=== PATIENT | male | born 1975 | race Caucasian/White ===

== ENCOUNTER 2020-03-02 16:42 | Emergency (ER) | payer OTHER, SELFPAY ==
--- NOTE | 2020-03-02 16:48 | XRR_ITS ---
PROCEDURE INFORMATION: Exam: XR Chest, 1 View Exam date and time: 03/02/2020 5:36 PM Age: 44 years old Clinical indication: Right-sided chest pain; Patient HX: Right side chest pain x 3 months TECHNIQUE: Imaging protocol: XR of the chest Views: 1 view. COMPARISON: CT chest [facility] [id number] 12/07/2015 12:41 PM FINDINGS: Lungs: Hyperinflation and interstitial prominence. Pleural space: No pleural effusion. Heart/Mediastinum: Epicardial fat, without cardiomegaly. Bones/joints: Costochondral calcification. XR/XR chest 1V portable [id number] IMPRESSION: Hyperinflation and interstitial prominence.
[2020-03-02 17:14] VITALS: BP 133/95; PULSE 93; RESP 14; TEMP 37.4; O2SAT 96; BMI 25.8
--- NOTE | 2020-03-02 18:23 | CTR_ITS ---
PROCEDURE INFORMATION: Exam: CT Angiography Chest With Contrast Exam date and time: 03/02/2020 7:19 PM Age: 44 years old Clinical indication: Shortness of breath; Additional info: Pleuritic chest pain, SOB TECHNIQUE: Imaging protocol: Computed tomographic angiography of the chest with intravenous contrast. 3D rendering (Not supervised by radiologist): MIP and/or 3D reconstructed images were created by the technologist. Radiation optimization: All CT scans at this facility use at least one of these dose optimization techniques: automated exposure control; mA and/or kV adjustment per patient size (includes targeted exams where dose is matched to clinical indication); or iterative reconstruction. Contrast material: OMNI; Contrast volume: 83 ml; Contrast route: INTRAVENOUS (IV); COMPARISON: CT chest wo con [id number] 12/07/2015 12:41 PM RADIATION DOSE METRICS: Total DLP (mGy-cm): 628.54 FINDINGS: Pulmonary arteries: No visible pulmonary embolism/pulmonary arterial thrombus. Aorta: The thoracic aorta is nonaneurysmal. No visible intimal flap or dissection. Lungs: Mild peripheral acinar emphysema. No visible active interstitial or alveolar airspace disease. Pleural space: Unremarkable. No pneumothorax. No pleural effusion. Heart: Unremarkable. No cardiomegaly. No pericardial effusion. Lymph nodes: No active mediastinal or hilar lymphadenopathy. Evidence of antecedent granulomatous disease calcified hilar complexes. Bones/joints: No visible active or acute osseous abnormality. Hemivertebra/failure segmentation T1 and T2. Straightening of the normal thoracic kyphosis. Stable thoracic asymmetry. Soft tissues: Unremarkable. CT/CT angio chest PE protcl [id number] IMPRESSION: 1. No visible pulmonary embolism/pulmonary arterial thrombus. 2. Mild peripheral acinar emphysema. 3. Antecedent granulomatous disease. Radiation Dose CTDIVOL = (mGy): DLP = 628.54 (mGy-cm)
[2020-03-02 18:56] LABS: Basophils % 0.5 %; Eosinophils # 0.1 10^3/uL (0.0-0.8); Eosinophils % 1.4 %; Hematocrit 47.9 % (42.0-52.0); Hemoglobin 16.6 g/dL (11.7-16.6); Lymphocytes # 2.8 10^3/uL (0.8-4.8); Mean Corpuscular HGB Conc 34.7 g/dL (30.0-36.0); Mean Corpuscular Hemoglobin 34.1 pg (28.0-34.0); Mean Corpuscular Volume 98.4 fL (80-94); Monocytes # 0.7 10^3/uL (0.2-0.9); Monocytes % 8.3 %; Neutrophils # 4.61 10^3/uL (1.8-7.7); Neutrophils % 55.3 %; Nucleated Red Blood Cells % 0 %; Platelet Count 244 10^3/cmm (130-400); Red Blood Count 4.87 10^6/uL (4.1-5.3); Red Cell Distribution Width 12.3 % (12.1-15.1); White Blood Count 8.3 10^3/uL (4.0-10.0)
--- NOTE | 2020-03-02 19:13 | W.ED.SOB ---
HPI - SOB/Dyspnea General: Chief Complaint: Shortness of Breath/Dyspnea Stated Complaint: PNEUMONIA, GETTING WORSE Time Seen by Provider: 03/02/20 18:17 History of Present Illness: HPI Narrative: This patient is a 44-year-old male presenting today with shortness of breath, cough and right sided chest pain. He said the pain feels like pleurisy which she has had in the past. This episode of pain started in October of this year and has been ongoing. He has been to primary care and to the natural science manager several times for it. He has been treated with prednisone, amoxicillin, Zithromax with no improvement. He was seen by the natural science manager a few days ago and referred for pulmonary function testing and CT of his chest. He has not had a fever but he has had green sputum that he coughs up all day long. He said he is a smoker and normally coughs up some in the morning but not this much. His pain is definitely worse with breathing. Eating does not seem to change unless he eats too much and then feels full. That seems to aggravate the pain somewhat. He has not had any nausea or vomiting. No weight loss. No skin rash. 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 He does not have a family history of early onset emphysema. MD elicited complaint: shortness of breath, cough, pain with inspiration and chest pain Pertinent past history: COPD Onset (ago): month(s) (5) Timing: constant and progressively worsening Severity: severe Exacerbating factors: inspiration and deep breaths Relieving factors: nothing Known history of: COPD Associated symptoms: Reports chest pain; Deny abdominal pain, fever(s), nausea or vomiting Review of Systems General: Reports: 10 or more systems reviewed and unremarkable except in HPI and below Const: Denies: fever(s), chills, fatigue or malaise Eyes: Denies: change in vision ENMT: Denies: odynophagia Card: Reports: chest pain; Denies: swelling of feet/ankles Resp: Reports: dyspnea, productive cough and pain on inspiration; Denies: non-productive cough GI: Denies: abdominal pain, nausea or vomiting : Denies: flank pain Musc: Denies: neck pain or back pain Skin/Breast: Denies: rash Neuro: Denies: headache(s), numbness in extremities or weakness in extremities Dale/Lymph: Denies: easy bruising or easy bleeding [facility] ED PFSH: Medical History (Updated 03/02/20 @ 20:23 by Sue Bojorquez MD) COPD (chronic obstructive pulmonary disease) Social History Smoking and tobacco status: current every day smoker cigarettes Packs smoked per day: 0.5 Years cigarettes smoked: 30 Alcohol intake: current Alcohol intake frequency: 3 or more drinks per day Alcohol type: beer Lives independently: Yes Household members: spouse Marital status: service: No Current occupational status: unemployed History of recent travel: No Current gender identity: Male Physical Exam Const: COMMON NORMALS: no acute distress, patient oriented x3, no limitations and alert GENERAL APPEARANCE: cooperative HENMT: HEAD & SCALP: normal to inspection FACE & SINUS: normal facial exam Eye: GENERAL EYE: appearance normal, both eyes and all related structures Neck/C-Spine: COMMON NORMALS: supple, no meningeal signs and no JVD Chest: COMMONS NORMALS: normal inspection of the chest Resp: COMMON NORMALS: normal respiratory effort, No use of accessory muscles and clear to auscultation bilaterally AUSCULTATION: clear to auscultation bilaterally and diminished lung sounds (Slightly decreased in the right base anteriorly) Cardio: COMMON NORMALS: no JVD, regular rate, regular rhythm and No murmurs present (Cardio) RATE: regular rate RHYTHM: regular rhythm GI: COMMON NORMALS: Normal to inspection, nondistended, normoactive bowel sounds present, Soft to palpation and non-tender INSPECTION: Yes normal to inspection AUSCULTATION: Yes normoactive bowel sounds PALPATION: Yes Soft to palpation Back/Pelvis: COMMON NORMALS: thoracic and lumbar spine normal to inspection Extremity: COMMON NORMALS: normal to inspection Neuro: COMMON NORMALS: patient oriented x3, moves all extremities, no focal motor deficits and no sensory deficits noted SENSORIUM/ORIENTATION: Yes alert MENINGEAL SIGNS: Yes no meningeal signs Psych: COMMON NORMALS: mental status grossly normal, cooperative and normal affect Skin: COMMON NORMALS: no rashes or lesions noted and turgor normal GENERAL SKIN EXAM: no rashes or lesions noted and turgor normal Course ED course: Patient with ongoing pleuritic type pain for for 5 months[address] No clear cause. CT was negative for anything that would explain his symptoms. He is in the process of an outpatient work-up with his new natural science manager. We discussed other possible causes such as nerve, muscle, liver pathology. I gave him a prescription for pain medicine and muscle relaxer for home and he will continue his outpatient work-up. Vital Signs: Vital signs: Vital Signs Temperature 99.4 F 03/02/20 17:14 Pulse Rate 78 03/02/20 20:44 Respiratory Rate 17 03/02/20 20:44 Blood Pressure 133/68 03/02/20 20:44 Pulse Oximetry 98 03/02/20 20:44 MDM - SOB/Dyspnea Lab Data: Labs: Lab Results 03/02/20 03/02/20 Range/Units 18:35 18:35 WBC 8.3 (4.0-10.0) 10^3/ uL RBC 4.87 (4.1-5.3) 10^6/u L Hgb 16.6 (11.7-16.6) g/dL Hct 47.9 (42.0-52.0) % MCV 98.4 H (80-94) fL MCH 34.1 H (28.0-34.0) pg MCHC 34.7 (30.0-36.0) g/dL RDW 12.3 (12.1-15.1) % Plt Count 244 (130-400) 10^3/c mm MPV 10.0 (7.4-10.4) fL Neut % (Auto) 55.3 % Lymph % (Auto) 34.0 % [place] % (Auto) 8.3 % Eos % (Auto) 1.4 % Baso % (Auto) 0.5 % Neut # (Auto) 4.61 (1.8-7.7) 10^3/u L Lymph # (Auto) 2.8 (0.8-4.8) 10^3/u L [place] # (Auto) 0.7 (0.2-0.9) 10^3/u L Eos # (Auto) 0.1 (0.0-0.8) 10^3/u L Baso # (Auto) 0.0 (0.0-0.1) 10^3/u L Nucleated RBC % (a uto) 0 % Nucleated RBCs # 0.0 /100WBC Sodium 137 (136-145) mmol/L Potassium 3.7 (3.5-5.1) mmol/L Chloride 101 (98-107) mmol/L Carbon Dioxide 23 (22-29) mmol/L Anion Gap 16.7 (5-19) BUN 7 (6-20) mg/dL Creatinine 0.8 (0.7-1.2) mg/dL GFR Calculation 104.1 (90-130) mL/min Glucose 100 (65-115) mg/dL Calculated Osmolal ity 280 L (285-295) mOsm/k g Calcium 9.1 (8.5-10.5) mg/dL Total Bilirubin 0.7 (0.15-1.2) mg/dL AST 39 (0-40) U/L ALT 44 H (0-41) U/L Alkaline Phosphata se 59 (40-130) IU/L Total Protein 7.2 (6.6-8.7) g/dL Albumin 4.8 (3.5-5.2) g/dL Globulin 2.4 (1.3-4.6) g/dL Discharge Plan Discharge Patient Disposition: Home Clinical Impression: Pleurisy COPD (chronic obstructive pulmonary disease) Qualifiers: COPD type: unspecified COPD Qualified Code(s): J44.9 - Chronic obstructive pulmonary disease, unspecified Condition: Stable Prescriptions: New oxycodone-acetaminophen 10-325 mg tablet 1 tab PO Q6H PRN (Reason: pain) Qty: 30 RF: 0 cyclobenzaprine 10 mg tablet 10 mg PO TID PRN (Reason: muscle spasm) Qty: 30 RF: 0 No Action albuterol sulfate [Ventolin HFA] 90 mcg/actuation HFA aerosol inhaler 2 puff INHALATION Q6H PRN (Reason: Shortness Of Breath) RF: 0 metoprolol tartrate 25 mg tablet 12.5 mg PO BID RF: 0 amlodipine 10 mg tablet 10 mg PO DAILY RF: 0 fluticasone propion-salmeterol [Advair Diskus] 250-50 mcg/dose blister with device 1 inh INHALATION BID RF: 0 naproxen 500 mg tablet 500 mg PO BID RF: 0 Discharge Orders: Discharge Order (Routine); Ordered 03/02/20 Ordered By: Sue Bojorquez Referrals: Ed Schaeffer, [employer] MANAGER [Primary Care Provider] - Discharge Diet: Usual diet Discharge Activity: Resume usual activity Patient Instructions: Pleurisy (ED) Activity Restrictions/Additional Instructions: Return to the emergency department if worsening shortness of breath, pain, fever. Continue your usual medications. Use the pain medication and muscle relaxer as needed. You may also continue naproxen with these medicines. Continue follow-up with your natural science manager as planned. Discharge Date/Time: 03/02/20 20:46 Coding Level of Care Code ED Crew Dispatcher for Chg Fwd Exam Comprehensive
[2020-03-02 19:14] LABS: Alanine Aminotransferase 44 U/L (0-41); Albumin Level 4.8 g/dL (3.5-5.2); Alkaline Phosphatase 59 IU/L (40-130); Anion Gap 16.7 (5-19); Aspartate Amino Transferase 39 U/L (0-40); Blood Urea Nitrogen 7 mg/dL (6-20); Calcium 9.1 mg/dL (8.5-10.5); Carbon Dioxide 23 mmol/L (22-29); Chloride 101 mmol/L (98-107); Globulin 2.4 g/dL (1.3-4.6); Glomerular Filtration Rate 104.1 mL/min (90-130); Glucose 100 mg/dL (65-115); Osmolality Calculated 280 mOsm/kg (285-295); Potassium 3.7 mmol/L (3.5-5.1); Sodium 137 mmol/L (136-145); Total Bilirubin 0.7 mg/dL (0.15-1.2); Total Protein 7.2 g/dL (6.6-8.7)
[2020-03-02 19:17] VITALS: RESP 17; O2SAT 96
[2020-03-02] MEDS: oxyCODONE-APAP 5-325 mg Tablet 1 TAB PO (19:17)
[2020-03-02] MEDS: iohexol 350 mg/mL 100 mL Btl IV (19:41)
[2020-03-02 20:44] VITALS: BP 133/68; PULSE 78; RESP 17; O2SAT 98
== END 2020-03-02 20:46 | disposition home or self-care (01) ==
PROVIDERS: Physician Assistant; Emergency Provider Emergency Medicine; PCP Nurse Practitioner
DX: J44.9 Chronic obstructive pulmonary disease, unspecified (principal); R09.1 Pleurisy; F17.210 Nicotine dependence, cigarettes, uncomplicated
CPT/HCPCS: 12345; 36415; 71045; 71275; 80053; 85025; 99281; 99283; Q9967

== ENCOUNTER 2020-03-07 | Outpatient (CLI) | payer OTHER, SELFPAY ==
[2020-03-07 14:15] VITALS: O2SAT 98
== END 2020-03-07 23:00 | disposition home or self-care (01) ==
LOC: RT 03-29 12:27
PROVIDERS: PCP Nurse Practitioner; Visit Provider Internal Medicine Pulmonary Disease
DX: J44.9 Chronic obstructive pulmonary disease, unspecified (principal)
CPT/HCPCS: J7611

== ENCOUNTER 2020-03-07 13:33 | Outpatient (CLI) | payer OTHER, SELFPAY ==
--- NOTE | 2020-03-07 13:44 | CT_ITS ---
WS: [id number] CT CHEST TECHNIQUE: Noncontrast CT of the chest with coronal and sagittal reformatted images. CLINICAL INFORMATION: Lung nodule COMPARISON: CT chest March 02, 2020, November 29, 2015, July 28, 2015. DLP: 712.[address] scans at [facility] use at least one of these dose optimization techniques: automat ed exposure control; mA and/or kV adjustment per patient size (includes targeted exams where dose is matched to clinical indication); or iterative reconstruction. FINDINGS: Both lungs are well aerated. No acute pulmonary infiltrates. Mild chronic emphysematous changes with bulla formation in the upper lobes. 3.3 pulmonary nodule in the right middle lobe measures slightly m ore prominent today. Recommend 12 month follow-up. Otherwise no new pulmonary nodules. No acute pulmo nary infiltrates. No consolidation or pleural fluid. No mediastinal or hilar lymphadenopathy. No axillary lymphadenopathy. Adrenal glands are normal. Norm al GE junction. Mild thoracic curve. CT/CT chest wo con [id number] IMPRESSION: 1. Mild chronic emphysematous changes with a few bullae in the upper lobes. 2. 3.3 mm pulmonary nodule right middle lobe measures slightly more prominent today. Recommend additional 12 month follow-up. 3. No new pulmonary nodules. 4. No acute pulmonary infiltrates. No consolidation or pleural fluid.
--- NOTE | 2020-03-07 14:24 | PFTS_ITS ---
Date of Study:03/07/20 Date of Dictation: MECHANICS: Forced vital capacity (FVC) is reduced. Forced expiratory volume in one second (FEV1) is reduced. FEV1/FVC is normal. FLOW VOLUME LOOP: Mild scooping. LUNG VOLUMES: Total lung capacity (TLC) is reduced. Residual volume (RV) is reduced. DIFFUSING CAPACITY FOR CARBON MONOXIDE: Moderate reduced. INTERPRETATION: The postbronchodilator spirometry is consistent with mild restriction. There is significant postbronchodilator response.. Lung volumes are consistent with restriction. Gas exchange (DLCO) is moderately reduced. MTDD
== END 2020-03-07 13:34 | disposition home or self-care (01) ==
LOC: RAD 13:35
PROVIDERS: PCP Nurse Practitioner; Visit Provider Internal Medicine Pulmonary Disease
DX: R91.1 Solitary pulmonary nodule (principal); J43.9 Emphysema, unspecified
CPT/HCPCS: 71250; 94060; 94726; 94729; J7611

== ENCOUNTER 2020-04-03 06:48 | Outpatient (CLI) | payer OTHER, SELFPAY ==
--- NOTE | 2020-04-03 | US_ITS ---
WS: [id number] ULTRASOUND ABDOMEN CLINICAL INFORMATION: ABDOMINAL DISTENSION IN ALCOHOLIC COMPARISON: None. FINDINGS: Liver Size: Mild hepatomegaly Craniocaudal length: 16.1 cm. Echogenicity: Normal. Surface nodularity: None. Mass (size and location): None. Bile ducts Intrahepatic ducts: Normal. Common bile duct diameter: 0.3 cm. Gallbladder Removed Pancreas Normal as visualized. Spleen Splenomegaly: None. Craniocaudal length: 10.7 cm. Right kidney: Normal. Hydronephrosis: None. Size: 11.6 cm x 5.2 cm x 4.8 cm Left kidney: Normal. Hydronephrosis: None. Size: 10.7 cm x 5.3 cm x 5.8 cm. Abdominal aorta and IVC Visualized portions are normal. Ascites: None. US/US abdomen complete* [id number] IMPRESSION: 1. Mild hepatomegaly. 2. Prior cholecystectomy. 3. No hydronephrosis in either kidney. 4. Normal spleen.
--- NOTE | 2020-04-03 08:00 | USCV_ITS ---
NOTE: Report was unsigned for reason: Order was edited. Original Signature date and time was: 04/03/20 @2020 August Schneider Age: 44 Gender: M : 1975 Exam Date: 04/03/2020 07:41 Ordering Phys: Percy Asher MD Technologist: Jennifer Anderson Exam Location: [facility] [place] Indication: SOB WITH LEG SWELLING BP: 130 / 80 HR: 74 Rhythm: Sinus Technical Quality: Adequate MEASUREMENTS (Male / Female) Normal Values 2D ECHO LV Diastolic Diameter PLAX 4.7 cm 4.2 - 5.9 / 3.9 - 5.3 cm LV Systolic Diameter PLAX 2.2 cm LV Chamber Size 3.7 cm IVS Diastolic Thickness 0.9 cm 0.6 - 1.0 / 0.6 - 0.9 cm IVS Systolic Thickness 1.4 cm LVPW Diastolic Thickness 1.2 cm 0.6 - 1.0 / 0.6 - 0.9 cm LVPW Systolic Thickness 1.8 cm RV Chamber Size 3.1 cm LVOT Diameter 2.0 cm LV Ejection Fraction 2D Teich 84.6 % LV Ejection Fraction MOD 2C 68.1 % LV Ejection Fraction 2C AL 70.6 % LA Diameter 3.1 cm LA Width 2.7 cm LA Height 3.8 cm RA Width 3.8 cm RA Height 5.0 cm Aorta at Sinotubular Diameter 3.3 cm M-MODE LV Diastolic Diameter MM 4.7 cm 4.2 - 5.9 / 3.9 - 5.3 cm LV Systolic Diameter MM 2.3 cm LV Ejection Fraction MM Teich 82.7 % IVS Diastolic Thickness MM 0.7 cm 0.6 - 1.0 / 0.6 - 0.9 cm IVS Systolic Thickness MM 1.6 cm LVPW Diastolic Thickness MM 0.7 cm 0.6 - 1.0 / 0.6 - 0.9 cm LVPW Systolic Thickness MM 1.6 cm RV Diastolic Diameter MM 1.6 cm Aortic Annulus Diameter 3.8 cm LA Ao Ratio MM 0.8 MV E Point Septal Separation 0.3 cm DOPPLER AV Peak Velocity 126.0 cm/s LVOT Peak Velocity 85.0 cm/s AV Area Cont Eq vti 2.5 cm squared AV Area Cont Eq pk 2.2 cm squared MV Area PHT 4.8 cm squared Mitral E to A Ratio 1.2 MV E' Velocity 8.0 cm/s Mitral E to MV E' Ratio 7.7 Mitral E to LV E' Lateral Ratio 8.8 Mitral E to LV E' Septal Ratio 7.0 TR Peak Velocity 187.6 cm/s TR Peak Gradient 14.1 mmHg TR Mean Velocity 145.6 cm/s TR Mean Gradient 9.1 mmHg TR Velocity Time Integral 47.3 cm TV Peak E Velocity 55.0 cm/s Right Atrial Pressure 3.0 mmHg Pulmonary Artery Systolic Pressu 17.1 mmHg PV Peak Velocity 53.0 cm/s RV Acceleration Time 0.1 s RV Ejection Time 0.3 s RV AcT/ET 0.4 FINDINGS Left Ventricle Normal left ventricular cavity size. Normal left ventricular systolic function. No regional wall motion abnormalities. Left ventricular ejection fraction is estimated at 60 %. Grade II/IV diastolic dysfunction, moderately elevated filling pressures. Right Ventricle The right ventricle is normal in size and function. Right Atrium The right atrium is normal in size. Left Atrium The left atrium is normal in size. Mitral Valve Structurally normal mitral valve without significant stenosis or prolapse. There is no mitral regurgitation. Aortic Valve Moderate aortic valve calcification. No aortic valve stenosis. No aortic valve regurgitation. Tricuspid Valve Structurally normal tricuspid valve without significant stenosis or regurgitation. Pulmonary artery systolic pressure is normal. Pulmonic Valve Structurally normal pulmonic valve without significant stenosis. There is no pulmonic regurgitation. Pericardium Normal pericardium without effusion. Aorta Normal ascending aorta dimension. CONCLUSIONS 1-Normal left ventricular cavity size. Normal left ventricular systolic function. No regional wall motion abnormalities. Left ventricular ejection fraction is estimated at 60 %. Grade II/IV diastolic dysfunction, moderately elevated filling pressures. 2-There is no pericardial effusion. 3-No significant valve abnormalities. 4-Pulmonary artery systolic pressure is within normal limits. 5-Right atrial pressure is around 5 mm of mercury. 6-There are no prior echocardiogram studies to compare. Hollis Obando MD Edited by: CV Sheet Rock Hanger (Electronically Signed) Final Date: 03 April 2020 20:21 Amended: 04 April 2020 07:47 C GERALDD
[2020-04-03 08:06] LABS: C Reactive Protein 1.8 mg/L (0.0-4.9)
[2020-04-03 08:24] LABS: Erythrocyte Sedimentation Rate 6 mm/hr (0-10)
[2020-04-04 13:52] LABS: Anti-Nuclear Antibody Screen NEGATIVE (NEGATIVE)
[2020-04-04 14:22] LABS: Cyclic Citrullinated Peptide <16 UNITS
[2020-04-04 15:17] LABS: SCL 70 <1.0 NEG AI (<1.0 NEG); SS A Ro Sjogrens Antibody <1.0 NEG AI (<1.0 NEG); SS-B/LA IGG <1.0 NEG AI (<1.0 NEG)
== END 2020-04-03 06:49 | disposition home or self-care (01) ==
PROVIDERS: PCP Nurse Practitioner; Visit Provider Internal Medicine Pulmonary Disease
DX: M79.89 Other specified soft tissue disorders (principal); R06.02 Shortness of breath; F17.200 Nicotine dependence, unspecified, uncomplicated; J44.9 Chronic obstructive pulmonary disease, unspecified; R91.1 Solitary pulmonary nodule; J98.4 Other disorders of lung; G70.9 Myoneural disorder, unspecified; R14.0 Abdominal distension (gaseous); R16.0 Hepatomegaly, not elsewhere classified
CPT/HCPCS: 36415; 76700; 85651; 86038; 86140; 86235; 86431; 93306

== ENCOUNTER 2020-09-09 13:49 | Emergency (ER) | payer OTHER, SELFPAY ==
[2020-09-09 14:08] VITALS: BP 137/59; PULSE 94; RESP 14; TEMP 36.8; O2SAT 97; BMI 25.8
--- NOTE | 2020-09-09 14:10 | ED_ITS ---
HPI - Back Pain/Injury General: Chief Complaint: Back Pain/Injury Stated Complaint: lower back pain Time Seen by Provider: 09/09/20 14:09 Source: patient Mode of arrival: ambulatory Limitations: no limitations History of Present Illness: HPI Narrative: Patient is a nice 44-year-old gentleman who presents to ED today for evaluation of lower back pain. Patient tells me 1 week ago he was getting up from his recliner when he immediately felt severe lower back pain. He states over the course of the week the pain has progressively worsened. He states pain seems to radiate down the posterior aspect of his left leg. He tells me he has had intermittent lower back pains previously but nothing compared to this. Patient is not having any complaints of pelvic paresthesias, urinary retention, or bowel incontinence. Patient is ambulatory without assistance. MD elicited complaint: back pain Onset (ago): day(s) Timing: constant Severity: severe Location: lumbar spine Radiation: left leg below the knee Exacerbating factors: movement, walking and lifting Relieving factors: none Associated symptoms: Deny abdominal pain, chills, dysuria, fever(s), hematuria, nausea or vomiting Work related injury: No Review of Systems Const: Denies: fever(s) or chills Card: Denies: chest pain Resp: Denies: dyspnea GI: Denies: abdominal pain, nausea or vomiting : Denies: dysuria or hematuria Musc: Reports: back pain; Denies: neck pain or extremity pain Neuro: Denies: numbness in extremities, weakness in extremities or sensory changes [facility] ED PFSH: Medical History (Updated 09/09/20 @ 15:06 by SCOTT Giraldo) COPD (chronic obstructive pulmonary disease) HTN (hypertension) Mitral valve prolapse Surgical History (Updated 06/17/20 @ 22:19 by Anca Elaine MD) H/O hernia repair H/O shoulder surgery H/O vasectomy History of cholecystectomy History of surgery on upper extremity History of testicular surgery Family History Other CAD (coronary artery disease) Diabetes Hyperlipidemia Hypertension Denies family history of Stroke Social History Smoking and tobacco status: current every day smoker cigarettes Packs smoked per day: 0.5 Years cigarettes smoked: 30 Second hand smoke exposure: No Alcohol intake: current Alcohol intake frequency: 3 or more drinks per day Alcohol type: beer Lives independently: Yes Household members: spouse Marital status: service: No Current occupational status: unemployed History of recent travel: No Current gender identity: Male Physical Exam Const: COMMON NORMALS: average body habitus, patient oriented x3, no limitations, healthy appearing, alert and well nourished GENERAL APPEARANCE: cooperative and in distress (appears uncomfortable) ORIENTATION/CONSCIOUSNESS: Yes awake, Yes oriented to person, Yes oriented to place and Yes oriented to time Back/Pelvis: THORACIC SPINE/UPPER BACK: Yes normal to inspection and Yes thoracic ROM normal LUMBAR SPINE/LOWER BACK: Yes lumbar spinal tenderness Lumbar spinal tenderness location: L4 and L5 and No paraspinal muscle tenderness SACROILIAC JOINTS: Yes SI joint(s) abnormal SI joint details: tender to palpation (L) Extremity: COMMON NORMALS: normal to inspection GENERAL: Yes normal exam except as noted Neuro: COMMON NORMALS: patient oriented x3, moves all extremities, no focal motor deficits and no sensory deficits noted SENSORIUM/ORIENTATION: Yes alert, Yes oriented to person, Yes oriented to place and Yes oriented to time SENSORY EXAM: Yes extremities (normal sensory to bilateral LEs) MOTOR EXAM: 5/5 motor strength present throughout Course Vital Signs: Vital signs: Vital Signs Temperature 98.2 F 09/09/20 14:08 Pulse Rate 89 09/09/20 15:19 Respiratory Rate 18 09/09/20 15:19 Blood Pressure 136/89 09/09/20 15:19 Pulse Oximetry 96 09/09/20 15:19 MDM - Back Pain/Injury MDM Narrative: Medical decision making narrative: Patient does not want LSO brace today. States he has a velcro back brace at home he will use if needed. Patient states he doesn't want to follow up with his PCP in [place] stating they never do anything there . I will place info with for patient to see Dr. Qureshi for further evaluation and management of his L5 compression fx. Return to ED precautions given. Imaging Data^: XR lumbar: My impression: L5 compression fx Discharge Plan Discharge Patient Disposition: Home Clinical Impression: Closed compression fracture of L5 vertebra Qualifiers: Encounter type: initial encounter Qualified Code(s): S32.050A - Wedge compression fracture of fifth lumbar vertebra, initial encounter for closed fracture Condition: Stable Prescriptions: New cyclobenzaprine 10 mg tablet 10 mg PO TID Qty: 14 RF: 0 prednisone 10 mg tablet 60 mg PO DAILY 5 Days Qty: 30 RF: 0 ibuprofen 800 mg tablet 800 mg PO Q8H PRN (Reason: pain) Qty: 20 RF: 0 hydrocodone-acetaminophen 5-325 mg tablet 1 tab PO Q4H PRN (Reason: pain) Qty: 20 RF: 0 Discontinued naproxen 500 mg tablet 500 mg PO BID RF: 0 No Action albuterol sulfate [Ventolin HFA] 90 mcg/actuation HFA aerosol inhaler 2 puff INHALATION Q6H PRN (Reason: Shortness Of Breath) RF: 0 amlodipine 10 mg tablet 10 mg PO DAILY RF: 0 nicotine 21 mg/24 hr patch 24 hour 1 patch TRANSDERMA Q24H Qty: 14 RF: 5 budesonide-formoterol [Symbicort] 160-4.5 mcg/actuation HFA aerosol inhaler 2 puff INHALATION BID Qty: 10.2 RF: 3 Spiriva with HandiHaler 18 mcg capsule, w/inhalation device 1 cap INHALATION DAILY Qty: 1 RF: 3 metoprolol tartrate 25 mg tablet 25 mg PO BID RF: 0 oxycodone-acetaminophen 10-325 mg tablet 1 tab PO Q6H PRN (Reason: pain) Qty: 30 RF: 0 cyclobenzaprine 10 mg tablet 10 mg PO TID PRN (Reason: muscle spasm) Qty: 30 RF: 0 Discharge Orders: Discharge ED (Routine); Ordered 09/09/20 Ordered By: Daisy Farrar Referrals: Thomas Qureshi DO [Physician] - Ed Schaeffer FNP [Primary Care Provider] - Patient Instructions: Vertebral Compression Fracture (ED) Coding Level of Care Code ED Fish Skinning Machine Feeder for Chg Fwd Exam Expanded Problem Focused
--- NOTE | 2020-09-09 14:20 | XRR_ITS ---
PROCEDURE INFORMATION: Exam: XR Lumbosacral Spine, 2 or 3 Views Exam date and time: 09/09/2020 2:21 PM Age: 44 years old Clinical indication: Low back pain TECHNIQUE: Imaging protocol: XR of the lumbosacral spine, 2 or 3 views. COMPARISON: No relevant prior studies available. FINDINGS: Bones/joints: Normal. No acute fracture. Normal alignment. Bone spurs are present in the L5 vertebral body. Soft tissues: Unremarkable. XR/XR lumbar spine 2-3V* [id number] IMPRESSION: No acute findings.
[2020-09-09] MEDS: orphenadrine 30 mg/mL Inj 2 mL 60 MG IM (14:31)
[2020-09-09] MEDS: ketorolac 60 mg/2 mL INJ IM (14:31)
[2020-09-09 15:19] VITALS: BP 136/89; PULSE 89; RESP 18; O2SAT 96
--- NOTE | 2020-09-11 10:22 | DCPLANNER ---
inside sales manager had message to schedule a follow up appointment for patient with ortho. inside sales manager called the ortho clinic, spoke with Allyn, gave clinic patients information. inside sales manager was told that patients information would be printed and reviewed. Clinic will call patient with appointment information.
--- NOTE | 2020-09-12 12:12 | DCPLANNER ---
Patient has a follow up appointment scheduled for , September 14, 2020 at 3:[address] Qureshi. Clinic will call patient with appointment information.
--- NOTE | 2020-11-01 12:43 | DCPLANNER ---
Patient had a follow up appointment scheduled for 09.14.[address] Qureshi at [facility] - patient did attend appointment.
== END 2020-09-09 15:15 | disposition home or self-care (01) ==
PROVIDERS: Emergency Provider Physician Assistant; PCP Nurse Practitioner
DX: S32.050A Wedge compression fracture of fifth lumbar vertebra, initial encounter for closed fracture (principal); J44.9 Chronic obstructive pulmonary disease, unspecified; I10 Essential (primary) hypertension; F17.210 Nicotine dependence, cigarettes, uncomplicated; X58.XXXA Exposure to other specified factors, initial encounter
CPT/HCPCS: 12345; 72100; 96372; 99281; 99283; J1885; J2360

== ENCOUNTER 2020-10-04 12:15 | Outpatient (CLI) | payer OTHER, SELFPAY ==
--- NOTE | 2020-10-04 | USCV_ITS ---
August Schneider Age: 45 Gender: M : 1975 Exam Date: 10/04/2020 12:55 Ordering Phys: Anca Elaine MD Technologist: Wesley Martinez Exam Location: [facility] [place] Indication: sob Rhythm: Sinus Patient History: Cardiac Medications: Medications in past 24 hours: Contrast: Stress Results Protocol: Ben Total dose(mL): Exercise Duration (min:sec): 10:35 METS: Resting HR: 96 Resting BP: 140 / 90 Peak HR: 154 Peak BP: 153 / 93 Max Predicted HR: 173 89 % Max Predicted HR Target HR: 147 Double Product: [id number] Stress Summary: The hemodynamic response to stress was normal. The patient's target heart rate was achieved. BP Response: Normal Reason for Termination: The patients target heart rate was achieved Cardiac Symptoms: ECG Analysis Resting ECG: Stress ECG: Arrhythmia: MEASUREMENTS (Male/Female) Normal Values FINDINGS 1. At the baseline, the patient's blood pressure was 140/90 mmHg with a heart rate of 102 beats per minute. The electrocardiogram showed normal sinus rhythm, right axis deviation. Possible left atrial enlargement. Nonspecific ST depression. The chest examination revealed normal breath sounds with no rales or rhonchi. The CVS examination revealed normal heart sounds with no S3 or S4. 2. The Dobutamine was infused over 10 minutes 35 seconds. The maximum heart rate obtained was 154 per minute. The patient attained 89% of the maximum predicted heart rate. The blood pressure at the end of the infusion was 152/68 mmHg. Patient did not have any chest pain or any significant arrhythmias with the Dobutamine infusion. At peak infusion EKG revealed sinus tachycardia with 1 to 1-1/[address] depression in inferolateral leads. The physical examination remained unchanged. No arrhythmias were seen on the monitor. 3. At the baseline, the patient's echocardiogram revealed normal cardiac chamber sizes with normal LV ejection fraction of 55%. Segmental wall motion analysis revealed mild hypokinesis of basal to mid inferoseptal and basal to mid inferior pepe. There were no intracardiac masses. No significant pericardial effusion. 4. With the low Dobutamine infusion, there was augmentation in basal to mid inferoseptal and basal to mid inferior pepe with some worsening of motion and inferoseptal pepe at peak infusion. 5. During the recovery phase, the patient did not have any symptoms or any EKG changes. The blood pressure at the end of the recovery phase was 129/93 mmHg with a heart rate of 98 beats per minute. 6. The echocardiogram during the recovery phase also did not reveal any new changes. CONCLUSIONS 1. Ischemic EKG changes noted with dobutamine infusion with horizontal to downsloping ST depression in inferolateral leads. 2. With the low Dobutamine infusion, there was augmentation in basal to mid inferoseptal pepe with some worsening of motion at peak infusion. This may represent old myocardial infarction in right coronary artery territory with some viability. 3. No Dobutamine-induced chest pain or cardiac arrhythmia. 4. Clinical correlation is recommended. Anca Elaine MD (Electronically Signed) Final Date: 09 October 2020 13:31 TUSHAR
[2020-10-04 12:23] VITALS: BMI 25.1
--- NOTE | 2020-10-04 12:23 | ECG_ITS ---
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 Interpretive Statements NAME OF STUDY: DOBUTAMINE STRESS ECHOCARDIOGRAM INDICATION: Shortness of breath PROCEDURE: At the baseline, the blood pressure was 140/90 mmHg, oxygen saturation 97% with a heart rate of 102 bpm. The electrocardiogram showed normal sinus rhythm, right axis deviation. Possible left atrial enlargement. Nonspecific ST depression. The dobutamine was infused over a period of 10 minutes 35 seconds. The maximum heart rate obtained was 154 beats per minute (89% of the maximum predicted heart rate). The blood pressure at that time was 152/68 mmHg oxygen saturation 96%. The patient did not have any chest pain or any significant arrhythmia with the dobutamine infusion. EKG at peak infusion revealed sinus tachycardia with 1 to 1 and 1/[address] depression in inferolateral leads. The physical examination remained unchanged. No arrhythmias were seen on the monitor. During the recovery phase, the patient did not have any specific symptoms. The blood pressure at the end of the recovery phase was 129/93 mmHg, oxygen saturation 95% with a heart rate of 98 beats per minute. Downsloping ST depression and T wave inversion noted in inferolateral leads in recovery. CONCLUSION: 1. Ischemic EKG changes with dobutamine infusion. 2. Baseline hypertension with normal blood pressure response to dobutamine infusion. 3. Functional capacity could not be assessed given pharmacological protocol. 4. Echocardiographic portion of the study pending; see separate report. Electronically Signed On 10-09-2020 13:17:46 DEVELOPER ARCHITECT by Anca Elaine M.D. [id number]
[2020-10-04] MEDS: sodium chloride 0.9% 250 ML 75 ML IV (12:58)
[2020-10-04] MEDS: DOBUTtamine 200 MG in sodium chloride 0.9% 34 ML 12 MG IV (13:12)
[2020-10-04 13:25] VITALS: BP 129/93; PULSE 96
== END 2020-10-04 12:16 | disposition home or self-care (01) ==
LOC: CDL 12:16
PROVIDERS: PCP Nurse Practitioner; Visit Provider Internal Medicine Cardiovascular Disease
DX: R06.02 Shortness of breath (principal)
CPT/HCPCS: 93017; 93350; J1250; J7050

== ENCOUNTER 2020-10-12 06:00 | Outpatient (RCR) | payer OTHER, SELFPAY | END 2020-11-08 23:59 | disposition home or self-care (01) | LOC: GPT 06:00 | PROVIDERS: PCP Nurse Practitioner; Referring Provider Orthopaedic Surgery; Visit Provider Orthopaedic Surgery | DX: M48.062 Spinal stenosis, lumbar region with neurogenic claudication (principal) | CPT/HCPCS: 97032; 97110; 97162; 97530 ==

== ENCOUNTER 2020-11-07 08:48 | Day surgery (SDC) | payer OTHER, SELFPAY ==
[2020-11-07] VITALS (13 sets, daily range): BP systolic 106–141; BP diastolic 82–98; PULSE 71–83; RESP 15–22; TEMP 36.3; O2SAT 94–96; BMI 26.5
[2020-11-07] MEDS: diphenhydrAMINE 50 mg Capsule PO (09:24)
[2020-11-07 09:31] LABS: Basophils % 0.6 %; Eosinophils # 0.1 10^3/uL (0.0-0.8); Eosinophils % 0.9 %; Hematocrit 51.6 % (42.0-52.0); Hemoglobin 17.2 g/dL (11.7-16.6); Lymphocytes # 2.2 10^3/uL (0.8-4.8); Lymphocytes % 32.8 %; Mean Corpuscular HGB Conc 33.3 g/dL (30.0-36.0); Mean Platelet Volume 9.8 fL (7.4-10.4); Monocytes # 0.6 10^3/uL (0.2-0.9); Neutrophils % 56.3 %; Nucleated Red Blood Cells % 0 %; Platelet Count 241 10^3/cmm (130-400); Red Blood Count 5.06 10^6/uL (4.1-5.3); Red Cell Distribution Width 14.1 % (12.1-15.1); White Blood Count 6.8 10^3/uL (4.0-10.0)
[2020-11-07 09:43] LABS: Anion Gap 13.9 (5-19); Blood Urea Nitrogen 9 mg/dL (6-20); Calcium 8.8 mg/dL (8.5-10.5); Carbon Dioxide 27 mmol/L (22-29); Chloride 105 mmol/L (98-107); Glomerular Filtration Rate 90.4 mL/min (90-130); Glucose 89 mg/dL (65-115); Osmolality Calculated 292 mOsm/kg (285-295); Potassium 3.9 mmol/L (3.5-5.1); Sodium 142 mmol/L (136-145)
[2020-11-07 09:58] LABS: SARS Covid-2 Antigen Negative (Negative)
--- NOTE | 2020-11-07 10:00 | XACV_ITS ---
Ht: 178 cm Wt: 84 kg BSA: 2.05 m2 Gender: Male : 1975 Any Known Allergies: No known allergies Exam Priority: Routine Procedure(s): Procedure Description: Diagnostic procedure Procedure Description: Left Heart Catheterization Procedure Description: Left ventriculography Procedure Description: Coronary Angiography Diagnostic Cath Status: Elective Diagnostic Findings * No significant disease noted in the Left Main, LAD, Circumflex, or RCA coronary arteries. * Coronary angiography shows right dominance. Conclusions 1. No significant disease noted in the Left Main, LAD, Circumflex, or RCA coronary arteries. 2. Normal left ventricular systolic function. Ejection fraction of 55%. Recommendations * Aggressive risk factor modification. * Smoking cessation advised. * Follow-up with cardiology office. Diagnostic RX Recommendation: medical therapy and/or counseling Ventriculography Ejection Fraction: 55.0 % Pressures Phase:Rest AO : 123 / 86 ( 101 ) @ 5:15:00 AM 119 / 82 ( 99 ) @ 5:22:00 AM 119 / 81 ( 99 ) @ 5:23:00 AM LV : 145 / -5 / @ 5:22:00 AM 132 / 4 / @ 5:22:00 AM 133 / 4 / @ 5:22:00 AM Valves Phase:DefaultPhase AV : 15.0 @ 10:31:05 AM AV Mean Gradient: 15.0 @ 10:31:05 AM Clinical Evaluation EBL: 5mL-10mL Procedural Details Procedure Consent Obtained. Pre-Procedure Time Out. Identified patient by full name and date of as verbalized by the patient/guarantor. Does the consent match the physician's order: Yes. Accurate & Complete Informed Consent: Yes. Inpatient/Outpatient History & Physical on Chart: Yes. If H&P is completed, is and addenduem needed: No; If yes, is the addendum complete: N/A. Visualize and Verify Site with Patient/Guarantor: N/A. Relevant Radiology Images available: N/A. Pre-op teaching completed and patient verbalized understanding. The risks, benefits, and alternatives of sedation and/or procedure were discussed by physician. The patient agrees to continue. Procedure started. [facility] Clinical Fraility Score: 2: Well. Electrical Timing Device Calibrator Indications: Other--abnormal stress test. Chest Pain Symptom Assessment: Typical Angina Symptoms. Cardiovascular Instability: No. Correct patient, site and procedure confirmed by cath team. PERRLA. Strong, equal hand stage technician bilaterally. Lungs clear x 5 lobes. IV Site on Arrival: 20 gauge in the left anticubital. IV Fluids: 0.9% NaCl at KVO. 0 mL infused prior to blender laborer. Pre Procedural Pulses: bilateral dorsalis pedis was 3+. Pre Procedural Pulses: bilateral posterior tibial was 3+. Pre Procedural Pulses: bilateral radial was 3+. Oxygen started at 2liters/min via nasal canula. right radial was prepped with chloroprep then draped in the usual sterile fashion. bilateral groins was prepped with chloroprep then draped in the usual sterile fashion. Physician notified. Baseline sample Acquired. HR: 69 BPM. Equipment: 6F - Radial. Cardiac Cath Pack. ACIST Manifold Kit Model BT 2000. Heparinized Saline (2 units/mL), 1000 mL bag. Physician arrived. Physician scrubbed in. Immediate Pre-Procedure Time Out. Correct Patient: Yes; Correct Procedure: Yes; Correct Site: Yes; Correct Patient Position: Yes; Correct Supplies: Yes; Dried Flammable Prep: Yes; Blood Products Available: N/A;. Lidocaine 1% infiltrated to the right radial. Arterial access obtained. A 5 irish TIG catheter in over wire. Multiple views taken of left coronary artery. Catheter redirected to the RCA. Catheter removed over the exchange wire. A 5 irish Angled Pig catheter in over wire. EDP Sample taken: LV 145/-6,16; HR: 79 BPM; SpO2: 92%. LV gram performed in MAO @ 10 mL/second for a total of 30 mL. EDP Sample taken: LV 132/4,20; HR: 80 BPM; SpO2: 95%. Pullback taken: LV 133/4,19; AO 119/82(99); Mean: 15mmHg, Peak to Peak: 15mmHg, SEP: 7sec/min; HR: 80 BPM; SpO2: 95%. Catheter removed over the exchange wire. Physician scrubbed out. A TR Band was successful obtaining hemostatsis at the Right Radial artery insertion site. TR band placed. Hemostasis obtained. Post Procedure: Pulses reassessed and unchanged. PERRLA. Strong, equal hand stage technician bilaterally. No VTE prophylaxis required. Medication's Wasted: Lidocaine 1% = 18 mL. Medication's Wasted: Nitro = 49.8 mg. Medication's Wasted: Heparin = 1000 units. Total IV fluids: 50 mL. Contrast type used: Visipaque 320 mgI/mL, 500 mL bottle. Complications: none. Estimated blood loss: 5mL-10mL. Post-op diagnosis: non obstructive CAD. Procedure completed. Patient transferred by wheelchair to CPRU. Vital chart was stopped. Access Site Site: Right Radial artery Sheath Size: 6 Fr Hemostasis Method: TR Band Hemostasis Success: Successful Procedure Medications Start: 10:05 AM Stop: 10:05 AM Medication: Fentanyl Amount: 50 mcg Route: I.V. Start: 10:05 AM Stop: 10:05 AM Medication: Versed Amount: 1 mg Route: I.V. Start: 10:08 AM Stop: 10:08 AM Medication: Versed Amount: 1 mg Route: I.V. Start: 10:12 AM Stop: 10:12 AM Medication: Versed Amount: 1 mg Route: I.V. Start: 10:12 AM Stop: 10:12 AM Medication: Fentanyl Amount: 50 mcg Route: I.V. Start: 10:14 AM Stop: 10:14 AM Medication: Nitrogylcerin Amount: 200 mcg Route: I.A. Start: 10:17 AM Stop: 10:17 AM Medication: Heparin Amount: 5000 units Route: I.V. Start: 10:19 AM Stop: 10:19 AM Medication: Versed Amount: 1 mg Route: I.V. I, the attending physician, have reviewed and verified all procedure medications. Yes, all medications given per verbal order History/Risk Factors Hypertension: Yes Dyslipidemia: No Peripheral Arterial Disease (PAD): No Myocardial Infarction (IA): No Obesity: No Renal Disease: No Prior Interventions PCI: No CABG: No Valve Surgery: No Report Signatures Finalized by Dudley Verdugo MD on 11/07/2020 01:39 PM
--- NOTE | 2020-11-07 10:06 | P.HP_ITS ---
Providers/Chief Complaint Admitting Physician: Dudley Verdugo MD Primary Care Provider: KUNAL Anderson Chief Complaint: [facility] History of Present Illness 45 yo man with PMHx of HTN, COPD, lung nodule and smoking. He is accompanied by Janki his . Patient was having SOB with exertion with palpitations. He occasionally gets chest tightness with exertion. He also complains of PAYAM and uses CPAP for last few years. Patient underwent stress echocardiogram that was abnormal and showed regional wall motion abnormalities in the inferolateral wall. EKG also was abnormal. Plan for left heart cath with possible percutaneous coronary intervention today Review of Systems Const: Denies: fever(s), chills or body aches Eyes: Denies: change in vision or blurry vision ENMT: Denies: throat pain, hoarseness or mouth pain Card: Reports: swelling of feet/ankles (occasional), lightheadedness and dyspnea on exertion; Denies: chest pain, palpitations, syncope or pre-syncope Resp: Denies: dyspnea, productive cough, non-productive cough or wheezing GI: Denies: abdominal pain, nausea, vomiting, hematemesis, coffee ground emesis or dysphagia : Denies: flank pain, urinary urgency or urinary hesitancy Musc: Reports: back pain and extremity pain; Denies: muscle cramps Skin/Breast: Denies: rash, pruritus, erythema, photosensitivity or skin pain Neuro: Denies: headache(s) or dizziness Psych: Denies: anxiety, depression, mood swings, suicidal ideation or homicidal ideation Endo: Denies: polyuria, polydipsia or excessive sweating Dale/Lymph: Denies: easy bruising or easy bleeding All/Imm: Denies: urticaria, throat swelling, tongue swelling, facial swelling, acute wheezing, itchy eyes, seasonal rhinorrhea or food intolerance Medications/Allergies Home Medications Medication Instructions Recorded Confirmed Last Taken Type albuterol sulfate 90 mcg/actuation 2 puff INHALATION Q6H PRN 02/24/20 11/06/20 03/02/20 History aerosol inhaler amlodipine 10 mg tablet 10 mg PO DAILY 02/24/20 11/07/20 11/06/20 08:00 History cyclobenzaprine 10 mg PO TID PRN #30 tab 03/02/20 11/06/20 Unknown Rx budesonide-formoterol HFA 160 2 puff INHALATION BID #10.2 gm 04/28/20 11/07/20 Unknown Rx mcg-4.5 mcg/actuation aerosol inhaler tiotropium bromide 18 mcg capsule 1 cap INHALATION DAILY #1 inh 04/28/20 11/06/20 Unknown Rx with inhalation device ibuprofen 800 mg PO Q8H PRN #20 tab 09/09/20 11/07/20 11/06/20 08:00 Rx aspirin 325 mg tablet 325 mg PO DAILY #30 tab 10/06/20 11/07/20 11/06/20 08:00 Rx atorvastatin 20 mg tablet 20 mg PO DAILY #30 tab 10/06/20 11/07/20 11/06/20 08:00 Rx metoprolol tartrate 50 mg tablet 50 mg PO BID #60 tab 10/06/20 11/07/20 11/06/20 21:30 Rx nitroglycerin 0.4 mg sublingual 0.4 mg SUBLINGUAL Q5M PRN #25 tab 10/06/20 11/06/20 Unknown Rx tablet clopidogrel 75 mg tablet 75 mg PO DAILY #5 tab 10/13/20 11/07/20 11/07/20 06:00 Rx nicotine (polacrilex) 2 mg buccal 2 mg BUCCAL Q8H PRN #81 ea 10/20/20 11/06/20 Unknown Rx mini lozenge Allergies Allergy/AdvReac Type Severity Reaction Status Date / Time No Known Allergies Allergy Verified 10/20/20 08:36 PFSH Acute PFSH: Medical History COPD (chronic obstructive pulmonary disease) HTN (hypertension) Mitral valve prolapse Surgical History H/O hernia repair H/O shoulder surgery H/O vasectomy History of cholecystectomy History of surgery on upper extremity History of testicular surgery Family History Other CAD (coronary artery disease) Diabetes Hyperlipidemia Hypertension Denies family history of Stroke Social History Smoking and tobacco status: current every day smoker cigarettes Packs smoked per day: 0.5 Years cigarettes smoked: 30 Second hand smoke exposure: No Alcohol intake: current Alcohol intake frequency: 3 or more drinks per day Alcohol type: beer Lives independently: Yes Household members: spouse Marital status: service: No Current occupational status: unemployed History of recent travel: No Current gender identity: Male Vitals/I&O/Wt Last Vital Signs Temp 97.3 F L 11/07/20 09:17 Pulse 75 11/07/20 09:17 Resp 16 11/07/20 09:17 BP 141/98 11/07/20 09:17 Pulse Ox 96 11/07/20 09:17 Weight last 48 hrs Weight 185 lb Physical Exam Narrative: EXAM NARRATIVE: GENERAL: Patient is alert, awake and oriented x3. [] NECK: No jugular vein distension. [] HEENT: No cyanosis. No icterus. No pallor. [] HEART: Regular S1 and S2. No murmur, rub or gallop. [] LUNGS: Clear to auscultate bilaterally. [] ABDOMEN: Soft, nontender and nondistended. Positive bowel sounds. No guarding, rebound or tenderness. [] CENTRAL NERVOUS SYSTEM: Grossly nonfocal. [] EXTREMITIES: Lower extremities with 1+ edema bilaterally. Pulses palpable in the lower extremities, both dorsalis pedis and posterior tibial. [] Data : 11/07/20 09:14 11/07/20 09:14 A&P Assessment and plan (1) HTN (hypertension): Status: Acute Qualifiers: Hypertension type: essential hypertension Qualified Code(s): I10 - Essential (primary) hypertension (2) Chest pain: Status: Acute Patient has shortness of breath and chest pain. Echo stress test was abnormal. Plan for left heart cath with possible percutaneous coronary intervention. Risks and benefits of the procedure have been described. Risks including bleeding, infection, abnormal heart rhythm, heart attack, stroke, and abnormal kidney function have been described to the patient. Patient understands the risks and benefits and wants to proceed with the procedure. Attestations Medical Necessity Statement*: Care not expected to cross 2 midnights. Patient is here for outpatient coronary angiogram with possible percutaneous coronary intervention. 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
--- NOTE | 2020-11-07 10:35 | PC.NURSE ---
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 pt alert and oriented x3. pt does not complain of pain. requests to sit in wheelchair verus the bed. tr band in place on right wrist. radial pulse palpable below tr band. no hematoma or bleeding noted. pt educated on restrictions of right wrist. he stated he understood. pt placed on telemetry and vital to be taken per protocol.
--- NOTE | 2020-11-07 12:30 | PC.NURSE ---
tr band tr band now off and site now wrapped loosely with coban. banaid near skin and pt educated again of restrictions of right wrist. pt stated he understood
== END 2020-11-07 13:22 | disposition home or self-care (01) ==
PROVIDERS: PCP Nurse Practitioner; Visit Provider Internal Medicine
DX: R07.9 Chest pain, unspecified (principal); I10 Essential (primary) hypertension; J44.9 Chronic obstructive pulmonary disease, unspecified; G47.33 Obstructive sleep apnea (adult) (pediatric); Z79.82 Long term (current) use of aspirin; F17.210 Nicotine dependence, cigarettes, uncomplicated
CPT/HCPCS: 36415; 80048; 85025; 85610; 87426; 93452; C1769; C1887; C1894; J1644; J2250; J3010; J3490; J7030; Q0163; Q9967

== ENCOUNTER 2020-11-15 15:32 | Outpatient (CLI) | payer OTHER, SELFPAY ==
--- NOTE | 2020-11-15 16:00 | MR_ITS ---
WS: [id number] MRI LUMBAR SPINE NONCONTRAST TECHNIQUE: Sagittal T1, T2 and STIR imaging. Axial T1 and T2 imaging. CLINICAL INFORMATION: M48.062 - Spinal stenosis, lumbar region with neurogenic claudication COMPARISON: None. FINDINGS: Mild lumbar curve. No acute compression. Disc bulging worse L4-L5 and L5-S1. No high-grade central ca nal stenosis. L1-L2: Normal. L2-L3: No significant disc bulging. Moderate facet arthropathy. Spinal canal and foramen are patent. L3-L4: No significant disc bulging. Moderate facet arthropathy. Spinal canal and foramen are patent. L4-L5: Mild annular bulging with slight impingement traversing left L5 nerve root and subarticular re cess. Moderate facet arthropathy. Encroachment on the far exiting left L4 nerve root with mild to mod erate left foraminal narrowing.Correlation for left L4 nerve root symptoms. L5-S1: Left eccentric disc osteophytic ridging with slight encroachment on the far exiting left L5 ne rve root. Mild facet arthropathy. Spinal canal and foramen are patent. Cervical and thoracic canal are patent on spanish translator imaging. 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 MR/MR lumbar spine wo con* [id number] IMPRESSION: 1. Mild lumbar curve. No acute compression. No high-grade central canal stenos is. 2. Left eccentric disc osteophyte ridging L4-5 with contact of the far exiting left L4 nerve root. Recommend correlation left L4 nerve root symptoms. Slight impingement on the left subarticular recess and traversing L5 nerve root at thi s level. 3. Left eccentric disc osteophytic ridging L5-S1 contacts the far exiting left L5 nerve root. 4. Mild to moderate facet arthropathy L3-L4 and L4-L5.
== END 2020-11-15 15:33 | disposition home or self-care (01) ==
LOC: RADSHAW 15:34
PROVIDERS: PCP Nurse Practitioner; Visit Provider Orthopaedic Surgery
DX: M48.062 Spinal stenosis, lumbar region with neurogenic claudication (principal); R32 Unspecified urinary incontinence; M47.816 Spondylosis without myelopathy or radiculopathy, lumbar region; M25.78 Osteophyte, vertebrae
CPT/HCPCS: 72148; 80048

== ENCOUNTER → 2020-11-17 08:27 | Outpatient (BNVA) | payer OTHER, SELFPAY | PROVIDERS: PCP Nurse Practitioner; Visit Provider Orthopaedic Surgery | DX: M54.5 Low back pain (principal); Z20.822 Contact with and (suspected) exposure to COVID-19 | CPT/HCPCS: 72120; 87635 ==

== ENCOUNTER → 2020-11-20 10:10 | Day surgery (SDC) | payer OTHER, SELFPAY ==
[2020-11-17 13:48] VITALS: BMI 25.8
== END ==
PROVIDERS: PCP Nurse Practitioner; Visit Provider Orthopaedic Surgery
DX: M48.062 Spinal stenosis, lumbar region with neurogenic claudication (principal)
CPT/HCPCS: J1100; J2370; J2405; J2704; J3010; J3490

== ENCOUNTER → 2020-11-30 09:18 | Outpatient (BNVA) | payer OTHER, SELFPAY | PROVIDERS: PCP Nurse Practitioner; Visit Provider Orthopaedic Surgery | DX: Z01.818 Encounter for other preprocedural examination (principal); Z20.822 Contact with and (suspected) exposure to COVID-19 | CPT/HCPCS: 87635 ==

== ENCOUNTER 2020-12-04 09:45 | Day surgery (SDC) | payer OTHER, SELFPAY ==
[2020-12-01 14:33] VITALS: BMI 25.1
[2020-12-04] VITALS (7 sets, daily range): BP systolic 111–123; BP diastolic 83–91; PULSE 65–96; RESP 16–24; TEMP 36.2–36.8; O2SAT 94–98
--- NOTE | 2020-12-04 | XR_ITS ---
WS: [id number] Exam: XR lumbar spine 2-3V* [id number] Date/Time of Exam: 12/04/2020 12:00 AM Reason For Exam: Lumbar spine decompression Intraoperative AP Limited C-arm images of the lower lumbar spine are submitted for evaluation. A surgical port has been positioned at the level of the L4-5 and L5-S1 disc spaces. No other signific ant finding on this limited series of images.
--- NOTE | 2020-12-04 | SCC_ITS ---
Procedure Done: Left L4/5 laminectomy with partial facetectomies Left L5/S1 laminectomy with partial facetectomies 19.3 seconds of fluoroscopic guidance, for a cumulative dose of 6.05 mGy, was provided to Dr. Qureshi by the radiology department. C-arm images of the lumbar spine were saved for the patient's permanent record. [facility]
[2020-12-04] MEDS: sodium chloride 0.9% 1,000 ML 30 ML IV (10:22)
--- NOTE | 2020-12-04 10:28 | ANES.PREANE2 ---
Pre-Anesthetic Assessment Pre-Anesthetic Assessment: Height/Weight: Height 1.78 m Weight 79.379 kg Temp Pulse Resp BP Pulse Ox 98.2 F 96 18 111/83 96 12/04/20 10:02 12/04/20 10:02 12/04/20 10:02 12/04/20 10:02 12/04/20 10:02 Preop Diagnosis: lumbar stenosis Proposed Procedure: Operation Date: 12/04/20 11:30 Proposed Procedures p Lumbar Spine Decompression [id number] M48.062(Not Applicable) - Thomas Qureshi DO Last intake: Intake Last Liquid Date 12/03/20 Last Liquid Time 23:00 Last Solid Date 12/03/20 Last Solid Time 20:00 Airway: Submandibular: WNL Cervical ROM: WNL Dentition: False Pulmonary: Pulmonary: COPD Comments: CV/HEM: CV/HEM: CAD and HTN Comments: Mitral prolapse Anesthetic Plan: ASA status: 3 Anesthesia: Anesthesia Evaluation and General Meds/Allergies Current Medications: Current Medications Generic Name Dose Route Start Last Admin Trade Name Freq PRN Reason Stop Dose Admin Sodium Chloride 1,000 mls @ 30 ml s/hr 12/04/20 10:00 12/04/20 10:22 Sodium Chloride 0.9% IV 12/05/20 09:59 30 mls/hr .Q24H MARIANNE Administration PFSH Anesthesia PFSH: Medical History (Updated 11/18/20 @ 13:21 by KUNAL Handley) COPD (chronic obstructive pulmonary disease) Coronary artery disease HTN (hypertension) Mitral valve prolapse Surgical History H/O hernia repair H/O shoulder surgery H/O vasectomy History of cholecystectomy History of surgery on upper extremity History of testicular surgery Family History Other CAD (coronary artery disease) Diabetes Hyperlipidemia Hypertension Denies family history of Stroke Social History Smoking and tobacco status: current every day smoker cigarettes Packs smoked per day: 0.5 Years cigarettes smoked: 30 Second hand smoke exposure: No Alcohol intake: current Alcohol intake frequency: 3 or more drinks per day Alcohol type: beer Lives independently: Yes Household members: spouse Marital status: service: No Current occupational status: unemployed History of recent travel: No Current gender identity: Male Data Anesthesia Cardiac Studies: No Data to Display
--- NOTE | 2020-12-04 11:51 | W.PM.OPSUD ---
Surgery/Procedure H&P Update DATE OF PROCEDURE: December 04, 2020 DATE H&P PERFORMED: 11/17/20 H&P UPDATE INFORMATION: I have reviewed H&P completed within last 30 days, I have examined patient prior to procedure and No changes to prior documentation PREOP DIAGNOSIS: lumbar stenosis PLANNED PROCEDURE: Operation Date: 12/04/20 11:30 Proposed Procedures p Lumbar Spine Decompression [id number] M48.062(Not Applicable) - Thomas Qureshi DO
--- NOTE | 2020-12-04 14:35 | PM.OP ---
Operative Report Date of procedure: December 04, 2020 Pre-op Diagnosis: lumbar stenosis Post-op diagnosis: same Procedure Done: Left L4/5 laminectomy with partial facetectomies Left L5/S1 laminectomy with partial facetectomies Surgeon: Thomas Qureshi Anesthesia: General Estimated blood loss (mL): 5 Condition: stable Disposition: PACU Procedure: 1. Left L4/5 laminectomy with partial facetectomies 2. Left L5/S1 laminectomy with partial facetectomies Patient is brought to the operative suite. After undergoing anesthesia they are placed in the supine position. All areas of impingement are well padded. Patient is then prepped and draped in the normal sterile fashion. A skin incision is made over the L4/5 level. This is confirmed under c-arm guidance. A series of dilators are passed and the tubular retractor is docked on the L4 lamina. A bovie is used to clear the soft tissue off the lamina and the L L4/5 facet joint. A high speed dereje is then used to perform the laminectomy and take down the medial aspect of the L 4/5 facet joint. A kerrison rongeure was then used to take down the remaining lamina and smooth the edge of the laminectomy up to the point where the ligamentum flavum attaches. Attention was then brought to the medial aspect of the facet joint. The remaining medial aspect of the superior and inferior aspect of the facet joint were taken down with the kerrison from the pedicle of L4 to L 5. The facet joint had significant hypertrophy. Attention was then brought to the Ligamentum Flavum. The ligament was taken down from the lamina of L4 to L5 and out medially to the remaining facet joint. The ligament was thickened. The dura was then exposed. The dura was in good repair. The L4 nerve was then traced with a curette out the L4/5 foramen and found to be adequately decompressed. The L5 nerve was traced with a curette around the L5 pedicle. The lateral recess was opened with a kerrison helping to further decompress the L5 nerve. Next attention was brought to the L5/K7xxefi. A series of dilators are passed and the tubular retractor is docked on the L4 lamina. A bovie is used to clear the soft tissue off the lamina and the L5/S1 facet joint. A high speed dereje is then used to perform the laminectomy and take down the medial aspect of the L 5/S1 facet joint. A kerrison rongeure was then used to take down the remaining lamina and smooth the edge of the laminectomy up to the point where the ligamentum flavum attaches. Attention was then brought to the medial aspect of the facet joint. The remaining medial aspect of the superior and inferior aspect of the facet joint were taken down with the kerrison from the pedicle of L5 to S1. The facet joint had significant hypertrophy. Attention was then brought to the Ligamentum Flavum. The ligament was taken down from the lamina of L4 to L5 and out medially to the remaining facet joint. The ligament was thickened. The dura was then exposed. The dura was in good repair. The L5 nerve was then traced with a curette out the L5/S1 foramen and found to be adequately decompressed. The S1 nerve was traced with a curette around the S1 pedicle. The lateral recess was opened with a kerrison helping to further decompress the S1 nerve. Wound is then irrigated copiously with saline and surgiflo is used to stop any bleeding. The tubular retractor is removed and the wound is closed with vicryl and monocryl suture. Glue is then used to protect the wound. A sterile dressing is then placed. Patient was then placed in the supine position and transferred to the PACU in stable condition.
[2020-12-04] MEDS: HYDROcodone-acetaminophen 5-325 mg Tablet 1 TAB PO (14:55)
== END 2020-12-04 15:37 | disposition home or self-care (01) ==
PROVIDERS: PCP Nurse Practitioner; Visit Provider Orthopaedic Surgery
PROC: (CPT 63005; principal; 2020-12-04 11:10)
DX: M48.061 Spinal stenosis, lumbar region without neurogenic claudication (principal); J44.9 Chronic obstructive pulmonary disease, unspecified; I25.10 Atherosclerotic heart disease of native coronary artery without angina pectoris; I10 Essential (primary) hypertension; Z82.49 Family history of ischemic heart disease and other diseases of the circulatory system
CPT/HCPCS: 63047; 63048; 72100; 76000; J0690; J7030

== ENCOUNTER 2021-01-17 13:06 | Outpatient (CLI) | payer OTHER, SELFPAY ==
--- NOTE | 2021-01-17 13:14 | MR_ITS ---
WS: [id number] MRI LUMBAR SPINE NONCONTRAST HISTORY: M48.061 - Spinal stenosis, lumbar region without neurogenic claudication COMPARISON: 11/15/2020 TECHNIQUE: Sagittal and axial multisequence imaging is submitted. Straightening of the normal cervical lordosis and thoracic kyphosis. Disc bulging with no severe cent ral or foraminal stenosis. Straightening of the normal lumbar lordosis with mild RIGHT curvature. Mild disc desiccation at L4-5 with mild desiccation and narrowing at L5-S1. Conus terminates normally at L1. Postsurgical edema in the interspinous soft tissues at L4-5 and L5-S1. No discrete fluid collection. L1-L2: Normal. L2-L3: Normal. L3-L4: Mild annular disc bulging. No stenosis. L4-L5: Mild annular disc bulge. LEFT hemilaminectomy defect has been performed since the prior study. Small amount of fluid in the facet joints. Increased soft tissue in the LEFT L4-5 foramen and subart icular recess effacement of fat and mild inflammatory changes. Very similar to the prior examination. There may be disc protrusion or osteophyte present. Moderate LEFT foraminal stenosis with impingemen t upon the L4 and L5 nerve roots most likely. L5-S1: Mild annular disc bulging. No significant stenosis. LEFT L5 laminectomy now present. Osteophyt ic ridging with mild encroachment upon the LEFT L5 nerve root similar to the prior study. MR/MR lumbar spine wo con* [id number] IMPRESSION: 1. Interval LEFT hemilaminectomy defects at L4 and L5 since 11/15/2020. 2. Postoperative edema and soft tissue changes at L4-5 and L5-S1 since the nimisha or study. No large fluid collections. No contrast was given for this examinatio n therefore cannot exclude abscess or discitis. 3. Continued moderate LEFT foraminal stenosis at L4-5 with encroachment upon t he L4 and L5 nerve roots. Probably combination of disc and osteophyte disease. 4. Mild encroachment upon the LEFT L5 nerve root by osteophytic ridging at the L5-S1 level.
== END 2021-01-17 13:07 | disposition home or self-care (01) ==
PROVIDERS: PCP Nurse Practitioner; Visit Provider Orthopaedic Surgery
DX: M48.061 Spinal stenosis, lumbar region without neurogenic claudication (principal); M96.1 Postlaminectomy syndrome, not elsewhere classified; R60.0 Localized edema
CPT/HCPCS: 72148

== ENCOUNTER → 2021-01-23 08:43 | Outpatient (BNVA) | payer OTHER, SELFPAY | PROVIDERS: PCP Nurse Practitioner; Visit Provider Orthopaedic Surgery | DX: Z01.818 Encounter for other preprocedural examination (principal); Z20.822 Contact with and (suspected) exposure to COVID-19 | CPT/HCPCS: 87635 ==

== ENCOUNTER 2021-01-25 20:55 | Observation (INO) | payer OTHER, SELFPAY ==
[2021-01-25 21:17] VITALS: BP 126/89; PULSE 94; RESP 16; TEMP 36.8; O2SAT 93; BMI 26.5
[2021-01-25 22:23] VITALS: BP 116/85; PULSE 83; RESP 22; O2SAT 94
[2021-01-25 23:13] LABS: Basophils # 0.1 10^3/uL (0.0-0.1); Basophils % 0.7 %; Eosinophils # 0.1 10^3/uL (0.0-0.8); Eosinophils % 1.3 %; Hematocrit 46.7 % (42.0-52.0); Hemoglobin 16.4 g/dL (11.7-16.6); Lymphocytes % 42.9 %; Mean Corpuscular HGB Conc 35.1 g/dL (30.0-36.0); Mean Corpuscular Hemoglobin 34.3 pg (28.0-34.0); Mean Corpuscular Volume 97.7 fL (80-94); Mean Platelet Volume 9.9 fL (7.4-10.4); Monocytes # 0.6 10^3/uL (0.2-0.9); Neutrophils # 3.17 10^3/uL (1.8-7.7); Neutrophils % 45.5 %; Nucleated Red Blood Cells % 0 %; Platelet Count 249 10^3/cmm (130-400); Red Blood Count 4.78 10^6/uL (4.1-5.3); Red Cell Distribution Width 13.1 % (12.1-15.1)
[2021-01-25 23:31] VITALS: RESP 18; O2SAT 92
[2021-01-25] MEDS: ondansetron 2 mg/ML SDV 2 mL 4 MG IVP (23:31)
[2021-01-25] MEDS: morphine 4 mg/mL SDV 1 mL IVP (23:31)
[2021-01-25 23:38] LABS: Alanine Aminotransferase 38 U/L (0-41); Albumin Level 4.2 g/dL (3.5-5.2); Alkaline Phosphatase 66 IU/L (40-130); Anion Gap 16.8 (5-19); Aspartate Amino Transferase 33 U/L (0-40); Blood Urea Nitrogen 5 mg/dL (6-20); Calcium 8.5 mg/dL (8.5-10.5); Carbon Dioxide 24 mmol/L (22-29); Chloride 102 mmol/L (98-107); Globulin 2.2 g/dL (1.3-4.6); Glomerular Filtration Rate 103.6 mL/min (90-130); Glucose 97 mg/dL (65-115); Osmolality Calculated 285 mOsm/kg (285-295); Potassium 3.8 mmol/L (3.5-5.1); Sodium 139 mmol/L (136-145); Total Bilirubin 0.4 mg/dL (0.15-1.2); Total Protein 6.4 g/dL (6.6-8.7)
[2021-01-26] VITALS (27 sets, daily range): BP systolic 95–145; BP diastolic 7–105; PULSE 70–115; RESP 16–20; TEMP 36.3–37.2; O2SAT 90–100
--- NOTE | 2021-01-26 | XR_ITS ---
WS: [id number] Exam: XR lumbar spine 2-3V* [id number] Date/Time of Exam: 01/26/2021 12:00 AM Reason For Exam: Lumbar fusion Intraoperative AP and lateral C-arm images of the lower lumbar spine are submitted for evaluation. Bilateral pedicle screws are positioned in the L4, L5 and S1. There are disc spacers in place at L4-5 and L5-S1. Associated decompression laminectomy at these levels. Surgical retractors are noted. XR/XR lumbar spine 2-3V* [id number] IMPRESSION: 1. Operative changes with associated hardware as detailed above. No other signi ficant finding on this limited study.
--- NOTE | 2021-01-26 | SCC_ITS ---
Procedure Done: 1. L4/5 Interbody fusion with posterolateral fusion 2. L5/S1 Interbody fusion with posterolateral fusion 3. Instrumentation L4-S1 4. Cage at L4/5 5. Cage at L5/S1 6. revison Laminectomy L4 for decompression of nerve 7. revison laminectomy L5 for decompression of nerve 8. use of autograft from same incision 9. allograft 10. Bone marrow aspirate from right iliac crest 11. use of computer navigation/sterotactic 14 seconds of fluoroscopic guidance, for a cumulative dose of 27.9 mGy, was provided to Dr. Qureshi by the radiology department. C-arm images of the lumbar spine were saved for the patient's permanent record. GERALDD
--- NOTE | 2021-01-26 00:48 | W.ED.BACK ---
HPI - Back Pain/Injury General: Chief Complaint: Back Pain/Injury Stated Complaint: Dr Samir Daniels\Back Time Seen by Provider: 01/25/21 22:00 Source: patient, family, old records reviewed and other (Discussed the patient with Dr. Qureshi prior to the patient's arrival) Mode of arrival: ambulatory Limitations: no limitations History of Present Illness: HPI Narrative: The patient is a 45-year-old male with a history of chronic back pain who had back surgery about 6 weeks ago. He has subsequently developed fecal and urinary incontinence that he states is still present. He says he may turn in the wrong direction and have fecal and urinary incontinence. He does have some pain in his left lower extremity and some weakness. This has been going on for at least 2 weeks. He has been working with the spine surgeon Dr. Qureshi. The spine surgeon him sent him to the emergency department for admission and I spoke to the surgeon. The surgeon wanted us to admit him as soon as he arrived into the ED. He just wants basic labs and the patient can be admitted to his service. He plans to take the patient to the OR tomorrow for surgery. MD elicited complaint: back pain Pertinent past history: prior back pain, back surgery and neurological deficit Onset (ago): week(s) Severity: moderate Similar Symptoms Previously: Yes Location: lumbar spine Exacerbating factors: movement Associated symptoms: Reports fecal incontinence; Deny abdominal pain, arthralgias, chills, change in bowel habits, difficulty walking, dysuria, fatigue, fever(s), hematuria, myalgias, nausea, numbness, syncope, tingling/numbness/burning, urinary frequency, urinary urgency, vomiting or weakness Review of Systems General: Reports: 10 or more systems reviewed and unremarkable except in HPI and below Const: Denies: fever(s), chills or fatigue Card: Denies: syncope GI: Reports: fecal incontinence; Denies: abdominal pain, nausea, vomiting or change in bowel habits : Denies: dysuria, urinary urgency or hematuria Neuro: Denies: difficulty walking PFSH ED PFSH: Medical History (Reviewed 01/26/21 @ 00:57 by Cierra Diop MD, [facility] [place]) COPD (chronic obstructive pulmonary disease) Coronary artery disease HTN (hypertension) Mitral valve prolapse Surgical History (Reviewed 01/26/21 @ 00:57 by Cierra Diop MD, [facility] [place]) H/O hernia repair H/O shoulder surgery H/O vasectomy History of cholecystectomy History of surgery on upper extremity History of testicular surgery Family History (Reviewed 01/26/21 @ 00:57 by Cierra Diop MD, [facility] [place]) Other CAD (coronary artery disease) Diabetes Hyperlipidemia Hypertension Denies family history of Stroke Social History (Reviewed 01/26/21 @ 00:57 by Cierra Diop MD, [facility] [place]) Smoking and tobacco status: current every day smoker cigarettes Packs smoked per day: 0.5 Years cigarettes smoked: 30 Second hand smoke exposure: No Alcohol intake: current Alcohol intake frequency: 3 or more drinks per day Alcohol type: beer Lives independently: Yes Household members: spouse Marital status: service: No Current occupational status: unemployed History of recent travel: No Current gender identity: Male Physical Exam Const: COMMON NORMALS: no acute distress, average body habitus, patient oriented x3, no limitations, healthy appearing, alert and well nourished HENMT: COMMON NORMALS: normocephalic, atraumatic and moist oral mucous membranes HEAD & SCALP: normocephalic and atraumatic Neck/C-Spine: COMMON NORMALS: no meningeal signs and no JVD Resp: COMMON NORMALS: normal respiratory effort, No retractions, No use of accessory muscles, clear to auscultation bilaterally and percussion normal AUSCULTATION: clear to auscultation bilaterally PERCUSSION: percussion normal Cardio: COMMON NORMALS: no JVD, regular rate, regular rhythm, S1 normal heart sound present, S2 normal heart sound present, No gallops present (Cardio), No clicks present (Cardio), No murmurs present (Cardio), No rub (Cardio) and Peripheral pulses 2+ throughout RATE: regular rate RHYTHM: regular rhythm HEART SOUNDS: S1 normal heart sound present and S2 normal heart sound present PERIPHERAL PULSES: Peripheral pulses 2+ throughout GI: COMMON NORMALS: Normal to inspection, nondistended, normoactive bowel sounds present, Soft to palpation, non-tender, No hepatosplenomegaly present, no masses and no bruits PALPATION: Yes Soft to palpation and Yes No hepatosplenomegaly present Extremity: COMMON NORMALS: normal to inspection, full ROM, capillary refill normal, no calf tenderness and no pedal edema Neuro: COMMON NORMALS: patient oriented x3 SENSORIUM/ORIENTATION: Yes alert MENINGEAL SIGNS: Yes no meningeal signs Skin: COMMON NORMALS: no rashes or lesions noted, no wounds, turgor normal, no jaundice, no petechiae and no mottling GENERAL SKIN EXAM: no rashes or lesions noted and turgor normal Course ED course: Patient is a 45-year-old male who was asked to come into the emergency department by his spine surgeon for admission as he plans to take him to the OR tomorrow morning. His surgeon had called and spoke to me prior to the patient arriving. He wanted the patient admitted to his service when he arrives. He does not require any work-up. 2229: Placed a call to Dr. Qureshi, spine surgeon however he did not answer the call and a voice message was left. 2300: Patient under call to Dr. Qureshi and another voice message was left. Since I had discussed the patient with the surgeon prior to arrival and he wanted the patient admitted to his service on arrival I will admit the patient to his service. Patient will be n.p.o. from midnight. ranch hand supervisor was also informed that the patient is scheduled for surgery in the morning. Vital Signs: Vital signs: Vital Signs Temperature 98.3 F 01/25/21 21:17 Pulse Rate 80 01/26/21 00:38 Respiratory Rate 18 01/26/21 00:38 Blood Pressure 113/73 01/26/21 00:38 Pulse Oximetry 90 01/26/21 00:38 MDM - Back Pain/Injury MDM Narrative: Medical decision making narrative: 45-year-old male who was sent to the emergency department by his spine surgeon for admission as he plans to take him to the OR in the morning. The patient had spine surgery about 6 weeks ago and subsequently developed fecal or urinary incontinence. The patient stated that prior to surgery he had occasional urinary incontinence only but after the surgery he has had both urinary and fecal incontinence. He is therefore going to be taken to the OR in the morning by the spine surgeon. Medical Records: Attestation: I reviewed the patient's medical records. Lab Data: Attestation: I reviewed the patient's lab results. Labs: Lab Results 01/25/21 01/25/21 Range/Units 23:00 23:00 WBC 7.0 (4.0-10.0) 10^3/ uL RBC 4.78 (4.1-5.3) 10^6/u L Hgb 16.4 (11.7-16.6) g/dL Hct 46.7 (42.0-52.0) % MCV 97.7 H (80-94) fL MCH 34.3 H (28.0-34.0) pg MCHC 35.1 (30.0-36.0) g/dL RDW 13.1 (12.1-15.1) % Plt Count 249 (130-400) 10^3/c mm MPV 9.9 (7.4-10.4) fL Neut % (Auto) 45.5 % Lymph % (Auto) 42.9 % Orange % (Auto) 9.0 % Eos % (Auto) 1.3 % Baso % (Auto) 0.7 % Neut # (Auto) 3.17 (1.8-7.7) 10^3/u L Lymph # (Auto) 3.0 (0.8-4.8) 10^3/u L Orange # (Auto) 0.6 (0.2-0.9) 10^3/u L Eos # (Auto) 0.1 (0.0-0.8) 10^3/u L Baso # (Auto) 0.1 (0.0-0.1) 10^3/u L Nucleated RBC % (a uto) 0 % Nucleated RBCs # 0.0 /100WBC Sodium 139 (136-145) mmol/L Potassium 3.8 (3.5-5.1) mmol/L Chloride 102 (98-107) mmol/L Carbon Dioxide 24 (22-29) mmol/L Anion Gap 16.8 (5-19) BUN 5 L (6-20) mg/dL Creatinine 0.8 (0.7-1.2) mg/dL GFR Calculation 103.6 (90-130) mL/min Glucose 97 (65-115) mg/dL Calculated Osmolal ity 285 (285-295) mOsm/k g Calcium 8.5 (8.5-10.5) mg/dL Total Bilirubin 0.4 (0.15-1.2) mg/dL AST 33 (0-40) U/L ALT 38 (0-41) U/L Alkaline Phosphata se 66 (40-130) IU/L Total Protein 6.4 L (6.6-8.7) g/dL Albumin 4.2 (3.5-5.2) g/dL Globulin 2.2 (1.3-4.6) g/dL Discharge Plan Discharge Patient Disposition: Admitted As Inpatient Admit Provider: Thomas Qureshi Clinical Impression: Lumbar stenosis with neurogenic claudication Incontinence of feces Qualifiers: Fecal incontinence type: unspecified Qualified Code(s): R15.9 - Full incontinence of feces Incontinence of urine Qualifiers: Urinary Incontinence type: unspecified incontinence Qualified Code(s): R32 - Unspecified urinary incontinence Condition: Stable Coding Level of Care Code ED Lusterer for Rosa Solares
[2021-01-26] MEDS: sodium chloride 0.9% 1,000 ML 100 ML IV (01:00)
[2021-01-26] MEDS: morphine 4 mg/mL SDV 1 mL IVP (06:20)
--- NOTE | 2021-01-26 07:09 | P.HP_ITS ---
Providers/Chief Complaint Admitting Physician: Thomas Qureshi DO Chief Complaint: Dr Samir Daniels\Back History of Present Illness August Schneider is a 45 year old male had previous decompression. Patient had several episodes of incontinence this week. Told patient go to the ER because of the incontinence and concern for cauda equina syndrome. Patient will be taken to the operating room this morning emergently. Review of Systems Narrative: General ROS: negative for weight changes, fever ENT ROS: negative for nasal congestion, drainage or bleeding, sore throat, dysphagia or ear pain Eyes: PERRL Hematological and Lymphatic ROS: negative for swollen glands or abnormal bleeding Endocrine ROS: negative for polyuria/polydpsia or new changes in weight Respiratory ROS: negative for cough, shortness of breath, or wheezing Cardiovascular ROS: negative for chest pain or dyspnea on exertion Gastrointestinal ROS: negative for reflux, abdominal pain, increase episodes of incontinnce, or black or bloody stools Musculoskeletal ROS: positive for back pain, neck pain, or joint pain or swelling except for current problem Neurological ROS: negative for TIA or stoke symptoms Skin: no rashes Medications/Allergies Home Medications Medication Instructions Recorded Confirmed Last Taken Type albuterol sulfate 90 mcg/actuation 2 puff INHALATION Q6H PRN 02/24/20 01/25/21 01/25/21 History aerosol inhaler amlodipine 10 mg tablet 10 mg PO DAILY 02/24/20 01/25/21 01/25/21 History cyclobenzaprine 10 mg PO TID PRN #30 tab 03/02/20 01/25/21 01/18/21 Rx ibuprofen 800 mg PO Q8H PRN #20 tab 09/09/20 01/25/21 01/24/21 Rx aspirin 325 mg tablet 325 mg PO DAILY #30 tab 10/06/20 01/25/21 01/25/21 Rx atorvastatin 20 mg tablet 20 mg PO DAILY #30 tab 10/06/20 01/25/21 01/24/21 Rx metoprolol tartrate 50 mg tablet 50 mg PO BID #60 tab 10/06/20 01/25/21 01/25/21 Rx nitroglycerin 0.4 mg sublingual 0.4 mg SUBLINGUAL Q5M PRN #25 tab 10/06/20 01/25/21 01/17/21 Rx tablet nicotine (polacrilex) 2 mg buccal 2 mg BUCCAL Q8H PRN #81 ea 10/20/20 01/25/21 01/22/21 Rx mini lozenge isosorbide mononitrate 30 mg 15 mg PO BID #90 tab 11/15/20 01/25/21 01/25/21 Rx tablet,extended release 24 hr hydrocodone 5 mg-acetaminophen 325 1 tab PO Q6H PRN 30 Days #60 tab 11/17/20 01/25/21 01/25/21 Rx mg tablet hydrocodone 5 mg-acetaminophen 325 1 - 2 tab PO .Q4-6H PRN 7 Days #40 01/16/21 01/18/21 Unknown Rx mg tablet tab Allergies Allergy/AdvReac Type Severity Reaction Status Date / Time No Known Allergies Allergy Verified 01/18/21 15:47 PFSH Acute PFSH: Medical History COPD (chronic obstructive pulmonary disease) Coronary artery disease HTN (hypertension) Mitral valve prolapse Surgical History H/O hernia repair H/O shoulder surgery H/O vasectomy History of cholecystectomy History of surgery on upper extremity History of testicular surgery Family History Other CAD (coronary artery disease) Diabetes Hyperlipidemia Hypertension Denies family history of Stroke Social History Smoking and tobacco status: current every day smoker cigarettes Packs smoked per day: 0.5 Years cigarettes smoked: 30 Second hand smoke exposure: No Alcohol intake: current Alcohol intake frequency: 3 or more drinks per day Alcohol type: beer Lives independently: Yes Household members: spouse Marital status: service: No Current occupational status: unemployed History of recent travel: No Current gender identity: Male Vitals/I&O/Wt Last Vital Signs Temp 97.6 F 01/26/21 04:10 Pulse 76 01/26/21 04:10 Resp 18 01/26/21 06:20 BP 114/72 01/26/21 04:10 Pulse Ox 94 01/26/21 04:10 Weight last 48 hrs Weight 185 lb Physical Exam Narrative: EXAM NARRATIVE: CONSTITUTIONAL: The patient is a normal appearing [] in no apparent distress. GENERAL: Patient in no acute distress. CARDIAC: Regular rate and rhythm. CHEST: Normal inspiratory effort, normal respiratory rate. ABDOMEN: Soft and nontender. SKIN: Clear, warm and intact. NEURO?PSYCH: The patient is alert and oriented to person, place and time. Sensorv /SILT Motor StrengthShoulder abduction C5 5/5Wrist extension C6 5/5Elbow extension C7 5/5Hand Sticker Hand C8 5/5Finger abduction T15/5 Radial/ Ulnar/ Median n intact LowerSensory (SdLT)Motor StrengthHin flexion L2/3Ant/inner thigh 5/5Hip adduct ion L2/3 5/5Knee extension L4 Lat thigh, 5/5Toe dorsiflexion L5 5/5Ankle dorsiflexion L5/ [id number] flexion S1 5/5 DTRBleeps 2+Triceps 2+Brachioradialis 2+Patellar 2+Achilles 2+ MUSCULOSKELETAL: [] UPPEREXTREMITIES: The patient had full active ROM in fingers, wrist, elbow, and shoulder. The patient demonstrated ability to fully flex/extend/abduct/adduct fingers, make ok sign, cross 2nd/3rd digits, extend 1st digit fully.. Radial pulse 2+, CR<2 seconds. LOWER EXTREMITIES: Pt has full, active ROM of toes, ankle, knee, and hip. Dorsalis pedis/posterior tibialis pulses 2+, CR<2 seconds. SPINE: Skin warm, dry, intact. Data : 01/25/21 23:00 01/25/21 23:00 A&P Assessment and plan (1) Incontinence of feces: Status: Acute Qualifiers: Fecal incontinence type: unspecified Qualified Code(s): R15.9 - Full incontinence of feces (2) Incontinence of urine: Patient is describing incontinence of urine and feces. At this point plan on taking the patient to the operating room emergently to do a full decompression of the L4-5 and L5-S1 levels. Status: Acute Qualifiers: Urinary Incontinence type: unspecified incontinence Qualified Code(s): R32 - Unspecified urinary incontinence Attestations Medical Necessity Statement*: cauda equina syndrome Coding Level of Care Code Acute Manager Contract for [facility] Diagnoses Incontinence of feces R15.9 Fecal incontinence type: unspecified Incontinence of urine R32 Urinary Incontinence type: unspecified incontinence
--- NOTE | 2021-01-26 07:14 | W.PM.OPSUD ---
Surgery/Procedure H&P Update DATE OF PROCEDURE: January 26, 2021 DATE H&P PERFORMED: 01/26/21 PREOP DIAGNOSIS: lumbar stenosis
[2021-01-26] MEDS: sodium chloride 0.9% 1,000 ML 30 ML IV (09:30)
--- NOTE | 2021-01-26 09:30 | P.ANESASSM_ITS ---
Pre-Anesthetic Assessment Pre-Anesthetic Assessment: Height/Weight: Height 1.78 m Weight 83.915 kg Temp Pulse Resp BP Pulse Ox 98.2 F 70 18 124/72 93 01/26/21 09:02 01/26/21 09:02 01/26/21 09:02 01/26/21 09:02 01/26/21 09:02 Preop Diagnosis: lumbar stenosis, bowel incontinence Proposed Procedure: Operation Date: 01/26/21 09:50 Proposed Procedures p PLIF L4/5 L5/S1 36146, 79525, 65923, 68235, 91492, 31862(Not Applicable) - Thomas Qureshi, DO Was Beta Sravanthi taken within 24 hours: N/A Was Clonidine taken within 24 hours: N/A Last intake: Intake Last Liquid Date 01/25/21 Last Liquid Time 23:55 Last Solid Date 01/25/21 Last Solid Time 23:30 Social: Social History: Tobacco and No alcohol Exam: Pre-Anes Outpt Exam: alert, oriented x 3 and regular rate & rhythm Airway: Submandibular: WNL Cervical ROM: WNL MP: 2 Additional comm ents: Poor dentition Pulmonary: Pulmonary: COPD CV/HEM: CV/HEM: CAD and HTN Comments: Normal EF Musc/skel: Musc/skel: Lower Back Pain Anesthetic Plan: ASA status: 3 Anesthesia: General Risk of > 500 ml blood loss (7ml/kg in children): No Meds/Allergies Current Medications: Current Medications Generic Name Dose Route Start Last Admin Trade Name Freq PRN Reason Stop Dose Admin Sodium Chloride 1,000 mls @ 100 m ls/hr 01/26/21 00:15 01/26/21 01:00 Sodium Chloride 0.9% IV 100 mls/hr .Q10H MARIANNE Administration Morphine Sulfate 4 mg 01/26/21 00:03 01/26/21 06:20 Morphine 4 Mg/Ml Sdv 1 Ml IVP 4 mg Q4H PRN Administration SEVERE PAIN PFSH Anesthesia PFSH: Medical History COPD (chronic obstructive pulmonary disease) Coronary artery disease HTN (hypertension) Mitral valve prolapse Surgical History H/O hernia repair H/O shoulder surgery H/O vasectomy History of cholecystectomy History of surgery on upper extremity History of testicular surgery Family History Other CAD (coronary artery disease) Diabetes Hyperlipidemia Hypertension Denies family history of Stroke Social History Smoking and tobacco status: current every day smoker cigarettes Packs smoked per day: 0.5 Years cigarettes smoked: 30 Second hand smoke exposure: No Alcohol intake: current Alcohol intake frequency: 3 or more drinks per day Alcohol type: beer Lives independently: Yes Household members: spouse Marital status: service: No Current occupational status: unemployed History of recent travel: No Current gender identity: Male Data Anesthesia CBC & Chem 7: 01/25/21 23:00 01/25/21 23:00 Other Labs: Laboratory Results - last 48 hr 01/25/21 01/25/21 23:00 23:00 WBC 7.0 RBC 4.78 Hgb 16.4 Hct 46.7 MCV 97.7 H MCH 34.3 H MCHC 35.1 RDW 13.1 Plt Count 249 MPV 9.9 Neut % (Auto) 45.5 Lymph % (Auto) 42.9 Trinity % (Auto) 9.0 Eos % (Auto) 1.3 Baso % (Auto) 0.7 Neut # (Auto) 3.17 Lymph # (Auto) 3.0 Trinity # (Auto) 0.6 Eos # (Auto) 0.1 Baso # (Auto) 0.1 Nucleated RBC % (auto) 0 Nucleated RBCs # 0.0 Sodium 139 Potassium 3.8 Chloride 102 Carbon Dioxide 24 Anion Gap 16.8 BUN 5 L Creatinine 0.8 GFR Calculation 103.6 Glucose 97 Calculated Osmolality 285 Calcium 8.5 Total Bilirubin 0.4 AST 33 ALT 38 Alkaline Phosphatase 66 Total Protein 6.4 L Albumin 4.2 Globulin 2.2 Cardiac Studies: No Data to Display
[2021-01-26] MEDS: vancomycin 1,000 MG SDV 1000 MG (10:35)
[2021-01-26] MEDS: heparin, porcine 1,000 unit/mL INJ 10 mL 10000 UNIT (10:35)
--- NOTE | 2021-01-26 12:55 | PM.OP ---
Operative Report Date of procedure: January 26, 2021 Pre-op Diagnosis: lumbar stenosis, bowel incontinence, cauda equina Post-op diagnosis: same Procedure Done: 1. L4/5 Interbody fusion with posterolateral fusion 2. L5/S1 Interbody fusion with posterolateral fusion 3. Instrumentation L4-S1 4. Cage at L4/5 5. Cage at L5/S1 6. revison Laminectomy L4 for decompression of nerve 7. revison laminectomy L5 for decompression of nerve 8. use of autograft from same incision 9. allograft 10. Bone marrow aspirate from right iliac crest 11. use of computer navigation/sterotactic Surgeon: Thomas Qureshi Anesthesia: General Estimated blood loss (mL): 100 Condition: stable Disposition: PACU Procedure: 1. L4/5 Interbody fusion with posterolateral fusion 2. L5/S1 Interbody fusion with posterolateral fusion 3. Instrumentation L4-S1 4. Cage at L4/5 5. Cage at L5/S1 6. revison Laminectomy L4 for decompression of nerve 7. revison laminectomy L5 for decompression of nerve 8. use of autograft from same incision 9. allograft 10. Bone marrow aspirate from right iliac crest 11. use of computer navigation/sterotactic Patient is brought to the operative suite. After undergoing anesthesia, the patient had neuro monitoring attached. Patient was then placed in the prone position on the Jim table. All areas of impingement were well-padded. Patient was then prepped and draped in the normal sterile fashion. Skin incision was then made over the L4 to S1 level. Subperiosteal dissection was made out to the transverse processes of L4 and L5 and S1. Once the exposure was complete attention was then brought to the [employer] bone marrow aspirate kit was used to aspirate bone marrow aspirate. This was done by using the sharp probe to open up the bone through a separate incision in the fascia into the right iliac crest. Aspiration was performed and then the blunt probe was then used to dissect down to through the bone tunnel. An aspirating well drawn back a millimeter approximately 20 cc of bone marrow aspirate was used. Admixed with the allograft and autograft bone that will be used. Next attention was brought to placing the fiducial for the computer navigation into the right iliac crest. 2 pins were placed iliac crest the fiducial was then attached and the length with the computer navigation computer. The C arm was then brought in and did this pin in order to send the information into the computer navigation computer. The technique for placing the pedicle screws was to use a drill followed by the gearshift probe that is linked to computer navigation. Followed by the ball probe to feel the superior inferior medial lateral pepe of the pedicles. Then placement of the screws were done using the computer navigation. Was done at each pedicle. Screws were placed at L4 bilaterally and L5 bilaterally and S1 bilaterally. Next attention was brought to performing the laminectomy ofL4. Had prior laminectomy at this level. Patient has significant scar tissue was taken down off of the dura. This was done using the high-speed bur Kerrisons and curettes. Once the lamina was removed and then attention was brought to performing a partial facetectomy on the contralateral side. This was done again using the high-speed bur curettes and Kerrisons. The ligamentum flavum was taken down bilaterally from L4 to L5. Attention was then brought to the facet on the ipsilateral side. The facet was taken down. The L5 nerve was decompressed as it passed around the L5 pedicle. The laminectomy was done for purposes of decompressing the nerve as well as placement of the cage. The L4 nerve was identified as it traversed through the L4/5 foramen. The thecal sac was identified and retracted. The L4/5 disc base was identified. Using a knife the disc base was opened. And then sequential joana were placed. The first shaver was a 6 and the last shaver was a 13. Using a pituitary and down going curette the endplates were scraped and disc material was removed from the space. Once adequate decompression of the disc base was felt to be had. Osteoamp sponge was packed into the anterior aspect of the disc base. Then a size 13 cage from [employer] was placed after packing osteoamp into the cage. While placing the cage the thecal sac and L5 nerve was protected. C arm was used to ensure that the cages placed in the appropriate position. Next attention was brought to performing the laminectomy ofL5. Previous laminectomy was done at this level there is the amount of scar tissue done at this level as well that was peeled off of the dura. This was done using the high-speed bur Kerrisons and curettes. Once the lamina was removed and then attention was brought to performing a partial facetectomy on the contralateral side. This was done again using the high-speed bur curettes and Kerrisons. The ligamentum flavum was taken down bilaterally from L5 to S1. Attention was then brought to the facet on the ipsilateral side. The facet was taken down. The S1 nerve was decompressed as it passed around the S1 pedicle. The laminectomy was done for purposes of decompressing the nerve as well as placement of the cage. The L5 nerve was identified as it traversed through the L5/S1 foramen. The thecal sac was identified and retracted. The L5/S1 disc base was identified. Using a knife the disc base was opened. And then sequential joana were placed. The first shaver was a 6 and the last shaver was a 10. Using a pituitary and down going curette the endplates were scraped and disc material was removed from the space. Once adequate decompression of the disc base was felt to be had. Osteoamp sponge was packed into the anterior aspect of the disc base. Then a size 10 cage from [employer] was placed after packing osteoamp into the cage. While placing the cage the thecal sac and S1 nerve was protected. C arm was used to ensure that the cages placed in the appropriate position. The fiducial pins were then removed. Attention was then brought to attaching the rods to the screws placed in the L4-S1 bilaterally. Caps were torqued into position. Locking the construct in place. Wound was copiously irrigated and then attention was brought to decorticating the facets and transverse processes laterally. Bone that was taken down from the lamina was used along with osteoamp fibers and sponges were packed into the lateral gutters along the facet joints. This was done bilaterally. Wound was then closed in a layered fashion starting with the thoracolumbar fascia. 0-stratafix was used the sub cutaneous tissue was closed with 2-0 stratafix and skin with 3-0 nylon. a steril dressing was applied. Patient was then placed in the supine position. The endotracheal tube was removed and patient was transferred to the PACU in stable condition.
[2021-01-26] MEDS: HYDROmorphone 1 mg/mL INJ 1 mL 0.5 MG IVP (13:05)
--- NOTE | 2021-01-26 13:31 | PC.CHAP ---
Pastoral Care Encounter/Spiritual Assessment Type of Contact [] Declined senior biostatistician/group leader visit [] Patient/Family/Request visit [] Outpatient visit [] Follow-up visit [] Physician referral [] Code/Alert [xx] Routine visit [] Staff referral [] Actively dying [] Patient sleeping [] Family support [] [] Out of room [] Palliative care [] [] Receiving care in room [] Pre-surgical visit [] Trauma [] Long length of stay [] ICU visit [] Other: Relational/Emotional Strength [xx] Patient feels connected with others/family/visitors/staff [] Distress [] Loneliness/isolation [] Abandonment Spirituality of Patient [] Person of Latha [] Attends Islam of their Latha [xx] Believes in Prayer [] Reads Bible or Gnosticism materials [] There are Spiritual issues to be addressed Zipper Trimmer Interventions [xx] Prayer [xx] Active listening [xx] Non-anxious presence [xx] Spiritual/emotional support [] Crisis/trauma care [] Spiritual counseling [] Bereavement support [] Provided bereavement packet [] Provided Bible/devotional materials [] Provided toy/stuffed animal, coloring book to patient or family member [] Provided Communion [] Anointing/[place] [] Salvation [xx] Completed spiritual assessment [] Other: Impact on Illness or Injury [] Angry [] Fearful [] Anxious [] Often cries [] Exhaustion [] Unable to work [] Unable to attend muslim [] Unable to walk/stand [] Unable to read [] Unable to drive [] Unable to eat/drink [] Unable to sleep [] Unable to be with family [] Patient intubated [] Other: Summary Patient stated he needed to go to restroom so senior biostatistician/group leader prayed quickly and left. Time spent with patient 3 minutes
--- NOTE | 2021-01-26 14:25 | ANE.PACU2 ---
Inpatient post-anesthesia follow up: Airway intact: Yes Vital signs: Temperature 99 F Pulse Rate [Monito r] 94 Pulse Rate 94 Respiratory Rate 18 Blood Pressure [Le ft Arm] 126/89 Blood Pressure 116/86 Pulse Oximetry 95 Oxygen Delivery Me thod Nasal Cannula Oxygen Flow Rate 3 Fraction of Inspir ed Oxygen Hydration adequate: Yes Nausea and vomiting: No Pain level: 3 Mental status: Baseline
[2021-01-26] MEDS: lactated ringers 1,000 ML 90 ML IV (14:26)
[2021-01-26] MEDS: HYDROcodone-acetaminophen 5-325 mg Tablet PO ×2 (14:39→20:57)
--- NOTE | 2021-01-26 14:58 | SUR.PHASEI ---
1341 PT AWAKE ALERT TALKATIVE , C/O OF URGENCY, PT WITH URINAL IN PLACE PT BACK DRESSING AND ABD BINDER IN PLACE, PT LOG ROLLED EARLIER WITH PILLOW TO BACK AND UNDER KNEE FOR COMFORT, VSS PT REPORT CALLED TO FLOOR PT TO FLOOR PER BED PT AWAKE ALERT COOPERATIVE, PT SLID TO BED WITH SLIDE BOARD AND 4 NURSES, DRAIN INTACT AND COMPRESSED WITH RED DRAINAGE NOTED , 100ML EMPTIED EARLIER AND DR WARD AT BEDSIDE AND AWARE.
[2021-01-26] MEDS: docusate sodium 100 mg Capsule PO (17:08)
[2021-01-26] MEDS: ketorolac 30 mg/mL INJ IVP (17:08)
--- NOTE | 2021-01-26 20:12 | PC.RESP ---
Smoking Cessation information sent to patient.
[2021-01-26] MEDS: cyclobenzaprine 10 mg Tablet PO (20:58)
[2021-01-27] VITALS (7 sets, daily range): BP systolic 97–125; BP diastolic 58–96; PULSE 73–88; RESP 16–18; TEMP 36.3–37.3; O2SAT 90–96; BMI 26.5
[2021-01-27] MEDS: HYDROcodone-acetaminophen 5-325 mg Tablet PO ×4 (01:50→22:04)
[2021-01-27] MEDS: lactated ringers 1,000 ML 90 ML IV ×2 (01:50→15:17)
[2021-01-27] MEDS: ketorolac 30 mg/mL INJ IVP ×2 (01:50→10:07)
[2021-01-27] MEDS: enoxaparin 40 mg/0.4 mL Syringe SUBCUT (06:21)
[2021-01-27] MEDS: isosorbide mononitrate ER 30 mg Tablet 15 MG PO ×2 (08:55→17:07)
[2021-01-27] MEDS: atorvastatin 40 mg Tablet 20 MG PO (08:56)
[2021-01-27] MEDS: amlodipine 10 mg Tablet PO (08:56)
[2021-01-27] MEDS: aspirin 325 mg Tablet PO (08:56)
[2021-01-27] MEDS: docusate sodium 100 mg Capsule PO ×2 (08:56→17:07)
[2021-01-27] MEDS: metoprolol tartrate 50 mg Tablet PO ×2 (08:56→17:07)
--- NOTE | 2021-01-27 09:16 | P.PN_ITS ---
Subjective Subjective: Interval history: Patient doing better. Patient is having back pain. He was able to pee last night. He was able to ambulate. This point patient is having some back pain but somewhat controlled. Vitals/I&O/Wt Last Vital Signs Temp 97.4 F L 01/27/21 07:45 Pulse 88 01/27/21 08:22 Resp 16 01/27/21 08:22 BP 125/82 01/27/21 07:45 Pulse Ox 96 01/27/21 08:22 01/26/21 01/27/21 01/27/21 22:59 06:59 14:59 Intake Total 2410 / 3000 1530 / 4530 Output Total 315 / 705 500 / 1205 125 / 125 Balance 2095 / 2295 1030 / 3325 -125 / -125 Weight last 48 hrs Weight 185 lb Physical Exam Narrative: EXAM NARRATIVE: Wound is clean dry and intact. Urinary Catheter Management^: Ugarte: Cath Placed During This Visit: yes, but has since been removed by the nurse Reason for Continuing Indwelling Catheter: Decision to DC Catheter Urinary Catheter Date of Insertion: 01/26/21 Urinary Catheter Time of Insertion: 09:37 Date Urinary Catheter Removed: 01/26/21 Time Urinary Catheter Discontinued: 12:55 Data : 01/25/21 23:00 01/25/21 23:00 A&P Assessment and plan (1) Lumbar stenosis with neurogenic claudication: Patient has a two-level PLIF he is postop day #1. At this point patient is little bit concerned about going home. Will disconnect his IV and get him go to the bathroom and see how is doing this afternoon if he feels up to being discharged this afternoon I will have everything written. If he is not able to go to the bathroom or is having pain issues we will keep him over 1 more night and discharge him home tomorrow. Status: Acute Attestations Medical Necessity Statement*: Pain control Coding Level of Care Code Acute Associate Professor Of Education for Rosa Solares Diagnoses Lumbar stenosis with neurogenic claudication M48.062
[2021-01-28] VITALS: BP 109/74; PULSE 77; RESP 16; TEMP 36.8; O2SAT 90
[2021-01-28] MEDS: lactated ringers 1,000 ML 90 ML IV (02:34)
[2021-01-28] MEDS: HYDROcodone-acetaminophen 5-325 mg Tablet PO ×3 (02:35→12:29)
[2021-01-28 04:00] VITALS: BP 114/74; PULSE 78; RESP 16; TEMP 36.8; O2SAT 90
[2021-01-28] MEDS: enoxaparin 40 mg/0.4 mL Syringe SUBCUT (06:39)
[2021-01-28 07:38] VITALS: PULSE 72; RESP 18; O2SAT 93
[2021-01-28 08:00] VITALS: BP 153/94; PULSE 80; RESP 17; TEMP 36.6; O2SAT 96
[2021-01-28] MEDS: aspirin 325 mg Tablet PO (08:06)
[2021-01-28] MEDS: metoprolol tartrate 50 mg Tablet PO (08:06)
[2021-01-28] MEDS: amlodipine 10 mg Tablet PO (08:06)
[2021-01-28] MEDS: isosorbide mononitrate ER 30 mg Tablet 15 MG PO (08:07)
[2021-01-28] MEDS: atorvastatin 40 mg Tablet 20 MG PO (08:07)
[2021-01-28] MEDS: docusate sodium 100 mg Capsule PO (08:07)
--- NOTE | 2021-01-28 10:01 | P.DS_ITS ---
Discharge Providers Date of Admission: 01/26/21 00:03 Date of Discharge: January 28, 2021 Attending Provider at Admission: Thomas Qureshi DO Attending Provider at Discharge: Thomas Qureshi DO Diagnoses at Discharge Discharge Diagnosis (1) Lumbar stenosis with neurogenic claudication: Status: Acute Reason for Visit Reason for Visit: Dr Samir Daniels\Back Hospital Course Hospital Course Patient is admitted on 01/26/2021 had a revision L4-5 L5-S1 PLIF. He is Today for pain control be discharged today on 01/28/2021 Physical Exam Urinary Catheter Management^: Ugarte: Cath Placed During This Visit: yes, but has since been removed by the nurse Reason for Continuing Indwelling Catheter: Decision to DC Catheter Urinary Catheter Date of Insertion: 01/26/21 Urinary Catheter Time of Insertion: 09:37 Date Urinary Catheter Removed: 01/26/21 Time Urinary Catheter Discontinued: 12:55 Discharge Data Data Completed and Pending: Completed Studies During Hospitalization Category Date Time Status XR lumbar spine 2 -3V* 85634 Routine Exams 01/26/21 Completed Pending at discharge Category Date Time Status C-arm Fluoroscopy 73706 Routine Exams 01/26/21 09:07 Taken Vitals: Last Vital Signs Temp 97.8 F 01/28/21 08:00 Pulse 80 01/28/21 08:00 Resp 17 01/28/21 08:00 BP 153/94 01/28/21 08:00 Pulse Ox 96 01/28/21 08:00 Discharge Plan Discharge Patient Disposition: Home Condition: Stable Prescriptions: New hydrocodone-acetaminophen 5-325 mg tablet 1 - 2 tab PO .Q4-6H Qty: 40 RF: 0 Continued albuterol sulfate [Ventolin HFA] 90 mcg/actuation HFA aerosol inhaler 2 puff INHALATION Q6H PRN (Reason: Shortness Of Breath) RF: 0 amlodipine 10 mg tablet 10 mg PO DAILY RF: 0 atorvastatin 20 mg tablet 20 mg PO DAILY Qty: 30 RF: 2 aspirin 325 mg tablet 325 mg PO DAILY Qty: 30 RF: 0 nitroglycerin 0.4 mg tablet, sublingual 0.4 mg sublingual Q5M PRN (Reason: chest pain) Qty: 25 RF: 3 metoprolol tartrate 50 mg tablet 50 mg PO BID Qty: 60 RF: 3 nicotine (polacrilex) 2 mg mini lozenge 2 mg buccal Q8H PRN (Reason: nicotine cravings) Qty: 81 RF: 2 isosorbide mononitrate 30 mg tablet extended release 24 hr 15 mg PO BID Qty: 90 RF: 2 hydrocodone-acetaminophen 5-325 mg tablet 1 tab PO Q6H PRN (Reason: pain) 30 Days Qty: 60 RF: 0 hydrocodone-acetaminophen 5-325 mg tablet 1 - 2 tab PO .Q4-6H PRN (Reason: pain) 7 Days Qty: 40 RF: 0 cyclobenzaprine 10 mg tablet 10 mg PO TID PRN (Reason: muscle spasm) Qty: 30 RF: 0 ibuprofen 800 mg tablet 800 mg PO Q8H PRN (Reason: pain) Qty: 20 RF: 0 Discharge Orders: Discharge Order (Routine); Ordered 01/27/21 Ordered By: Thomas Qureshi Discharge Diet: Advance as tolerated Discharge Activity: Limit activity as instructed Patient Instructions: Opioid Safety Activity Restrictions/Additional Instructions: Thank you for [facility] for your care! The following is a list of instructions, from your provider, to follow upon your discharge to ensure you have the optimal recovery from your recent injury orsurgery. Follow-up care is a schmid part of your treatment and safety. Be sure to make and go to all appointments, and call your doctor if you are having problems. If you do not already have a follow-up appointment made, call Dr. Pandey office in the next 1-3 days to make follow up appointment for 1 weeks at [phone]. It is also a good idea to know your test results and keep a list of the medicines you take. Medications will be prescribed for you at your provider's discretion. These medications are to be used as instructed; if they are taken more often that prescribed they will not be refilled early and in most cases will not be refilled at all. > When a refill is needed,you should contact prasanna valenzuela 2-3 business days before your prescription runs out. Medications will NOT be refilled by electronics installer providers after hours! > Many pain medications contain Tylenol (Acetaminophen). Do not consume more than 4,000 mg of Tylenol per day in total with any combination ofmedications. > Pain medications can cause constipation. Please use an over the counter stool softener as directed, while taking pain medications. Consulty our local pharmacist with questions or recommendations on stool softeners. If constipation persists, contact our office or your primary care provider. > While under our care,you are not to receive pain medications or other controlled substances from any other provider unless our office is notified and approves. Any attempts to do so will result in refusal to prescribe any further pain medications and possible dismissal from our practice. ? keep dressing on until seen in clinic . we will change dressing and you will have a new one on for 1 more week ? Showering is permitted, however we ask that you do not take a bath, sit in a whirlpool / Jacuzzi, or go swimming for 1 month. For only the first 2 days after surgery, lt wilt be necessary for you to cover your wound/dressing with plastic and tape to keep it dry. ? Walking is essential for the healing process after surgery. We would like you to slowly advance your walking. This should be done on relatively flat clear ground (inside or out) or can be done on a treadmill. Remember this goal does not have to happen all at once, slowly increase your distance and duration. This can be broken into more more than one walk per day as tolerated. Patients who walk as directed after surgery rarely require Physical Therapy. In the unlikely event this issue arises your provider will direct hospital staff to make the appropriate arrangements. ? No lifting over 5 pounds {a gallon of milk) or bending/twisting until further notice. Each of these activities places an unnecessary amount of stress onto the body and can impede the delicate healing process. > Instead of bending at the waist, keep your back straight and bend at the knees. > Instead of twisting your torso, keep your back straight and turn your entire body with your feet. ? You may sleep in any position which makes you comfortable. Many patients find comfort sleeping in a reclining chair. It is not abnormal to have difficulty sleeping for the first several weeks following your surgery. We recommend trying Benadry! or Tylenol PM as directed to help with your sleeping difficulties. Both medications are over the counter and available withoutprescription. ? NO SMOKING!!! Smoking dramatically increases the probability of developing postoperative wound infections. ? Common complaints after lumbar and/or thoracic spine surgery include, but are not limited to: numbness and/or tingling in the legs, pain around the incision and surrounding tissues, muscle spasms, or stiffness of the middle to low back. Contact our office if these symptoms persist or if an acute change o ccurs. ? No driving for the first 3-5days, and not while taking narcotics [] until seen at your follow-up appointment and cleared. There are no restrictions for riding on short trips, however if you take a longer trip, arrangements should be made to make regular stops to get out of the vehicle and stretch . ? Swelling is an unfortunate event that will take place with any surgery and is the primary source of your postoperative discomfort. While walking and regular approved activities helps control inflammation, there are additional steps you can take to minimizeswelling. > Place ice over the surgical site and surrounding tissue for twenty minutes, followed by applying a low/medium heat (heating pad) for an additional twenty minutes every 1-2 hours as needed for painrelief. > You may use of over the counter anti-inflammatory medications (Ibuprofen, Motrin, Aleve, Advil, etc) as directed on the package label. These types of medicines wm significantly reduce the amount of discomfort you experience after surgery from swelling. It should be noted that if you have and allergy to any of these medications, or a history of ulcers or kidney disease you should consult you primary care provider prior to starting these medications. Discharge Attestations Time Spent in Discharge Care*: less than 30 min Quality Metrics Clinical Quality Measures During this hospital stay, did patient experience: None Coding Level of Care Code Acute [facility] NAM note Diagnoses Lumbar stenosis with neurogenic claudication M48.062
[2021-01-28 11:46] VITALS: BP 127/82; PULSE 72; RESP 18; TEMP 36.8; O2SAT 96
[2021-01-28 12:59] VITALS: BP 127/82; PULSE 72; RESP 18; TEMP 36.8; O2SAT 96
--- NOTE | 2021-01-28 13:01 | PC.NURSE ---
PT HAS DONE WELL FOR ME TODAY. PT HAS BEEN UP AMBULATING IN THE HALLWAY AND IS DOING WELL WITH THAT. PT IS HAVING ADEQUATE OUTPUT. DR WARD ROUNDED WITH PT EARLY THIS MORNING. ORDERS WERE GIVEN TO PULL DRAIN AND DISCHARGE PT. DRAIN WAS EMPTIED WITH A TOTAL OF 60 ML OUTPUT. PT TOLERATED THIS WELL. SUTURE WAS REMOVED AND DRAIN PULLED AFTER THIS. PT TOLERATED THIS WELL. PRESSURE DRESSING WAS APPLIED AT DRAINAGE SITE. HYDROCODONE WAS GIVEN TO PT JUST PRIOR TO DISCHARGE TO AID IN RIDE HOME. IV WAS REMOVED. PT TOLERATED WELL. CATHETER TIP INTACT. DISCHARGE PAPERWORK GONE OVER WITH PT. ALL QUESTIONS ANSWERED. MEDICATIONS SENT TO PHARMACY OF PTS CHOICE AND READY FOR SHRINK PIT OPERATOR. THIS PT WAS SAFELY WHEELED OUT AND DISCHARGED BY THIS NURSE.
== END 2021-01-28 13:13 | disposition home or self-care (01) ==
LOC: ER 22:37 → MEDSURG 01-26 01:06
PROVIDERS: Admitting Provider Orthopaedic Surgery; Emergency Provider Family Medicine; Visit Provider Orthopaedic Surgery
PROC: (CPT 22612; principal; 2021-01-26 09:50)
DX: M48.062 Spinal stenosis, lumbar region with neurogenic claudication (principal); R15.9 Full incontinence of feces; R32 Unspecified urinary incontinence; J44.9 Chronic obstructive pulmonary disease, unspecified; I25.10 Atherosclerotic heart disease of native coronary artery without angina pectoris; I10 Essential (primary) hypertension; F17.210 Nicotine dependence, cigarettes, uncomplicated; Z79.82 Long term (current) use of aspirin
CPT/HCPCS: 20930; 20939; 22633; 22634 ×2; 22840; 22853 ×2; 61783; 63042; 63044; 72100; 76000; 80053; 85025; 96374; 96375; 96376; 97116; 97161; 99285; C1713; C9359; G0378; J0690; J1170; J1644; J1650; J1885; J2270; J2405; J3370; J7030

== ENCOUNTER → 2021-01-26 | Day surgery (SDC) | payer OTHER, SELFPAY ==
[2021-01-25 15:40] VITALS: BMI 26.5
== END ==
PROVIDERS: Visit Provider Orthopaedic Surgery
DX: Z01.818 Encounter for other preprocedural examination (principal)
CPT/HCPCS: J1100; J1170; J1885; J2405; J3010; J3490

== ENCOUNTER → 2021-03-08 15:49 | Outpatient (BNVA) | payer OTHER, SELFPAY | PROVIDERS: Visit Provider Orthopaedic Surgery | DX: M54.9 Dorsalgia, unspecified (principal); Z48.89 Encounter for other specified surgical aftercare | CPT/HCPCS: 72100 ==

== ENCOUNTER → 2021-04-05 15:50 | Outpatient (BNVA) | payer OTHER, SELFPAY | PROVIDERS: Visit Provider Orthopaedic Surgery | DX: Z48.89 Encounter for other specified surgical aftercare (principal); M54.5 Low back pain | CPT/HCPCS: 72100 ==

== ENCOUNTER → 2021-05-03 08:22 | Outpatient (BNVA) | payer OTHER, SELFPAY | PROVIDERS: Visit Provider Orthopaedic Surgery | DX: Z48.89 Encounter for other specified surgical aftercare (principal); Z98.1 Arthrodesis status | CPT/HCPCS: 72100 ==

== ENCOUNTER 2021-05-30 06:00 | Outpatient (RCR) | payer OTHER, SELFPAY | END 2021-06-10 23:59 | disposition home or self-care (01) | LOC: GPT 06:00 | PROVIDERS: Referring Provider Orthopaedic Surgery; Visit Provider Orthopaedic Surgery | DX: Z47.89 Encounter for other orthopedic aftercare (principal); Z98.1 Arthrodesis status | CPT/HCPCS: 97110; 97162; 97530 ==

== ENCOUNTER 2021-06-11 06:00 | Outpatient (RCR) | payer OTHER, SELFPAY | END 2021-07-10 23:59 | disposition home or self-care (01) | LOC: GPT 06:00 | PROVIDERS: Visit Provider Orthopaedic Surgery | DX: Z98.890 Other specified postprocedural states (principal) | CPT/HCPCS: 97110; 97116; 97140; 97164; 97530 ==

== ENCOUNTER → 2021-06-21 13:14 | Outpatient (BNVA) | payer OTHER, SELFPAY | PROVIDERS: Visit Provider Orthopaedic Surgery | DX: Z47.89 Encounter for other orthopedic aftercare (principal); M48.062 Spinal stenosis, lumbar region with neurogenic claudication; M54.2 Cervicalgia; M54.50 Low back pain, unspecified | CPT/HCPCS: 72050; 72100 ==

== ENCOUNTER 2021-07-11 06:00 | Outpatient (RCR) | payer OTHER, SELFPAY | END 2021-08-10 23:59 | disposition home or self-care (01) | LOC: GPT 06:00 | PROVIDERS: Visit Provider Orthopaedic Surgery | DX: M43.27 Fusion of spine, lumbosacral region (principal) | CPT/HCPCS: 97110; G0283 ==

== ENCOUNTER → 2022-02-21 08:17 | Outpatient (BNVA) | payer OTHER, SELFPAY | PROVIDERS: Visit Provider Orthopaedic Surgery | DX: M54.50 Low back pain, unspecified (principal); Z98.1 Arthrodesis status | CPT/HCPCS: 72100 ==

== ENCOUNTER 2022-04-23 08:28 | Outpatient (CLI) | payer OTHER, SELFPAY ==
--- NOTE | 2022-04-23 08:45 | MR_ITS ---
WS: [id number] MRI CERVICAL SPINE NONCONTRAST TECHNIQUE: Sagittal T1, T2 and STIR imaging. Axial T2, gradient, and fiesta imaging. CLINICAL INFORMATION: neck pain COMPARISON: None. FINDINGS: Straightening of the normal cervical lordosis with slight reversal. C2-C3: Moderate LEFT facet arthropathy. Moderate LEFT and no significant RIGHT foraminal narrowing. S dasia canal is patent. C3-C4: Mild disc osteophytic ridging. Moderate RIGHT and no significant LEFT foraminal narrowing. Mil d facet arthropathy. Spinal canal is patent. C4-C5: Mild disc osteophyte complex with endplate ridging. Slight effacement of ventral thecal sac. M ild LEFT and no significant RIGHT foraminal narrowing. Mild facet arthropathy. C5-C6: Disc osteophyte complex eccentric to the LEFT with slight effacement of ventral thecal sac. Mi ld to moderate RIGHT bony foraminal narrowing. LEFT foramen is patent. C6-C7: Disc osteophyte complex with endplate ridging. Mild LEFT greater than RIGHT bony foraminal bryon rowing. Mild central canal stenosis. Mild facet arthropathy. C7-T1: Mild annular bulging. Spinal canal and foramen are patent. Mild facet arthropathy. Tiny annula r fissure. Visualized brain stem structures: Normal. Prevertebral soft tissues: Normal. MR/MR cervical spin wo con* [id number] IMPRESSION: 1. Straightening of the normal cervical lordosis. Cord signal is normal. 2. Mild central canal stenosis C6-C7 with slight effacement of ventral thecal sac. 3. Moderate LEFT C2-C3 with bony foraminal narrowing with moderate LEFT facet arthropathy. 4. Moderate RIGHT C3-C4 bony foraminal narrowing. 5. Mild LEFT C4-C5 and RIGHT C5-C6 bony foraminal narrowing.
--- NOTE | 2022-04-23 09:30 | MR_ITS ---
WS: [id number] MRI LUMBAR SPINE NONCONTRAST TECHNIQUE: Sagittal T1, T2 and STIR imaging. Axial T1 and T2 imaging. CLINICAL INFORMATION: lumbar pain COMPARISON: MRI January 17, 2021 FINDINGS: Postoperative changes laminectomy defects L4-L5 and L5-S1. Pedicle screw fixation and interbody fusio n grafts L4-S1. Spinal canal has been decompressed in the lower lumbar spine. No drainable fluid dada ections or abscess. Pedicle screws at L4-S1 with interbody fusion grafts are new compared to January 17, 2021. L1-L2: Mild facet arthropathy. Spinal canal and foramen are patent. L2-L3: No significant disc bulging. Mild facet arthropathy. Spinal canal and foramen are patent. L3-L4: Mild annular bulging. Moderate facet arthropathy. Mild narrowing of the thecal sac due to face t arthropathy and prominent epidural fat. Mild bilateral foraminal narrowing. L4-L5: Postoperative changes. Spinal canal has been decompressed. Foramen are patent. L5-S1: Postoperative changes. Spinal canal has been decompressed. Foramen are patent. Visualized pelvic bony structures: Normal. Paravertebral soft tissues: Normal. MR/MR lumbar spine wo con* [id number] IMPRESSION: 1. Postoperative changes pedicle screw fixation L4-S1 with interbody fusion gr afts and wide decompressive laminectomies from previous. 2. Spinal canal and foramen are patent at L4-L5 and L5-S1. 3. Mild narrowing of the thecal sac L3-L4 due to mild annular bulging in [facility] with facet arthropathy and ligamentum flavum hypertrophy. Prominent dors al epidural fat. This appears progressed compared to previous. 4. Mild bilateral L3-L4 bony foraminal narrowing appears progressed LEFT great er than RIGHT. 5. No other remarkable changes compared to previous.
== END 2022-04-23 08:29 | disposition home or self-care (01) ==
PROVIDERS: Visit Provider Orthopaedic Surgery
DX: M47.22 Other spondylosis with radiculopathy, cervical region (principal); M48.02 Spinal stenosis, cervical region; M54.50 Low back pain, unspecified; M54.2 Cervicalgia
CPT/HCPCS: 72141; 72148

== ENCOUNTER 2022-11-20 06:13 | Outpatient (CLI) | payer OTHER, SELFPAY ==
--- NOTE | 2022-11-20 | US_ITS ---
WS: [id number] ULTRASOUND ABDOMEN CLINICAL INFORMATION: ABD DISTENSION COMPARISON: 2020 FINDINGS: Technically difficult study due to bowel gas. Liver Size: Enlarged Craniocaudal length: 17.1 cm. Echogenicity: Coarse and heterogeneous Surface nodularity: None. Mass (size and location): None. Bile ducts Intrahepatic ducts: Normal. Common bile duct diameter: 0.3 cm. Gallbladder Cholecystectomy. Pancreas Not well seen. Spleen Splenomegaly: None. Craniocaudal length: 11.1 cm. Right kidney: Normal. Hydronephrosis: None. Size: 12.0 cm x 6.9 cm x 5.8 cm Left kidney: Normal. Hydronephrosis: None. Size: 10.8 cm x 4.9 cm x 4.9 cm. Abdominal aorta and IVC Visualized portions are normal. Ascites: None. US/US abdomen complete* [id number] IMPRESSION: Technically difficult study due to bowel gas. 1. Mild hepatomegaly with diffuse fatty infiltration. 2. Prior cholecystectomy. 3. Normal common bile duct. 4. No hydronephrosis in either kidney. 5. Normal spleen.
== END 2022-11-20 06:14 | disposition home or self-care (01) ==
LOC: RAD 06:15
PROVIDERS: PCP Nurse Practitioner; Visit Provider Nurse Practitioner
DX: R14.0 Abdominal distension (gaseous) (principal); R16.0 Hepatomegaly, not elsewhere classified
CPT/HCPCS: 76700

== ENCOUNTER → 2022-12-27 08:52 | Outpatient (BNVA) | payer OTHER, SELFPAY | PROVIDERS: PCP Nurse Practitioner; Visit Provider Internal Medicine Pulmonary Disease | DX: J30.2 Other seasonal allergic rhinitis (principal); R06.02 Shortness of breath | CPT/HCPCS: 36415; 82785; 85025; 86003 ==

== ENCOUNTER → 2022-12-27 10:30 | Outpatient (BNVA) | payer OTHER, SELFPAY | PROVIDERS: PCP Nurse Practitioner; Visit Provider Internal Medicine Cardiovascular Disease | DX: R07.9 Chest pain, unspecified (principal); R00.2 Palpitations | CPT/HCPCS: 93005 ==

== ENCOUNTER 2022-12-30 00:39 | Observation (INO) | payer OTHER, SELFPAY ==
[2022-12-30] VITALS (68 sets, daily range): BP systolic 93–121; BP diastolic 64–89; PULSE 75–94; RESP 12–28; TEMP 36.6–36.8; O2SAT 88–98; BMI 29.7
--- NOTE | 2022-12-30 01:08 | CTR_ITS ---
PROCEDURE INFORMATION: Exam: CT Head Without Contrast Exam date and time: 12/30/2022 1:41 AM Age: 47 years old Clinical indication: Syncope and collapse; Additional info: Syncope, hypotension TECHNIQUE: Imaging protocol: Computed tomography of the head without contrast. Radiation optimization: All CT scans at this facility use at least one of these dose optimization techniques: automated exposure control; mA and/or kV adjustment per patient size (includes targeted exams where dose is matched to clinical indication); or iterative reconstruction. REPORTING DATA: Count of CT and Cardiac NM exams in prior 12 months: This patient has received 0 known CTs and 0 known cardiac nuclear medicine studies in the 12 months prior to the current study. COMPARISON: MR cervical spin wo con* [id number] 04/23/2022 9:34 AM RADIATION DOSE METRICS: Total DLP (mGy-cm): 1093.08 FINDINGS: Brain: No focal hemorrhage or midline shift is identified. Cerebral ventricles: No ventriculomegaly or evidence of acute hydrocephalus. Paranasal sinuses: The partially assessed sinuses are grossly clear. Mastoid air cells: Visualized mastoid air cells are well aerated. Bones/joints: No displaced skull fracture is noted. Soft tissues: Unremarkable. CT/CT head wo con* [id number] IMPRESSION: No acute intracranial abnormality.
--- NOTE | 2022-12-30 01:08 | XRR_ITS ---
PROCEDURE INFORMATION: Exam: XR Chest Exam date and time: 12/30/2022 1:20 AM Age: 47 years old Clinical indication: Other: Syncope TECHNIQUE: Imaging protocol: Radiologic exam of the chest. Views: 1 view. COMPARISON: CT chest [facility] [id number] 03/07/2020 2:26 PM FINDINGS: Lungs: Unremarkable. No consolidation. Pleural spaces: Unremarkable. No pleural effusion. No pneumothorax. Heart/Mediastinum: Unremarkable. No cardiomegaly. Left-side pacing electrode. Bones/joints: Unremarkable. XR/XR chest 1V portable [id number] IMPRESSION: No acute findings.
--- NOTE | 2022-12-30 01:10 | ECG_ITS ---
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 Measurements Intervals [place] Rate: 90 P: 59 GA: 153 QRS: 99 QRSD: 100 T: 69 QT: 392 QTc: 480 Interpretive Statements SINUS RHYTHM BORDERLINE RIGHT AXIS DEVIATION [QRS AXIS > 90] MODERATE T-WAVE ABNORMALITY, CONSIDER ANTERIOR ISCHEMIA [-0.1+ mV T-WAVE IN V3/V4] Compared to ECG 12/27/2022 09:09:44 Possible ischemia now present T-wave abnormality still present Electronically Signed On 12-30-2022 16:32:17 CDT by Dudley Verdugo M.D. [id number] f
[2022-12-30 01:16] LABS: Basophils # 0.1 10^3/uL (0.0-0.1); Basophils % 0.5 %; Eosinophils # 0.1 10^3/uL (0.0-0.8); Eosinophils % 0.5 %; Hematocrit 42.9 % (42.0-52.0); Hemoglobin 15.1 g/dL (11.7-16.6); Lymphocytes # 2.3 10^3/uL (0.8-4.8); Lymphocytes % 20.8 %; Mean Corpuscular HGB Conc 35.2 g/dL (30.0-36.0); Mean Corpuscular Volume 102.4 fl (80-94); Mean Platelet Volume 9.7 fL (7.4-10.4); Monocytes % 8.7 %; Neutrophils # 7.57 10^3/uL (1.8-7.7); Neutrophils % 68.7 %; Nucleated Red Blood Cells % 0 %; Platelet Count 227 10^3/cmm (130-400); Red Blood Count 4.19 10^6/uL (4.1-5.3); Red Cell Distribution Width 12.9 % (12.1-15.1)
[2022-12-30] MEDS: sodium chloride 0.9% 1,000 ML 999 ML IV (01:17)
[2022-12-30 01:44] LABS: Lactic Sepsis W/Reflex 1.6 mmol/L (0.5-2.2)
[2022-12-30 01:46] LABS: Add Urine Microscopic? NO; Charge for UA Resulting for Rev
[2022-12-30 01:54] LABS: Alanine Aminotransferase 40 U/L (0-41); Albumin Level 3.6 g/dL (3.5-5.2); Alcohol Level 72 mg/dL (0-10); Alkaline Phosphatase 57 U/L (40-130); Anion Gap 15.1 (5-19); Aspartate Amino Transferase 49 U/L (0-40); Blood Urea Nitrogen 31 mg/dL (6-20); C Reactive Protein 9.1 mg/L (0.0-4.9); Calcium 7.6 mg/dL (8.5-10.5); Carbon Dioxide 26 mmol/L (22-29); Chloride 90 mmol/L (98-107); Globulin 2.4 g/dL (1.3-4.6); Glomerular Filtration Rate 23.2 mL/min (90-130); Glucose 85 mg/dL (65-115); Magnesium 1.9 mg/dL (1.7-2.3); NT Pro B Type Natriuretic Pept 50 pg/mL (0-125); Osmolality Calculated 272 mOsm/kg (285-295); Potassium 3.1 mmol/L (3.5-5.1); Sodium 128 mmol/L (136-145); Total Bilirubin 1.1 mg/dL (0.15-1.2)
[2022-12-30 01:54] LABS: Bilirubin Urine Neg (Negative); Blood Urine Neg (Negative); Glucose Urine UA Norm (Normal); Ketones Urine Negative (Negative); Leukocyte Esterase Urine Negative (Negative); Nitrate Urine Negative (Negative); Protein Urine Neg (Negative); Urine Appearance Clear (CLEAR); Urine Color Yellow (Yellow); Urobilinogen Urine Norm (Negative); pH Urine 5 (5-7)
[2022-12-30 01:57] LABS: Amphetamines Screen Urine Negative (Negative); Barbiturates Screen Urine Negative (Negative); Benzodiazepines Screen Urine Negative (Negative); Cocaine Screen Urine Negative (Negative); Opiate Screen Urine Negative (Negative); PCP Screen Urine Negative (Negative); THC Screen Urine Negative (Negative)
[2022-12-30 02:02] LABS: INR 0.97 (0.8-1.2)
[2022-12-30 02:07] LABS: Troponin(5th) Baseline 21 ng/L (0-15)
--- NOTE | 2022-12-30 02:28 | ED_ITS ---
HPI - Weakness General: Chief complaint: Weakness Stated complaint: hypotensive Time Seen by Provider: 12/30/22 00:40 Source: patient History of Present Illness: 47-year-old male with a short syncopal episode at home. He had not felt well most of the day. He had gone to bed, and got up from bed. At this point, he believes he briefly lost consciousness and fell backwards. His states that he was not responsive for a few seconds, but then awakened. He remembers her standing over him. Initial blood pressures were quite low, 50s and 60s systolic . EMS was called. They gave a bolus of nearly a liter, with improvement in blood pressure and mentation. He presents with a blood pressure of 102/74. He has mild chest discomfort, he states that his neck and back hurt from the fall. He does not have a significant headache. He denies fever. He denies significant shortness of breath. He admits to a couple of drinks a day. Complaint: generalized weakness Onset (ago): minute(s) Duration: constant Location: generalized and other (Syncope or presyncope) Severity: moderate Quality: other Relieving factors: none Exacerbating factors: none Associated symptoms: Reports chest pain, nausea and syncope; Denies chills, confusion, fever(s), headache(s), short of breath or vomiting Review of Systems Const: Denies: fever(s) or chills Card: Reports: chest pain and syncope; Denies: palpitations Resp: Denies: dyspnea, productive cough or non-productive cough GI: Reports: abdominal pain (Chronic episodic) and nausea; Denies: vomiting Neuro: Denies: headache(s) or confusion PFS ED PFSH: Medical History COPD (chronic obstructive pulmonary disease) Coronary artery disease HTN (hypertension) Mitral valve prolapse Surgical History H/O hernia repair H/O shoulder surgery H/O vasectomy History of cholecystectomy History of surgery on upper extremity History of testicular surgery Family History Other CAD (coronary artery disease) Diabetes Hyperlipidemia Hypertension Denies family history of Stroke Social History Smoking and tobacco status: current every day smoker cigarettes Packs smoked per day: 0.5 Years cigarettes smoked: 30 [ Other cigarette details: Started at age 17] Alcohol intake: current Alcohol intake frequency: 3 or more drinks per day Alcohol type: beer Substance/Drug Use: never Lives independently: Yes Household members: spouse Marital status: service: No Current occupational status: unemployed Do you think of yourself as: Straight/Heterosexual Current gender identity: Male Physical Exam Const: GENERAL APPEARANCE: cooperative and ill appearing (mildly); not frail appearing HENMT: COMMON NORMALS: normocephalic, atraumatic and Normal external nose p resent HEAD & SCALP: normocephalic and atraumatic FACE & SINUS: normal facial exam and face symmetric NOSE: Normal external nose present Eye: COMMON NORMALS: Equal, round and reactive pupils present and EOMs intact bilaterally PUPIL: Yes Equal, round and reactive pupils present Neck/C-Spine: GENERAL: Yes trachea midline Chest: CHEST: Yes Symmetrical chest wall rise Resp: COMMON NORMALS: normal respiratory effort, No retractions, No use of accessory muscles and clear to auscultation bilaterally AUSCULTATION: clear to auscultation bilaterally Cardio: COMMON NORMALS: regular rate and regular rhythm RATE: regular rate RHYTHM: regular rhythm GI: COMMON NORMALS: Normal to inspection, nondistended, normoactive bowel sounds present Extremity: COMMON NORMALS: no pedal edema Neuro: MITCH COMA SCALE: document GCS findings Mitch coma scale eye opening: Spontaneous [place] coma scale verbal response: Orientated Mitch coma scale motor response: Obey commands Mitch coma scale total score: 15 SENSORY EXAM: Yes extremities (intact) Psych: COMMON NORMALS: speech normal SPEECH: Yes normal speech Skin: COMMON NORMALS: no rashes or lesions noted GENERAL SKIN EXAM: no rashes or lesions noted Course Vital Signs: Vital signs: Vital Signs Temperature 98.3 F 12/30/22 00:45 Pulse Rate 87 12/30/22 05:17 Respiratory Rate 16 12/30/22 05:17 Blood Pressure 97/67 12/30/22 05:17 Pulse Oximetry 88 L 12/30/22 05:17 Oxygen Delivery Me thod Room Air 12/30/22 03:15 MDM - Weakness Medical Decision Making Patient with syncopal episode at home and hypotension. Blood pressure now 106/68 after nearly 2.5 L of fluid. Saturations 92% on room air. Heart rate is 85. CBC is not remarkable. BMP shows a potassium of 3.1, and elevated creatinine of 2.9 with no prior history of renal disease urinalysis and urine drug screen are not remarkable. Ethyl alcohol level is 72. Baseline troponin is 21. We will await a second troponin. Second troponin did not elevate. Patient is still mildly hypotensive. Will admit for acute kidney injury, hypokalemia, and syncope. Lab Data 12/30/22 00:45 12/30/22 00:45 Radiology Impressions Chest X-Ray 12/30/22 01:08 IMPRESSION: No acute findings. Head CT 12/30/22 01:08 IMPRESSION: No acute intracranial abnormality. Laboratory Results WBC 11.0 10^3/uL (4.0-10.0) H 12/30/22 00:45 RBC 4.19 10^6/uL (4.1-5.3) 12/30/22 00:45 Hgb 15.1 g/dL (11.7-16.6) 12/30/22 00:45 Hct 42.9 % (42.0-52.0) 12/30/22 00:45 MCV 102.4 fl (80-94) H 12/30/22 00:45 MCH 36.0 pg (28.0-34.0) H 12/30/22 00:45 MCHC 35.2 g/dL (30.0-36.0) 12/30/22 00:45 RDW 12.9 % (12.1-15.1) 12/30/22 00:45 Plt Count 227 10^3/cmm (130-400) 12/30/22 00:45 MPV 9.7 fL (7.4-10.4) 12/30/22 00:45 Neut % (Auto) 68.7 % 12/30/22 00:45 Lymph % (Auto) 20.8 % 12/30/22 00:45 [place] % (Auto) 8.7 % 12/30/22 00:45 Eos % (Auto) 0.5 % 12/30/22 00:45 Baso % (Auto) 0.5 % 12/30/22 00:45 Neut # (Auto) 7.57 10^3/uL (1.8-7.7) 12/30/22 00:45 Lymph # (Auto) 2.3 10^3/uL (0.8-4.8) 12/30/22 00:45 [place] # (Auto) 1.0 10^3/uL (0.2-0.9) H 12/30/22 00:45 Eos # (Auto) 0.1 10^3/uL (0.0-0.8) 12/30/22 00:45 Baso # (Auto) 0.1 10^3/uL (0.0-0.1) 12/30/22 00:45 Nucleated RBC % (auto) 0 % 12/30/22 00:45 Nucleated RBCs # 0.0 /100WBC 12/30/22 00:45 PT 13.20 SECONDS (12.1-14.9) 12/30/22 00:45 INR 0.97 (0.8-1.2) 12/30/22 00:45 Sodium 128 mmol/L (136-145) L 12/30/22 00:45 Potassium 3.1 mmol/L (3.5-5.1) L 12/30/22 00:45 Chloride 90 mmol/L (98-107) L 12/30/22 00:45 Carbon Dioxide 26 mmol/L (22-29) 12/30/22 00:45 Anion Gap 15.1 (5-19) 12/30/22 00:45 BUN 31 mg/dL (6-20) H 12/30/22 00:45 Creatinine 2.9 mg/dL (0.7-1.2) H 12/30/22 00:45 GFR Calculation 23.2 mL/min (90-130) L 12/30/22 00:45 Glucose 85 mg/dL (65-115) 12/30/22 00:45 Calculated Osmolality 272 mOsm/kg (285-295) L 12/30/22 00:45 Lactic Acid 1.6 mmol/L (0.5-2.2) 12/30/22 00:45 Calcium 7.6 mg/dL (8.5-10.5) L 12/30/22 00:45 Magnesium 1.9 mg/dL (1.7-2.3) 12/30/22 00:45 Total Bilirubin 1.1 mg/dL (0.15-1.2) 12/30/22 00:45 AST 49 U/L (0-40) H 12/30/22 00:45 ALT 40 U/L (0-41) 12/30/22 00:45 Alkaline Phosphatase 57 U/L (40-130) 12/30/22 00:45 Troponin T Baseline 21 ng/L (0-15) H 12/30/22 00:45 Troponin T 120 Minute 17.51 ng/L (0-15) H 12/30/22 03:19 Delta Troponin T -3.49 ABS# (0-10) L 12/30/22 03:19 C-Reactive Protein 9.1 mg/L (0.0-4.9) H 12/30/22 00:45 NT-Pro-B Natriuret Pep 50 pg/mL (0-125) 12/30/22 00:45 Total Protein 6.0 g/dL (6.6-8.7) L 12/30/22 00:45 Albumin 3.6 g/dL (3.5-5.2) 12/30/22 00:45 Globulin 2.4 g/dL (1.3-4.6) 12/30/22 00:45 Urine Color Yellow (Yellow) 12/30/22 01:40 Urine Appearance Clear (CLEAR) 12/30/22 01:40 Urine pH 5 (5-7) 12/30/22 01:40 Ur Specific Faith 1.010 (1.005-1.030) 12/30/22 01:40 Urine Protein Neg (Negative) 12/30/22 01:40 Urine Glucose (UA) Norm (Normal) 12/30/22 01:40 Urine Ketones Negative (Negative) 12/30/22 01:40 Urine Blood Neg (Negative) 12/30/22 01:40 Urine Nitrate Negative (Negative) 12/30/22 01:40 Urine Bilirubin Neg (Negative) 12/30/22 01:40 Urine Urobilinogen Norm mg/dL (Negative) 12/30/22 01:40 Ur Leukocyte Esterase Negative (Negative) 12/30/22 01:40 Urine Opiates Screen Negative ng/mL (Negative) 12/30/22 01:40 Ur Barbiturates Screen Negative ng/mL (Negative) 12/30/22 01:40 Ur Phencyclidine Scrn Negative ng/mL (Negative) 12/30/22 01:40 Ur Amphetamines Screen Negative ng/mL (Negative) 12/30/22 01:40 U Benzodiazepines Scrn Negative ng/mL (Negative) 12/30/22 01:40 Urine Cocaine Screen Negative ng/mL (Negative) 12/30/22 01:40 U Marijuana (THC) Screen Negative ng/mL (Negative) 12/30/22 01:40 Ethyl Alcohol 72 mg/dL (0-10) H 12/30/22 00:45 Discharge Plan Discharge Patient Disposition: Admitted As Inpatient Clinical Impression: Acute hypotension, Acute kidney injury, Acute hypokalemia, Syncope Condition: Fair Prescriptions: No Action nitroglycerin 0.4 mg tablet, sublingual 0.4 mg sublingual Q5M PRN (Reason: chest pain) Qty: 25 3RF Rx Instructions: do not exceed 3 doses per episode lidocaine (PF) 10 mg/mL (1 %) solution 1 ml intra-articular ONCE Qty: 1 0RF bupivacaine (PF) 0.25 % (2.5 mg/mL) solution 2 ml Infiltration ONCE Qty: 1 0RF tizanidine 4 mg tablet 4 mg PO BID PRN (Reason: muscle spasticity) Qty: 60 0RF Rx Instructions: not to be taken with flexeril. dexamethasone sodium phosphate 4 mg/mL solution 8 mg Infiltration ONCE Qty: 2 0RF gabapentin 600 mg tablet 600 mg PO TID lisinopril-hydrochlorothiazide 20-12.5 mg tablet 1 tab PO DAILY omeprazole 40 mg capsule,delayed release(DR/EC) 40 mg PO DAILY fluticasone propion-salmeterol [Advair HFA] 230-21 mcg/actuation HFA aerosol inhaler 2 puff inhalation BID Qty: 12 6RF albuterol sulfate [Ventolin HFA] 90 mcg/actuation HFA aerosol inhaler 2 puff INHALATION Q6H PRN (Reason: Shortness Of Breath) Qty: 8.5 6RF ibuprofen 800 mg tablet 800 mg PO Q8H PRN (Reason: pain) Qty: 20 0RF Referrals: Brenda Sharma FNP [Primary Care Provider] - Coding Level of Care Code ED Color Control Supervisor for Chg Beck
--- NOTE | 2022-12-30 03:10 | ECG_ITS ---
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 Measurements Intervals [place] Rate: 90 P: 59 RI: 153 QRS: 99 QRSD: 100 T: 69 QT: 392 QTc: 480 Interpretive Statements SINUS RHYTHM BORDERLINE RIGHT AXIS DEVIATION [QRS AXIS > 90] MODERATE T-WAVE ABNORMALITY, CONSIDER ANTERIOR ISCHEMIA [-0.1+ mV T-WAVE IN V3/V4] Compared to ECG 12/27/2022 09:09:44 Possible ischemia now present T-wave abnormality still present Electronically Signed On 12-30-2022 16:39:08 CDT by Dudley Verdugo M.D. [id number] f
[2022-12-30] MEDS: potassium chloride ER 20 mEq Tablet 40 MEQ PO (03:12)
[2022-12-30 03:45] LABS: Troponin 5 2HR 17.51 ng/L (0-15)
[2022-12-30 03:47] LABS: Troponin 5 2HR Delta -3.49 ABS# (0-10)
--- NOTE | 2022-12-30 05:30 | CT_ITS ---
WS: [id number] CT ABDOMEN AND PELVIS NONCONTRAST HISTORY: urinary obstruction TECHNIQUE: Imaging performed through the abdomen and pelvis. Coronal and sagittal reformats are submi tted. All CT scans at [facility] use at least one of these dose optimization techniques: auto mated exposure control; mA and/or kV adjustment per patient size (includes targeted exams where dose is matched to clinical indication); or iterative reconstruction. DLP: 895.95 mGy.cm COMPARISON: None available. Lower thorax: Dependent changes at the lung bases. Very mild groundglass attenuation at the RIGHT eleuterio g base. Normal size heart. Small hiatal hernia. Liver: Normal size liver. No mass or bile duct dilatation. Gallbladder: Prior cholecystectomy. No bile duct dilatation. Pancreas: Normal size and attenuation. Normal pancreatic duct. No pancreatitis or mass. Spleen: Normal. Adrenal glands: Normal. No mass. Right kidney: Normal size kidney with no mass or hydronephrosis. Left kidney: Normal size kidney with no mass or hydronephrosis. Aorta: Mild atherosclerosis abdominal aorta with no aneurysm. No free fluid, intraperitoneal air or significant lymphadenopathy. GI tract: Normal noncontrast imaging of the stomach, small bowel and colon. No obstruction or wall th ickening. Abdominal wall: Negative. No hernia. Pelvis: Moderately distended urinary bladder. No wall thickening. No free fluid or adenopathy. Osseous structures: Posterior lumbar fusion L4-S1. Interbody spacers at L4-5 and L5-S1. CT/CT kidney stone [id number] IMPRESSION: 1. No renal or ureteral obstruction or calcifications. 2. Normal appendix. 3. No ascites or adenopathy. 4. Prior cholecystectomy. 5. Moderately distended urinary bladder. 6. Mild hazy attenuation at the lung bases. Atelectasis versus a mild RIGHT lo wer lobe pneumonitis.
--- NOTE | 2022-12-30 05:32 | W.ED.WEAKNES ---
HPI - Weakness General: Chief complaint: Weakness Stated complaint: hypotensive Time Seen by Provider: 12/30/22 00:40 Source: patient History of Present Illness: 47-year-old male here after syncopal episode. He had gotten up from bed, and collapsed beside the bed. states that he was out for several seconds before coming to. He was mildly confused. No convulsions were noted. He did not hit his head. 911 was called. Initially blood pressure was quite low in the 60s systolic range. MD Complaint: generalized weakness Location: generalized and other (Syncope or presyncope) Severity: moderate Quality: other Relieving factors: none Exacerbating factors: none PFSH ED PFSH: Medical History COPD (chronic obstructive pulmonary disease) Coronary artery disease HTN (hypertension) Mitral valve prolapse Surgical History H/O hernia repair H/O shoulder surgery H/O vasectomy History of cholecystectomy History of surgery on upper extremity History of testicular surgery Family History Other CAD (coronary artery disease) Diabetes Hyperlipidemia Hypertension Denies family history of Stroke Social History Smoking and tobacco status: current every day smoker cigarettes Packs smoked per day: 0.5 Years cigarettes smoked: 30 [ Other cigarette details: Started at age 17] Alcohol intake: current Alcohol intake frequency: 3 or more drinks per day Alcohol type: beer Substance/Drug Use: never Lives independently: Yes Household members: spouse Marital status: service: No Current occupational status: unemployed Do you think of yourself as: Straight/Heterosexual Current gender identity: Male Course Vital Signs: Vital signs: Vital Signs Temperature 98.3 F 12/30/22 00:45 Pulse Rate 87 12/30/22 05:17 Respiratory Rate 16 12/30/22 05:17 Blood Pressure 97/67 12/30/22 05:17 Pulse Oximetry 88 L 12/30/22 05:17 Oxygen Delivery Me thod Room Air 12/30/22 03:15 MDM - Weakness Lab Data 12/30/22 00:45 12/30/22 00:45 Radiology Impressions Chest X-Ray 12/30/22 01:08 IMPRESSION: No acute findings. Head CT 12/30/22 01:08 IMPRESSION: No acute intracranial abnormality. Laboratory Results WBC 11.0 10^3/uL (4.0-10.0) H 12/30/22 00:45 RBC 4.19 10^6/uL (4.1-5.3) 12/30/22 00:45 Hgb 15.1 g/dL (11.7-16.6) 12/30/22 00:45 Hct 42.9 % (42.0-52.0) 12/30/22 00:45 MCV 102.4 fl (80-94) H 12/30/22 00:45 MCH 36.0 pg (28.0-34.0) H 12/30/22 00:45 MCHC 35.2 g/dL (30.0-36.0) 12/30/22 00:45 RDW 12.9 % (12.1-15.1) 12/30/22 00:45 Plt Count 227 10^3/cmm (130-400) 12/30/22 00:45 MPV 9.7 fL (7.4-10.4) 12/30/22 00:45 Neut % (Auto) 68.7 % 12/30/22 00:45 Lymph % (Auto) 20.8 % 12/30/22 00:45 [place] % (Auto) 8.7 % 12/30/22 00:45 Eos % (Auto) 0.5 % 12/30/22 00:45 Baso % (Auto) 0.5 % 12/30/22 00:45 Neut # (Auto) 7.57 10^3/uL (1.8-7.7) 12/30/22 00:45 Lymph # (Auto) 2.3 10^3/uL (0.8-4.8) 12/30/22 00:45 [place] # (Auto) 1.0 10^3/uL (0.2-0.9) H 12/30/22 00:45 Eos # (Auto) 0.1 10^3/uL (0.0-0.8) 12/30/22 00:45 Baso # (Auto) 0.1 10^3/uL (0.0-0.1) 12/30/22 00:45 Nucleated RBC % (auto) 0 % 12/30/22 00:45 Nucleated RBCs # 0.0 /100WBC 12/30/22 00:45 PT 13.20 SECONDS (12.1-14.9) 12/30/22 00:45 INR 0.97 (0.8-1.2) 12/30/22 00:45 Sodium 128 mmol/L (136-145) L 12/30/22 00:45 Potassium 3.1 mmol/L (3.5-5.1) L 12/30/22 00:45 Chloride 90 mmol/L (98-107) L 12/30/22 00:45 Carbon Dioxide 26 mmol/L (22-29) 12/30/22 00:45 Anion Gap 15.1 (5-19) 12/30/22 00:45 BUN 31 mg/dL (6-20) H 12/30/22 00:45 Creatinine 2.9 mg/dL (0.7-1.2) H 12/30/22 00:45 GFR Calculation 23.2 mL/min (90-130) L 12/30/22 00:45 Glucose 85 mg/dL (65-115) 12/30/22 00:45 Calculated Osmolality 272 mOsm/kg (285-295) L 12/30/22 00:45 Lactic Acid 1.6 mmol/L (0.5-2.2) 12/30/22 00:45 Calcium 7.6 mg/dL (8.5-10.5) L 12/30/22 00:45 Magnesium 1.9 mg/dL (1.7-2.3) 12/30/22 00:45 Total Bilirubin 1.1 mg/dL (0.15-1.2) 12/30/22 00:45 AST 49 U/L (0-40) H 12/30/22 00:45 ALT 40 U/L (0-41) 12/30/22 00:45 Alkaline Phosphatase 57 U/L (40-130) 12/30/22 00:45 Troponin T Baseline 21 ng/L (0-15) H 12/30/22 00:45 Troponin T 120 Minute 17.51 ng/L (0-15) H 12/30/22 03:19 Delta Troponin T -3.49 ABS# (0-10) L 12/30/22 03:19 C-Reactive Protein 9.1 mg/L (0.0-4.9) H 12/30/22 00:45 NT-Pro-B Natriuret Pep 50 pg/mL (0-125) 12/30/22 00:45 Total Protein 6.0 g/dL (6.6-8.7) L 12/30/22 00:45 Albumin 3.6 g/dL (3.5-5.2) 12/30/22 00:45 Globulin 2.4 g/dL (1.3-4.6) 12/30/22 00:45 Urine Color Yellow (Yellow) 12/30/22 01:40 Urine Appearance Clear (CLEAR) 12/30/22 01:40 Urine pH 5 (5-7) 12/30/22 01:40 Ur Specific [place] 1.010 (1.005-1.030) 12/30/22 01:40 Urine Protein Neg (Negative) 12/30/22 01:40 Urine Glucose (UA) Norm (Normal) 12/30/22 01:40 Urine Ketones Negative (Negative) 12/30/22 01:40 Urine Blood Neg (Negative) 12/30/22 01:40 Urine Nitrate Negative (Negative) 12/30/22 01:40 Urine Bilirubin Neg (Negative) 12/30/22 01:40 Urine Urobilinogen Norm mg/dL (Negative) 12/30/22 01:40 Ur Leukocyte Esterase Negative (Negative) 12/30/22 01:40 Urine Opiates Screen Negative ng/mL (Negative) 12/30/22 01:40 Ur Barbiturates Screen Negative ng/mL (Negative) 12/30/22 01:40 Ur Phencyclidine Scrn Negative ng/mL (Negative) 12/30/22 01:40 Ur Amphetamines Screen Negative ng/mL (Negative) 12/30/22 01:40 U Benzodiazepines Scrn Negative ng/mL (Negative) 12/30/22 01:40 Urine Cocaine Screen Negative ng/mL (Negative) 12/30/22 01:40 U Marijuana (THC) Screen Negative ng/mL (Negative) 12/30/22 01:40 Ethyl Alcohol 72 mg/dL (0-10) H 12/30/22 00:45 Discharge Plan Discharge Patient Disposition: Admitted As Inpatient Clinical Impression: Acute hypotension, Acute kidney injury, Acute hypokalemia, Syncope Condition: Fair Coding Level of Care Code ED 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
--- NOTE | 2022-12-30 07:10 | ECG_ITS ---
[facility] Test Date: 2022-12-30 Pat Name: August Schneider Department: Room: Gender: Male Mail Teller: : 1975 Requested By: Leon Noriega Order Number: [id number] Renu MD: Dudley Verdugo M.D. Measurements Intervals [place] Rate: 83 P: 13 NH: 120 QRS: 100 QRSD: 110 T: 66 QT: 395 QTc: 465 Interpretive Statements SINUS RHYTHM BORDERLINE RIGHT AXIS DEVIATION [QRS AXIS > 90] Compared to ECG 12/27/2022 09:09:44 T-wave abnormality no longer present Electronically Signed On 12-30-2022 16:37:03 CDT by Dudley Verdugo M.D. [id number]
[2022-12-30] MEDS: heparin 5,000 unit/mL INJ 1 mL 5000 UNIT SUBCUT ×2 (07:56→20:10)
[2022-12-30] MEDS: sodium chloride 0.9% 1,000 ML 75 ML IV ×2 (07:57→20:09)
[2022-12-30 08:20] LABS: Troponin 5 6HR 16.74 ng/L (0-15)
[2022-12-30 08:22] LABS: Troponin 5 6HR Delta -4.26 ng/L (0-12)
[2022-12-30 09:04] LABS: D Dimer 0.35 ug/mIFEU (0-0.59)
[2022-12-30] MEDS: folic acid 1 mg Tablet PO (09:12)
[2022-12-30] MEDS: multivitamin therapeutic Tablet 1 TAB PO (09:12)
[2022-12-30] MEDS: thiamine 100 mg Tablet PO (09:12)
--- NOTE | 2022-12-30 13:24 | PM.HP ---
Providers/Chief Complaint Admitting Physician: Roseline García MD Primary Care Provider: KUNAL Graves Chief Complaint: hypotensive History of Present Illness August Schneider is a 47 year old male who presented to the hospital after 1 small syncopal episode. Patient woke up around 11 PM, wanted to go to the bathroom, however because of dizziness fell on his couch, tried to help him out, he was confused for a brief amount of time, no chest pain shortness of breath nausea vomiting or diarrhea. Patient had more than 4 drinks of alcohol before he went to bed. No recent fever, tachycardia, chest pain. No previous history of syncope. Orthostatics negative in the ER, work-up has been unremarkable other than alcohol level around 70, he has been diagnosed with EUNICE, clinically looks dry, CT abdomen pelvis unremarkable Review of Systems Const: Denies: fever(s) Eyes: Denies: change in vision ENMT: Denies: throat pain Card: Denies: chest pain Resp: Denies: dyspnea GI: Reports: abdominal pain : Denies: flank pain Musc: Denies: neck pain Skin/Breast: Denies: rash Neuro: Denies: headache(s) Psych: Denies: anxiety Endo: Denies: polyuria [place]/Lymph: Denies: easy bruising All/Imm: Denies: urticaria Medications/Allergies Home Medications Medication Instructions Recorded Confirmed Last Taken Type ibuprofen 800 mg tablet 800 mg PO Q8H PRN pain #20 tabs 09/09/20 12/30/22 01/24/21 Rx nitroglycerin 0.4 mg sublingual 0.4 mg sublingual Q5M PRN chest 10/06/20 12/30/22 01/17/21 Rx tablet pain #25 tabs albuterol sulfate 90 mcg/actuation 2 puff inhalation Q6H PRN 12/27/22 12/30/22 Unknown Rx aerosol inhaler (Ventolin HFA) Shortness Of Breath #8.5 grams fluticasone propionate 230 2 puff inhalation BID #12 grams 12/27/22 12/30/22 Unknown Rx mcg-salmeterol 21 mcg/actuation HFA inhaler (Advair HFA) gabapentin 600 mg tablet 600 mg PO TID 12/27/22 12/30/22 Unknown History lisinopril 20 1 tab PO DAILY@12 12/27/22 12/30/22 Unknown History mg-hydrochlorothiazide 12.5 mg tablet omeprazole 40 mg capsule,delayed 40 mg PO QAM 12/27/22 12/30/22 Unknown History release tizanidine 4 mg tablet 4 mg PO BID 12/30/22 12/30/22 Unknown History Allergies Allergy/AdvReac Type Severity Reaction Status Date / Time No Known Allergies Allergy Verified 12/30/22 08:57 PFSH Acute PFSH: Medical History COPD (chronic obstructive pulmonary disease) Coronary artery disease HTN (hypertension) Mitral valve prolapse Surgical History H/O hernia repair H/O shoulder surgery H/O vasectomy History of cholecystectomy History of surgery on upper extremity History of testicular surgery Family History Other CAD (coronary artery disease) Diabetes Hyperlipidemia Hypertension Denies family history of Stroke Social History Smoking and tobacco status: current every day smoker cigarettes Packs smoked per day: 0.5 Years cigarettes smoked: 30 [ Other cigarette details: Started at age 17] Alcohol intake: current Alcohol intake frequency: 3 or more drinks per day Alcohol type: beer Substance/Drug Use: never Lives independently: Yes Household members: spouse Marital status: service: No Current occupational status: unemployed Do you think of yourself as: Straight/Heterosexual Current gender identity: Male Vitals/I&O/Wt Last Vital Signs Temp 98.3 F 12/30/22 06:09 Pulse 91 12/30/22 09:37 Resp 18 12/30/22 09:37 BP 100/66 12/30/22 06:09 Pulse Ox 92 12/30/22 09:37 O2 Del Method Room Air 12/30/22 09:37 12/29/22 12/30/22 12/30/22 22:59 06:59 14:59 Intake Total 1000 / 1000 120 / 120 Balance 1000 / 1000 120 / 120 Weight last 48 hrs Weight 93.894 kg Physical Exam Narrative: Flush skin S1, S2 Nonfocal neuro exam Awake and alert GCS 15 Abdomen soft Doing well on room air Appears stated age No acute distress S1, S2 Data 12/30/22 00:45 12/30/22 00:45 A&P Assessment and plan (1) Acute hypotension: (2) Acute kidney injury: (3) PAYAM (obstructive sleep apnea): (4) Syncope: (5) Acute hypokalemia: (6) Mitral valve prolapse: (7) Lung disease, restrictive: (8) Smoker: (9) Lumbar stenosis with neurogenic claudication: (10) Lumbar disc disease with radiculopathy: Plan Syncope Requested echo Likely related to alcohol abuse and sleep apnea EUNICE due to dehydration Continue IV fluids No signs of obstruction CT abdomen pelvis unremarkable Hypokalemia: Repleted Hypovolemic hyponatremia continue IV fluids Alcohol level 72, patient is stating that he was not intoxicated. He is also endorsing that Likely discharge tomorrow Attestations Medical Necessity Statement*: Discharge tomorrow if creatinine improves Diagnoses Acute hypotension I95.9 Acute kidney injury N17.9 PAYAM (obstructive sleep apnea) G47.33 Syncope R55 Acute hypokalemia E87.6 Mitral valve prolapse I34.1 Lung disease, restrictive J98.4 Smoker F17.200 Lumbar stenosis with neurogenic claudication M48.062 Lumbar disc disease with radiculopathy M51.16
--- NOTE | 2022-12-30 13:26 | USCV_ITS ---
August Schneider Age: 47 Gender: M : 1975 Exam Date: 12/30/2022 15:12 Ordering Phys: Hollis Jimenez MD Technologist: CT Exam Location: [facility] [place] Indication: syncope BP: 126 / 85 HR: 75 Rhythm: Sinus Technical Quality: Adequate MEASUREMENTS (Male / Female) Normal Values 2D ECHO LV Diastolic Diameter PLAX 3.7 cm 4.2 - 5.9 / 3.9 - 5.3 cm LV Systolic Diameter PLAX 2.1 cm IVS Diastolic Thickness 1.0 cm 0.6 - 1.0 / 0.6 - 0.9 cm IVS Systolic Thickness 1.3 cm LVPW Diastolic Thickness 1.2 cm 0.6 - 1.0 / 0.6 - 0.9 cm LVPW Systolic Thickness 1.8 cm LVOT Diameter 2.9 cm LV Ejection Fraction 2D Teich 70.3 % LV Ejection Fraction MOD 2C 50.7 % LV Ejection Fraction 2C AL 50.7 % LA Diameter 3.3 cm Aorta at Sinotubular Diameter 2.9 cm IVC Diameter 1.7 cm M-MODE Aortic Annulus Diameter 3.5 cm LA Ao Ratio MM 1.0 MV E Point Septal Separation 0.2 cm DOPPLER AV Peak Velocity 134.0 cm/s LVOT Peak Velocity 84.0 cm/s AV Area Cont Eq vti 4.8 cm squared AV Area Cont Eq pk 4.0 cm squared MV Area PHT 4.0 cm squared Mitral E to A Ratio 1.2 MV E' Velocity 84.0 cm/s Right Atrial Pressure 3.0 mmHg PV Peak Velocity 89.0 cm/s FINDINGS Left Ventricle Normal left ventricular size and systolic function, EF 55 %. No regional wall motion abnormalities. Right Ventricle The right ventricle is normal in size and function. Right Atrium The right atrium is normal in size. Left Atrium The left atrium is normal in size. Mitral Valve No gross abnormalities noted Aortic Valve No gross abnormalities noted Tricuspid Valve Trace tricuspid valve regurgitation. Pulmonic Valve No gross abnormalities noted Pericardium Normal pericardium without effusion. Aorta Normal ascending aorta dimension. IVC Inferior vena cava not visualized. CONCLUSIONS Normal left ventricular size and systolic function, EF 55 %. No regional wall motion abnormalities. Normal cardiac chamber sizes. No significant valvular abnormalities. There is no pericardial effusion. There are no intracardiac masses. Technically difficult study because of the poor ultrasonic window. Compared to the study from 04/03/2020, there may not be a significant change Dr Leandro Lee MD [facility] (Electronically Signed) Final Date: 30 Dec 2022 17:07 S
[2022-12-30] MEDS: tizanidine 4 mg Tablet PO (20:09)
[2022-12-31 03:47] VITALS: PULSE 75
[2022-12-31 04:00] VITALS: BP 113/68; PULSE 72; RESP 14; TEMP 36.4; O2SAT 94
[2022-12-31 05:02] LABS: Basophils % 0.6 %; Eosinophils # 0.1 10^3/uL (0.0-0.8); Eosinophils % 1.3 %; Hematocrit 45.6 % (42.0-52.0); Hemoglobin 15.3 g/dL (11.7-16.6); Lymphocytes # 2.2 10^3/uL (0.8-4.8); Lymphocytes % 31.7 %; Mean Corpuscular HGB Conc 33.6 g/dL (30.0-36.0); Mean Corpuscular Hemoglobin 35.8 pg (28.0-34.0); Mean Corpuscular Volume 106.8 fl (80-94); Mean Platelet Volume 9.7 fL (7.4-10.4); Monocytes # 0.6 10^3/uL (0.2-0.9); Neutrophils # 3.92 10^3/uL (1.8-7.7); Nucleated Red Blood Cells % 0 %; Platelet Count 209 10^3/cmm (130-400); Red Blood Count 4.27 10^6/uL (4.1-5.3); Red Cell Distribution Width 13.2 % (12.1-15.1); White Blood Count 6.9 10^3/uL (4.0-10.0)
[2022-12-31 05:24] LABS: Anion Gap 13.8 (5-19); Blood Urea Nitrogen 21 mg/dL (6-20); Calcium 8.2 mg/dL (8.5-10.5); Carbon Dioxide 21 mmol/L (22-29); Chloride 103 mmol/L (98-107); Glomerular Filtration Rate 71.1 mL/min (90-130); Glucose 92 mg/dL (65-115); Magnesium 2.1 mg/dL (1.7-2.3); Osmolality Calculated 281 mOsm/kg (285-295); Potassium 3.8 mmol/L (3.5-5.1); Sodium 134 mmol/L (136-145)
--- NOTE | 2022-12-31 07:12 | PM.DCS ---
Discharge Providers Date of Admission: 12/30/22 06:38 Date of Discharge: December 31, 2022 Attending Provider at Admission: Roseline García MD Attending Provider at Discharge: Hollis Jimenez MD Primary Care Provider: KUNAL Graves Diagnoses at Discharge Discharge Diagnosis (1) Acute hypotension: Status: Acute (2) Acute kidney injury: Status: Acute (3) PAYAM (obstructive sleep apnea): Status: Acute (4) Syncope: Status: Acute (5) Acute hypokalemia: Status: Acute (6) Mitral valve prolapse: Status: Acute (7) Lung disease, restrictive: Status: Acute (8) Smoker: Status: Acute (9) Lumbar stenosis with neurogenic claudication: Status: Acute (10) Lumbar disc disease with radiculopathy: Status: Acute Reason for Visit Reason for Visit: hypotensive Hospital Course Hospital Course 47-year male who was admitted to the hospital for management syncope, hypotension &EUNICE, CT abdomen pelvis did not show any signs of obstructive uropathy, patient drinks more than 4 drinks of alcohol daily basis, he had 1 syncopal event at home, at that time when his took his blood pressure on the digital monitor it was reading as 50s over 40s that prompted her to call the EMS, patient was also describing fatigue lethargy and dizziness without any chest pain, shortness of breath, nausea or vomiting. Patient has been taking metoprolol and amlodipine in the past which was changed and he was put on lisinopril hydrochlorothiazide combination in beginning of this month. It was very unusual for him to have a low blood pressure mostly he would run around 140-160smmhg. patient was not orthostatic, alcohol level was elevated, he did not show any signs of withdrawal. Echo showed preserved ejection fraction without wall motion abnormality. Creatinine improved after initiation of IV fluids. Although orthostatics were negative patient's blood pressure and creatinine improved with IV fluid hydration for 24 hours. D-dimer unremarkable. At the time of discharge I have counseled patient not to take the combination of hydrochlorothiazide and lisinopril instead take lisinopril 20 mg daily and increase it up to 40 mg if his pressure remains above 150 mmHg, I will also give him second option of amlodipine, would avoid hydrochlorothiazide for now Also would avoid advise him against ibuprofen Physical Exam Narrative: Awake and alert Hemodynamically stable GCS 15 Pleasant cooperative Euvolemic Discharge Data Studies Completed and Pending Completed Studies During Hospitalization Category Date Time Status CT head wo con* [id number] Stat Cat Scan 12/30/22 01:[address] kidney stone [id number] Stat Cat Scan 12/30/22 05:30 Completed XR chest 1V portable [id number] Stat Exams 12/30/22 01:08 Completed CV. echo complete* [id number] Routine Ultrasound 12/30/22 13:26 Completed Radiology Impressions Chest X-Ray 12/30/22 01:08 IMPRESSION: No acute findings. Head CT 12/30/22 01:08 IMPRESSION: No acute intracranial abnormality. Abdomen/Pelvis CT 12/30/22 05:30 IMPRESSION: 1. No renal or ureteral obstruction or calcifications. 2. Normal appendix. 3. No ascites or adenopathy. 4. Prior cholecystectomy. 5. Moderately distended urinary bladder. 6. Mild hazy attenuation at the lung bases. Atelectasis versus a mild RIGHT lower lobe pneumonitis. Laboratory Results WBC 6.9 10^3/uL (4.0-10.0) 12/31/22 04:41 RBC 4.27 10^6/uL (4.1-5.3) 12/31/22 04:41 Hgb 15.3 g/dL (11.7-16.6) 12/31/22 04:41 Hct 45.6 % (42.0-52.0) 12/31/22 04:41 MCV 106.8 fl (80-94) H 12/31/22 04:41 MCH 35.8 pg (28.0-34.0) H 12/31/22 04:41 MCHC 33.6 g/dL (30.0-36.0) 12/31/22 04:41 RDW 13.2 % (12.1-15.1) 12/31/22 04:41 Plt Count 209 10^3/cmm (130-400) 12/31/22 04:41 MPV 9.7 fL (7.4-10.4) 12/31/22 04:41 Neut % (Auto) 57.0 % 12/31/22 04:41 Lymph % (Auto) 31.7 % 12/31/22 04:41 [place] % (Auto) 9.0 % 12/31/22 04:41 Eos % (Auto) 1.3 % 12/31/22 04:41 Baso % (Auto) 0.6 % 12/31/22 04:41 Neut # (Auto) 3.92 10^3/uL (1.8-7.7) 12/31/22 04:41 Lymph # (Auto) 2.2 10^3/uL (0.8-4.8) 12/31/22 04:41 [place] # (Auto) 0.6 10^3/uL (0.2-0.9) 12/31/22 04:41 Eos # (Auto) 0.1 10^3/uL (0.0-0.8) 12/31/22 04:41 Baso # (Auto) 0.0 10^3/uL (0.0-0.1) 12/31/22 04:41 Nucleated RBC % (auto) 0 % 12/31/22 04:41 Nucleated RBCs # 0.0 /100WBC 12/31/22 04:41 PT 13.20 SECONDS (12.1-14.9) 12/30/22 00:45 INR 0.97 (0.8-1.2) 12/30/22 00:45 D-Dimer 0.35 ug/mIFEU (0-0.59) 12/30/22 00:45 Sodium 134 mmol/L (136-145) L 12/31/22 04:41 Potassium 3.8 mmol/L (3.5-5.1) 12/31/22 04:41 Chloride 103 mmol/L (98-107) 12/31/22 04:41 Carbon Dioxide 21 mmol/L (22-29) L 12/31/22 04:41 Anion Gap 13.8 (5-19) 12/31/22 04:41 BUN 21 mg/dL (6-20) H 12/31/22 04:41 Creatinine 1.1 mg/dL (0.7-1.2) 12/31/22 04:41 GFR Calculation 71.1 mL/min (90-130) L 12/31/22 04:41 Glucose 92 mg/dL (65-115) 12/31/22 04:41 Calculated Osmolality 281 mOsm/kg (285-295) L 12/31/22 04:41 Lactic Acid 1.6 mmol/L (0.5-2.2) 12/30/22 00:45 Calcium 8.2 mg/dL (8.5-10.5) L 12/31/22 04:41 Magnesium 2.1 mg/dL (1.7-2.3) 12/31/22 04:41 Total Bilirubin 1.1 mg/dL (0.15-1.2) 12/30/22 00:45 AST 49 U/L (0-40) H 12/30/22 00:45 ALT 40 U/L (0-41) 12/30/22 00:45 Alkaline Phosphatase 57 U/L (40-130) 12/30/22 00:45 Troponin T Baseline 21 ng/L (0-15) H 12/30/22 00:45 Troponin T 120 Minute 17.51 ng/L (0-15) H 12/30/22 03:19 Delta Troponin T -3.49 ABS# (0-10) L 12/30/22 03:19 Troponin T Hi Sens 6Hr 16.74 ng/L (0-15) H 12/30/22 07:16 Troponin T Hi Sens 6Hr Delta -4.26 ng/L (0-12) L 12/30/22 07:16 C-Reactive Protein 9.1 mg/L (0.0-4.9) H 12/30/22 00:45 NT-Pro-B Natriuret Pep 50 pg/mL (0-125) 12/30/22 00:45 Total Protein 6.0 g/dL (6.6-8.7) L 12/30/22 00:45 Albumin 3.6 g/dL (3.5-5.2) 12/30/22 00:45 Globulin 2.4 g/dL (1.3-4.6) 12/30/22 00:45 Urine Color Yellow (Yellow) 12/30/22 01:40 Urine Appearance Clear (CLEAR) 12/30/22 01:40 Urine pH 5 (5-7) 12/30/22 01:40 Ur Specific [place] 1.010 (1.005-1.030) 12/30/22 01:40 Urine Protein Neg (Negative) 12/30/22 01:40 Urine Glucose (UA) Norm (Normal) 12/30/22 01:40 Urine Ketones Negative (Negative) 12/30/22 01:40 Urine Blood Neg (Negative) 12/30/22 01:40 Urine Nitrate Negative (Negative) 12/30/22 01:40 Urine Bilirubin Neg (Negative) 12/30/22 01:40 Urine Urobilinogen Norm mg/dL (Negative) 12/30/22 01:40 Ur Leukocyte Esterase Negative (Negative) 12/30/22 01:40 Urine Opiates Screen Negative ng/mL (Negative) 12/30/22 01:40 Ur Barbiturates Screen Negative ng/mL (Negative) 12/30/22 01:40 Ur Phencyclidine Scrn Negative ng/mL (Negative) 12/30/22 01:40 Ur Amphetamines Screen Negative ng/mL (Negative) 12/30/22 01:40 U Benzodiazepines Scrn Negative ng/mL (Negative) 12/30/22 01:40 Urine Cocaine Screen Negative ng/mL (Negative) 12/30/22 01:40 U Marijuana (THC) Screen Negative ng/mL (Negative) 12/30/22 01:40 Ethyl Alcohol 72 mg/dL (0-10) H 12/30/22 00:45 Vitals Last Vital Signs Temp 97.5 F L 12/31/22 04:00 Pulse 72 12/31/22 04:00 Resp 14 12/31/22 04:00 BP 113/68 12/31/22 04:00 Pulse Ox 94 12/31/22 04:00 O2 Del Method Room Air 12/31/22 04:00 Discharge Plan Discharge Patient Disposition: Home Condition: Stable Prescriptions: New lisinopril 20 mg tablet 20 mg PO DAILY Qty: 30 4RF amlodipine 10 mg tablet 10 mg PO DAILY Qty: 30 4RF Continued nitroglycerin 0.4 mg tablet, sublingual 0.4 mg sublingual Q5M PRN (Reason: chest pain) Qty: 25 3RF Rx Instructions: do not exceed 3 doses per episode gabapentin 600 mg tablet 600 mg PO TID omeprazole 40 mg capsule,delayed release(DR/EC) 40 mg PO QAM fluticasone propion-salmeterol [Advair HFA] 230-21 mcg/actuation HFA aerosol inhaler 2 puff inhalation BID Qty: 12 6RF albuterol sulfate [Ventolin HFA] 90 mcg/actuation HFA aerosol inhaler 2 puff INHALATION Q6H PRN (Reason: Shortness Of Breath) Qty: 8.5 6RF tizanidine 4 mg tablet 4 mg PO BID Rx Instructions: not to be taken with flexeril. Discontinued lisinopril-hydrochlorothiazide 20-12.5 mg tablet 1 tab PO DAILY@12 ibuprofen 800 mg tablet 800 mg PO Q8H PRN (Reason: pain) Qty: 20 0RF Discharge Orders: Discharge Order (Routine); Ordered 12/31/22 Ordered By: Hollis Jimenez Referrals: Brenda Sharma FNP [Primary Care Provider] - 01/15/23 9:00 am (Please follow-up with Brenda Sharma on Friday, January 15 at 9:00A.M. If you have any questions or need to reschedule. Please call ) Discharge Diet: Cardiac Discharge Activity: Increase activity as tolerated Patient Instructions: Opioid Safety Discharge Attestations Time Spent in Discharge Care*: greater than 30 min Quality Metrics Clinical Quality Measures [ No reported AMI, CVA or VTE this stay] Coding Level of Care Code Acute Code for Chg Fwd Diagnoses Acute hypotension I95.9 Acute kidney injury N17.9 PAYAM (obstructive sleep apnea) G47.33 Syncope R55 Acute hypokalemia E87.6 Mitral valve prolapse I34.1 Lung disease, restrictive J98.4 Smoker F17.200 Lumbar stenosis with neurogenic claudication M48.062 Lumbar disc disease with radiculopathy M51.16
[2022-12-31 07:28] VITALS: BP 132/81; PULSE 76; RESP 15; TEMP 36.8; O2SAT 94
[2022-12-31] MEDS: multivitamin therapeutic Tablet 1 TAB PO (08:24)
[2022-12-31] MEDS: tizanidine 4 mg Tablet PO (08:24)
[2022-12-31] MEDS: folic acid 1 mg Tablet PO (08:24)
[2022-12-31] MEDS: thiamine 100 mg Tablet PO (08:24)
[2022-12-31 08:55] VITALS: PULSE 76; RESP 15; O2SAT 97
--- NOTE | 2022-12-31 09:51 | PC.CHAP ---
Pastoral Care Encounter/Spiritual Assessment Type of Contact [] Declined maxillofacial prosthetics dentist visit [] Patient/Family/Request visit [] Outpatient visit [] Follow-up visit [] Physician referral [] Code/Alert [x] Routine visit [] Staff referral [] Actively dying [] Patient sleeping [] Family support [] [] Out of room [] Palliative care [] [] Receiving care in room [] Pre-surgical visit [] Trauma [] Long length of stay [] ICU visit [] Other: Relational/Emotional Strength [x] Patient feels connected with others/family/visitors/staff [] Distress [] Loneliness/isolation [] Abandonment Spirituality of Patient [x] Person of Latha [] Attends Zoroastrianism of their Latha [x] Believes in Prayer [] Reads Bible or Scientology materials [] There are Spiritual issues to be addressed Enrollment Clerk Interventions [x] Prayer [] Active listening [] Non-anxious presence [x] Spiritual/emotional support [] Crisis/trauma care [] Spiritual counseling [] Bereavement support [] Provided bereavement packet [] Provided Bible/devotional materials [] Provided toy/stuffed animal, coloring book to patient or family member [] Provided Communion [] Anointing/[place] [] Salvation x] Completed spiritual assessment [] Other: Impact on Illness or Injury [] Angry [] Fearful [] Anxious [] Often cries [] Exhaustion [] Unable to work [] Unable to attend samaritan [] Unable to walk/stand [] Unable to read [] Unable to drive [] Unable to eat/drink [] Unable to sleep [] Unable to be with family [] Patient intubated [] Other: Summary Time spent with patient 5 min
--- NOTE | 2022-12-31 10:44 | PC.NURSE ---
Patients IV removed at 10:35, tolerated well. Patient and given verbal and written information on discharge instructions, new medications and fall precautions, patient verbalized understanding. Patient taken out via wheelchair, left facility with at 10:45.
== END 2022-12-31 10:45 | disposition home or self-care (01) ==
LOC: ER 05:27 → CSU 07:25
PROVIDERS: Admitting Provider Student in an Organized Health Care Education/Training Program; Emergency Provider Emergency Medicine; PCP Nurse Practitioner; Visit Provider Internal Medicine
DX: N17.9 Acute kidney failure, unspecified (principal); R55 Syncope and collapse; I95.9 Hypotension, unspecified; G47.33 Obstructive sleep apnea (adult) (pediatric); E87.6 Hypokalemia; I34.1 Nonrheumatic mitral (valve) prolapse; J44.9 Chronic obstructive pulmonary disease, unspecified; I25.10 Atherosclerotic heart disease of native coronary artery without angina pectoris; F17.210 Nicotine dependence, cigarettes, uncomplicated; E86.0 Dehydration; E87.1 Hypo-osmolality and hyponatremia; F10.90 Alcohol use, unspecified, uncomplicated; Y90.3 Blood alcohol level of 60-79 mg/100 ml; I10 Essential (primary) hypertension
CPT/HCPCS: 36415; 70450; 71045; 74176; 80048; 80053; 80306; 80307; 81003; 83605; 83735; 83880; 84484; 85025; 85378; 85610; 86140; 93005; 93306; 96360; 96361; 96372; 99285; G0378; J1644; J3411; J7030

== ENCOUNTER 2023-01-14 10:55 | Outpatient (CLI) | payer OTHER, SELFPAY ==
--- NOTE | 2023-01-14 11:00 | CTR_ITS ---
PROCEDURE INFORMATION: Exam: CT Chest Without Contrast; Diagnostic Exam date and time: 01/14/2023 11:11 AM Age: 47 years old Clinical indication: Abnormal findings; Abnormal radiologic exam of lung or chest; Additional info: Follow up on rul nodule.No history of trauma or recent surgery is provided. TECHNIQUE: Imaging protocol: Diagnostic computed tomography of the chest without contrast. 253image(s) are provided. Radiation optimization: All CT scans at this facility use at least one of these dose optimization techniques: automated exposure control; mA and/or kV adjustment per patient size (includes targeted exams where dose is matched to clinical indication); or iterative reconstruction. Other technique: Axial images are available with sagittal and coronal reconstruction views. Automated dose exposure control is utilized. The DLP is 344.30. REPORTING DATA: Count of CT and Cardiac NM exams in prior 12 months: This patient has received 2 known CTs and 0 known cardiac nuclear medicine studies in the 12 months prior to the current study. COMPARISON: 1. CT chest wo con [id number] 03/07/2020 2:26 PM 2. CR (CHEST, ) 12/30/2022 1:[address] chest of 12/07/2015. RADIATION DOSE METRICS: Total DLP (mGy-cm): 344.3 FINDINGS: Trachea: The central airways are patent. Lungs: There are some apical blebs present right more so than left similar overall. There is a 3 mm ground-glass nodular focus present central right middle lobe series 5, image 34 similar overall. There is also some minimal bandlike scarring about the right minor fissure series 5, image 28 similar. There is some bronchovascular thickening or granulomatous type appearance similar left upper lobe series 5, image 17 centrally. There is some granulomatous calcific appearance similar at the left perihilar space. No lobar consolidation is appreciated. Pleural spaces: No interval pneumothorax or pleural effusion is appreciated. Heart: There is trace pericardial and recess fluid likely physiologic similar. No significant pericardial fluid collection is appreciated. Coronary arteries: No significant coronary arterial calcifications are currently appreciated. Lymph nodes: There are subcentimeter predominant mediastinal and hilar lymph nodes overall present. There are some granulomatous michelle calcifications similar on the left. Vasculature: No interval thoracic aortic aneurysmal dilatation is appreciated. Stomach and bowel: There is a small sliding-type hiatal hernia demonstrated with slight gastroesophageal fold thickening. Intraperitoneal space: There is a similar interval appearance of the included intraperitoneal space, upper abdominal structures. Bones/joints: Osseous alignment is maintained.No interval displaced fracture or dislocation is appreciated. There is some vertebral and posterior element fusion type appearance possibly developmental of the upper thoracic spine level similar overall. Soft tissues: No radiopaque foreign body or subcutaneous emphysema is appreciated. Other findings: No significant interval changes are appreciated. There is some motion artifact present. CT/CT chest wo con [id number] IMPRESSION: There is a stable CT chest appearance overall as compared to the previous studies including 2016 with some subcentimeter areas of nodularity and fissure thickening as well as chronic granulomatous related changes on the left. No interval parenchymal mass or abnormal mediastinal or hilar lymph node enlargement is appreciated. Stable pulmonary nodule(s) for which no further follow-up is recommended unless as clinically warranted. (Reference: Milady) References: Milady Macias, et al. Guidelines for Management of Incidental Pulmonary Nodules Detected on CT Images: From the Fleischner Society 2017. Radiology. 2017;284(1):228-243.
[2023-01-14 14:07] VITALS: PULSE 97; RESP 18; O2SAT 96
[2023-01-14] MEDS: albuterol 2.5 mg/3 mL Neb INHALATION (14:07)
[2023-01-14 14:12] VITALS: PULSE 97
== END 2023-01-14 10:56 | disposition home or self-care (01) ==
PROVIDERS: PCP Nurse Practitioner; Visit Provider Internal Medicine Pulmonary Disease
DX: R91.1 Solitary pulmonary nodule (principal); R06.02 Shortness of breath; F17.210 Nicotine dependence, cigarettes, uncomplicated; R94.2 Abnormal results of pulmonary function studies
CPT/HCPCS: 36415; 71250; 82785; 85025; 86003; 94060; 94618; 94726; 94729; J7613

== ENCOUNTER → 2023-03-25 10:28 | Outpatient (BNVA) | payer OTHER, SELFPAY | PROVIDERS: PCP Nurse Practitioner; Visit Provider Orthopaedic Surgery | DX: M47.22 Other spondylosis with radiculopathy, cervical region (principal); Z98.1 Arthrodesis status | CPT/HCPCS: 72050; 72110 ==

== ENCOUNTER 2023-03-31 06:15 | Outpatient (CLI) | payer OTHER, SELFPAY ==
[2023-03-31 06:43] LABS: Add Urine Microscopic? NO; Charge for UA Resulting for Rev
[2023-03-31 06:48] LABS: Basophils % 0.6 %; Eosinophils # 0.1 10^3/uL (0.0-0.8); Eosinophils % 1.3 %; Hematocrit 52.7 % (42.0-52.0); Hemoglobin 18.5 g/dL (11.7-16.6); Lymphocytes % 28.7 %; Mean Corpuscular HGB Conc 35.1 g/dL (30.0-36.0); Mean Corpuscular Hemoglobin 37.8 pg (28.0-34.0); Mean Corpuscular Volume 107.8 fl (80-94); Mean Platelet Volume 9.5 fL (7.4-10.4); Monocytes # 0.6 10^3/uL (0.2-0.9); Monocytes % 8.7 %; Neutrophils # 4.31 10^3/uL (1.8-7.7); Neutrophils % 60.4 %; Nucleated Red Blood Cells % 0 %; Platelet Count 225 10^3/cmm (130-400); Red Blood Count 4.89 10^6/uL (4.1-5.3); Red Cell Distribution Width 13.6 % (12.1-15.1); White Blood Count 7.1 10^3/uL (4.0-10.0)
[2023-03-31 06:51] LABS: Urine Color Yellow (Yellow)
[2023-03-31 06:52] LABS: Bilirubin Urine Neg (Negative); Blood Urine Neg (Negative); Glucose Urine UA Norm (Normal); Ketones Urine Negative (Negative); Leukocyte Esterase Urine Negative (Negative); Nitrate Urine Negative (Negative); Protein Urine Neg (Negative); Specific Gravity, Urine 1.015 (1.005-1.030); Urine Appearance Clear (CLEAR); Urobilinogen Urine 1 mg/dL (Negative); pH Urine 6 (5-7)
[2023-03-31 07:10] LABS: Alanine Aminotransferase 30 U/L (0-41); Albumin Level 4.1 g/dL (3.5-5.2); Alkaline Phosphatase 64 U/L (40-130); Blood Urea Nitrogen 8 mg/dL (6-20); Calcium 8.9 mg/dL (8.5-10.5); Carbon Dioxide 30 mmol/L (22-29); Chloride 101 mmol/L (98-107); Globulin 2.6 g/dL (1.3-4.6); Glomerular Filtration Rate 102.7 mL/min (90-130); Glucose 90 mg/dL (65-115); Osmolality Calculated 286 mOsm/kg (285-295); Sodium 139 mmol/L (136-145); Total Bilirubin 1.4 mg/dL (0.15-1.2); Total Protein 6.7 g/dL (6.6-8.7)
[2023-03-31 07:14] LABS: Anion Gap 12.1 (5-19); Aspartate Amino Transferase 22 U/L (0-40); Potassium 4.1 mmol/L (3.5-5.1)
== END 2023-03-31 06:16 | disposition home or self-care (01) ==
LOC: LAB 06:17
PROVIDERS: PCP Nurse Practitioner; Visit Provider Orthopaedic Surgery
DX: M47.22 Other spondylosis with radiculopathy, cervical region (principal); Z79.899 Other long term (current) drug therapy
CPT/HCPCS: 36415; 80053; 81003; 85025

== ENCOUNTER 2023-04-23 10:24 | Inpatient (IN) | payer OTHER, SELFPAY ==
[2023-04-22 11:16] VITALS: BMI 27.2
[2023-04-23] VITALS (24 sets, daily range): BP systolic 89–142; BP diastolic 60–98; PULSE 67–83; RESP 16–18; TEMP 36.1–36.7; O2SAT 90–98
--- NOTE | 2023-04-23 | XR_ITS ---
WS: [id number] C-ARM RADIOGRAPHS CERVICAL SPINE; 4 IMAGES HISTORY: IVAN HAWKINS COMPARISON: None available. Intraoperative imaging during cervical fusion. Anterior cervical fusion extends at multiple contiguou s levels throughout the cervical spine. Fusion extends from C3 6 through C7 with interbody spacers. IMPRESSION: Intraoperative imaging during anterior cervical fusion.
[2023-04-23] MEDS: sodium chloride 0.9% 1,000 ML 30 ML IV (06:32)
[2023-04-23] MEDS: methadone 10 mg Tablet PO (06:33)
--- NOTE | 2023-04-23 06:34 | W.PM.OPSUD ---
Surgery/Procedure H&P Update DATE OF PROCEDURE: April 23, 2023 DATE H&P PERFORMED: 03/25/23 H&P UPDATE INFORMATION: I have reviewed H&P completed within last 30 days, I have examined patient prior to procedure and No changes to prior documentation PREOP DIAGNOSIS: DDD cervical Spine, Cervical Radiculopathy PLANNED PROCEDURE: Operation Date: 04/23/23 07:00 Proposed Procedures p Anterior Cervical Discectomy & Fusion C3-4 C4-5 C5-6 and C6-7(Not Applicable) - Thomas Qureshi DO
[2023-04-23] MEDS: ceFAZolin 2,000 MG in sodium chloride 0.9% (plus) 50 ML 100 MG IV ×3 (07:09→22:51)
[2023-04-23] MEDS: lidocaine-epi 2% 20 mL INJ INJECTION (07:38)
--- NOTE | 2023-04-23 09:42 | ANES.PREANE2 ---
Pre-Anesthetic Assessment Height/Weight: Height 1.78 m Weight 86.183 kg Temp Pulse Resp BP Pulse Ox O2 Del Method 97.1 F L 82 17 142/98 98 Room Air 04/23/23 06:05 04/23/23 06:05 04/23/23 06:05 04/23/23 06:05 04/23/23 06:05 04/23/23 06:06 Preop Diagnosis: DDD cervical Spine, Cervical Radiculopathy Operation Date: 04/23/23 07:00 Proposed Procedures p Anterior Cervical Discectomy & Fusion C3-4 C4-5 C5-6 and C6-7(Not Applicable) - Thomas Qureshi, DO Familial anesthetic complications: none Was Beta Sravanthi taken within 24 hours: Yes Was Clonidine taken within 24 hours: N/A Last intake: Intake Last Liquid Date 04/22/23 Last Liquid Time 20:30 Last Solid Date 04/22/23 Last Solid Time 20:30 Social Tobacco and No alcohol Exam alert, oriented x 3, clear to auscultation bilaterally and regular rate & rhythm Airway Submandibular: within normal limits Cervical ROM: within normal limits Mallampati: Class II Dentition: chipped Pulmonary Chronic Obstructive Pulmonary Disease CV/HEM Coronary Artery Disease and Murmur GI Gastroesophageal Reflux Disease Musc/skel Lower Back Pain and Osteoarthritis/DJD Anesthetic Plan ASA status: 3 Anesthesia: General Medications/Allergies Home Medications Medication Instructions Recorded Confirmed Last Taken Type nitroglycerin 0.4 mg sublingual 0.4 mg sublingual Q5M PRN chest 10/06/20 04/22/23 01/17/21 Rx tablet pain #25 tabs albuterol sulfate 90 mcg/actuation 2 puff inhalation Q6H PRN 12/27/22 04/22/23 Unknown Rx aerosol inhaler (Ventolin HFA) Shortness Of Breath #8.5 grams omeprazole 40 mg capsule,delayed 40 mg PO QAM 12/27/22 04/22/23 04/18/23 History release amlodipine 10 mg tablet 10 mg PO DAILY #30 tabs 12/31/22 04/23/23 04/23/23 05:00 Rx lisinopril 20 mg tablet 20 mg PO DAILY #30 tabs 12/31/22 04/22/23 04/22/23 Rx budesonide-formoterol HFA 160 2 puff inhalation BID #10.2 grams 01/21/23 04/22/23 Unknown Rx mcg-4.5 mcg/actuation aerosol inhaler (Symbicort) metoprolol tartrate 25 mg tablet 12.5 mg PO BID #90 tabs 01/31/23 04/23/23 04/23/23 05:00 Rx Cervical Collar #1 ea 03/25/23 04/03/23 Unknown Rx duloxetine 30 mg capsule,delayed 30 mg PO DAILY #30 caps 03/25/23 04/22/23 04/18/23 Rx release (Cymbalta) gabapentin 600 mg tablet 600 mg PO TID #90 tabs 03/26/23 04/23/23 04/23/23 05:00 Rx tizanidine 4 mg tablet 4 mg PO BID #60 tabs 03/26/23 04/22/23 04/21/23 Rx [id number] Bone Growth Stimulator #1 ea 04/04/23 Unknown Rx Allergies Allergy/AdvReac Type Severity Reaction Status Date / Time No Known Allergies Allergy Verified 04/23/23 06:06 Current Medications Generic Name Dose Route Start Last Admin Trade Name Freq PRN Reason Stop Dose Admin Sodium Chloride 1,000 mls @ 30 mls/hr 04/23/23 06:00 04/23/23 06:32 Sodium Chloride 0.9% IV 04/24/23 05:59 30 mls/hr .Q24H MARIANNE Administration PFSH Anesthesia Medical History (Updated 04/03/23 @ 10:20 by Mian Bundy NP) Acute hypokalemia Acute hypotension Acute kidney injury COPD (chronic obstructive pulmonary disease) Coronary artery disease HTN (hypertension) Lumbar disc disease with radiculopathy Lumbar stenosis with neurogenic claudication Lung disease, restrictive Mitral valve prolapse PAYAM (obstructive sleep apnea) Smoker Syncope Surgical History H/O hernia repair H/O shoulder surgery H/O vasectomy History of cholecystectomy History of surgery on upper extremity History of testicular surgery Family History Other CAD (coronary artery disease) Diabetes Hyperlipidemia Hypertension Denies family history of Stroke Social History Smoking and tobacco status: current every day smoker cigarettes Packs smoked per day: 0.5 Years cigarettes smoked: 30 [ Other cigarette details: Started at age 17] Alcohol intake: current Alcohol intake frequency: 3 or more drinks per day Alcohol type: beer Substance/Drug Use: never Lives independently: Yes Household members: spouse Marital status: service: No Current occupational status: unemployed Do you think of yourself as: Straight/Heterosexual Current gender identity: Male Data Anesthesia Cardiac Studies: Echocardiogram 12/30/22 Echocardiogram Ultrasound 04/03/20 Stress Echocardiogram 10/04/20
--- NOTE | 2023-04-23 10:06 | P.OP_ITS ---
Operative Report Date of procedure: April 23, 2023 Post-op diagnosis: Cervical spondylosis with radiculopathy Procedure done: 1. Anterior diskectomy C3/4 2. Anterior diskectomy C4/5 3. Anterior diskectomy C5/6 4. Anterior discectomy C6/7 5. Insertion of cage C3/4 6. Insertion of cage C4/5 7. Insertion of cage C5/6 8. Insertion of Cage C6/7 9. Instrumentation with anterior plate from C3-C7 10. Use of allograft Surgeon: Thomas Qureshi DO Estimated blood loss (mL): 25 Procedure: 1. Anterior diskectomy C3/4 2. Anterior diskectomy C4/5 3. Anterior diskectomy C5/6 4. Anterior discectomy C6/7 5. Insertion of cage C3/4 6. Insertion of cage C4/5 7. Insertion of cage C5/6 8. Insertion of Cage C6/7 9. Instrumentation with anterior plate from C3-C7 10. Use of allograft The patient was taken to the operating room, where he underwent general endotracheal anesthesia without complications. He was then positioned supine on the operating table, and all areas of impingement were well padded. The arms were carefully padded and tucked at his sides. A roll was placed between the shoulder blades.. An x-ray was done to determine the appropriate level for the skin incision. The entire neck was then sterilely prepped and draped in the usual fashion. Neuromonitoring was attached prior to prepping. A transverse skin incision was made and carried down to the platysma muscle. This was then split in line with its fibers. Blunt dissection was carried down medial to the carotid sheath and lateral to the trachea and esophagus until the anterior cervical spine was visualized. A needle was placed into a disc and an x-ray was done to determine its location. The longus colli muscles were then el evated bilaterally with the electrocautery unit. Self-retaining retractors were placed deep to the longus colli muscle. Attention was brought to the C3/4 level that was confirmed on x-ray. A caspar pin was placed into the C3 vertebrae and the C4 vertebrae. The disk space was then distracted. The microscope was then brought in. A radical anterior discectomies were performed at C3/4. This included complete removal of the anterior annulus, nucleus, and posterior annulus. The posterior longitudinal ligament was removed as were the posterior osteophytes. Foraminotomies were then accomplished bilaterally. This was done using a high speed dereje, kerrison rongeurs and curretes Once all of this was accomplished, the curved currette was used to check for any residual compression. The central canal was wide open as were the foramen. A high-speed bur was used to remove the cartilaginous endplates above and below the interspace. Bleeding cancellous bone was exposed. The disc space were measured and appropriate size cage were placed sterilely onto the field. Allograft graft was packed into the cages. The cage was then placed and there was good juxtaposition against the bleeding decorticated surfaces and good distraction of each interspace. Attention was brought to the next interspace. The [place] pins were removed. Bone wax was used to prevent any bleeding from occurring at the pin sites. Attention was brought to the C4/5 level that was confirmed on x-ray. A caspar pin was placed into the C4 vertebrae and the C5 vertebrae. The disk space was then distracted. The microscope was then brought in. A radical anterior discectomies were performed at C4/5. This included complete removal of the anterior annulus, nucleus, and posterior annulus. The posterior longitudinal ligament was removed as were the posterior osteophytes. Foraminotomies were then accomplished bilaterally. This was done using a high speed dereje, kerrison rongeurs and curretes Once all of this was accomplished, the curved currette was used to check for any residual compression. The central canal was wide open as were the foramen. A high-speed bur was used to remove the cartilaginous endplates above and below the interspace. Bleeding cancellous bone was exposed. The disc space were measured and appropriate size cage were placed sterilely onto the field. Allograft graft was packed into the cages. The cage was then placed and there was good juxtaposition against the bleeding decorticated surfaces and good distraction of each interspace. Attention was brought to the next interspace. The [place] pins were removed. Bone wax was used to prevent any bleeding from occurring at the pin sites. Attention was brought to the C5/6 level that was confirmed on x-ray. A caspar pin was placed into the C5 vertebrae and the C6 vertebrae. The disk space was then distracted. The microscope was then brought in. A radical anterior discectomies were performed at C5/6. This included complete removal of the anter ior annulus, nucleus, and posterior annulus. The posterior longitudinal ligament was removed as were the posterior osteophytes. Foraminotomies were then accomplished bilaterally. This was done using a high speed dereje, kerrison rongeurs and curretes Once all of this was accomplished, the curved currette was used to check for any residual compression. The central canal was wide open as were the foramen. A high-speed bur was used to remove the cartilaginous endplates above and below the interspace. Bleeding cancellous bone was exposed. The disc space were measured and appropriate size cage were placed sterilely onto the field. Allograft graft was packed into the cages. The cage was then placed and there was good juxtaposition against the bleeding decorticated surfaces and good distraction of each interspace. Attention was brought to the next interspace. The [place] pins were removed. Bone wax was used to prevent any bleeding from occurring at the pin sites. Attention was brought to the C6/7 level that was confirmed on x-ray. A caspar pin was placed into the C6 vertebrae and the C7 vertebrae. The disk space was then distracted. The microscope was then brought in. A radical anterior discectomies were performed at C6/7. This included complete removal of the anterior annulus, nucleus, and posterior annulus. The posterior longitudinal ligament was removed as were the posterior osteophytes. Foraminotomies were then accomplished bilaterally. This was done using a high speed dereje, kerrison rongeurs and curretes Once all of this was accomplished, the curved currette was used to check for any residual compression. The central canal was wide open as were the foramen. A high-speed bur was used to remove the cartilaginous endplates above and below the interspace. Bleeding cancellous bone was exposed. The disc space were measured and appropriate size cage were placed sterilely onto the field. Allograft graft was packed into the cages. The cage was then placed and there was good juxtaposition against the bleeding decorticated surfaces and good distraction of each interspace. Attention was brought to the next interspace. The [place] pins were removed. Bone wax was used to prevent any bleeding from occurring at the pin sites. The appropriate size anterior cervical locking plate was chosen and bent into gentle lordosis. Two screws were then placed into each of the vertebral bodies at C3, C4, C5, C6 and C7. There was excellent purchase. A final x-ray was done confirming good position of the hardware and Cages. The locking screws were then applied, also with excellent purchase. Following a final copious irrigation, there was good hemostasis and no dural leaks. The carotid pulse was strong. The wounds were then closed in layers using 2-0 Vicryl suture for the platysma muscle, 2-0 Vicryl suture for the subcutaneous tissue, and 4-0 monocryl suture in a subcuticular skin closure. Glue was placed followed by application of a sterile dressing. The drain was hooked to bulb suction. A soft collar was applied. The patient was then carefully returned to the supine position on his hospital bed where he was reversed and extubated and taken to the recovery room having tolerated the procedure well.
--- OUTSIDE RECORDS SUMMARY | 2023-04-23 10:36 | XMS_ITS | Patient Health Record ---
Author Name Unknown Organization [facility] Address [address] [place] [address] Care Team Providers Care Commodity Specialist Name Role Phone Sumeet Quigley Primary Care Provider ALLERGIES No Known Allergies RESULTS Component Value Reference Range Notes Colonoscopy, Average Risk Sc reening-[id number] Reviewed date:04/03/2023 02:48:12 PM Interpretation: Performing Lab: Notes/Report: EGD, Upper GI Diagnostic-[id number] Reviewed date:04/03/2023 02:48:01 PM Interpretation: Performing Lab: Notes/Report: REASON FOR REFERRAL Reason consult for assit in mgt of liver dz if indicated Diagnosis 1 Early satiety (R68.8 1) Diagnosis 2 ETOH abuse (F10.10) Diagnosis 3 Hepatomegaly, not el sewhere classified (R16.0) Diagnosis 4 Fatty liver (K76.0) Referring Provider First Name Brenda Referring Provider Last Name Referring Provider Speciality Nurse Prac titioner Referred Organization [facility] Referred Provider Sumeet Quigley Referred Address [address] [place] [id number], Referred Provider Specialty Internal Med icine General Notes Esperanza Mobley 11/2022 10:04:41 AM >no answer, no voicemail set up Referral Priority Routine MEDICATIONS Medication SIG (Take, Route, Frequency, Duration) Notes Start Date End Date Status Advair Diskus 500-50 MCG/ACT 1 puff Inhalation Twice a day Active Gabapentin 300 MG 1 capsule Orally thr ee times a day Active traMADol HCl 50 MG 1 tablet as needed O rally Once a day Active Lisinopril 20 MG 1 tablet Orally Once a day Active Ibuprofen 800 MG 1 tablet with food o r milk as needed Orally every 8 hrs Active SOCIAL HISTORY Tobacco Use: Social History Observation Description Date Details (start date - stop date) Current Smoker NA - NA Sex Assigned At : Social History Observation Description Sex Assigned At Unknown Tobacco Use/Smoking Question Answer Notes Are you a current smoker How often do you smoke cigarettes? every day How many cigarettes a day do you smoke? 06-30 Alcohol Screen (Audit-C) Question Answer Notes Did you have a drink contain ing alcohol in the past year? Yes How often did you have a dri nk containing alcohol in the past year? 4 or more times a week (4 points) How many drinks did you have on a typical day when you were drinking in the past year? 3 or 4 drinks (1 point) Points 5 Interpretation Positive PROBLEMS Problem Type ICD Code Onset Dates Problem Status W/U Status Risk SNOMED Code Notes Problem Hepatomegaly, not elsewhere classified (R16.0) Active confirmed 10917011 Problem Early satiety (R68.81) Active confirmed 273358739 Problem Screen for colon cancer (Z12.11) Active confirmed 047605680 Problem Diastasis recti (M62.08) Active confirmed 59858412 Problem ETOH abuse (F10.10) Active confirmed 19827273 Problem Fatty liver (K76.0) Active confirmed 901852761 VITAL SIGNS Heart Rate 97 /min 12/19/2022 neck and back Temperature 97.9 degrees Fahrenheit 12/19/2022 neck and back Height-cm 175.26 cm 12/19/2022 neck and back Oximetry 96 % 12/19/2022 neck and back Blood pressure diastolic 78 mm Hg 12/19/2022 nec k and back Weight-kg 88.18 kg 12/19/2022 neck and back Height 69 in 12/19/2022 neck and back Blood pressure systolic 116 mm Hg 12/19/2022 neck and back Weight 194.4 lbs 12/19/2022 neck and back BMI 28.7 kg/m2 12/19/2022 neck and back Encounters Encounter Location Date Provider Diagnosis [facility] [address] [place] [id number] 12/19/2022 Sumeet Quigley Early satiety R68.81 ; Screen for colon cancer Z12.11 and Diastasis recti M62.08 ASSESSMENTS Encounter Date Diagnosis Assessment Notes Treatment Notes Treatment Clinical Notes 12/19/2022 Early satiety (ICD-10 - R68.81) --x- to be completed at [facility] ---to be completed at [facility] ---to be completed at [facility] ---to be completed at [facility] 12/19/2022 Screen for colon cancer (ICD-10 - Z12.11) --x- to be completed at [facility] ---to be completed at [facility] ---to be completed at [facility] ---to be completed at [facility] 12/19/2022 Diastasis recti (ICD-10 - M62.08) PLAN OF TREATMENT No Information Insurance Providers Payer Name Payer Address Payer Phone Subscriber Number Group Number Insured Name Patient Relationship to Insured Coverage Start Date Coverage End Date [employer] [facility] [address] [place] [phone] [id number] NICOLAS PERKINS Self - patient is the insured MEDICAL (GENERAL) HISTORY Medical History History ICD Code gerd depresion anxiety hypertesion ETOH abuse fatty liver mitral valve polapse Surgical History Surgery Date(Month/Year) aortic valve replaceMENT BACK SURGERY TAVR
[2023-04-23] MEDS: HYDROmorphone 1 mg/mL INJ 1 mL 0.5 MG IVP (10:42)
[2023-04-23] MEDS: HYDROcodone-acetaminophen 10-325 mg Tablet PO ×2 (12:35→18:46)
[2023-04-23] MEDS: albuterol 2.5 mg/3 mL Neb INHALATION ×2 (12:45→15:43)
[2023-04-23] MEDS: gabapentin 300 mg Capsule 600 MG PO ×2 (13:54→20:26)
--- NOTE | 2023-04-23 13:55 | ANE.PACU2 ---
Inpatient post-anesthesia follow up: Airway intact: Yes Vital signs: Temperature 97.7 F Pulse Rate 79 Respiratory Rate 16 Blood Pressure 104/73 Pulse Oximetry 93 Oxygen Delivery Me thod Room Air Oxygen Flow Rate 6 Fraction of Inspir ed Oxygen Hydration adequate: Yes Nausea and vomiting: No Pain level: 3 Mental status: Baseline
[2023-04-23] MEDS: ketorolac 30 mg/mL INJ IVP ×2 (14:33→21:07)
[2023-04-23] MEDS: lactated ringers 1,000 ML 90 ML IV (17:34)
[2023-04-23] MEDS: metoprolol tartrate 25 mg Tablet 12.5 MG PO (17:34)
[2023-04-23] MEDS: docusate sodium 100 mg Capsule PO (17:34)
[2023-04-23] MEDS: tizanidine 4 mg Tablet PO (17:34)
[2023-04-23] MEDS: morphine 4 mg/mL SDV 1 mL 2 MG IVP (17:52)
[2023-04-24] MEDS: HYDROcodone-acetaminophen 10-325 mg Tablet PO (01:48)
[2023-04-24 03:53] VITALS: BP 126/86; PULSE 67; RESP 16; TEMP 36.7; O2SAT 92
[2023-04-24] MEDS: lactated ringers 1,000 ML 90 ML IV (03:58)
[2023-04-24] MEDS: ceFAZolin 2,000 MG in sodium chloride 0.9% (plus) 50 ML 100 MG IV (06:15)
[2023-04-24] MEDS: pantoprazole DR 40 mg Tablet PO (06:15)
[2023-04-24 06:26] VITALS: RESP 16
[2023-04-24] MEDS: morphine 4 mg/mL SDV 1 mL 2 MG IVP (06:26)
--- NOTE | 2023-04-24 07:40 | PM.PN ---
Subjective Subjective: POD 1 Patient sitting up at the bedside having a donut. Reports mild neck pain arms improving. Denies voice changes, shortness of breath, headaches. Vitals/I&O/Wt Last Vital Signs Temp 98.0 F 04/24/23 03:53 Pulse 67 04/24/23 03:53 Resp 16 04/24/23 06:26 BP 126/86 04/24/23 03:53 Pulse Ox 92 04/24/23 03:53 O2 Del Method Room Air 04/24/23 03:53 O2 Flow Rate 6 04/23/23 20:00 04/23/23 04/24/23 04/24/23 22:59 06:59 14:59 Intake Total 820 / 1081.5 2036 / 3117.5 Balance 820 / 931.5 2036 / 2967.5 Weight last 48 hrs Weight 190 lb Physical Exam Narrative: Patient is alert and oriented x3 with a good general appearance normal mood and affect. Mildly tender with palpation about the incisional site. Incision appears to be clean and dry without signs of erythema or drainage. No signs of infection. Good motor strength throughout both upper extremities. Appears to fire in all motor groups with 5/5 strength. Hands are warm good cap refill in all digits. Normal sensation to light touch in all dermatomal areas. Urinary Catheter Management: Ugarte: Cath Placed During This Visit: yes, but has since been removed by the nurse Reason for Continuing Indwelling Catheter: Decision to DC Catheter Urinary Catheter Date of Insertion: 04/23/23 Urinary Catheter Time of Insertion: 07:10 Date Urinary Catheter Removed: 04/23/23 Time Urinary Catheter Discontinued: 18:01 A&P Assessment and plan (1) Tobacco dependence: Discussed smoking and tobacco cessation. Continue Williams J collar. We will discontinue Hemovac drain which can be DC'd prior to discharge this morning. Encourage no bending lifting or twisting activities no overhead lifting. Encouraged incentive spirometry at home. We will see him back in the office in 1 week's time. (2) Status post cervical spinal fusion: Attestations Medical Necessity Statement*: Discharge home this morning after discontinuing Hemovac drain Coding Level of Care Code Acute Code for Chg Fwd Diagnoses Tobacco dependence F17.200 Status post cervical spinal fusion Z98.1
[2023-04-24 07:45] VITALS: PULSE 81; RESP 18; O2SAT 95
[2023-04-24 08:00] VITALS: BP 141/90; PULSE 79; RESP 16; TEMP 36.4; O2SAT 94
[2023-04-24] MEDS: metoprolol tartrate 25 mg Tablet 12.5 MG PO (08:36)
[2023-04-24] MEDS: gabapentin 300 mg Capsule 600 MG PO (08:36)
[2023-04-24] MEDS: amlodipine 10 mg Tablet PO (08:36)
[2023-04-24] MEDS: lisinopril 20 mg Tablet PO (08:37)
[2023-04-24] MEDS: docusate sodium 100 mg Capsule PO (08:37)
--- NOTE | 2023-04-24 09:52 | PC.CHAP ---
Pastoral Care Encounter/Spiritual Assessment Type of Contact [] Declined travel agent visit [] Patient/Family/Request visit [] Outpatient visit [] Follow-up visit [] Physician referral [] Code/Alert [x] Routine visit [] Staff referral [] Actively dying [] Patient sleeping [] Family support [] [] Out of room [] Palliative care [] [x] Receiving care in room [] Pre-surgical visit [] Trauma [] Long length of stay [] ICU visit [] Other: Relational/Emotional Strength [x] Patient feels connected with others/family/visitors/staff [] Distress [] Loneliness/isolation [] Abandonment Spirituality of Patient [x] Person of Latha [] Attends Quaker of their Latha [x] Believes in Prayer [] Reads Bible or Druze materials [] There are Spiritual issues to be addressed Jewel Hole Gauger Interventions [x] Prayer [x] Active listening [x] Non-anxious presence [x] Spiritual/emotional support [] Crisis/trauma care [x] Spiritual counseling [] Bereavement support [] Provided bereavement packet [] Provided Bible/devotional materials [] Provided toy/stuffed animal, coloring book to patient or family member [] Provided Communion [] Anointing/Cameron [] Salvation [x] Completed spiritual assessment [] Other: Impact on Illness or Injury [] Angry [] Fearful [] Anxious [] Often cries [] Exhaustion [] Unable to work [] Unable to attend pentecostalism [] Unable to walk/stand [] Unable to read [] Unable to drive [] Unable to eat/drink [] Unable to sleep [] Unable to be with family [] Patient intubated [] Other: Summary Fushsion on back has rehab at home has a good attitude +1 family well be going home Time spent with patient 10 mins
--- NOTE | 2023-04-25 12:55 | P.DS_ITS ---
Discharge Providers Date of Admission: 04/23/23 10:24 Date of Discharge: April 24, 2023 Attending Provider at Admission: Thomas Qureshi DO Attending Provider at Discharge: Thomas Qureshi DO Primary Care Provider: KUNAL Graves Diagnoses at Discharge Discharge Diagnosis (1) Tobacco dependence: Status: Acute (2) Status post cervical spinal fusion: Status: Acute Reason for Visit Reason for Visit: M47.22 Physical Exam Urinary Catheter Management: Ugarte: Cath Placed During This Visit: yes, but has since been removed by the nurse Reason for Continuing Indwelling Catheter: Decision to DC Catheter Urinary Catheter Date of Insertion: 04/23/23 Urinary Catheter Time of Insertion: 07:10 Date Urinary Catheter Removed: 04/23/23 Time Urinary Catheter Discontinued: 18:01 Discharge Data Studies Completed and Pending Completed Studies During Hospitalization Category Date Time Status XR cervical spine 1V [id number] Routine Exams 04/23/23 Completed Vitals Last Vital Signs Temp 97.5 F L 04/24/23 08:00 Pulse 79 04/24/23 08:00 Resp 16 04/24/23 08:00 BP 141/90 04/24/23 08:00 Pulse Ox 94 04/24/23 08:00 O2 Del Method Room Air 04/24/23 07:45 O2 Flow Rate 6 04/23/23 20:00 Discharge Plan Discharge Patient Disposition: Home Condition: Stable Prescriptions: New hydrocodone-acetaminophen 10-325 mg Tablet 1 tab PO Q4H PRN (Reason: Moderate To Severe Pain) Qty: 30 0RF Continued nitroglycerin 0.4 mg tablet, sublingual 0.4 mg sublingual Q5M PRN (Reason: chest pain) Qty: 25 3RF Rx Instructions: do not exceed 3 doses per episode (DME) Cervical Collar See Rx Instructions .Route .MEDSUPPLY Qty: 1 0RF Rx Instructions: As directed duloxetine [Cymbalta] 30 mg capsule,delayed release(DR/EC) 30 mg PO DAILY Qty: 30 0RF metoprolol tartrate 25 mg tablet 12.5 mg PO BID Qty: 90 1RF gabapentin 600 mg tablet 600 mg PO TID Qty: 90 0RF tizanidine 4 mg tablet 4 mg PO BID Qty: 60 0RF Rx Instructions: not to be taken with flexeril. (DME) E0748 Bone Growth Stimulator See Rx Instructions .Route .MEDSUPPLY Qty: 1 0RF Rx Instructions: As directed lisinopril 20 mg tablet 20 mg PO DAILY Qty: 30 4RF amlodipine 10 mg tablet 10 mg PO DAILY Qty: 30 4RF pantoprazole 40 mg tablet,delayed release (DR/EC) 4 mg PO DAILY Discharge Orders: Discharge Order (Routine); Ordered 04/24/23 Ordered By: Donte Flood Referrals: Thomas Qureshi DO [Physician] - 05/06/23 1:45 pm () Brenda Sharma FNP [Primary Care Provider] - 05/01/23 1:00 pm Discharge Diet: Advance as tolerated Discharge Activity: Limit activity as instructed Patient Instructions: Hydrocodone/Acetaminophen (By mouth), Anterior Cervical Discectomy (GEN), Opioid Safety Activity Restrictions/Additional Instructions: Thank you for choosing [facility] for your care! The following is a list of instructions, from your provider, to follow upon your discharge to ensure you have the optimal recovery from your recent injury or surgery. Anterior Cervical Discectomy and Fusion: What to Expect at Home Your Recovery Follow-up care is a schmid part of your treatment and safety. Be sure to make and go to all appointments, and call your doctor if you are having problems. If you do not already have a follow-up appointment made, call office in the next 1-3 days to make follow up appointment for 1-2 weeks at [phone]. It is also a good idea to know your test results and keep a list of the medicines you take. You can expect your neck to feel stiff or sore after surgery. This should improve in the weeks after surgery. But it may take 4 to 6 months for you to get better completely. You may have trouble sitting or standing in one position for very long and may need pain medicine in the weeks after your surgery. It may take 4 to 6 weeks to get back to your usual activities, but it may depend on what kind of surgery you had. Your throat will feel sore and it may be difficult to swallow for the first 3 days after your surgery. As long as you can get liquids down without difficulty, this should slowly improve, otherwise call our office or seek medical attention if it becomes increasingly difficult to get anything down including liquids. Avoid hot liquids for first 3-5 days. Soothing foods/liquids such as jello, pudding, and luke warm soups are recommended until swallowing improves. Staying elevated will also help, it's advised you keep propped up at while sleeping to help reduce the swelling. You may use an ice pack directly on your incision or around it on the front of your neck, using a cloth to protect your skin; and a heating pad to the back of your neck as needed. Do not use over the counter anti-inflammatory medications (Ibuprofen, Motrin, Aleve, Advil, etc) Taking these meds after having a fusion can delay fusion rates, we recommend you avoid them for the first 3 months after your surgery[address] Dr. Qureshi may advise you to work with a physical therapist to strengthen the muscles around your neck and back - this will be discussed at your follow - up appointments. The pain or numbness you were having in your arms before surgery should get better or go away completely. This care sheet gives you a general idea about how long it will take for you to recover. But each person recovers at a different pace. Follow the steps below to get better as quickly as possible. How can you care for yourself at home? Activity ? Rest when you feel tired. Getting enough sleep will help you recover. ? Try to walk each day. Start by walking a little more than you did the day before. Bit by bit, increase the amount you walk. Walking boosts blood flow and helps prevent pneumonia and constipation. Walking may also decrease your muscle soreness after surgery. ? No lifting anything that is more that 5 pounds. This may include heavy grocery bags and milk containers, a heavy briefcase or backpack, cat litter or dog food bags, a child, or a vacuum commercial or institutional cleaner. ? Avoid strenuous activities, such as bicycle riding, jogging, weightlifting, or aerobic exercise, until your doctor says it is okay. ? Do not drive until your follow-up visit after your surgery, or until your doctor says it isokay. ? Avoid taking long car trips for 2 to 4 weeks after surgery. Your neck may become tired and painful from sitting too long in one position. ? You will probably need to take 4 to 6 weeks off from work. It depends on the type of work you do and how you feel. ? You may have sex as soon as you feel able, but avoid positions that put stress on your neck or cause pain. Diet ? You can eat your normal diet. If your stomach is upset, try bland, low-fat foods like plain rice, broiled chicken, toast, and yogurt ? Drink plenty of fluids. If you have kidney, heart, or liver disease and have to limit fluids, talk with your doctor before you increase the amount of fluids you drink. ? You may notice that your bowel movements are not regular right after your surgery. This is common. Try to avoid constipation and straining with bowel movements. You may want to take a fiber supplement every day. If you have not had a bowel movement after a couple of days, ask your doctor about taking a mild laxative. Medicines ? Take pain medicines exactly as directed. 1. If Dr. Qureshi gave you a prescription medicine for pain, take lt as prescribed. 2. Do not take two or more pain medicines at the same time unless the doctor told you to. Many pain medicines have acetaminophen, which is Tylenol. Too much acetaminophen {Tylenol) can be harmful. 3. If you think your pain pill is making you sick to your stomach: 4. Take your pills after meals (unless your doctor has told you not to). 5. Ask your Dr. for a different pain pill. Incisioncare ? Remove your dressing 48 hours after your surgery. Ok to shower and get the incision wet. Do not overtly wash your incision. When done, pad dry, leave open to air thereafter. Avoid creams and ointments directly on your incision. ? Your sutures in the incision will dissolve and fall out on their own. ? Keep the area clean and dry. You may cover it with a gauze bandage if it weeps or rubs against clothing; if you choose to do this, change the dressing everyday. Other instructions ? Use a heating pad, hot water bottle, or gentle massage on your back to reduce stiffness. Avoid putting heat on your incision When should you call for help? ? Call 911 anytime you think you may need emergency care. For example, call if: ? You pass out (lose consciousness). ? You have sudden chest pain and shortness of breath, or you cough upblood. ? You cannot swallow. ? You have severe pain in your neck or back. ? Call your Dr. or seek immediate medical care if: ? You have pain that does not get better after you take pain pills. ? You have loose stitches, or your incision comes open. ? You have blood or fluid draining from the incision. ? You have signs of infection, such as: 1. Increased pain, swelling, warmth, or redness. 2. Red streaks leading from the site. 3. Pus draining from the site. 4. Swollen lymph nodes in your neck or armpits. 5. A fever. ? You have severe pain in your arms. ? You have new or increased weakness or numbness in your arms. ? Watch closely for any changes in your health, and be sure to contact your doctor if: ? You do not have a bowel movement after taking a laxative. Discharge Attestations Time Spent in Discharge Care*: less than 30 min Quality Metrics Clinical Quality Measures [ No reported AMI, CVA or VTE this stay] Coding Level of Care Code Acute Code for Chg Fwd Diagnoses Tobacco dependence F17.200 Status post cervical spinal fusion Z98.1
== END 2023-04-24 10:15 | disposition home or self-care (01) | DRG 473 ==
LOC: MEDSURG 10:34
PROVIDERS: Admitting Provider Orthopaedic Surgery; PCP Nurse Practitioner; Visit Provider Orthopaedic Surgery
PROC: 0RB30ZZ Excision of Cervical Vertebral Disc, Open Approach (ICD-10-PCS; CPT 22551; principal; 2023-04-23 07:00)
DX: M47.22 Other spondylosis with radiculopathy, cervical region (principal); J44.9 Chronic obstructive pulmonary disease, unspecified; I25.10 Atherosclerotic heart disease of native coronary artery without angina pectoris; I10 Essential (primary) hypertension; I34.1 Nonrheumatic mitral (valve) prolapse; G47.33 Obstructive sleep apnea (adult) (pediatric); F17.210 Nicotine dependence, cigarettes, uncomplicated; K21.9 Gastro-esophageal reflux disease without esophagitis
CPT/HCPCS: 51702; 72020; 76000; 94640; 97110; 97161; C1713; C1763; C9359; J0131; J0330; J0690; J1100; J1170; J1885; J2250; J2270; J2371; J2405; J2704; J3010; J3490; J7030; J7120; J7613; L0172

== ENCOUNTER → 2023-05-28 09:21 | Outpatient (BNVA) | payer OTHER, SELFPAY | PROVIDERS: PCP Nurse Practitioner; Visit Provider Physician Assistant | DX: Z98.1 Arthrodesis status (principal) | CPT/HCPCS: 72040 ==

== ENCOUNTER → 2023-06-24 13:20 | Outpatient (BNVA) | payer OTHER, SELFPAY | PROVIDERS: PCP Nurse Practitioner; Visit Provider Orthopaedic Surgery | DX: Z98.1 Arthrodesis status (principal); Z47.89 Encounter for other orthopedic aftercare | CPT/HCPCS: 72040 ==

== ENCOUNTER → 2023-07-31 15:55 | Outpatient (BNVA) | payer OTHER, SELFPAY | PROVIDERS: PCP Nurse Practitioner; Visit Provider Orthopaedic Surgery | DX: Z98.1 Arthrodesis status (principal); Z47.89 Encounter for other orthopedic aftercare | CPT/HCPCS: 72040 ==

== ENCOUNTER → 2023-09-11 14:24 | Outpatient (BNVA) | payer OTHER, SELFPAY | PROVIDERS: PCP Nurse Practitioner; Visit Provider Orthopaedic Surgery | DX: Z98.1 Arthrodesis status (principal); Z47.89 Encounter for other orthopedic aftercare; T84.216A Breakdown (mechanical) of internal fixation device of vertebrae, initial encounter; Y79.2 Prosthetic and other implants, materials and accessory orthopedic devices associated with adverse incidents; M79.602 Pain in left arm; R20.2 Paresthesia of skin | CPT/HCPCS: 72040 ==

== ENCOUNTER 2023-10-02 09:24 | Outpatient (CLI) | payer OTHER, SELFPAY ==
--- NOTE | 2023-10-02 09:30 | CT_ITS ---
WS: [id number] CT LUMBAR SPINE TECHNIQUE: Noncontrast CT of the lumbar spine with coronal and sagittal reformatted images. CLINICAL INFORMATION: back pain COMPARISON: MRI 04/23/2022 DLP: 803.[address] scans at [facility] use at least one of these dose optimization techniques: automated e xposure control; mA and/or kV adjustment per patient size (includes targeted exams where dose is matc hed to clinical indication); or iterative reconstruction. FINDINGS: Mild lumbar curve. Pedicle screw fixation L4-S1 with interbody fusion grafts. Pedicle screws appear i ntact. Interconnecting rods appear intact. L1-L2: Normal. L2-L3: Mild facet arthropathy. Spinal canal and foramen are patent. L3-L4: Mild annular bulging. Moderate facet arthropathy. Mild central canal stenosis. Prominent epidu ral fat. Mild bilateral foraminal narrowing. L4-L5: Postoperative changes pedicle screw fixation. Spinal canal and foramen are patent. Laminectomy defects. L5-S1: Postoperative changes laminectomy defects. Spinal canal and foramen are patent. Adrenal glands are normal. Visualized pelvic bony structures: Normal. Paravertebral soft tissues: Normal. IMPRESSION: 1. Mild lumbar curve. 2. Pedicle screw fixation L4-S1 with interbody fusion grafts. Hardware appears in good position. 3. Evidence of bony bridging beyond the confines of the grafts. 4. Laminectomy defects L4-L5 and L5-S1 with spinal canal decompression. 5. Mild central canal stenosis L3-4 due to disc bulging with facet arthropathy and prominent epidura l fat appears stable compared to the prior MRI. Mild bilateral foraminal narrowing.
== END 2023-10-02 09:25 | disposition home or self-care (01) ==
LOC: RAD 09:24
PROVIDERS: PCP Nurse Practitioner; Visit Provider Orthopaedic Surgery
DX: M48.061 Spinal stenosis, lumbar region without neurogenic claudication; M51.26 Other intervertebral disc displacement, lumbar region; M46.96 Unspecified inflammatory spondylopathy, lumbar region
CPT/HCPCS: 72131

== ENCOUNTER → 2023-12-18 15:49 | Outpatient (BNVA) | payer OTHER, SELFPAY | PROVIDERS: PCP Nurse Practitioner; Visit Provider Orthopaedic Surgery | DX: Z98.1 Arthrodesis status (principal); M54.9 Dorsalgia, unspecified | CPT/HCPCS: 72040; 72100 ==

== ENCOUNTER 2024-01-01 07:59 | Outpatient (CLI) | payer OTHER, SELFPAY ==
--- NOTE | 2024-01-01 08:00 | MR_ITS ---
WS: [id number] MRI CERVICAL SPINE NONCONTRAST TECHNIQUE: Sagittal T1, T2 and STIR imaging. Axial T2, gradient, and fiesta imaging. CLINICAL INFORMATION: neck pain COMPARISON: MRI FINDINGS: Straightening of the normal cervical doses. Prior postoperative changes ACDF C3-C7 with interbody fus ion grafts. Cord signal is normal. No high-grade central canal stenosis. Postoperative changes are ne w since 2021 C2-C3: Moderate LEFT facet arthropathy. Moderate LEFT bony foraminal narrowing. C3-C4: ACDF. Moderate RIGHT greater than LEFT bony foraminal narrowing. Mild facet arthropathy. C4-C5: ACDF. Mild facet arthropathy. Spinal canal and foramen are patent. C5-C6: ACDF. Mild facet arthropathy. Spinal canal and foramen are patent. C6-C7: ACDF. Mild LEFT and no significant RIGHT foraminal narrowing. Spinal canal is patent. C7-T1: Mild disc bulging with endplate ridging. Mild bilateral foraminal narrowing. Spinal canal is p atent. Mild facet arthropathy. Congenital segmentation anomalies T1-T2. Slight anterolisthesis of T2 on T3. Visualized brain stem structures: Normal. Prevertebral soft tissues: Normal. MR/MR cervical spin wo con* [id number] IMPRESSION: 1. Straightening of the normal cervical lordosis. Interval postoperative blank es ACDF C3-C7. 2. Cord signal is normal. No significant central canal stenosis. 3. Moderate bony foraminal narrowing worse at LEFT C2-3 and bilateral C3-4 4. Mild LEFT C6-7 and LEFT C7-T1 foraminal narrowing. 5. Congenital segmentation anomalies T1-T2. Slight anterolisthesis of T2 on T3 .
--- NOTE | 2024-01-01 08:45 | MR_ITS ---
WS: [id number] MRI LUMBAR SPINE NONCONTRAST TECHNIQUE: Sagittal T1, T2 and STIR imaging. Axial T1 and T2 imaging. CLINICAL INFORMATION: back pain COMPARISON: MRI 2021 FINDINGS: Mild lumbar curve. No acute compression. Prior postoperative changes laminectomy defects L4-5 and L5- S1 with spinal canal decompression. L1-L2: Mild facet arthropathy. Spinal canal and foramen are patent. L2-L3: No significant disc bulging. Mild facet arthropathy. Spinal canal and foramen are patent. L3-L4: Mild annular bulging. Mild central canal stenosis. Moderate facet arthropathy. Small bilateral foraminal protrusions with mild bilateral foraminal narrowing. This appears similar to previous. L4-L5: Prior postoperative changes pedicle screw fixation with interbody fusion and laminectomy defec ts. Spinal canal and foramen are patent. L5-S1: Prior postoperative changes. Spinal canal and foramen are patent. Visualized pelvic bony structures: Normal. Paravertebral soft tissues: Normal. MR/MR lumbar spine wo con* [id number] IMPRESSION: 1. Overall no significant changes since 2021. 2. Prior pedicle screw fixation L4-L5 and L5-S1 with interbody fusion grafts a nd laminectomy defects. Spinal canal and foramen are patent at the fusion level s 3. Mild disc bulging L3-4 with mild central canal stenosis and narrowing of th e subarticular recess bilaterally. This appears stable compared to previous. 4. Mild bilateral L3-4 foraminal narrowing appears stable.
== END 2024-01-01 08:00 | disposition home or self-care (01) ==
LOC: RAD 07:59
PROVIDERS: PCP Nurse Practitioner; Visit Provider Orthopaedic Surgery
DX: Z98.1 Arthrodesis status (principal); M51.36 Other intervertebral disc degeneration, lumbar region; M48.061 Spinal stenosis, lumbar region without neurogenic claudication; M99.63 Osseous and subluxation stenosis of intervertebral foramina of lumbar region
CPT/HCPCS: 72141; 72148

== ENCOUNTER → 2024-04-27 15:47 | Outpatient (BNVA) | payer OTHER, SELFPAY | PROVIDERS: PCP Nurse Practitioner; Visit Provider Orthopaedic Surgery | DX: Z98.1 Arthrodesis status (principal); M54.2 Cervicalgia; M54.9 Dorsalgia, unspecified; G89.29 Other chronic pain; M47.816 Spondylosis without myelopathy or radiculopathy, lumbar region | CPT/HCPCS: 72040 ==

== ENCOUNTER → 2024-06-01 16:36 | Outpatient (BNVA) | payer OTHER, SELFPAY | PROVIDERS: PCP Nurse Practitioner; Visit Provider Orthopaedic Surgery | DX: M54.9 Dorsalgia, unspecified (principal) | CPT/HCPCS: 36415; 80053; 81001; 85025 ==

== ENCOUNTER 2024-07-12 13:25 | Inpatient (IN) | payer OTHER, SELFPAY ==
--- OUTSIDE RECORDS SUMMARY | 2024-07-07 15:40 | XMS_ITS ---
Author Name Unknown Organization 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 Name Role Phone Brenda Sharma Unavailable [phone] REASON FOR VISIT refills MEDICATIONS Medication SIG (Take, Route, Frequency, Duration) Notes Start Date End Date Status Lisinopril 20 mg TAKE ONE TABLET BY M OUTH ONCE DAILY for 90 days Active amLODIPine Besylate 10 mg TAKE ONE TABLE T BY MOUTH ONCE DAILY FOR 90 DAYS for 90 days Active SOCIAL HISTORY Sex Assigned At : Social History Observation Description Sex Assigned At Male Encounters Encounter Location Date Provider Diagnosis [facility] [employer] [facility] [address] [phone] [facility]/17/[facility]24 Brenda Sharma PLAN OF TREATMENT Medication Medication Name Sig Start Date Stop Date Notes Lisinopril 20 mg TAKE ONE TABLET BY M OUTH ONCE DAILY for 90 days amLODIPine Besylate 10 mg TAKE ONE TABLE T BY MOUTH ONCE DAILY FOR 90 DAYS for 90 days Next Appt Details Provider Name:Brenda Sharma , 10/19/2024 09:00:00 AM, [address] [place] [address], [phone], Provider Name:Brenda Sharma , 10/26/2024 09:00:00 AM, [address] [place] [address], [phone], Progress Notes * August SCHNEIDER GDOB: [birth year] (48 yo M)Acc No.[id number]:05/17/2024 Patient:??August SCHNEIDER :1975?Age:48 Y?Sex:Wanda pradhan Address:[address] [place] [phone] * Refills?? Refill amLODIPine Besylate Tablet, 10 mg, 90 Tablet, TAKE ONE TABLET BY MOUTH ONCE DAILY FOR 90 DAYS, 90 days, Refills=1 Refill Lisinopril Tablet, 20 mg, 90 Tablet, TAKE ONE TABLET BY MOUTH ONCE DAILY, 90 days, Refills=1 * true * Date:??
--- OUTSIDE RECORDS SUMMARY | 2024-07-07 15:40 | XMS_ITS ---
Author Name Unknown Organization [facility] Address [address] [place] [phone] Care Team Providers Care Informatics Spec Name Role Phone Brenda Sharma Unavailable [phone] ALLERGIES No Known Allergies REASON FOR VISIT CPAP (called for readings from [facility] [place]) MEDICATIONS Medication SIG (Take, Route, Frequency, Duration) Notes Start Date End Date Status Albuterol Sulfate HFA 10/17/2022 Active Nitroglycerin 10/17/2022 Activ e Perforomist 20 MCG/2ML 2 mL Inhalation Twice a day for 30 days 05/09/2023 Not-Taking tiZANidine HCl 4 MG 1 capsule as needed Orally Two times a day dr frederick corley tx 01/15/2023 Active Gabapentin 600 MG 1 capsule Orally three times daily dose increased by pain mgt ?500mg 10/17/2022 Active Protonix 40 MG 1 tablet Orally Once a day 03/05/2023 Active Cyclobenzaprine HCl 10/17/2022 Active Atorvastatin Calcium 20 MG 1 tablet Orally Once a day 10/17/2022 Active Pantoprazole Sodium 40 MG TAKE ONE TABLET BY MOUTH ONCE DAILY Oral for 30 Days Active HYDROcodone-Acetaminop hen 10-325 MG 1 tablet as needed Orally every 4 hrs Active Advair Diskus 500-50 MCG/ACT 1 puff Inhalation Twice a day 10/17/2022 Active Isosorbide Mononitrate ER 30 MG 1 tablet in the morning Orally Once a day 10/17/2022 Active Aspirin 325 MG 1 tablet Orally Once a day for 30 day(s) 10/17/2022 Active Budesonide 0.5 MG/2ML 1 mL Inhalation Twice a day for 30 days 05/09/2023 Not-Taking amLODIPine Besylate 10 mg TAKE ONE TABLET BY MOUTH ONCE DAILY FOR 90 DAYS for 90 Active Celecoxib 400 MG TAKE ONE CAPSULE BY MOUTH ONCE DAILY Oral for 30 Days Active Lisinopril 20 mg TAKE ONE TABLET BY MOUTH ONCE DAILY for 90 Active SOCIAL HISTORY Sex Assigned At : Social History Observation Description Sex Assigned At Male PROBLEMS Problem Type ICD Code Onset Dates Problem Status W/U Status Risk SNOMED Code Notes Problem PAYAM on CPAP (G47.33) Active confirmed 28698735 Problem Chronic constipation (K59.09) Active confirmed 805123281 VITAL SIGNS Temperature 98 degrees Fahrenheit 02/10/2024 Blood pressure systolic 150 mm Hg 02/10/20 24 Blood pressure diastolic 98 mm Hg 024 Heart Rate 78 /min 02/10/2024 Height 70 in 02/10/2024 Weight 185 lbs 02/10/2024 BMI 26.54 kg/m2 02/10/2024 Oximetry 97 % 02/10/2024 Height-cm 177.8 cm 02/10/2024 Weight-kg 83.91 kg 02/10/2024 Encounters Encounter Location Date Provider Diagnosis [facility] [address] [place] [address] 02/10/2024 Brenda Sharma Chronic obstructive pulmonary disease, unspecified COPD type J44.9 ; PAYAM on CPAP G47.33 ; Smoker F17.200 and Chronic constipation K59.09 ASSESSMENTS Encounter Date Diagnosis Assessment Notes Treatment Notes Treatment Clinical Notes Section Notes 02/10/2024 Chronic obstructive pulmonary disease, unspecified COPD type (ICD-10 - J44.9) 02/10/2024 PAYAM on CPAP (ICD-10 - G47.33) 02/10/2024 Smoker (ICD-10 - F17.200) 02/10/2024 Chronic constipation (ICD-10 - K59.09) Constipation: Care Instructions material was printed PLAN OF TREATMENT Treatment Notes Assessment Notes Chronic constipation Constipation: Care Instructions material was printed Next Appt Details Follow Up: october 2024 with abelardo boone, Reason: Provider Name:Brenda Sharma , 10/19/2024 09:00:00 AM, [address], [place], [address], Provider Name:Brenda Sharma , 10/26/2024 09:00:00 AM, [address], [facility], [place], [address], Progress Notes * August SCHNEIDER GDOB: [birth year] (48 yo M)Acc No.[id number]:02/10/2024 Patient:??August SCHNEIDER Provider:??Brenda Sharma :1975?Age:48 Y?Sex:Ma le Date:02/10/2024 Address:[address] [place], [place] [id number] Subjective: * Chief Complaints: * ?CPAP (called for mely esquivel from [facility] [place]) * HPI: ?Obstructive sleep apnea:? REVIEW OF CPAP COMPLIANCE REPORT FROM [facility]. COMPLIANCE IS AT 100% ?--- ?started hydrocodone for neck pain from dr castle...getting some relief ...but has constipation. ?48 year old male presents with c/o Patient presents for follow-up of obstructive sleep apnea??which was diagnosed years ago when patient presented with daytime fatigue when patient presented with disrupted sleep which has been going on for years for which the patient had a home sleep study .?The patient's last follow-up??was months ago with patient's primary care physician .?The patient complains of daytime drowsiness??which began years ago extreme daytime fatigue decreased energy / fatigue frequent unintentional naps relieved by compliance with CPAP use .?Investigational studies have included??a nocturnal polysomnography (sleep study) with apnea-hypopnea index of >30 (severe) .?CPAP barriers use includes??none .?? * ROS:?General / Constitutional:?Patient denies??fever.?Respiratory:?Patient denies??difficulty breathing.??Patient complains of??chronic cough.?Gastrointestinal:?Patient complains of??constipation.?Musculoskeletal:?Patient complains of??back pain, LBP., radiates to hips.?Podiatric:?Comments??less irirtability.?Neurologic:?Patient denies??weakness, tingling / numbness.? * Medical History:?? * Medications:??TakingProtonix 40 MG Tablet Delayed Release 1 tablet Orally Once a day tiZANidine HCl 4 MG Capsule 1 capsule as needed Orally Two times a day , Notes to Pharmacist: dr mack pain txGabapentin 600 MG Tablet 1 capsule Orally three times daily , Notes to Pharmacist: dose increased by pain mgt ?500mgNitroglycerin Albuterol Sulfate HFA Celecoxib 400 MG Capsule TAKE ONE CAPSULE BY MOUTH ONCE DAILY Oral amLODIPine Besylate 10 mg Tablet TAKE ONE TABLET BY MOUTH ONCE DAILY FOR 90 DAYS Lisinopril 20 mg Tablet TAKE ONE TABLET BY MOUTH ONCE DAILY HYDROcodone- Acetaminophen 10-325 MG Tablet 1 tablet as needed Orally every 4 hrs Advair Diskus 500-50 MCG/ACT Aerosol Powder Breath Activated 1 puff Inhalation Twice a day Aspirin 325 MG Tablet 1 tablet Orally Once a day Isosorbide Mononitrate ER 30 MG Tablet Extended Release 24 Hour 1 tablet in the morning Orally Once a day Atorvastatin Calcium 20 MG Tablet 1 tablet Orally Once a day Cyclobenzaprine HCl Pantoprazole Sodium 40 MG Tablet Delayed Release TAKE ONE TABLET BY MOUTH ONCE DAILY Oral Taking Protonix 40 MG Tablet Delayed Release 1 tablet Orally Once a day Taking tiZANidine HCl 4 MG Capsule 1 capsule as needed Orally Two times a day , Notes to Pharmacist: dr mack pain txTaking Gabapentin 600 MG Tablet 1 capsule Orally three times daily , Notes to Pharmacist: dose increased by pain mgt ?500mgTaking Nitroglycerin Taking Albuterol Sulfate HFA Taking Celecoxib 400 MG Capsule TAKE ONE CAPSULE BY MOUTH ONCE DAILY Oral Taking amLODIPine Besylate 10 mg Tablet TAKE ONE TABLET BY MOUTH ONCE DAILY FOR 90 DAYS Taking Lisinopril 20 mg Tablet TAKE ONE TABLET BY MOUTH ONCE DAILY Taking HYDROcodone-Acetaminophen 10-325 MG Tablet 1 tablet as needed Orally every 4 hrs Taking Advair Diskus 500-50 MCG/ACT Aerosol Powder Breath Activated 1 puff Inhalation Twice a day Taking Aspirin 325 MG Tablet 1 tablet Orally Once a day Taking Isosorbide Mononitrate ER 30 MG Tablet Extended Release 24 Hour 1 tablet in the morning Orally Once a day Taking Atorvastatin Calcium 20 MG Tablet 1 tablet Orally Once a day Taking Cyclobenzaprine HCl Taking Pantoprazole Sodium 40 MG Tablet Delayed Release TAKE ONE TABLET BY MOUTH ONCE DAILY Oral Not-TakingPerforomist 20 MCG/2ML Nebulization Solution 2 mL Inhalation Twice a day Budesonide 0.5 MG/2ML Suspension 1 mL Inhalation Twice a day Not-Taking Perforomist 20 MCG/2ML Nebulization Solution 2 mL Inhalation Twice a day Not-Taking Budesonide 0.5 MG/2ML Suspension 1 mL Inhalation Twice a day DiscontinuedOmeprazole 40 MG Capsule Delayed Release 1 capsule 30 minutes before morning meal Orally Once a day Metoprolol Tartrate 50 MG Tablet 1 tablet with food Orally Twice a day Medication List reviewed and reconciled with the patientDiscontinued Omeprazole 40 MG Capsule Delayed Release 1 capsule 30 minutes before morning meal Orally Once a day Discontinued Metoprolol Tartrate 50 MG Tablet 1 tablet with food Orally Twice a day Medication List reviewed and reconciled with the patient * Allergies:??N.K.D.A.no[Aller gies Verified] Objective: * Vitals:??BP:150/98mm Hg, HR: 78/min, Temp:98F, Oxygen sat %:97%, Wt:185lbs, Wt- k.91 kg, Ht: 70 in, Ht-cm: 177.8 cm, BMI:26.54Index, Pain scale:71-10, Body Surface Area: 2.03. * Examination: ?General Examination: ?General appearance:??alert, pleasant, cooperative?in no acute distress.? ?appears older than stated age.?Head:??normocephalic, atraumatic .?Eyes:??normal .?Oral cavity:??edentulous .?Neck / thyroid:??trachea midline .?Lymph nodes:??no cervical lymphadenopathy .?Heart:??regular rate and rhythm without murmurs, gallops, clicks or rubs.?Lungs:??with scattered wheezes throughout ?decreased LS.?Abdomen:??protuberant abd,? but soft..?Peripheral pulses:??2+ radial .?Neurologic:??alert and oriented.?Psych:??cognitive function intact cooperative with exam.? Assessment: * Assessment: 1.??PAYAM on CPAP - G47.33 (Pr imary)??2.??Chronic obstructive pulmonary disease, unspecified COPD type - J44.9??3.??Smoker - F17.200??4.??Chronic constipation - K59.09?? Plan: * Treatment: * Procedure Codes:?? * Follow Up:??october 2024 with labs * Billing Information: * Visit Code:?? 50163 Office Visit, Est Pt., Level 4. * Procedure Codes:?? * Sign off status: Completed true * Provider:?Blane Sharma Date:?? 4 History and Physical Notes * HPI (History of Present Illness) Category Sub-Category Detail Notes Category Not es Obstructive sleep apnea Patient presents for follow-up of obstructive sleep apnea which was diagnosed years ago when patient presented with daytime fatigue when patient presented with disrupted sleep which has been going on for years for which the patient had a home sleep study The patient's last follow-up was months ago with patient's primary care physician The patient complains of daytime drowsin ess which began years ago extreme daytime fatigue decreased energy / fatigue frequent unintentional naps relieved by compliance with CPAP use Investigational studies have included a nocturnal polysomnography (sleep study) with apnea-hypopnea index of >30 (severe) CPAP barriers use includes none Examination Category Sub-Category Detail Notes Category Not es General Examination General appearance: alert, p leasant, cooperative in no acute distress. appears older than stated age Head: normocephalic, atrau matic Eyes: normal Neck / thyroid: trachea midline Heart: regular rate and rhy thm without murmurs, gallops, clicks or rubs Lungs: with scattered wheez es throughout decreased LS Abdomen: protuberant abd, but soft. Neurologic: alert and oriented Peripheral pulses: 2+ radial Lymph nodes: no cervical lymphade nopathy Psych: cognitive function i ntact cooperative with exam Oral cavity: edentulous
--- OUTSIDE RECORDS SUMMARY | 2024-07-07 15:40 | XMS_ITS ---
Author Name Unknown Organization [facility] Address [address] [place] [phone] Care Team Providers Care Incinerator Operator Name Role Phone Brenda Sharma Unavailable [phone] REASON FOR VISIT 6 month f/u SOCIAL HISTORY Sex Assigned At : Social History Observation Description Sex Assigned At Male Encounters Encounter Location Date Provider Diagnosis [address] [address] 04/20/2024 Brenda Sharma PLAN OF TREATMENT Next Appt Details Provider Name:Brenda Sharma , 10/19/2024 09:00:00 AM, [address] [place] [address], [phone], Provider Name:Brenda Sharma , 10/26/2024 09:00:00 AM, [address] [place] [address], [phone], Progress Notes * August SCHNEIDER GDOB: [birth year] (48 yo M)Acc No.[id number]:04/20/2024 Patient:??August SCHNEIDER Provider:??Brenda Sharma :1975?Age:48 Y?Sex:Ma le Date:04/20/2024 Address:[address] [place], [place] [id number] Subjective: * Chief Complaints: * ?1. 6 month f/u. * Medical History:?? Objective: Assessment: Plan: * Treatment: * Billing Information: * Visit Code:?? * Procedure Codes:?? * [facility] [employer] SALESPERSON Sign off status: Pending * Provider:?Blane Sharma Date:?? 4
--- OUTSIDE RECORDS SUMMARY | 2024-07-07 15:41 | XMS_ITS | Patient Health Record ---
Author Name Unknown Organization [facility] [employer] Address [address] [place] [id number] Care Team Providers Care Manager Retirement Name Role Phone Brenda Sharma Unavailable [phone] ALLERGIES No Known Allergies RESULTS Component Value Reference Range Notes LIPID PANEL, STANDARD (0680) Reviewed date:10/11/2023 06:14:44 AM Interpretation: Performing Lab:[facility], [facility]-[id number] [facility], [id number] Johnie Sanchez MD Notes/Report: 0 0 0 0 0 0 CHOLESTEROL, TOTAL 143 <200 mg/dL HDL CHOLESTEROL 47 > OR = 40 mg/dL TRIGLYCERIDES 95 <150 mg/dL LDL-CHOLESTEROL 78 Reference range: <100 Desirable range <100 mg/dL for primary prevention; <70 mg/dL for patients with CHD or diabetic patients with > or = 2 CHD risk factors. LDL-C is now calculated using the Ed-Garcia calculation, which is a validated novel method providing better accuracy than the Friedewald equation in the estimation of LDL-C. Ed VAZQUEZ et al. JACOBO. 2013;310(19): 8763-7176 (http://education.DonorSearch.NextMedium/faq/NOV095) CHOL/HDLC RATIO 3.0 <5.0 (calc) NON HDL CHOLESTEROL 96 <130 mg/dL (calc) For patients with diabetes plus 1 major ASCVD risk factor, treating to a non-HDL-C goal of <100 mg/dL (LDL-C of <70 mg/dL) is considered a therapeutic option. COMPREHENSIVE METABOLIC DIMITRI Cody (63962) Reviewed date:10/11/2023 06:14:44 AM Interpretation: Performing Lab:[facility] [employer] [facility]-[id number] Isak Zarate, [id number] Johnie Sanchez MD Notes/Report: 0 0 0 0 0 0 GLUCOSE 91 65-99 mg/dL Fasting reference interval UREA NITROGEN (BUN) 8 7-25 mg/dL CREATININE 0.96 0.70-1.30 mg/dL EGFR 96 > OR = 60 mL/min/1.73m2 BUN/CREATININE RATIO SEE NOTE: 6-22 (calc) Not Reported: BUN and Creatinine are within reference range. SODIUM 142 135-146 mmol/L POTASSIUM 4.2 3.5-5.3 mmol/L CHLORIDE 101 98-110 mmol/L CARBON DIOXIDE 29 20-32 mmol/L CALCIUM 9.2 8.6-10.3 mg/dL PROTEIN, TOTAL 6.7 6.1-8.1 g/dL ALBUMIN 4.3 3.6-5.1 g/dL GLOBULIN 2.4 1.9-3.7 g/dL (calc) ALBUMIN/GLOBULIN RATIO 1.8 1.0-2.5 (calc) BILIRUBIN, TOTAL 1.1 0.2-1.2 mg/dL ALKALINE PHOSPHATASE 75 35-144 U/L AST 30 10-35 U/L ALT 36 9-46 U/L CBC (INCLUDES DIFF/PLT) (639 9) Reviewed date:10/11/2023 06:14:45 AM Interpretation: Performing Lab:[facility] Mariaa-[id number] Isak Zarate, [id number] Johnie Sanchez MD Notes/Report: 0 0 0 0 0 0 WHITE BLOOD CELL COUNT 8.1 3.8-10.8 Thousand/ uL RED BLOOD CELL COUNT 4.96 4.20-5.80 Million/uL HEMOGLOBIN 18.7 13.2-17.1 g/dL HEMATOCRIT 52.2 38.5-50.0 % MCV 105.2 80.0-100.0 fL MCH 37.7 27.0-33.0 pg MCHC 35.8 32.0-36.0 g/dL RDW 13.1 11.0-15.0 % PLATELET COUNT 289 140-400 Thousand/uL MPV 10.1 7.5-12.5 fL ABSOLUTE NEUTROPHILS 4690 4199-1240 cells/uL ABSOLUTE LYMPHOCYTES 2624 850-3900 cells/uL ABSOLUTE MONOCYTES 616 200-950 cells/uL ABSOLUTE EOSINOPHILS 122 15-500 cells/uL ABSOLUTE BASOPHILS 49 0-200 cells/uL NEUTROPHILS 57.9 LYMPHOCYTES 32.4 MONOCYTES 7.6 EOSINOPHILS 1.5 BASOPHILS 0.6 HEMOGLOBIN A1c (496) Reviewed date:10/11/2023 06:14:45 AM Interpretation: Performing Lab:[facility]urjitSdoevi33921 Jose Rafael WhitmoreXktaakIF[address] Johnie Sanchez MD Notes/Report: 0 0 0 0 0 0 HEMOGLOBIN A1c 5.4 <5.7 % of total Hgb For the purpose of screening for the presence of diabetes: <5.7% Consistent with the absence of diabetes 5.7-6.4% Consistent with increased risk for diabetes (prediabetes) > or =6.5% Consistent with diabetes This assay result is consistent with a decreased risk of diabetes. Currently, no consensus exists regarding use of hemoglobin A1c for diagnosis of diabetes in children. According to [place] Diabetes Association (ADA) guidelines, hemoglobin A1c <7.0% represents optimal control in non- diabetic patients. Different metrics may apply to specific patient populations. Standards of Medical Care in Diabetes(ADA). This test was performed on the [employer] c8000 platform. Please be advised that [facility] will move hemoglobin A1c testing to the [employer] platform soon. In general, direct comparison of the results from different platforms is not recommended. PSA, TOTAL (5363) Reviewed date:10/11/2023 06:14:45 AM Interpretation: Performing Lab:[facility]urjitJubzkn45269 Isak Zarate [id number] Johnie Sanchez MD Notes/Report: 0 0 0 0 0 0 PSA, TOTAL 1.85 < OR = 4.00 ng/mL The total PSA value from this assay system is standardized against the WHO standard. The test result will be approximately 20% lower when compared to the equimolar-standardized total PSA (Marilynn Hank). Comparison of serial PSA results should be interpreted with this fact in mind. This test was performed using the Siemens chemiluminescent method. Values obtained from different assay methods cannot be used interchangeably. PSA levels, regardless of value, should not be interpreted as absolute evidence of the presence or absence of disease. TSH W/REFLEX TO FT4 (73225) Reviewed date:10/11/2023 06:14:45 AM Interpretation: Performing Lab:[place], [facility]-[id number] Isak Zarate, [id number] Johnie Sanchez MD Notes/Report: 0 0 0 0 0 0 TSH W/REFLEX TO FT4 1.46 0.40-4.50 mIU/L REASON FOR REFERRAL Reason consult please Diagnosis 1 Chronic obstructive pulmonary disease, unspecified COPD type (J44.9) Referral Organization [facility] [facility] Referring Provider First Name Brenda Referring Provider Last Name [place] Referring Provider [facility] Referred Provider Pulmonology Clinic, [facility] Referred Provider Specialty Pulmonology General Notes Brenda Sharma 11/10 09:59:46 AM >please send notes from pulmonology if available, Penny Perez 12/09/2023 10:21:36 AM >Report attached. Referral faxed.Chris Wendy 12/23/2023 04:13:08 PM >TC from pt asking about referral. He hasn't heard from [facility]. I offered to give him the number to call to schedule and pt stated he would wait a couple more days and if he doesn't hear from them will call our clinic back.Chris Wendy 12/25/2023 08:45:17 AM >TC to Rom[facility] at [facility]. She could not locate the referral. Confirmed we have the correct fax number. Re-faxed.Chris Wendy 12/30/2023 03:02:12 PM >TC to [facility]. Left message to return my call.Chris Wendy 12/31/2023 10:23:42 AM >TC from Carolyn contreras/ [facility]. They down to one donation worker now, Dr. Russell. Confirmed receipt of referral. They are scheduling out after 08-11-24. They will call pt to schedule.Chris Wendy 12/31/2023 10:30:10 AM >TC to pt; _update on referral given. Pt calling his insurance child care teacher to discuss further. Pt states Kieran and his insurance requires the CPAP to be read by a donation worker to continue w/ RX for the device. Pt will notify our clinic if anything further is needed., Penny Perez 01/15/2024 11:40:02 AM >Attempt TC to pt. No voice mailbox set up. Unable to leave a message., Penny Perez 01/15/2024 11:45:01 AM >TC from pt. He has not talked to the insurance child care teacher. Pt will call back once he does., Penny Perez 02/17/2024 01:37:55 PM >Have not heard from pt. Closing referral. Referral Priority Routine MEDICATIONS Medication SIG (Take, Route, Frequency, Duration) Notes Start Date End Date Status Albuterol Sulfate HFA 10/17/2022 Active Nitroglycerin 10/17/2022 Activ e Budesonide 0.5 MG/2ML 1 mL Inhalation Twice a day for 30 days 05/09/2023 Not-Taking Perforomist 20 MCG/2ML 2 mL Inhalation Twice a day for 30 days 05/09/2023 Not-Taking Celecoxib 400 MG TAKE ONE CAPSULE BY MOUTH ONCE DAILY Oral for 30 Days Active HYDROcodone-Acetaminop hen 10-325 MG 1 tablet as needed Orally every 4 hrs Active Gabapentin 600 MG 1 capsule Orally three times daily dose increased by pain mgt ?500mg 10/17/2022 Active Lisinopril 20 mg TAKE ONE TABLET BY MOUTH ONCE DAILY for 90 days Active amLODIPine Besylate 10 mg TAKE ONE TABLET BY MOUTH ONCE DAILY FOR 90 DAYS for 90 days Active tiZANidine HCl 4 MG 1 capsule as needed Orally Two times a day dr frederick quarles 01/15/2023 Active Protonix 40 MG 1 tablet Orally Once a day 03/05/2023 Active Advair Diskus 500-50 MCG/ACT 1 puff Inhalation Twice a day 10/17/2022 Active Isosorbide Mononitrate ER 30 MG 1 tablet in the morning Orally Once a day 10/17/2022 Active Aspirin 325 MG 1 tablet Orally Once a day for 30 day(s) 10/17/2022 Active Cyclobenzaprine HCl 10/17/2022 Active Atorvastatin Calcium 20 MG 1 tablet Orally Once a day 10/17/2022 Active Pantoprazole Sodium 40 MG TAKE ONE TABLET BY MOUTH ONCE DAILY Oral for 30 Days Active SOCIAL HISTORY Tobacco Use: Social History Observation Description Date Details (start date - stop date) Current Smoker 08/11/1993 - NA Sex Assigned At : Social History Observation Description Sex Assigned At Male Household Question Answer Notes Marital status: Number of adults in household: 2 Number of children in household: 0 [employer]: [employer] Tobacco Use/Smoking Question Answer Notes Tobacco use: current smoker When did you start smoking? 08/11/1993 How often do you smoke cigarettes? every day How many cigarettes a day do you smoke? 6-10 How soon after you wake up d o you smoke your first cigarette? 31-60 minutes Are you interested in quitting? Thinking about q uitting Additional Findings: Tobacco User Modera te cigarette smoker (10-19 cigs/day) Alcohol Screen (Audit-C) Question Answer Notes Did [...] year? 3 or 4 drinks (1 point) How often did you have 6 or more drinks on one occasion in the past year? Monthly (2 points) Points 7 Interpretation Positive PROBLEMS Problem Type ICD Code Onset Dates Problem Status W/U Status Risk SNOMED Code Notes Problem Other chronic pain (G89.29) Active confirmed 41019453 Problem Primary hypertension (I10) Active confirmed 95388932 Problem Gastroesophageal reflux disease, unspecified whether esophagitis present (K21.9) Active confirmed 181566353 Problem Depression with anxiety (F41.8) Active confirmed 653356958 Problem Fatty liver (K76.0) Active confirmed 19 4348238 Problem Chronic obstructive pulmonary disease, unspecified COPD type (J44.9) Active confirmed 19356706 Problem Chronic constipation (K59.09) Active confirmed 473280946 Problem Smoker (F17.200) Active confirmed 22093 002 Problem Coronary artery disease involving [place] heart, unspecified vessel or lesion type, unspecified whether angina present (I25.10) Active confirmed 75948858 Problem ETOH abuse (F10.10) Active confirmed 15 837302 Problem Hepatomegaly (R16.0) Active confirmed Hepatomegaly (09012122) Problem PAYAM on CPAP (G47.33) Active confirmed 24153632 VITAL SIGNS Heart Rate 78 /min 02/10/2024 Temperature 98 degrees Fahrenheit 02/10/2024 Height-cm 177.8 cm 02/10/2024 Oximetry 97 % 02/10/2024 Blood pressure diastolic 98 mm Hg 02/10/2024 Weight-kg 83.91 kg 02/10/2024 Height 70 in 02/10/2024 Blood pressure systolic 150 mm Hg 02/10/2024 Weight 185 lbs 02/10/2024 BMI 26.54 kg/m2 02/10/2024 Encounters Encounter Location Date Provider Diagnosis [address] [address] 04/20/2024 Brenda Sharam [address] [address] 10/09/2023 Brenda Sharma Primary hypertension I10 ; Elevated glucose R73.09 and Screening for prostate cancer Z12.[address] [address] 10/17/2023 Brenda Sharma Primary hypertension I10 ; Chronic obstructive pulmonary disease, unspecified COPD type J44.9 ; History of fusion of cervical spine Z98.1 ; ETOH abuse F10.10 ; Mild depression F32.A ; Elevated glucose R73.09 ; Screening for prostate cancer Z12.5 and Lumbar disc disease with radiculopathy M51.[address] [address] 02/10/2024 Brenda Sharma Chronic obstructive pulmonary disease, unspecified COPD type J44.9 ; PAYAM on CPAP G47.33 ; Smoker F17.200 and Chronic constipation K59.[address] [address] 11/24/2023 Brenda Sharma Chronic obstructive pulmonary disease, unspecified COPD type J44.9 and Smoker F17.[address] [address] 05/17/2024 Brenda Sharma ASSESSMENTS Encounter Date Diagnosis Assessment Notes Treatment Notes Treatment Clinical Notes Section Notes 10/09/2023 Primary hypertension (ICD-10 - I10) labs drawn by Rodrick Radford LPN 10/17/2023 Primary hypertension (ICD-10 - I10) cont meds 11/24/2023 Chronic obstructive pulmonary disease, unspecified COPD type (ICD-10 - J44.9) 11/24/2023 Smoker (ICD-10 - F17.200) 02/10/2024 Chronic obstructive pulmonary disease, unspecified COPD type (ICD-10 - J44.9) 02/10/2024 PAYAM on CPAP (ICD-10 - G47.33) 02/10/2024 Smoker (ICD-10 - F17.200) 10/17/2023 Chronic obstructive pulmonary disease, unspecified COPD type (ICD-10 - J44.9) cont inhaled meds. keep f/u pulmonology 10/09/2023 Elevated glucose (ICD-10 - R73.09) 10/09/2023 Screening for prostate cancer (ICD-10 - Z12.5) 10/17/2023 History of fusion of cervical spine (ICD-10 - Z98.1) keep f/u pain tx 02/10/2024 Chronic constipation (ICD-10 - K59.09) Constipation: Care Instructions material was printed 10/17/2023 ETOH abuse (ICD-10 - F10.10) 10/17/2023 Mild depression (ICD-10 - F32.A) defers rx at this time. he will consider 10/17/2023 Elevated glucose (ICD-10 - R73.09) 10/17/2023 Screening for prostate cancer (ICD-10 - Z12.5) 10/17/2023 Lumbar disc disease with radiculopathy (ICD-10 - M51.16) keep f/u with pain tx PLAN OF TREATMENT Future Test Test Name Order Date URINALYSIS, COMPLETE (5653) 10/17/2023 LIPID PANEL, STANDARD (7600) 10/16/2024 COMPREHENSIVE METABOLIC PANEL (10259) CBC (INCLUDES DIFF/PLT) (6399) HEMOGLOBIN A1c (496) 10/16/2024 PSA, TOTAL (5363) 10/16/2024 TSH W/REFLEX TO FT4 (60151) 10/16/2024 Next Appt Details Provider Name:Brenda Sharma , 10/19/2024 09:00:00 AM, [address] , [address], [address], Provider Name:Brenda Sharma , 10/26/2024 09:00:00 AM, [address] , [facility], [place], [address], Insurance Providers Payer Name Payer Address Payer Phone Subscriber Number Group Number Insured Name Patient Relationship to Insured Coverage Start Date Coverage End Date [facility] [address] [address] [place] [phone] [id number] Lottie Schneider Spouse - patient is the spouse of the insured MEDICAL (GENERAL) HISTORY Medical History History ICD Code high blood pressure emphysema COPD alcohol abuse Fatty Liver Disease Hepatomegaly degenerative disc disease cervical spondylosis coronary artery disease chronic neck & back pain facet arthritis, degenerative, lumbar sp ine lumbar disc disease with radiculopathy 2 021 cervical spondylosis with radiculopathy coronary artery disease lung nodule restrictive lung disease mitral valve prolapse smoker Surgical History Surgery Date(Month/Year) decompression lumbar 11/2020 2 discs & plates w/ screws in back 01/28 21 angiogram. no stents 10/2020
[2024-07-12] VITALS (25 sets, daily range): BP systolic 100–152; BP diastolic 61–104; PULSE 78–99; RESP 14–22; TEMP 36.3–38.2; O2SAT 91–98; BMI 27.2
--- OUTSIDE RECORDS SUMMARY | 2024-07-12 08:01 | XMS_ITS | Patient Health Record ---
Author Name Unknown Organization [facility] [email or web address] Address [address] [place] [address] Care Team Providers Care Selenium Plant Operator Name Role Phone Brenda Sharma Unavailable [phone] ALLERGIES No Known Allergies RESULTS Component Value Reference Range Notes LIPID PANEL, STANDARD (3710) Reviewed date:10/11/2023 06:14:44 AM Interpretation: Performing Lab:[facility], [facility]-[id number] Is[facility], [id number] Johnie Sanchez MD Notes/Report: 0 0 0 [...] LDL-C. Ed VAZQUEZ et al. JACOBO. 2013;310(19): 2641-3448 (http://education.Waddle.Dojo/faq/UQL464) CHOL/HDLC RATIO 3.0 <5.0 (calc) NON HDL CHOLESTEROL 96 <130 mg/dL (calc) For patients with diabetes plus 1 major ASCVD risk factor, treating to a non-HDL-C goal of <100 mg/dL (LDL-C of <70 mg/dL) is considered a therapeutic option. COMPREHENSIVE METABOLIC DIMITRI Cody (88043) Reviewed date:10/11/2023 06:14:44 AM Interpretation: Performing Lab:[facility]-[id number] Isak Zarate, [id number] Johnie Sanchez MD Notes/Report: 0 0 0 [...] Reviewed date:10/11/2023 06:14:45 AM Interpretation: Performing Lab:[facility]-[id number] Isak Zarate, [id number] Johnie Sanchez MD Notes/Report: 0 0 0 0 0 0 WHITE BLOOD CELL COUNT 8.1 3.8-10.8 Thousand/ uL RED BLOOD CELL COUNT 4.96 4.20-5.80 Million/uL HEMOGLOBIN 18.7 13.2-17.1 g/dL HEMATOCRIT 52.2 38.5-50.0 % MCV 105.2 80.0-100.0 fL MCH 37.7 27.0-33.0 pg MCHC 35.8 32.0-36.0 g/dL RDW 13.1 11.0-15.0 % PLATELET COUNT 289 140-400 Thousand/uL MPV 10.1 7.5-12.5 fL ABSOLUTE NEUTROPHILS 4690 2993-4368 cells/uL ABSOLUTE LYMPHOCYTES 2624 850-3900 cells/uL ABSOLUTE MONOCYTES 616 200-950 cells/uL ABSOLUTE EOSINOPHILS 122 15-500 cells/uL ABSOLUTE BASOPHILS 49 0-200 cells/uL NEUTROPHILS 57.9 LYMPHOCYTES 32.4 MONOCYTES 7.6 EOSINOPHILS 1.5 BASOPHILS 0.6 HEMOGLOBIN A1c (496) Reviewed date:10/11/2023 06:14:45 AM Interpretation: Performing Lab:[facility] Dig[facility]yeGurjitVpghzg75886 Jose Rafael WhitmoreSsvxqpVI[address] Johnie Sanchez MD Notes/Report: 0 0 0 [...] diagnosis of diabetes in children. According to [place] Diabetes Association (ADA) guidelines, hemoglobin A1c <7.0% represents optimal control in non- diabetic patients. Different metrics may apply to specific patient populations. Standards of Medical Care in Diabetes(ADA). This test was performed on the Springbot c8000 platform. Please be advised that [facility] will move hemoglobin A1c testing to the Baldemar platform soon. In general, direct comparison of the results from different platforms is not recommended. PSA, TOTAL (5363) Reviewed date:10/11/2023 06:14:45 AM Interpretation: Performing Lab:[facility] DigifeyeGurjitHbpdvl84408 Isak Zarate [id number] Johnie Sanchez MD Notes/Report: 0 0 0 [...] absence of disease. TSH W/REFLEX TO FT4 (30733) Reviewed date:10/11/2023 06:14:45 AM Interpretation: Performing Lab:[facility], [facility]-Igoffz58919 Isak Zarate, [id number] Johnie Sanchez MD Notes/Report: 0 0 0 0 0 0 TSH W/REFLEX TO FT4 1.46 0.40-4.50 mIU/L REASON FOR REFERRAL Reason consult please Diagnosis 1 Chronic obstructive pulmonary disease, unspecified COPD type (J44.9) Referral Organization [facility] Referring Provider First Name Brenda Referring Provider Last Name Quebradillas Referring Provider [facility] Referred Provider Pulmonology Clinic, [facility] Referred Provider Specialty Pulmonology General Notes Brenda Sharma 11/10 09:59:46 AM >please send notes from pulmonology if available, Penny Perez 12/09/2023 10:21:36 AM >Report attached. Referral faxed.Chris Wendy 12/23/2023 04:13:08 PM >TC from pt asking about referral. He hasn't heard from [facility]. I offered to give him the number to call to schedule and pt stated he would wait a couple more days and if he doesn't hear from them will call our clinic back.Chris Wendy 12/25/2023 08:45:17 AM >TC to Romana at [facility]. She could not locate the referral. Confirmed we have the correct fax number. Re-faxed.Chris Wendy 12/30/2023 03:02:12 PM >TC to [facility]. Left message to return my call.Chris Wendy 12/31/2023 10:23:42 AM >TC from Carolyn contreras/ [facility]. They down to one fountain clerk now, Dr. Russell. Confirmed receipt of referral. They are scheduling out after 08-11-24. They will call pt to schedule.Chris Wendy 12/31/2023 10:30:10 AM >TC to pt; _update on referral given. Pt calling his insurance career placement services counselor to discuss further. Pt states Kieran and his insurance requires the CPAP to be read by a fountain clerk to continue w/ RX for the device. Pt will notify our clinic if anything further is needed., Penny Perez 01/15/2024 11:40:02 AM >Attempt TC to pt. No voice mailbox set up. Unable to leave a message., Penny Perez 01/15/2024 11:45:01 AM >TC from pt. He has not talked to the insurance career placement services counselor. Pt will call back once he does., [...] 2 Number of children in household: 0 Jainism: Gnosticism Tobacco Use/Smoking Question Answer Notes Tobacco use: [...] Problem Other chronic pain (G89.29) Active confirmed 67401881 Problem Primary hypertension (I10) Active confirmed 80714471 Problem Gastroesophageal reflux disease, unspecified whether esophagitis present (K21.9) Active confirmed 522222666 Problem Depression with anxiety (F41.8) Active confirmed 387401312 Problem Fatty liver (K76.0) Active confirmed 19 1714596 Problem Chronic obstructive pulmonary disease, unspecified COPD type (J44.9) Active confirmed 12886073 Problem Chronic constipation (K59.09) Active confirmed 309923819 Problem Smoker (F17.200) Active confirmed 86558 002 Problem Coronary artery disease involving modoc heart, unspecified vessel or lesion type, unspecified whether angina present (I25.10) Active confirmed 11659130 Problem ETOH abuse (F10.10) Active confirmed 15 655720 Problem Hepatomegaly (R16.0) Active confirmed Hepatomegaly (43047640) Problem PAYAM on CPAP (G47.33) Active confirmed 62683469 VITAL SIGNS Heart Rate 78 /min 02/10/2024 Temperature 98 degrees Fahrenheit 02/10/2024 Height-cm 177.8 cm 02/10/2024 Oximetry 97 % 02/10/2024 Blood pressure diastolic 98 mm Hg 02/10/2024 Weight-kg 83.91 kg 02/10/2024 Height 70 in 02/10/2024 Blood pressure systolic 150 mm Hg 02/10/2024 Weight 185 lbs 02/10/2024 BMI 26.54 kg/m2 02/10/2024 Encounters Encounter Location Date Provider Diagnosis [address] [address] 04/20/2024 Brenda Quebradillas [address] [address] 10/09/2023 Brendazamzam Sharma Primary hypertension I10 ; Elevated glucose R73.09 and Screening for prostate cancer Z12.[address] [address] 10/17/2023 Brendazamzam Sharma Primary hypertension I10 ; Chronic obstructive pulmonary disease, unspecified COPD type J44.9 ; History of fusion of cervical spine Z98.1 ; ETOH abuse F10.10 ; Mild depression F32.A ; Elevated glucose R73.09 ; Screening for prostate cancer Z12.5 and Lumbar disc disease with radiculopathy M51.[address] [address] 02/10/2024 Brenda Sharma Chronic obstructive pulmonary disease, unspecified COPD type J44.9 ; PAYAM on CPAP G47.33 ; Smoker F17.200 and Chronic constipation K59.[address] [address] 11/24/2023 Brenda Sharma Chronic obstructive pulmonary disease, unspecified COPD type J44.9 and Smoker F17.[address] [address] 05/17/2024 Brenda ASSESSMENTS Encounter Date Diagnosis Assessment Notes Treatment Notes Treatment Clinical Notes Section Notes 02/10/2024 Chronic obstructive pulmonary disease, unspecified COPD type (ICD-10 - J44.9) 02/10/2024 PAYAM on CPAP (ICD-10 - G47.33) 11/24/2023 Chronic obstructive pulmonary disease, unspecified COPD type (ICD-10 - J44.9) 11/24/2023 Smoker (ICD-10 - F17.200) 10/17/2023 Primary hypertension (ICD-10 - I10) cont meds 10/09/2023 Primary hypertension (ICD-10 - I10) labs drawn by Rodrick Radford LPN 10/09/2023 Elevated glucose (ICD-10 - R73.09) 02/10/2024 Smoker (ICD-10 - F17.200) 10/17/2023 Chronic obstructive pulmonary disease, unspecified COPD type (ICD-10 - J44.9) cont inhaled meds. keep f/u pulmonology 02/10/2024 Chronic constipation (ICD-10 - K59.09) Constipation: Care Instructions material was printed 10/17/2023 History of fusion of cervical spine (ICD-10 - Z98.1) keep f/u pain tx 10/09/2023 Screening for prostate cancer (ICD-10 - Z12.5) 10/17/2023 ETOH abuse (ICD-10 - F10.10) 10/17/2023 Mild depression (ICD-10 - F32.A) defers rx at this time. he will consider 10/17/2023 Elevated glucose (ICD-10 - R73.09) 10/17/2023 Screening for prostate cancer (ICD-10 - Z12.5) 10/17/2023 Lumbar disc disease with radiculopathy (ICD-10 - M51.16) keep f/u with pain tx PLAN OF TREATMENT Future Test Test Name Order Date URINALYSIS, COMPLETE (1713) 10/17/2023 LIPID PANEL, STANDARD (9600) 10/16/2024 COMPREHENSIVE METABOLIC PANEL (53863) CBC (INCLUDES DIFF/PLT) (6399) HEMOGLOBIN A1c (496) 10/16/2024 PSA, TOTAL (5363) 10/16/2024 TSH W/REFLEX TO FT4 (83109) 10/16/2024 Next Appt Details Provider Name:Brenda Sharma , 10/19/2024 09:00:00 AM, [address] , [address], [address], Provider Name:Brenda Sharma , 10/26/2024 09:00:00 AM, [address] , [facility], [place], [address], Insurance Providers Payer Name Payer Address Payer Phone Subscriber Number Group Number Insured Name Patient Relationship to Insured Coverage Start Date Coverage End Date [facility] [address] [address] [place] [address] [id number] Lottie Schneider Spouse - patient is the [...]
--- OUTSIDE RECORDS SUMMARY | 2024-07-12 08:01 | XMS_ITS ---
Author Name Unknown Organization [facility] Address [address] [place] [address] Care Team Providers Care Accounting Administrator Name Role Phone Brenda Sharma Unavailable [phone] REASON FOR VISIT refills MEDICATIONS Medication SIG [...] Male Encounters Encounter Location Date Provider Diagnosis [facility] [address] [address] 05/17/2024 Brenda Sharma PLAN OF TREATMENT Medication Medication Name Sig Start Date Stop Date Notes Lisinopril 20 mg TAKE ONE TABLET BY M OUTH ONCE DAILY for 90 days amLODIPine Besylate 10 mg TAKE ONE TABLE T BY MOUTH ONCE DAILY FOR 90 DAYS for 90 days Next Appt Details Provider Name:Brenda Sharma , 10/19/2024 09:00:00 AM, [address] [place] [address], [phone], Provider Name:Brenda Sharma , 10/26/2024 09:00:00 AM, [address] [place] [address], [phone], Progress Notes * August SCHNEIDER GDOB: [birth year] (48 yo M)Acc No.[id number]:05/17/2024 Patient:??August SCHNEIDER :1975?Age:48 Y?Sex:Wanda pradhan Address:[address] [place] [phone] * Refills?? Refill amLODIPine Besylate Tablet, 10 mg, 90 Tablet, TAKE ONE TABLET BY MOUTH ONCE DAILY FOR 90 DAYS, 90 days, Refills=1 Refill Lisinopril Tablet, 20 mg, 90 Tablet, TAKE ONE TABLET BY MOUTH ONCE DAILY, 90 days, Refills=1 * true * Date:??
--- OUTSIDE RECORDS SUMMARY | 2024-07-12 08:01 | XMS_ITS ---
Author Name Unknown Organization [facility] Address [address] [place] [address] Care Team Providers Care Barker Operator Name Role Phone Brenda Sharma Unavailable [phone] REASON FOR VISIT 6 month f/u SOCIAL HISTORY Sex Assigned At : Social History Observation Description Sex Assigned At Male Encounters Encounter Location Date Provider Diagnosis [address] [address] 04/20/2024 Brenda Sharma PLAN OF TREATMENT Next Appt Details Provider Name:Brenda Sharma , 10/19/2024 09:00:00 AM, [address] [place] [address], [phone], Provider Name:Brenda Sharma , 10/26/2024 09:00:00 AM, [address] [place] [address], [phone], Progress Notes * August SCHNEIDER GDOB: [birth year] (48 yo M)Acc No.[id number]:04/20/2024 Patient:??August SCHNEIDER Provider:??Brenda Sharma :1975?Age:48 Y?Sex:Ma le Date:04/20/2024 Address:[address] [place], [place] [phone] Subjective: * Chief Complaints: * ?1. 6 month f/u. * Medical History:?? Objective: Assessment: Plan: * Treatment: * Billing Information: * Visit Code:?? * Procedure Codes:?? * OR BUSINESS CONSULTANT Sign off status: Pending * Provider:?Blane Sharma Date:?? 4
--- OUTSIDE RECORDS SUMMARY | 2024-07-12 08:01 | XMS_ITS ---
Author Name Unknown Organization [facility] Address [address] [place] [phone] Care Team Providers Care Glove Cleaner Name Role Phone Brenda Sharma Unavailable [phone] ALLERGIES No Known Allergies REASON FOR VISIT CPAP (called for readings from [facility]) MEDICATIONS Medication SIG (Take, Route, Frequency, Duration) [...] Problem PAYAM on CPAP (G47.33) Active confirmed 72090897 Problem Chronic constipation (K59.09) Active confirmed 465927746 VITAL SIGNS Temperature 98 degrees Fahrenheit 02/10/2024 Blood pressure systolic 150 mm Hg 02/10/20 24 Blood pressure diastolic 98 mm Hg 024 Heart Rate 78 /min 02/10/2024 Height 70 in 02/10/2024 Weight 185 lbs 02/10/2024 BMI 26.54 kg/m2 02/10/2024 Oximetry 97 % 02/10/2024 Height-cm 177.8 cm 02/10/2024 Weight-kg 83.91 kg 02/10/2024 Encounters Encounter Location Date Provider Diagnosis [facility] [address] [place] [address] 02/10/2024 Brenda Sharma Chronic obstructive pulmonary disease, [...] 09:00:00 AM, [address], [place], [address], Provider Name:Brenda Sharma , 10/26/2024 09:00:00 AM, [address], [facility], [place], [address], Progress Notes * August SCHNEIDER GDOB: [birth year] (48 yo M)Acc No.[id number]:02/10/2024 Patient:??August SCHNEIDER Provider:??Brenda Sharma :1975?Age:48 Y?Sex:Ma le Date:02/10/2024 Address:[address] [place], [place] [phone] Subjective: * Chief Complaints: * ?CPAP (called for mely esquivel from [facility]) * HPI: ?Obstructive sleep apnea:? REVIEW OF CPAP COMPLIANCE REPORT FROM [facility]. COMPLIANCE IS AT 100% ?--- ?started hydrocodone [...] labs * Billing Information: * Visit Code:?? 85126 Office Visit, Est Pt., Level 4. * [...]
[2024-07-12] MEDS: sodium chloride 0.9% 1,000 ML 30 ML IV (08:42)
--- NOTE | 2024-07-12 10:18 | W.PM.OPSFHP ---
Same Day Surgery H&P Indication for Procedure/HPI DATE OF PROCEDURE: July 12, 2024 CHIEF COMPLAINT/INDICATIONFOR SURGICAL PROCEDURE: Low back pain PREOP DIAGNOSIS: Proximal junctional kyphosis; SI joint pain and arthritis PLANNED PROCEDURE: Operation Date: 07/12/24 11:05 Proposed Procedures p Spinal Fusion PSF(Not Applicable) - Thomas Qureshi DO s Lumbopelvic Fixation(Not Applicable) - Thomas Qureshi DO s Sacroiliac Joint Fusion SI Joint Fusion(Bilateral) - Thomas Qureshi DO Medications/Allergies* Home Medications Medication Instructions Recorded Confirmed Type docusate sodium 250 mg capsule 250 mg PO DAILY 06/11/24 07/12/24 History gabapentin 600 mg tablet 600 mg PO BID 07/12/24 07/12/24 History Allergies/Adverse Reactions Allergy/AdvReac Type Severity Reaction Status Date / Time No Known Allergies Allergy Verified 07/12/24 08:25 Current Medications: Generic Name Dose Route Start Last Admin Trade Name Freq PRN Reason Stop Dose Admin Sodium Chloride 1,000 mls @ 30 mls/hr 07/12/24 08:30 07/12/24 08:42 Sodium Chloride 0.9% IV 07/13/24 08:29 30 mls/hr .Q24H MARIANNE Administration Pertinent History/Comorbid Conditions* Medical History (Updated 06/12/24 @ 00:02 by ZITA Drew) Syncope Acute hypokalemia Acute kidney injury Acute hypotension PAYAM (obstructive sleep apnea) Lumbar stenosis with neurogenic claudication Lumbar disc disease with radiculopathy Coronary artery disease HTN (hypertension) Mitral valve prolapse Lung disease, restrictive Smoker COPD (chronic obstructive pulmonary disease) Surgical History (Updated 06/12/24 @ 00:02 by ZITA Drew) H/O hernia repair H/O shoulder surgery History of surgery on upper extremity History of cholecystectomy H/O vasectomy History of testicular surgery Family History (Updated 06/13/20 @ 09:49 by Marycruz Salgado RN) Diabetes CAD (coronary artery disease) Hyperlipidemia Hypertension Denies family history of Stroke Social History Smoking and tobacco/nicotine status: current every day tobacco/nicotine user cigarettes Packs smoked per day: 0.5 Years cigarettes smoked: 30 [ Other cigarette details: Started at age 17] Alcohol intake: current Alcohol intake frequency: 3 or more drinks per day Alcohol type: beer Substance/Drug Use: never Lives independently: Yes Household members: spouse Marital status: service: No Current occupational status: unemployed Do you think of yourself as: Straight/Heterosexual Current gender identity: Male Pertinent Exam Findings alert, oriented x 3 and procedure specific exam findings Recommendations Surgery/Procedure today Coding Level of Care Code Acute Code for Chg Beck
--- NOTE | 2024-07-12 10:42 | P.ANESASSM_ITS ---
Pre-Anesthetic Assessment Height/Weight: Height 5 ft 10 in Weight 190 lb Temp Pulse Resp BP Pulse Ox O2 Del Method 97.4 F L 84 16 147/98 94 Room Air 07/12/24 08:27 07/12/24 08:27 07/12/24 08:27 07/12/24 08:27 07/12/24 08:27 07/12/24 08:27 Preop Diagnosis: Proximal junctional kyphosis; SI joint pain and arthritis Operation Date: 07/12/24 11:05 Proposed Procedures p Spinal Fusion PSF(Not Applicable) - Thomas Qureshi DO s Lumbopelvic Fixation(Not Applicable) - Thomas Qureshi DO s Sacroiliac Joint Fusion SI Joint Fusion(Bilateral) - Thomas Qureshi DO Was Beta Sravanthi taken within 24 hours: N/A Was Clonidine taken within 24 hours: N/A Last intake: Intake Last Liquid Date 07/11/24 Last Liquid Time 20:30 Last Solid Date 07/11/24 Last Solid Time 20:30 Social Tobacco and No alcohol Exam alert, oriented x 3, clear to auscultation bilaterally and regular rate & rhythm Airway Submandibular: within normal limits Cervical ROM: Other (Limited neck extension) Mallampati: Class III Dentition: other (Very poor dentition, denies any loose teeth) Anesthetic Plan ASA status: 3 Anesthesia: General Other: No prior issues with anesthesia NPO since yesterday History of hypertension on amlodipine and lisinopril Current smoker, COPD on inhalers PAYAM, no treatment Patient takes chronic hydrocodone 10?3 25 every 4/6 hours Labs reviewed 06/01/2024 acceptable for procedure Type and screen performed Echo 12/31 showing EF 55% with no wall motion abnormalities Patient has limited mobility secondary to pain Plan for GETA with arterial line Medications/Allergies Home Medications Medication Instructions Recorded Confirmed Last Taken Type nitroglycerin 0.4 mg sublingual 0.4 mg sublingual Q5M PRN chest 10/06/2007/1201/17/21 Rx tablet pain #25 tabs amlodipine 10 mg tablet 10 mg PO DAILY #30 tabs 12/31/22 07/12/24 07/11/24 Rx lisinopril 20 mg tablet 20 mg PO DAILY #30 tabs 12/31/22 07/12/24 07/11/24 Rx Cervical Collar #1 ea 03/25/23 06/01/24 Unknown Rx E0748 Bone Growth Stimulator #1 ea 04/04/23 06/01/24 Unknown Rx docusate sodium 250 mg capsule 250 mg PO DAILY 06/11/24 07/12/24 07/11/24 His tory hydrocodone 10 mg-acetaminophen 1 tab PO Q6H PRN pain 30 days #120 06/17/24 07/12/24 07/11/24 Rx 325 mg tablet tabs tizanidine 4 mg tablet 4 mg PO BID #60 tabs 06/17/24 07/12/24 07/11/24 Rx gabapentin 600 mg tablet 600 mg PO BID 07/12/24 07/12/24 07/11/24 History Allergies Allergy/AdvReac Type Severity Reaction Status Date / Time No Known Allergies Allergy Verified 07/12/24 08:25 Current Medications Generic Name Dose Route Start Last Admin Trade Name Freq PRN Reason Stop Dose Admin Sodium Chloride 1,000 mls @ 30 mls/hr 07/12/24 08:30 07/12/24 08:42 Sodium Chloride 0.9% IV 07/13/24 08:29 30 mls/hr .Q24H MARIANNE Administration PFSH Anesthesia Medical History Syncope Acute hypokalemia Acute kidney injury Acute hypotension PAYAM (obstructive sleep apnea) Lumbar stenosis with neurogenic claudication Lumbar disc disease with radiculopathy Coronary artery disease HTN (hypertension) Mitral valve prolapse Lung disease, restrictive Smoker COPD (chronic obstructive pulmonary disease) Surgical History H/O hernia repair H/O shoulder surgery History of surgery on upper extremity History of cholecystectomy H/O vasectomy History of testicular surgery Family History Other CAD (coronary artery disease) Diabetes Hyperlipidemia Hypertension Denies family history of Stroke Social History Smoking and tobacco/nicotine status: current every day tobacco/nicotine user cigarettes Packs smoked per day: 0.5 Years cigarettes smoked: 30 [ Other cigaret te details: Started at age 17] Alcohol intake: current Alcohol intake frequency: 3 or more drinks per day Alcohol type: beer Substance/Drug Use: never Lives independently: Yes Household members: spouse Marital status: service: No Current occupational status: unemployed Do you think of yourself as: Straight/Heterosexual Current gender identity: Male Data [facility] Blood Bank 07/12/24 08:40 Blood Type O Positive Rho(D) Type Rh positive Antibody Screen Negative Cardiac Studies: Echocardiogram 12/30/22 Echocardiogram Ultrasound 04/03/20 Stress Echocardiogram 10/04/20
[2024-07-12] MEDS: ceFAZolin 2,000 mg SDV 2000 MG IVP ×2 (10:54→21:17)
[2024-07-12] MEDS: lidocaine-epi 1% 20 mL INJ INJECTION (11:37)
[2024-07-12] MEDS: heparin, porcine 1,000 unit/mL INJ 10 mL 10000 UNIT IRRIGATION (11:38)
[2024-07-12] MEDS: VANCOMYCIN ADD-Vantage 1,000 MG VIAL 1000 MG INTRA-ARTI (11:38)
--- NOTE | 2024-07-12 13:48 | P.OP_ITS ---
Operative Report Date of procedure: July 12, 2024 Pre-op diagnosis: Proximal junctional kyphosis Nonunion lumbar spine Post-op diagnosis: same Procedure done: 1. L3 to pelvis fusion 2. L3-S1 posterior spine instrumentation 3. Lumbopelvic instrumentation 4. Open SI joint fusion on the right 5. Open SI joint fusion on the left 6. Use of computer navigation stereotactic for spine 7. Bone marrow aspirate from right iliac crest 8. Use of allograft 9. Removal of deep hardware from spine 10. Revision spine surgery Patient brought to the operative suite after undergoing anesthesia was placed in the prone position. All areas impingement well-padded. Patient is prepped and draped in normal sterile fashion. Skin incisions made using the previous skin incision extending slightly above and below. The thoracolumbar fascia was split and subperiosteal dissection was made out to the transverse process of L3. The screws were identified at L4-S1 bilaterally. Transverse processes of the L4 and 5 were identified and dissected out as well. Sacrum and SI joints were dissected out as well. The screw caps and rods were then removed. Next attension was was brought to the bone marrow aspirate. This was done by using the [employer]etAnywhere bone marrow aspiration kit. The iliac crest was identified and through a separate incision through the fascia and the bone marrow aspiration kit was inserted into the right iliac crest. Bone marrow aspirate was taken 20 cc. This was mixed with the allograft. Next attention was brought to placing the fiducial for the C-arm. This is going to be used for the computer navigation. 2 pins were placed into the right iliac crest which were later moved to the end of the case. The fiducial was attached. C-arm was brought in and then spun around the patient. The information from serum was then later used after is loaded the computer for the placement of pedicle screws. Next attention was brought to placing the pedicle screws. This was done at L3 bilaterally. The computer navigated awl was inserted into the pedicle. Followed by the pedicle feeler. Then 2 50 mm screws were placed into the L3 pedicles using the computer navigation. Next attention was placing the iliac screws. This was done using the computer navigated awl. This is placed through the ala across the SI joint into the iliac crest. Then followed by the pedicle feeler. Followed by computer navigated tap. 80 mm 9 5 pedicle screws were then placed into the iliac crest. This was done bilaterally. Next attention was brought to the open SI joint fusions. This was done by using the computer navigated awl crossing the SI joint. Through direct visualization as well. The pedicle feeler was used to make sure was crossed no breaches. The canal was then filled with bone graft. And then a computer navigated SI joint fusion screws placed across the SI joint. This process was done on both the right and the left side. Wounds were then irrigated. The zaria was then attached from L3 into the tulips of L4, L5, S1 and into the iliac screw completing the lumbopelvic fixation. The screw caps were then torqued into position. This was done bilaterally. Next attention was brought to decorticating the transverse processes of L3 bilaterally L4 bilaterally L5 bilaterally and Next attention was brought to decorticating the transverse processes of L3 bilaterally, L4 bilaterally, L5 bilaterally the sacral ala and over the SI joint. Ostial amp bone graft was then packed into the gutters. And across the SI joint. Vancomycin powder was placed deep drain was placed and wound was closed in layered fashion with Vicryl and Monocryl. Sterile dressings were applied patient was transferred to the PACU in stable condition. Surgeon: Thomas Qureshi DO Estimated blood loss (mL): 250 Procedure: 1. L3 to pelvis fusion 2. L3-S1 posterior spine instrumentation 3. Lumbopelvic instrumentation 4. Open SI joint fusion on the right 5. Open SI joint fusion on the left 6. Use of computer navigation stereotactic for spine 7. Bone marrow aspirate from right iliac crest 8. Use of allograft 9. Removal of deep hardware from spine 10. Revision spine surgery Patient brought to the operative suite after undergoing anesthesia was placed in the prone position. All areas impingement well-padded. Patient is prepped and draped in normal sterile fashion. Skin incisions made using the previous skin incision extending slightly above and below. The thoracolumbar fascia was split and subperiosteal dissection was made out to the transverse process of L3. The screws were identified at L4-S1 bilaterally. Transverse processes of the L4 and 5 were identified and dissected out as well. Sacrum and SI joints were dissected out as well. The screw caps and rods were then removed. Next attension was was brought to the bone marrow aspirate. This was done by using the [employer]where bone marrow aspiration kit. The iliac crest was identified and through a separate incision through the fascia and the bone marrow aspiration kit was inserted into the right iliac crest. Bone marrow aspirate was taken 20 cc. This was mixed with the allograft. Next attention was brought to placing the fiducial for the C-arm. This is going to be used for the computer navigation. 2 pins were placed into the right iliac crest which were later moved to the end of the case. The fiducial was attached. C-arm was brought in and then spun around the patient. The information from serum was then later used after is loaded the computer for the placement of pedicle screws. Next attention was brought to placing the pedicle screws. This was done at L3 bilaterally. The computer navigated awl was inserted into the pedicle. Followed by the pedicle feeler. Then 2 50 mm screws were placed into the L3 pedicles using the computer navigation. Next attention was placing the iliac screws. This was done using the computer navigated awl. This is placed through the ala across the SI joint into the iliac crest. Then followed by the pedicle feeler. Followed by computer navigated tap. 80 mm 9 5 pedicle screws were then placed into the iliac crest. This was done bilaterally. Next attention was brought to the open SI joint fusions. This was done by using the computer navigated awl crossing the SI joint. Through direct visualization as well. The pedicle feeler was used to make sure was crossed no breaches. The canal was then filled with bone graft. And then a computer navigated SI joint fusion screws placed across the SI joint. This process was done on both the right and the left side. Wounds were then irrigated. The zaria was then attached from L3 into the tulips of L4, L5, S1 and into the iliac screw completing the lumbopelvic fixation. The screw caps were then torqued into position. This was done bilaterally. Next attention was brought to decorticating the transverse processes of L3 bilaterally L4 bilaterally L5 bilaterally and Next attention was brought to decorticating the transverse processes of L3 bilaterally, L4 bilaterally, L5 bilaterally the sacral ala and over the SI joint. Ostial amp bone graft was then packed into the gutters. And across the SI joint. Vancomycin powder was placed deep drain was placed and wound was closed in layered fashion with Vicryl and Monocryl. Sterile dressings were applied patient was transferred to the PACU in stable condition.
[2024-07-12] MEDS: HYDROmorphone 1 mg/mL INJ 1 mL IVP (13:58)
--- NOTE | 2024-07-12 14:11 | PC.NURSE ---
1352 - Per JONATHAN Andrade ok to start with Dilaudid for pain
[2024-07-12] MEDS: fentaNYL 50 mcg/mL INJ 2mL IVP (14:20)
--- NOTE | 2024-07-12 14:20 | XR_ITS ---
WS: [id number] XR lumbar spine 1V 74180 REASON FOR EXAM: OR PIC, SPINAL FUSION FINDINGS: Previous posterior lumbar fusion L4-L5 and L5-S1. Posterior decompression with additional pedicle screws placed at L3. Oblique tandem bilateral pelvic screws at S2. Interconnecting rods pelvis to L3. Surgical appliances are intact and in proper position and alignment. XR/XR lumbar spine 1V 71203 IMPRESSION: Posterior lumbar fusion revision as above.
--- NOTE | 2024-07-12 14:39 | PC.NURSE ---
1435 - Dr Alexandre notified of temp of 101.7
--- NOTE | 2024-07-12 14:44 | ANE.PACU2 ---
Inpatient post-anesthesia follow up: Airway intact: Yes Vital signs: Temperature 100.7 F Pulse Rate 93 Respiratory Rate 14 Blood Pressure 128/85 Pulse Oximetry 93 Oxygen Delivery Me thod Nasal Cannula Oxygen Flow Rate 3 Fraction of Inspir ed Oxygen Hydration adequate: Yes Nausea and vomiting: No Pain level: 3 Mental status: Baseline
--- NOTE | 2024-07-12 14:55 | PC.NURSE ---
1448 - arrived to floor room 267- this nurse out to retrieve charge nurse to accept pt to floor - ERNESTO Soliz - BP 188/80 - 91% RA - pulse 89 - temp 98.5 - pt in no acute distress upon this nurse leaving room
[2024-07-12] MEDS: lactated ringers 1,000 ML 30 ML IV (15:37)
[2024-07-12] MEDS: morphine 4 mg/mL SDV 1 mL 2 MG IVP ×3 (15:41→21:44)
[2024-07-12] MEDS: ketorolac 30 mg/mL INJ IVP (15:42)
[2024-07-12 15:46] LABS: Glucose Point of Care 151 mg/dL (70-110)
--- NOTE | 2024-07-12 15:51 | ECG_ITS ---
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 Measurements Intervals [place] Rate: 77 P: 42 [place]: 139 QRS: 94 QRSD: 88 T: 101 QT: 386 QTc: 439 Interpretive Statements SINUS RHYTHM POSSIBLE LEFT ATRIAL ENLARGEMENT [-0.1mV P-WAVE IN V1/V2] BORDERLINE RIGHT AXIS DEVIATION [QRS AXIS > 90] MODERATE T-WAVE ABNORMALITY, CONSIDER ANTEROLATERAL ISCHEMIA [-0.1+ mV T-WAVE IN V3-V6] Compared to ECG 12/30/2022 03:16:16 T-wave abnormality now present Possible ischemia now present Electronically Signed On 07-13-2024 21:37:21 PNEUMATIC DRUM SANDER by Dudley Verdugo M.D. [email or web address]
[2024-07-12] MEDS: HYDROcodone-acetaminophen 10-325 mg Tablet PO ×2 (17:13→21:44)
[2024-07-12] MEDS: docusate sodium 100 mg Capsule PO (17:47)
[2024-07-12] MEDS: tizanidine 4 mg Tablet PO (17:47)
[2024-07-12] MEDS: gabapentin 300 mg Capsule 600 MG PO (17:47)
[2024-07-13] VITALS (9 sets, daily range): BP systolic 103–126; BP diastolic 63–86; PULSE 76–86; RESP 16–18; TEMP 36.3–37.4; O2SAT 91–95
[2024-07-13] MEDS: morphine 4 mg/mL SDV 1 mL 2 MG IVP ×3 (01:13→15:45)
--- NOTE | 2024-07-13 01:48 | PC.RESP ---
Pt refusing CPAP
[2024-07-13] MEDS: ceFAZolin 2,000 mg SDV 2000 MG IVP ×2 (03:26→10:57)
[2024-07-13 05:39] LABS: Basophils % 0.3 %; Eosinophils % 0.2 %; Hematocrit 38.2 % (37-53); Lymphocytes # 1.5 10^3/uL (0.8-4.8); Lymphocytes % 12.5 %; Mean Corpuscular Volume 114.7 fl (82-101); Mean Platelet Volume 9.4 fL (7.4-10.4); Monocytes # 0.6 10^3/uL (0.2-0.9); Monocytes % 5.3 %; Neutrophils # 9.71 10^3/uL (1.8-7.7); Neutrophils % 81.1 %; Nucleated Red Blood Cells % 0 %; Platelet Count 224 10^3/cmm (157-399); Red Blood Count 3.33 10^6/uL (3.85-5.65); Red Cell Distribution Width 14.1 % (12.1-15.1); White Blood Count 11.95 10^3/uL (3.29-11.43)
[2024-07-13 06:00] LABS: Alanine Aminotransferase 22 U/L (0-41); Albumin Level 3.7 g/dL (3.5-5.2); Alkaline Phosphatase 67 U/L (40-130); Anion Gap 15.5 (5-19); Aspartate Amino Transferase 28 U/L (0-40); Blood Urea Nitrogen 13 mg/dL (6-20); Calcium 7.6 mg/dL (8.5-10.5); Carbon Dioxide 26 mmol/L (22-29); Chloride 101 mmol/L (98-107); Creatinine Clr Calc Pharmacy 123.9456; Glomerular Filtration Rate 102.3 mL/min (90-130); Glucose 114 mg/dL (65-115); Osmolality Calculated 287 mOsm/kg (285-295); Potassium 4.5 mmol/L (3.5-5.1); Sodium 138 mmol/L (136-145); Total Bilirubin 0.6 mg/dL (0.15-1.2); Total Protein 5.7 g/dL (6.6-8.7)
[2024-07-13] MEDS: HYDROcodone-acetaminophen 10-325 mg Tablet PO ×4 (06:11→22:32)
--- NOTE | 2024-07-13 07:23 | PC.NURSE ---
patient villeda discontinued. catheter intact, patient tolerated well.
--- NOTE | 2024-07-13 07:55 | P.PN_ITS ---
Subjective 2 Subjective: Patient had. Bit of pain last night. This point patient sitting at the bedside. Dressings clean dry and intact. Patient drain per him and his had a fair amount of drainage last night. Vitals/I&O/Wt Last Vital Signs Temp 98.0 F 07/13/24 04:00 Pulse 81 07/13/24 04:00 Resp 18 07/13/24 06:12 BP 116/74 07/13/24 04:00 Pulse Ox 92 07/13/24 04:00 O2 Del Method Room Air 07/13/24 04:00 O2 Flow Rate 2 07/12/24 15:20 07/12/24 07/13/24 07/13/24 22:59 06:59 14:59 Intake Total 549.5 / 799.5 240 / 1039.5 Output Total 550 / 950 700 / 1650 400 / 400 Balance -0.5 / -150.5 -460 / -610.5 -400 / -400 Weight last 48 hrs Weight 195 lb 12.8 oz Weight 190 lb Weight 190 lb Physical Exam 2 Narrative: Patient has 5 out of 5 strength bilateral lower extremities dressings clean dry and intact. Urinary Catheter Management: Ugarte: Cath Placed During This Visit: yes Reason for Continuing Indwelling Catheter: Perioperative Use in Selected Surgeries Urinary Catheter Date of Insertion: 07/12/24 Urinary Catheter Time of Insertion: 11:06 Data 07/13/24 05:07 07/13/24 05:07 A&P Assessment and plan (1) Status post lumbar spinal fusion: Postop day #1 lumbar spine fusion Up with physical therapy Will leave drain in well up with therapy. Possible discharge this afternoon will see how he does with therapy and how much drain output there is. Attestations 2 Medical Necessity Statement*: Pain control Coding Level of Care Code Acute Code for Chg Fwd Diagnoses Status post lumbar spinal fusion Z98.1
[2024-07-13] MEDS: gabapentin 300 mg Capsule 600 MG PO ×2 (08:17→17:42)
[2024-07-13] MEDS: tizanidine 4 mg Tablet PO ×2 (08:17→17:41)
[2024-07-13] MEDS: ketorolac 30 mg/mL INJ IVP ×2 (08:18→18:42)
[2024-07-13] MEDS: docusate sodium 100 mg Capsule PO ×2 (08:18→17:41)
--- OUTSIDE RECORDS SUMMARY | 2024-07-13 09:44 | XMS_ITS ---
Author Name Unknown Organization [facility], [facility] Address [address] [place] [address] Care Team Providers Care Handle Assembler Name Role Phone Brenda Sharma Unavailable [phone] ALLERGIES No Known Allergies REASON FOR VISIT CPAP (called for readings from [facility]) MEDICATIONS Medication SIG (Take, Route, Frequency, Duration) [...] Problem PAYAM on CPAP (G47.33) Active confirmed 85644310 Problem Chronic constipation (K59.09) Active confirmed 130773766 VITAL SIGNS Temperature 98 degrees Fahrenheit 02/10/2024 Blood pressure systolic 150 mm Hg 02/10/20 24 Blood pressure diastolic 98 mm Hg 024 Heart Rate 78 /min 02/10/2024 Height 70 in 02/10/2024 Weight 185 lbs 02/10/2024 BMI 26.54 kg/m2 02/10/2024 Oximetry 97 % 02/10/2024 Height-cm 177.8 cm 02/10/2024 Weight-kg 83.91 kg 02/10/2024 Encounters Encounter Location Date Provider Diagnosis [facility] [address] [place] [address] 02/10/2024 Brenda Sharma Chronic obstructive pulmonary disease, [...] 09:00:00 AM, [address], [place], [address], Provider Name:Brenda Sharma , 10/26/2024 09:00:00 AM, [address], [facility], [place], [address], Progress Notes * August SCHNEIDER GDOB: [birth year] (48 yo M)Acc No.[id number]:02/10/2024 Patient:??August SCHNEIDER Provider:??Brenda Sharma :1975?Age:48 Y?Sex:Ma le Date:02/10/2024 Address:[address] [place], [place] [phone] Subjective: * Chief Complaints: * ?CPAP (called for mely esquivel from [facility]) * HPI: ?Obstructive sleep apnea:? REVIEW OF CPAP COMPLIANCE REPORT FROM [facility]. COMPLIANCE IS AT 100% ?--- ?started hydrocodone [...] labs * Billing Information: * Visit Code:?? 93754 Office Visit, Est Pt., Level 4. * [...]
--- OUTSIDE RECORDS SUMMARY | 2024-07-13 09:44 | XMS_ITS ---
Author Name Unknown Organization [facility] Address [address] [place] [phone] Care Team Providers Care Nurse Research Name Role Phone Brenda Sharma Unavailable [phone] REASON FOR VISIT refills MEDICATIONS Medication SIG [...] Male Encounters Encounter Location Date Provider Diagnosis [facility] [employer] [facility] [address] [address] 05/17/2024 Brenda Sharma PLAN OF TREATMENT Medication Medication Name Sig Start Date Stop Date Notes Lisinopril 20 mg TAKE ONE TABLET BY M OUTH ONCE DAILY for 90 days amLODIPine Besylate 10 mg TAKE ONE TABLE T BY MOUTH ONCE DAILY FOR 90 DAYS for 90 days Next Appt Details Provider Name:Brenda Sharma , 10/19/2024 09:00:00 AM, [address] [place] [address], [phone], Provider Name:Brenda Sharma , 10/26/2024 09:00:00 AM, [address] [place] [address], [phone], Progress Notes * August SCHNEIDER GDOB: [birth year] (48 yo M)Acc No.[id number]:05/17/2024 Patient:??August SCHNEIDER :1975?Age:48 Y?Sex:Wanda pradhan Address:[address] [place] [address] * Refills?? Refill amLODIPine Besylate Tablet, 10 mg, 90 Tablet, TAKE ONE TABLET BY MOUTH ONCE DAILY FOR 90 DAYS, 90 days, Refills=1 Refill Lisinopril Tablet, 20 mg, 90 Tablet, TAKE ONE TABLET BY MOUTH ONCE DAILY, 90 days, Refills=1 * true * Date:??
--- OUTSIDE RECORDS SUMMARY | 2024-07-13 09:44 | XMS_ITS | Patient Health Record ---
Author Name Unknown Organization [facility] Address [address] [place] [phone] Care Team Providers Care Principal Java Developer Name Role Phone Brenda Sharma Unavailable [phone] ALLERGIES No Known Allergies RESULTS Component Value Reference Range Notes LIPID PANEL, STANDARD (8850) Reviewed date:10/11/2023 06:14:44 AM Interpretation: Performing Lab:[facility], [facility]-[id number] [facility], RtncyvEJ[address] Johnie Sanchez MD Notes/Report: 0 0 0 [...] LDL-C. Ed VAZQUEZ et al. JACOBO. 2013;310(19): 3025-3759 (http://[email or web address]/faq/MMI332) CHOL/HDLC RATIO 3.0 <5.0 (calc) NON HDL CHOLESTEROL 96 <130 mg/dL (calc) For patients with diabetes plus 1 major ASCVD risk factor, treating to a non-HDL-C goal of <100 mg/dL (LDL-C of <70 mg/dL) is considered a therapeutic option. COMPREHENSIVE METABOLIC DIMITRI Cody (78831) Reviewed date:10/11/2023 06:14:44 AM Interpretation: Performing Lab:[facility]-Vntoyi68184 [facility], TcuxtoYO[address] Johnie Sanchez MD Notes/Report: 0 0 0 [...] Reviewed date:10/11/2023 06:14:45 AM Interpretation: Performing Lab:[facility]-[id number] [facility], [id number] Johnie Sanchez MD Notes/Report: 0 0 0 0 0 0 WHITE BLOOD CELL COUNT 8.1 3.8-10.8 Thousand/ uL RED BLOOD CELL COUNT 4.96 4.20-5.80 Million/uL HEMOGLOBIN 18.7 13.2-17.1 g/dL HEMATOCRIT 52.2 38.5-50.0 % MCV 105.2 80.0-100.0 fL MCH 37.7 27.0-33.0 pg MCHC 35.8 32.0-36.0 g/dL RDW 13.1 11.0-15.0 % PLATELET COUNT 289 140-400 Thousand/uL MPV 10.1 7.5-12.5 fL ABSOLUTE NEUTROPHILS 4690 8403-8779 cells/uL ABSOLUTE LYMPHOCYTES 2624 850-3900 cells/uL ABSOLUTE MONOCYTES 616 200-950 cells/uL ABSOLUTE EOSINOPHILS 122 15-500 cells/uL ABSOLUTE BASOPHILS 49 0-200 cells/uL NEUTROPHILS 57.9 LYMPHOCYTES 32.4 MONOCYTES 7.6 EOSINOPHILS 1.5 BASOPHILS 0.6 HEMOGLOBIN A1c (496) Reviewed date:10/11/2023 06:14:45 AM Interpretation: Performing Lab:[facility]urjitMnsxnc60578 Jose Rafael WhitmoreVzoajqRY[address] Johnie Sanchez MD Notes/Report: 0 0 0 [...] diagnosis of diabetes in children. According to [place] Diabetes Association (ADA) guidelines, hemoglobin A1c <7.0% represents optimal control in non- diabetic patients. Different metrics may apply to specific patient populations. Standards of Medical Care in Diabetes(ADA). This test was performed on the Enchanted Diamonds c8000 platform. Please be advised that [facility] will move hemoglobin A1c testing to the Baldemar platform soon. In general, direct comparison of the results from different platforms is not recommended. PSA, TOTAL (5363) Reviewed date:10/11/2023 06:14:45 AM Interpretation: Performing Lab:[facility]urjitAjozlz81604 Isak Zarate SssvinER[address] Johnie Sanchez MD Notes/Report: 0 0 0 [...] absence of disease. TSH W/REFLEX TO FT4 (10886) Reviewed date:10/11/2023 06:14:45 AM Interpretation: Performing Lab:[facility], [facility]-Wnbvhw39559 Isak Zarate, KdjgjeGD[address] Johnie Sanchez MD Notes/Report: 0 0 0 0 0 0 TSH W/REFLEX TO FT4 1.46 0.40-4.50 mIU/L REASON FOR REFERRAL Reason consult please Diagnosis 1 Chronic obstructive pulmonary disease, unspecified COPD type (J44.9) Referral Organization [facility] [employer] Referring Provider First Name Brenda Referring Provider Last Name [place] Referring Provider [facility] Referred Provider Pulmonology Clinic, [facility] Referred Provider Specialty Pulmonology General Notes Brenda Sharma 11/10 09:59:46 AM >please send notes from pulmonology if available, Penny Perez 12/09/2023 10:21:36 AM >Report attached. Referral faxed.Chris Wendy 12/23/2023 04:13:08 PM >TC from pt asking about referral. [facility] I offered to give him the number to call to schedule and pt stated he would wait a couple more days and if he doesn't hear from them will call our clinic back.Chris Wendy 12/25/2023 08:45:17 AM >TC [facility] She could not locate the referral. Confirmed we have the correct fax number. Re-faxed.Chris Wendy 12/30/2023 03:02:12 PM >TC to [facility]. Left message to return my call.Chris Wendy 12/31/2023 10:23:42 AM >TC from Carolyn contreras/ [facility]. They down to one pick up driver now, Dr. Russell. Confirmed receipt of referral. They are scheduling out after 08-11-24. They will call pt to schedule.Chris Wendy 12/31/2023 10:30:10 AM >TC to pt; _update on referral given. Pt calling his insurance home care and home health aides teacher to discuss further. Pt states Kieran and his insurance requires the CPAP to be read by a pick up driver to continue w/ RX for the device. Pt will notify our clinic if anything further is needed., Penny Perez 01/15/2024 11:40:02 AM >Attempt TC to pt. No voice mailbox set up. Unable to leave a message., Penny Perez 01/15/2024 11:45:01 AM >TC from pt. He has not talked to the insurance home care and home health aides teacher. Pt will call back once he [...] 2 Number of children in household: 0 Adventist: Confucianism Tobacco Use/Smoking Question Answer Notes Tobacco use: [...] Problem Other chronic pain (G89.29) Active confirmed 31704737 Problem Primary hypertension (I10) Active confirmed 65465817 Problem Gastroesophageal reflux disease, unspecified whether esophagitis present (K21.9) Active confirmed 575602710 Problem Depression with anxiety (F41.8) Active confirmed 422064836 Problem Fatty liver (K76.0) Active confirmed 19 3386806 Problem Chronic obstructive pulmonary disease, unspecified COPD type (J44.9) Active confirmed 76315870 Problem Chronic constipation (K59.09) Active confirmed 422518291 Problem Smoker (F17.200) Active confirmed 71321 002 Problem Coronary artery disease involving ekwok heart, unspecified vessel or lesion type, unspecified whether angina present (I25.10) Active confirmed 26293080 Problem ETOH abuse (F10.10) Active confirmed 15 445802 Problem Hepatomegaly (R16.0) Active confirmed Hepatomegaly (93791689) Problem PAYAM on CPAP (G47.33) Active confirmed 91650424 VITAL SIGNS Heart Rate 78 /min 02/10/2024 Temperature 98 degrees Fahrenheit 02/10/2024 Height-cm 177.8 cm 02/10/2024 Oximetry 97 % 02/10/2024 Blood pressure diastolic 98 mm Hg 02/10/2024 Weight-kg 83.91 kg 02/10/2024 Height 70 in 02/10/2024 Blood pressure systolic 150 mm Hg 02/10/2024 Weight 185 lbs 02/10/2024 BMI 26.54 kg/m2 02/10/2024 Encounters Encounter Location Date Provider Diagnosis [address] [address] 04/20/2024 Brenda Sharma [address] [address] 10/09/2023 Brenda Sharma Primary hypertension I10 ; Elevated glucose R73.09 and Screening for prostate cancer Z12.[address] [address] 10/17/2023 Brenda Sharma Primary hypertension I10 ; Chronic obstructive pulmonary disease, unspecified COPD type J44.9 ; History of fusion of cervical spine Z98.1 ; ETOH abuse F10.10 ; Mild depression F32.A ; Elevated glucose R73.09 ; Screening for prostate cancer Z12.5 and Lumbar disc disease with radiculopathy M51.[address] [address] 02/10/2024 Brenda Sharma Chronic obstructive pulmonary disease, unspecified COPD type J44.9 ; PAYAM on CPAP G47.33 ; Smoker F17.200 and Chronic constipation K59.[address] [address] 11/24/2023 Brenda Sharma Chronic obstructive pulmonary disease, unspecified COPD type J44.9 and Smoker F17.[address] [address] 05/17/2024 Brenda Sharma ASSESSMENTS Encounter Date Diagnosis [...] Test Test Name Order Date URINALYSIS, COMPLETE (5753) 10/17/2023 LIPID PANEL, STANDARD (7600) 10/16/2024 COMPREHENSIVE METABOLIC PANEL (00965) CBC (INCLUDES DIFF/PLT) (6399) HEMOGLOBIN A1c (496) 10/16/2024 PSA, TOTAL (5363) 10/16/2024 TSH W/REFLEX TO FT4 (22622) 10/16/2024 Next Appt Details Provider Name:Brenda Sharma , 10/19/2024 09:00:00 AM, [address], [address], Provider Name:Brenda Sharma , 10/26/2024 09:00:00 AM, [address] [facility], [place], [address], Insurance Providers Payer Name Payer Address Payer Phone Subscriber Number Group Number Insured Name Patient Relationship to Insured Coverage Start Date Coverage End Date [facility] [address] [address] [place] [address] [id number] Lottie Schneider Spouse - patient is the [...]
--- OUTSIDE RECORDS SUMMARY | 2024-07-13 09:44 | XMS_ITS ---
Author Name Unknown Organization [facility] Address [address] [place] [id number] Care Team Providers Care Manager Investment [employer] Name Role Phone Brenda Sharma Unavailable [phone] REASON FOR VISIT 6 month f/u SOCIAL HISTORY Sex Assigned At : Social History Observation Description Sex Assigned At Male Encounters Encounter Location Date Provider Diagnosis [address] [id number] 04/20/2024 Brenda Sharma PLAN OF TREATMENT Next Appt Details Provider Name:Brenda Sharma , 10/19/2024 09:00:00 AM, [address] [place] [address], [phone], Provider Name:Brenda Sharma , 10/26/2024 09:00:00 AM, [address] [place] [address], [phone], Progress Notes * August SCHNEIDER GDOB: [birth year] (48 yo M)Acc No.[id number]:04/20/2024 Patient:??August SCHNEIDER Provider:??Brenda Sharma :1975?Age:48 Y?Sex:Ma le Date:04/20/2024 Address:[address] [place], [place] [id number] Subjective: * Chief Complaints: * ?1. 6 month f/u. * Medical History:?? Objective: Assessment: Plan: * Treatment: * Billing Information: * Visit Code:?? * Procedure Codes:?? * CHUCKER Sign off status: Pending * Provider:?Blane Sharma Date:?? 4
--- NOTE | 2024-07-13 10:20 | PC.CHAP ---
Pastoral Care Encounter/Spiritual Assessment Type of Contact [] Declined board operator visit [] Patient/Family/Request visit [] Outpatient visit [] Follow-up visit [] Physician referral [] Code/Alert [x] Routine visit [] Staff referral [] Actively dying [] Patient sleeping [] Family support [] [] Out of room [] Palliative care [] [] Receiving care in room [] Pre-surgical visit [] Trauma [] Long length of stay [] ICU visit [] Other: Relational/Emotional Strength [x] Patient feels connected with others/family/visitors/staff [] Distress [] Loneliness/isolation [] Abandonment Spirituality of Patient [x] Person of Latha [] Attends Faith of their Latha [x] Believes in Prayer [] Reads Bible or Jainism materials [] There are Spiritual issues to be addressed Instructor Extension Work Interventions [x] Prayer [x] Active listening [] Non-anxious presence [x] Spiritual/emotional support [] Crisis/trauma care [] Spiritual counseling [] Bereavement support [] Provided bereavement packet [] Provided Bible/devotional materials [] Provided toy/stuffed animal, coloring book to patient or family member [] Provided Communion [] Anointing/[place] [] Salvation [x] Completed spiritual assessment [] Other: Impact on Illness or Injury [] Angry [] Fearful [] Anxious [] Often cries [] Exhaustion [] Unable to work [] Unable to attend adventism [] Unable to walk/stand [] Unable to read [] Unable to drive [] Unable to eat/drink [] Unable to sleep [] Unable to be with family [] Patient intubated [] Other: Summary Time spent with patient 5 min
[2024-07-13] MEDS: lactated ringers 1,000 ML 30 ML IV (10:58)
[2024-07-14] VITALS: BP 149/89; PULSE 83; RESP 18; TEMP 36.3; O2SAT 91
[2024-07-14 04:00] VITALS: BP 167/79; PULSE 87; RESP 18; TEMP 37.1; O2SAT 96
[2024-07-14] MEDS: lactated ringers 1,000 ML 30 ML IV (05:12)
--- NOTE | 2024-07-14 07:06 | P.DS_ITS ---
Discharge Providers Date of Admission: 07/12/24 13:25 Date of Discharge: July 14, 2024 Attending Provider at Admission: Thomas Qureshi DO Attending Provider at Discharge: Thomas Qureshi DO Primary Care Provider: KUNAL Graves Diagnoses at Discharge Discharge Diagnosis (1) Status post lumbar spinal fusion: Status: Acute Physical Exam Narrative: Dressing is clean dry intact. Patient's been up walking with physical therapy patient is able to go the bathroom. Urinary Catheter Management: Ugarte: Cath Placed During This Visit: yes Reason for Continuing Indwelling Catheter: Perioperative Use in Selected Surgeries Urinary Catheter Date of Insertion: 07/12/24 Urinary Catheter Time of Insertion: 11:06 Discharge Data Studies Completed and Pending Completed Studies During Hospitalization Category Date Time Status XR lumbar spine 1V [id number] Routine Exams 07/12/24 14:20 Completed Radiology Impressions Lumbar Spine X-Ray 07/12/24 14:20 IMPRESSION: Posterior lumbar fusion revision as above. Laboratory Results WBC 11.95 10^3/uL (3.29-11.43) H 07/13/24 05:07 RBC 3.33 10^6/uL (3.85-5.65) L 07/13/24 05:07 Hgb 13.00 g/dL (11.27-16.99) 07/13/24 05:07 Hct 38.2 % (37-53) 07/13/24 05:07 MCV 114.7 fl (82-101) H 07/13/24 05:07 MCH 39.0 pg (27-33) H 07/13/24 05:07 MCHC 34.0 g/dL (30-55) 07/13/24 05:07 RDW 14.1 % (12.1-15.1) 07/13/24 05:07 Plt Count 224 10^3/cmm (157-399) 07/13/24 05:07 MPV 9.4 fL (7.4-10.4) 07/13/24 05:07 Neut % (Auto) 81.1 % 07/13/24 05:07 Lymph % (Auto) 12.5 % 07/13/24 05:07 [place] % (Auto) 5.3 % 07/13/24 05:07 Eos % (Auto) 0.2 % 07/13/24 05:07 Baso % (Auto) 0.3 % 07/13/24 05:07 Neut # (Auto) 9.71 10^3/uL (1.8-7.7) H 07/13/24 05:07 Lymph # (Auto) 1.5 10^3/uL (0.8-4.8) 07/13/24 05:07 [place] # (Auto) 0.6 10^3/uL (0.2-0.9) 07/13/24 05:07 Eos # (Auto) 0.0 10^3/uL (0.0-0.8) 07/13/24 05:07 Baso # (Auto) 0.0 10^3/uL (0.0-0.1) 07/13/24 05:07 Nucleated RBC % (auto) 0 % 07/13/24 05:07 Nucleated RBCs # 0.0 /100WBC 07/13/24 05:07 Sodium 138 mmol/L (136-145) 07/13/24 05:07 Potassium 4.5 mmol/L (3.5-5.1) 07/13/24 05:07 Chloride 101 mmol/L (98-107) 07/13/24 05:07 Carbon Dioxide 26 mmol/L (22-29) 07/13/24 05:07 Anion Gap 15.5 (5-19) 07/13/24 05:07 BUN 13 mg/dL (6-20) 07/13/24 05:07 Creatinine 0.8 mg/dL (0.7-1.2) 07/13/24 05:07 GFR Calculation 102.3 mL/min (90-130) 07/13/24 05:07 Glucose 114 mg/dL (65-115) 07/13/24 05:07 POC Glucose 151 mg/dL (70-110) H 07/12/24 15:42 Calculated Osmolality 287 mOsm/kg (285-295) 07/13/24 05:07 Calcium 7.6 mg/dL (8.5-10.5) L 07/13/24 05:07 Total Bilirubin 0.6 mg/dL (0.15-1.2) 07/13/24 05:07 AST 28 U/L (0-40) 07/13/24 05:07 ALT 22 U/L (0-41) 07/13/24 05:07 Alkaline Phosphatase 67 U/L (40-130) 07/13/24 05:07 Total Protein 5.7 g/dL (6.6-8.7) L 07/13/24 05:07 Albumin 3.7 g/dL (3.5-5.2) 07/13/24 05:07 Globulin 2.0 g/dL (1.3-4.6) 07/13/24 05:07 Blood Type O Positive 07/12/24 08:40 Rho(D) Type Rh positive 07/12/24 08:40 Antibody Screen Negative 07/12/24 08:40 Vitals Last Vital Signs Temp 98.8 F 07/14/24 04:00 Pulse 87 07/14/24 04:00 Resp 18 07/14/24 04:00 BP 167/79 07/14/24 04:00 Pulse Ox 96 07/14/24 04:00 O2 Del Method Room Air 07/14/24 04:00 O2 Flow Rate 2 07/12/24 15:20 Discharge Plan Discharge Patient Disposition: Home Condition: Stable Prescriptions: New hydrocodone-acetaminophen 10-325 mg tablet 1 - 2 tab PO Q4H PRN (Reason: pain) 7 Days Qty: 42 0RF Continued nitroglycerin 0.4 mg tablet, sublingual 0.4 mg sublingual Q5M PRN (Reason: chest pain) Qty: 25 3RF Rx Instructions: do not exceed 3 doses per episode (DME) Cervical Collar See Rx Instructions .Route .MEDSUPPLY Qty: 1 0RF Rx Instructions: As directed docusate sodium 250 mg capsule 250 mg PO DAILY (DME) E0748 Bone Growth Stimulator See Rx Instructions .Route .MEDSUPPLY Qty: 1 0RF Rx Instructions: As directed tizanidine 4 mg tablet 4 mg PO BID Qty: 60 0RF lisinopril 20 mg tablet 20 mg PO DAILY Qty: 30 4RF amlodipine 10 mg tablet 10 mg PO DAILY Qty: 30 4RF gabapentin 600 mg tablet 600 mg PO BID Discontinued hydrocodone-acetaminophen 10-325 mg tablet 1 tab PO Q6H PRN (Reason: pain) 30 Days Qty: 120 0RF Discharge Orders: Discharge Order (Routine); Ordered 07/14/24 Ordered By: Thomas Qureshi Discharge Diet: Advance as tolerated Discharge Activity: Limit activity as instructed Patient Instructions: Acute Wound Care (DC), Opioid Safety, Post Anesthesia Care Activity Restrictions/Additional Instructions: Thank you for [facility] for your care! The following is a list of instructions, from your provider, to follow upon your discharge to ensure you have the optimal recovery from your recent injury orsurgery. Follow-up care is a schmid part of your treatment and safety. Be sure to make and go to all appointments, and call your doctor if you are having problems. If you do not already have a follow-up appointment made, call Dr. Qureshi office in the next 1-3 days to make follow up appointment for 1 weeks at [phone]. It is also a good idea to know your test results and keep a list of the medicines you take. Medications will be prescribed for you at your provider's discretion. These medications are to be used as instructed; if they are taken more often that prescribed they will not be refilled early and in most cases will not be refilled at all. > When a refill is needed,you should contact prasanna valenzuela 2-3 business days before your prescription runs out. Medications will NOT be refilled by environmental health manager providers after hours! > Many pain medications contain Tylenol (Acetaminophen). Do not consume more than 4,000 mg of Tylenol per day in total with any combination ofmedications. > Pain medications can cause constipation. Please use an over the counter stool softener as directed, while taking pain medications. Consulty our local pharmacist with questions or recommendations on stool softeners. If constipation persists, contact our office or your primary care provider. > While under our care,you are not to receive pain medications or other controlled substances from any other provider unless our office is notified and approves. Any attempts to do so will result in refusal to prescribe any further pain medications and possible dismissal from our practice. ? Keep dressing on we will change it in the clinic in 1 week ? Showering is permitted, however we ask that you do not take a bath, sit in a whirlpool / Jacuzzi, or go swimming for 1 month. For only the first 2 days after surgery, lt wilt be necessary for you to cover your wound/dressing with plastic and tape to keep it dry. ? Walking is essential for the healing process after surgery. We would like you to slowly advance your walking. This should be done on relatively flat clear ground (inside or out) or can be done on a treadmill. Remember this goal does not have to happen all at once, slowly increase your distance and duration. This can be broken into more more than one walk per day as tolerated. Patients who walk as directed after surgery rarely require Physical Therapy. In the unlikely event this issue arises your provider will direct hospital staff to make the appropriate arrangements. ? No lifting over 5 pounds {a gallon of milk) or bending/twisting until further notice. Each of these activities places an unnecessary amount of stress onto the body and can impede the delicate healing process. > Instead of bending at the waist, keep your back straight and bend at the knees. > Instead of twisting your torso, keep your back straight and turn your entire body with your feet. ? You may sleep in any position which makes you comfortable. Many patients find comfort sleeping in a reclining chair. It is not abnormal to have difficulty sleeping for the first several weeks following your surgery. We recommend trying Benadry! or Tylenol PM as directed to help with your sleeping difficulties. Both medications are over the counter and available withoutprescription. ? NO SMOKING!!! Smoking dramatically increases the probability of developing postoperative wound infections. ? Common complaints after lumbar and/or thoracic spine surgery include, but are not limited to: numbness and/or tingling in the legs, pain around the incision and surrounding tissues, muscle spasms, or stiffness of the middle to low back. Contact our office if these symptoms persist or if an acute change occurs. ? No driving for the first 3-5days, and not while taking narcotics until seen at your follow-up appointment and cleared. There are no restrictions for riding on short trips, however if you take a longer trip, arrangements should be made to make regular stops to get out of the vehicle and stretch . ? Swelling is an unfortunate event that will take place with any surgery and is the primary source of your postoperative discomfort. While walki ng and regular approved activities helps control inflammation, there are additional steps you can take to minimizeswelling. > Place ice over the surgical site and surrounding tissue for twenty m inutes, followed by applying a low/medium heat (heating pad) for an additional twenty minutes every 1-2 hours as needed for painrelief. > You may use of over the counter anti-inflammatory medications (Ibuprofen, Motrin, Aleve, Advil, etc) as directed on the package label. These types of medicines wm significantly reduce the amount of discomfort you experience after surgery from swelling. It should be noted that if you have and allergy to any of these medications, or a history of ulcers or kidney disease you should consult you primary care provider prior to starting these medications. Discharge Attestations Time Spent in Discharge Care*: less than 30 min Quality Metrics Clinical Quality Measures [ No reported AMI, CVA or VTE this stay] Coding Level of Care Code Acute Code for Chg Fwd Diagnoses Status post lumbar spinal fusion Z98.1
[2024-07-14 07:39] VITALS: BP 152/61; PULSE 88; RESP 18; TEMP 36.7; O2SAT 97
[2024-07-14] MEDS: tizanidine 4 mg Tablet PO (07:39)
[2024-07-14] MEDS: gabapentin 300 mg Capsule 600 MG PO (07:39)
[2024-07-14] MEDS: lisinopril 20 mg Tablet PO (07:39)
[2024-07-14] MEDS: docusate sodium 100 mg Capsule PO (07:40)
[2024-07-14] MEDS: amlodipine 10 mg Tablet PO (07:40)
[2024-07-14] MEDS: HYDROcodone-acetaminophen 10-325 mg Tablet PO (07:42)
--- NOTE | 2024-07-14 09:03 | PC.NURSE ---
Discharge instructions provided to pt and his . No questions or concerns at this time.
[2024-07-14 09:04] VITALS: BP 152/61; PULSE 88; RESP 18; TEMP 36.7; O2SAT 97
== END 2024-07-14 09:18 | disposition home or self-care (01) | DRG 448 ==
LOC: MEDSURG 07-13 04:39
PROVIDERS: Admitting Provider Orthopaedic Surgery; PCP Nurse Practitioner; Visit Provider Orthopaedic Surgery
PROC: 0SG1071 Fusion of 2 or more Lumbar Vertebral Joints with Autologous Tissue Substitute, Posterior Approach, Posterior Column, Open Approach (ICD-10-PCS; principal; 2024-07-12 10:45)
PROC: 0SG1071 Fusion of 2 or more Lumbar Vertebral Joints with Autologous Tissue Substitute, Posterior Approach, Posterior Column, Open Approach (ICD-10-PCS; 2024-07-12 10:45)
PROC: 0SG1071 Fusion of 2 or more Lumbar Vertebral Joints with Autologous Tissue Substitute, Posterior Approach, Posterior Column, Open Approach (ICD-10-PCS; CPT 27280; 2024-07-12 10:45)
DX: M96.0 Pseudarthrosis after fusion or arthrodesis (principal); M96.3 Postlaminectomy kyphosis; M48.062 Spinal stenosis, lumbar region with neurogenic claudication; M54.16 Radiculopathy, lumbar region; M47.818 Spondylosis without myelopathy or radiculopathy, sacral and sacrococcygeal region; G47.33 Obstructive sleep apnea (adult) (pediatric); I25.10 Atherosclerotic heart disease of native coronary artery without angina pectoris; I10 Essential (primary) hypertension; I34.1 Nonrheumatic mitral (valve) prolapse; F17.210 Nicotine dependence, cigarettes, uncomplicated; J44.9 Chronic obstructive pulmonary disease, unspecified; Z79.51 Long term (current) use of inhaled steroids; Z79.891 Long term (current) use of opiate analgesic; Z90.49 Acquired absence of other specified parts of digestive tract
CPT/HCPCS: 36415; 36416; 51702; 72020; 76000; 80053; 82962; 85025; 86850; 86900; 93005; 97116; 97161; 97530; C1713; J0131; J0330; J0690; J1100; J1171; J1644; J1885; J2250; J2270; J2405; J2704; J2710; J3010; J3370; J3490; J7030; J7120; P9045

== ENCOUNTER → 2024-08-24 15:10 | Outpatient (BNVA) | payer OTHER, SELFPAY | PROVIDERS: PCP Nurse Practitioner; Visit Provider Orthopaedic Surgery | DX: Z98.1 Arthrodesis status (principal) | CPT/HCPCS: 72050; 72100 ==

== ENCOUNTER 2024-09-07 10:45 | Outpatient (CLI) | payer OTHER, SELFPAY ==
--- NOTE | 2024-09-07 10:30 | CT_ITS ---
WS: [id number] CT CERVICAL SPINE HISTORY: cervical pain TECHNIQUE: Contiguous 2.0 mm axial imaging performed through the entire cervical spine. Sagittal and coronal reformats also performed. All CT scans at [facility] use at least one of these dose o ptimization techniques: automated exposure control; mA and/or kV adjustment per patient size (include s targeted exams where dose is matched to clinical indication); or iterative reconstruction. DLP: 363.97 mGy.cm COMPARISON: Radiograph 08/24/2024, 06/24/2023 Prior anterior cervical fusion from C3-C7. Interbody spacers at C3-4, C4-5, C5-6 and C6-7. RIGHT cerv ical screw at C6 has retracted 4.4 mm. The remaining screws appear appropriate in position. Disc spac es are maintained with the interbody spacers. Mild reversal of the normal cervical lordosis. No acute fractures. Facet joints are narrowed but otherwise normally aligned. Well-corticated osseous fragmen ts near the LEFT C2-3 facet joint. C2-C3: Normal. C3-C4: Osteophytic ridging with foraminal stenosis. C4-C5: Normal. C5-C6: Mild osteophytic ridging. C6-C7: Reversal of the normal cervical lordosis. Moderate central and bilateral foraminal stenosis du e to disc and osteophyte disease. C7-T1: Normal. Possible small fluid collection in the prevertebral space at C7. Could be postoperative seroma. Incom pletely visualized on this exam. CT/CT cervical spin wo con* [id number] IMPRESSION: 1. Status post prior cervical fusion from C3-C7. 2. Stable RIGHT C6 screw retraction by 4.4 mm. Noted on priors imaging studies . Slightly greater retraction since 06/24/2023. 3. Moderate central bilateral foraminal stenosis due to disc and osteophyte di sease at C6-7.
[2024-09-07 16:28] LABS: Basophils % 0.4 %; Eosinophils % 0.4 %; Lymphocytes # 1.3 10^3/uL (0.8-4.8); Lymphocytes % 12.7 %; Mean Corpuscular HGB Conc 34.6 g/dL (30-55); Mean Corpuscular Hemoglobin 35.3 pg (27-33); Mean Corpuscular Volume 101.9 fl (82-101); Mean Platelet Volume 9.3 fL (7.4-10.4); Monocytes # 0.8 10^3/uL (0.2-0.9); Monocytes % 7.8 %; Neutrophils # 7.95 10^3/uL (1.8-7.7); Nucleated Red Blood Cells % 0 %; Platelet Count 516 10^3/cmm (157-399); Red Blood Count 3.63 10^6/uL (3.85-5.65); White Blood Count 10.18 10^3/uL (3.29-11.43)
[2024-09-07 16:33] LABS: Bilirubin Urine 1+ (Negative); Blood Urine Negative (Negative); Glucose Urine UA Negative (Normal); Ketones Urine Trace (Negative); Leukocyte Esterase Urine Trace (Negative); Nitrate Urine Negative (Negative); Protein Urine 1+ (Negative); Specific Gravity, Urine 1.024 (1.005-1.030); Urine Appearance Clear (CLEAR)
[2024-09-07 16:37] LABS: Alanine Aminotransferase 42 U/L (0-41); Albumin Level 3.5 g/dL (3.5-5.2); Alkaline Phosphatase 195 U/L (40-130); Anion Gap 20.6 (5-19); Aspartate Amino Transferase 45 U/L (0-40); Blood Urea Nitrogen 13 mg/dL (6-20); Calcium 8.8 mg/dL (8.5-10.5); Carbon Dioxide 23 mmol/L (22-29); Chloride 91 mmol/L (98-107); Glomerular Filtration Rate 102.3 mL/min (90-130); Glucose 102 mg/dL (65-115); Osmolality Calculated 272 mOsm/kg (285-295); Potassium 3.6 mmol/L (3.5-5.1); Sodium 131 mmol/L (136-145); Total Bilirubin 0.3 mg/dL (0.15-1.2); Total Protein 7.5 g/dL (6.6-8.7)
[2024-09-07 16:39] LABS: Add Urine Microscopic? YES; Bacteria Urine None Seen /hpf; Hyaline Casts Urine 0.81 /lpf; RBC Urine 0-2 /hpf (0-2); Squamous Epithelial Cell Urine 0-5 /hpf (0-5); WBC Urine 0-5 /hpf (0-5)
[2024-09-07 17:15] LABS: Urine Color Dark Yellow (Yellow)
== END 2024-09-07 10:46 | disposition home or self-care (01) ==
LOC: RAD 10:47
PROVIDERS: PCP Nurse Practitioner; Visit Provider Orthopaedic Surgery
DX: M48.02 Spinal stenosis, cervical region (principal); Z98.1 Arthrodesis status; M25.78 Osteophyte, vertebrae; R93.7 Abnormal findings on diagnostic imaging of other parts of musculoskeletal system
CPT/HCPCS: 36415; 72125; 80053; 81001; 85025

== ENCOUNTER 2024-09-27 15:54 | Inpatient (IN) | payer OTHER, SELFPAY ==
[2024-09-27] VITALS (15 sets, daily range): BP systolic 86–132; BP diastolic 59–91; PULSE 75–110; RESP 16–28; TEMP 36.2–37.1; O2SAT 92–100; BMI 25.4
--- NOTE | 2024-09-27 13:03 | P.ANESASSM_ITS ---
Pre-Anesthetic Assessment Height/Weight: Height 5 ft 10 in Weight 185 lb Temp Pulse Resp BP Pulse Ox O2 Del Method 97.2 F L 97 16 117/87 100 Room Air 09/27/24 12:19 09/27/24 12:19 09/27/24 12:19 09/27/24 12:19 09/27/24 12:19 09/27/24 12:20 Preop Diagnosis: Cervical stenosis with radiculopathy; nonunion of cervical spine Operation Date: 09/27/24 14:00 Proposed Procedures p Spinal Fusion PSF(Not Applicable) - Thomas Qureshi DO s Cervical Decompression(Not Applicable) - Thomas Qureshi DO Was Beta Sravanthi taken within 24 hours: N/A Was Clonidine taken within 24 hours: N/A Last intake: Intake Last Liquid Date 09/27/24 Last Liquid Time 11:00 Last Solid Date 09/26/24 Last Solid Time 20:30 Social Tobacco and No alcohol Exam alert, oriented x 3, clear to auscultation bilaterally and regular rate & rhythm Airway Submandibular: within normal limits Cervical ROM: Other (Limited secondary to pain) Mallampati: Class III Dentition: full Comments: Comments: Poor dentition, denies any loose Anesthetic Plan ASA status: 3 Anesthesia: General Other: No prior issues with anesthesia NPO since yesterday Patient was prior grade 1 view with MAC 3.5 History of hypertension on amlodipine and lisinopril. Preop BP 117/87 Current smoker, COPD On chronic hydrocodone 10?325 every 4 hours Cervical spondylosis noted. PAYAM, no treatment Labs reviewed from 09/07/2024 and acceptable for procedure. Hyponatremia noted. NA 131 at that time EKG showing sinus rhythm with moderate T wave abnormality Prior echo performed in 2022 showing EF 55% Plan for GETA Medications/Allergies Home Medications ?Medication ?Instructions ?Recorded ?Confirmed ?Last Taken ?Type nitroglycerin 0.4 mg sublingual 0.4 mg sublingual Q5M PRN chest 10/06/20 09/23/24 01/17/21 Rx tablet pain #25 tabs amlodipine 10 mg tablet 10 mg PO DAILY #30 tabs 05/2 10/3109/23/24 09/26/24 Rx lisinopril 20 mg tablet 20 mg PO DAILY #30 tabs 052 10/3109/23/24 09/26/24 Rx Cervical Collar #1 ea 03/25/23 09/07/24 Unkn own Rx E0748 Bone Growth Stimulator #1 ea 04/04/23 09/07/24 U nknown Rx Bone Growth Stimulator #1 ea 07/26/24 09/07/24 Unkn own Rx hydrocodone 10 mg-acetaminophen 1 tab PO Q4H PRN pain 4 weeks #168 09/14/24 09/23/24 09/27/24 Rx 325 mg tablet tabs gabapentin 600 mg tablet 600 mg PO BID 30 days #60 ta bs 09/22/24 09/23/24 09/26/24 Rx tizanidine 4 mg tablet 4 mg PO BID #60 tabs 5 09/23/24 09/26/24 Rx Allergies Allergy/AdvReac Type Severity Reaction Status Date / Time No Known Allergies Allergy Verified 09/23/24 10:54 [facility] Anesthesia Medical History Syncope Acute hypokalemia Acute kidney injury Acute hypotension PAYAM (obstructive sleep apnea) Lumbar stenosis with neurogenic claudication Lumbar disc disease with radiculopathy Coronary artery disease HTN (hypertension) Mitral valve prolapse Lung disease, restrictive Smoker COPD (chronic obstructive pulmonary disease) Surgical History H/O hernia repair H/O shoulder surgery History of surgery on upper extremity History of cholecystectomy H/O vasectomy History of testicular surgery Family History Other CAD (coronary artery disease) Diabetes Hyperlipidemia Hypertension Denies family history of Stroke Social History Smoking and tobacco/nicotine status: current every day tobacco/nicotine user cigarettes Packs smoked per day: 0.5 Years cigarettes smoked: 30 [ Other cigarette details: Started at age 17] Alcohol intake: current Alcohol intake frequency: 3 or more drinks per day Alcohol type: beer Substance/Drug Use: never Lives independently: Yes Household members: spouse Marital status: service: No Current occupational status: unemployed Do you think of yourself as: Straight/Heterosexual Current gender identity: Male Data Anesthesia Cardiac Studies: Echocardiogram 12/30/22 Echocardiogram Ultrasound 04/03/20 Stress Echocardiogram 10/04/20
--- NOTE | 2024-09-27 13:10 | W.PM.OPSUD ---
Surgery/Procedure H&P Update DATE OF PROCEDURE: September 27, 2024 DATE H&P PERFORMED: 09/07/24 H&P UPDATE INFORMATION: I have reviewed H&P completed within last 30 days, I have examined patient prior to procedure and No changes to prior documentation PREOP DIAGNOSIS: Cervical stenosis with radiculopathy; nonunion of cervical spine PLANNED PROCEDURE: Operation Date: 09/27/24 14:00 Proposed Procedures p Spinal Fusion PSF(Not Applicable) - Thomas Qureshi DO s Cervical Decompression(Not Applicable) - Thomas Qureshi DO
[2024-09-27] MEDS: ceFAZolin 2,000 mg SDV 2000 MG IVP ×2 (13:50→22:32)
[2024-09-27] MEDS: lidocaine-epi 1% PF 1:200,000 30 mL SDV INJECTION (14:32)
[2024-09-27] MEDS: vancomycin 1,000 MG SDV 1000 MG XX (15:12)
--- NOTE | 2024-09-27 17:26 | XR_ITS ---
WS: [id number] Exam: XR cervical spine 3V* [id number] Date/Time of Exam: 09/27/2024 5:26 PM Reason For Exam: OR PICS Single lateral view of the lower cervical and upper thoracic spine was obtained for intraoperative purposes.
--- NOTE | 2024-09-27 17:39 | CTR_ITS ---
PROCEDURE INFORMATION: Exam: CT Cervical Spine Without Contrast Exam date and time: 09/27/2024 9:15 PM Age: 48 years old Clinical indication: Injury or trauma; Other: Post op; Blunt trauma; Injury date: 09/27/2024 TECHNIQUE: Imaging protocol: Computed tomography of the cervical spine without contrast. Radiation optimization: All CT scans at this facility use at least one of these dose optimization techniques: automated exposure control; mA and/or kV adjustment per patient size (includes targeted exams where dose is matched to clinical indication); or iterative reconstruction. COMPARISON: CT cervical spin wo con* [id number] 09/07/2024 10:49 AM RADIATION DOSE METRICS: Total DLP (mGy-cm): 239.47 FINDINGS: Bones: Stable C3-C5 ACDF. Stable backing out of the right screw at C6 by 4.4 mm. No new ACDF hardware complication identified. Interval C2-T1 posterior zaria and pedicle screw fixation with C6 and C7 laminectomies. Right pedicle screw at T1 noted to transit lateral to both the pedicle and right lateral aspect of the T1 vertebral body. Remaining posterior hardware in satisfactory position. No identified acute osseous abnormality. Vertebral body heights maintained. Alignment is straightened but otherwise normal. Lungs: Lung apices are normal. Soft tissues: Unremarkable. CT/CT cervical spin wo con* [id number] IMPRESSION: 1. No identified acute osseous abnormality. 2. Unchanged C3-C7 ACDF. 3. Interval placement of a C2-T1 posterior zaria and pedicle screw fixation. Right pedicle screw at T1 noted to transit lateral to both the pedicle and right lateral aspect of the T1 vertebral body. Interval C6 and C7 laminectomies.
--- NOTE | 2024-09-27 17:51 | P.OP_ITS ---
Operative Report Date of procedure: September 27, 2024 Pre-op diagnosis: Cervical stenosis with radiculopathy Cervical nonunion Post-op diagnosis: same Procedure done: 1. C2-T2 posterior cervical fusion 2. C2-T2 instrumentation 3. C6/7 laminectomy with partial facetectomies 4. C7/T1 laminectomy with partial facetectomies 5. use of computer navigation/Serotactic for spine 6. use of autograft from same incision 7. Use of allograft 8. Use of computer navigation stereotactic for spine Pathology: T1 body Surgeon: Thomas Qureshi DO Estimated blood loss (mL): 300 Procedure: 1. C2-T2 posterior cervical fusion 2. C2-T2 instrumentation 3. C6/7 laminectomy with partial facetectomies 4. C7/T1 laminectomy with partial facetectomies 5. use of computer navigation/Serotactic for spine 6. use of autograft from same incision 7. Use of allograft 8. Use of computer navigation stereotactic for spine Patient brought to the operative suite after undergoing anesthesia was placed in the prone position. Neuro monitoring was attached to the patient is throughout the entire case. Patient was placed so that was no areas impingement. Patient was then prepped and draped normal sterile fashion. Skin incision is made from C2 down to T2. Cervical fascia was identified. Retractors were placed. Subperiosteal dissection was made out from the spinous process of C2 out to the lateral masses of C2. Down to C3, C4, C5, C6, C7, and out to the transverse processes of T1 and T2. This was done bilaterally. Next attention was brought to placing a spinous process clamp on to T3. This was done in order to facilitate using the computer navigation. The C-arm was brought in and spun around patient and the information from the C-arm was loaded in the computer to facilitate placing screws using computer navigation. Next attention was brought to placing screws. Attention was first brought to doing the pedicle screws at T1-T2. This was done by using high-speed bur. Followed by using the navigated drill followed by pedicle feeler followed by placement of the screws. 30 mm screws were used at each level. This process was done at T1 and T2 bilaterally. Once pedicle screws are completed navigation was then used on the C2 screws. The T1 screw felt like there is a lesion of some sort in it. I took a biopsy and sent to pathology The C2 pars screw was placed. This was done using the high-speed bur followed by the navigated drill followed by placement of the screw. Pedicle feeler was used. Then a A 20 mm screw was placed on the left using the computer navigated screwdriver. Next a 60 mm screw was placed on the right side. Again using the navigated telephone directory distributor driver. The technique was used bilaterally. The screw was placed navigated. Lateral mass screws were then placed at C3-C4-C5 and C6 bilaterally. C7 was skipped. The lateral mass screws were done by using high-speed bur followed by a drill set at 12 mm. Followed by pedicle feeler followed by placement of the screw. The screws were 14 mm Next attention was brought to performing the laminectomies and partial facetectomies. Attention was brought to the C7-T1 level first. The ligamentum flavum was taken down between the interlaminar space. Was seen and lumbar space was opened up was used to help undermine and get the ligamentum flavum taken down from lateral mass lateral mass. High-speed bur was then used to take down the medial aspect of the facet joint as well as the lamina. Then the #2 Kerrison was used to finish off the gutter that was performed and also take down the medial aspect of the facet joint of C7 and T1. This was done bilaterally. The lamina was then elevated up and the facet joints were cleaned up with a Kerrison rongeur and curved curette was used to ensure that the nerve roots were freed up. The C7-T1 foramen was opened on the left side to decompress the C8 nerve root. Next attention was brought to the C6-7 level.The ligamentum flavum was taken down between the interlaminar space. Was seen and lumbar space was opened up was used to help undermine and get the ligamentum flavum taken down from lateral mass lateral mass. High-speed bur was then used to take down the medial aspect of the facet joint as well as the lamina. Then the #2 Kerrison was used to finish off the gutter that was performed and also take down the medial aspect of the facet joint of C6 and C7. This was done bilaterally. The lamina was then elevated up and the facet joints were cleaned up with a Kerrison rongeur and curved curette was used to ensure that the nerve roots were freed up. The C6-7 foramen was opened using the Kerrison rongeur freeing up the C7 nerve root. The drill caused a small dural leak on the right side at the 6 7 level. A DuraGen patch was placed. The leak and actually sealed itself off before having placed the patch. It was underneath the ligamentum and bone. Once decompression was done at each level. Attention was then brought to decorticating the lateral masses from C2-C7. As well as the lamina and transver se processes of T1 and T2. This was done bilaterally. Then the autograft from the lamina of the shoulder was packed into the lateral gutters along with osteo amp bone graft. Vancomycin powder and deep drain was placed in the wound. Wound was then closed in layered fashion with 0 Vicryl 2-0 Vicryl and Monocryl suture. Sterile dressings were applied patient was transferred to the PACU in stable condition.
[2024-09-27] MEDS: fentaNYL 50 mcg/mL INJ 2mL IVP ×2 (18:09→18:17)
--- NOTE | 2024-09-27 18:36 | ANE.PACU2 ---
Inpatient post-anesthesia follow up: Airway intact: Yes Vital signs: Temperature 97.7 F Pulse Rate 76 Respiratory Rate 18 Blood Pressure 102/69 Pulse Oximetry 96 Oxygen Delivery Me thod Room Air Oxygen Flow Rate 8 Fraction of Inspir ed Oxygen Hydration adequate: Yes Nausea and vomiting: No Pain level: 1 Mental status: Baseline
--- NOTE | 2024-09-27 18:41 | PC.NURSE ---
Patient arrived to [facility] at 183.
--- NOTE | 2024-09-27 18:41 | PC.NURSE ---
Dr. Qureshi wants CT done sometime tonight or early in the morning, doesn't want patient sedated for CT scan per PACU
--- NOTE | 2024-09-27 18:47 | PC.NURSE ---
1839 - accepted into room 259-1 with Mildred at side - c collar in place with hemovac compressed - villeda catheter intact - pt able to move all ext with pulses palpable - BP 105/72 - pulse 99 - 02 94% RA - temp 97.7 - verbalized to Mildred that a CT has been ordered for pt via Dr Qureshi - Mildred verbalizes understanding - no distress noted upon this nursing exiting room
[2024-09-27] MEDS: ketorolac 30 mg/mL INJ IVP (19:17)
[2024-09-27] MEDS: tizanidine 4 mg Tablet PO (19:17)
[2024-09-27] MEDS: docusate sodium 100 mg Capsule PO (19:17)
[2024-09-27] MEDS: gabapentin 300 mg Capsule 600 MG PO (19:17)
[2024-09-27] MEDS: lactated ringers 1,000 ML 90 ML IV (19:18)
[2024-09-27] MEDS: morphine 4 mg/mL SDV 1 mL 2 MG IVP ×3 (20:00→22:32)
[2024-09-28] VITALS (11 sets, daily range): BP systolic 92–137; BP diastolic 66–88; PULSE 67–83; RESP 15–18; TEMP 36.3–36.7; O2SAT 93–97
[2024-09-28] MEDS: morphine 4 mg/mL SDV 1 mL 2 MG IVP ×4 (00:17→08:59)
[2024-09-28] MEDS: HYDROcodone-acetaminophen 10-325 mg Tablet PO ×5 (00:18→21:28)
[2024-09-28] MEDS: ceFAZolin 2,000 mg SDV 2000 MG IVP ×2 (06:02→13:58)
[2024-09-28] MEDS: lactated ringers 1,000 ML 90 ML IV (07:32)
[2024-09-28] MEDS: gabapentin 300 mg Capsule 600 MG PO ×2 (07:33→17:07)
[2024-09-28] MEDS: docusate sodium 100 mg Capsule PO ×2 (07:34→17:07)
[2024-09-28] MEDS: lisinopril 20 mg Tablet PO (07:34)
[2024-09-28] MEDS: tizanidine 4 mg Tablet PO ×2 (07:34→17:07)
[2024-09-28] MEDS: amlodipine 10 mg Tablet PO (07:34)
--- NOTE | 2024-09-28 07:53 | PM.PN ---
Subjective Subjective: Patient is having significant pain in his neck. At this point we will keep another night will DC the Hemovac drain and DC his Ugarte. And Hep-Lock his fluids Vitals/I&O/Wt Last Vital Signs Temp 98.1 F 09/28/24 04:48 Pulse 67 09/28/24 04:48 Resp 18 09/28/24 06:02 BP 135/86 09/28/24 04:48 Pulse Ox 97 09/28/24 04:48 O2 Del Method Room Air 09/28/24 04:48 O2 Flow Rate 8 09/27/24 18:11 09/27/24 09/28/24 09/28/24 22:59 06:59 14:59 Intake Total 800 / 800 820 / 1620 112.5 / 112.5 Output Total 1400 / 1400 640 / 2040 Balance -600 / -600 180 / -420 112.5 / 112.5 Weight last 48 hrs Weight 176 lb Weight 177 lb 7.554 oz Weight 185 lb Physical Exam Narrative: Patient in the process of getting out of bed with the nurse. A&P Assessment and plan (1) Status post cervical spinal fusion: Patient is postop day #1 posterior cervical fusion and decompression. Patient will get up with therapy today. DC Hemovac drain DC Ugarte Hep-Lock IV fluids PDMP PDMP Reviewed: Not Reviewed Attestations Medical Necessity Statement*: Pain control Coding Level of Care Code Acute Code for Chg Fwd Diagnoses Status post cervical spinal fusion Z98.1
[2024-09-28 08:41] LABS: Hematocrit 32.3 % (37-53)
--- NOTE | 2024-09-28 09:29 | PC.CHAP ---
Pastoral Care Encounter/Spiritual Assessment Type of Contact [] Declined shipping point inspector visit [] Patient/Family/Request visit [] Outpatient visit [] Follow-up visit [] Physician referral [] Code/Alert [x] Routine visit [] Staff referral [] Actively dying [] Patient sleeping [x] Family support [] [] Out of room [] Palliative care [] [] Receiving care in room [] Pre-surgical visit [] Trauma [] Long length of stay [] ICU visit [] Other: Relational/Emotional Strength [x] Patient feels connected with others/family/visitors/staff [] Distress [] Loneliness/isolation [] Abandonment Spirituality of Patient [x] Person of Latha [] Attends Druze of their Latha [x] Believes in Prayer [] Reads Bible or Congregation materials [] There are Spiritual issues to be addressed Armament Aircraft Mechanic Interventions [x] Prayer [x] Active listening [] Non-anxious presence [x] Spiritual/emotional support [] Crisis/trauma care [] Spiritual counseling [] Bereavement support [] Provided bereavement packet [] Provided Bible/devotional materials [] Provided toy/stuffed animal, coloring book to patient or family member [] Provided Communion [] Anointing/[place] [] Salvation [x] Completed spiritual assessment [] Other: Impact on Illness or Injury [] Angry [] Fearful [] Anxious [] Often cries [] Exhaustion [] Unable to work [] Unable to attend anabaptism [] Unable to walk/stand [] Unable to read [] Unable to drive [] Unable to eat/drink [] Unable to sleep [] Unable to be with family [] Patient intubated [] Other: Summary Time spent with patient 5 min
[2024-09-29] MEDS: HYDROcodone-acetaminophen 10-325 mg Tablet PO ×3 (01:28→11:30)
[2024-09-29 04:15] VITALS: BP 116/68; PULSE 89; RESP 18; TEMP 36.7; O2SAT 95
[2024-09-29 06:00] VITALS: BMI 25.9
[2024-09-29] MEDS: docusate sodium 100 mg Capsule PO (07:46)
[2024-09-29] MEDS: gabapentin 300 mg Capsule 600 MG PO (07:46)
[2024-09-29] MEDS: tizanidine 4 mg Tablet PO (07:46)
[2024-09-29] MEDS: lisinopril 20 mg Tablet PO (07:47)
[2024-09-29] MEDS: amlodipine 10 mg Tablet PO (07:47)
[2024-09-29 08:00] VITALS: BP 105/75; PULSE 96; RESP 18; TEMP 36.4; O2SAT 97
--- NOTE | 2024-09-29 09:55 | P.DS_ITS ---
Discharge Providers Date of Admission: 09/27/24 17:38 Date of Discharge: September 29, 2024 Attending Provider at Admission: Thomas Qureshi DO Attending Provider at Discharge: Thomas Qureshi DO Primary Care Provider: KUNAL Graves Diagnoses at Discharge Discharge Diagnosis (1) Status post cervical spinal fusion: Status: Acute Physical Exam Narrative: Pain back and neck arm pain she has been improving. At this point will discharge home today Urinary Catheter Management: Ugarte: Cath Placed During This Visit: yes, but has since been removed by the nurse Reason for Continuing Indwelling Catheter: Decision to DC Catheter Date Urinary Catheter Removed: 09/28/24 Time Urinary Catheter Discontinued: 12:49 Discharge Data Studies Completed and Pending Completed Studies During Hospitalization Category Date Time Status CT cervical spin wo con* [id number] Routine Cat Scan 09/27/24 17:39 Completed XR cervical spine 3V* [id number] Routine Exams 09/27/24 17:26 Completed Pending at discharge Category Date Time Status Pathology: Surgical [PTH] Routine Pth 09/27/24 16:19 Received Radiology Impressions Cervical Spine CT 09/27/24 17:39 IMPRESSION: 1. No identified acute osseous abnormality. 2. Unchanged C3-C7 ACDF. 3. Interval placement of a C2-T1 posterior zaria and pedicle screw fixation. Right pedicle screw at T1 noted to transit lateral to both the pedicle and right lateral aspect of the T1 vertebral body. Interval C6 and C7 laminectomies. Laboratory Results Hgb 10.40 g/dL (11.27-16.99) L 09/28/24 08:25 Hct 32.3 % (37-53) L 09/28/24 08:25 Vitals Last Vital Signs Temp 97.6 F 09/29/24 08:00 Pulse 96 09/29/24 08:00 Resp 18 09/29/24 08:00 BP 105/75 09/29/24 08:00 Pulse Ox 97 09/29/24 08:00 O2 Del Method Room Air 09/29/24 08:00 O2 Flow Rate 8 09/27/24 18:11 Discharge Plan Discharge Patient Disposition: Home Condition: Stable Prescriptions: New oxycodone-acetaminophen 10-325 mg tablet 1 tab PO Q4H PRN (Reason: pain) 7 Days Qty: 42 0RF Continued nitroglycerin 0.4 mg tablet, sublingual 0.4 mg sublingual Q5M PRN (Reason: chest pain) Qty: 25 3RF Rx Instructions: do not exceed 3 doses per episode gabapentin 600 mg tablet 600 mg PO BID 30 Days Qty: 60 0RF tizanidine 4 mg tablet 4 mg PO BID Qty: 60 0RF lisinopril 20 mg tablet 20 mg PO DAILY Qty: 30 4RF amlodipine 10 mg tablet 10 mg PO DAILY Qty: 30 4RF Discontinued hydrocodone-acetaminophen 10-325 mg tablet 1 tab PO Q4H PRN (Reason: pain) 28 Days Qty: 168 0RF Discharge Orders: Discharge Order (Routine); Ordered 09/29/24 Ordered By: Thomas Qureshi Referrals: Thomas Qureshi, [Physician] - 10/12/24 1:15 pm Discharge Diet: Advance as tolerated Discharge Activity: Limit activity as instructed Patient Instructions: Acute Wound Care (DC), Opioid Safety, Post Anesthesia Care Activity Restrictions/Additional Instructions: Thank you for choosing [facility] for your care! The following is a list of instructions, from your provider, to follow upon your discharge to ensure you have the optimal recovery from your recent injury or surgery. Posterior cervical fusion what to Expect at Home Your Recovery Follow-up care is a schmid part of your treatment and safety. Be sure to make and go to all appointments, and call your doctor if you are having problems. If you do not already have a follow-up appointment made, call office in the next 1-3 days to make follow up appointment for 1 weeks at [phone]. It is also a good idea to know your test results and keep a list of the medicines you take. You can expect your neck to feel stiff or sore after surgery. This should improve in the weeks after surgery. But it may take 4 to 6 months for you to get better completely. You may have trouble sitting or standing in one position for very long and may need pain medicine in the weeks after your surgery. It may take 4 to 6 weeks to get back to your usual activities, but it may depend on what kind of surgery you had. Your throat will feel sore and it may be difficult to swallow for the first 3 days after your surgery. As long as you can get liquids down without difficulty, this should slowly improve, otherwise call our office or seek medical attention if it becomes increasingly difficult to get anything down including liquids. Avoid hot liquids for first 3-5 days. Soothing foods/liquids such as jello, pudding, and luke warm soups are recommended until swallowing improves. Staying elevated will also help, it's advised you keep propped up at while sleeping to help reduce the swelling. You may use an ice pack directly on your incision or around it on the front of your neck, using a cloth to protect your skin; and a heating pad to the back of your neck as needed. Do not use over the counter anti-inflammatory medications (Ibuprofen, Motrin, Aleve, Advil, etc) Taking these meds after having a fusion can delay fusion rates, we recommend you avoid them for the first 3 months after your surgery[address] Dr. Qureshi may advise you to work with a physical therapist to strengthen the muscles around your neck and back - this will be discussed at your follow - up appointments. The pain or numbness you were having in your arms before surgery should get better or go away completely. This care sheet gives you a general idea about how long it will take for you to recover. But each person recovers at a different pace. Follow the steps below to get better as quickly as possible. How can you care for yourself at home? Activity ? Rest when you feel tired. Getting enough sleep will help you recover. ? Try to walk each day. Start by walking a little more than you did the day before. Bit by bit, increase the amount you walk. Walking boosts blood flow and helps prevent pneumonia and constipation. Walking may also decrease your muscle soreness after surgery. ? No lifting anything that is more that 5 pounds. This may include heavy grocery bags and milk containers, a heavy briefcase or backpack, cat litter or dog food bags, a child, or a vacuum lingo cleaner. ? Avoid strenuous activities, such as bicycle riding, jogging, weightlifting, or aerobic exercise, until your doctor says it is okay. ? Do not drive until your follow-up visit after your surgery, or until your doctor says it isokay. ? Avoid taking long car trips for 2 to 4 weeks after surgery. Your neck may become tired and painful from sitting too long in one position. ? You will probably need to take 4 to 6 weeks off from work. It depends on the type of work you do and how you feel. ? You may have sex as soon as you feel able, but avoid positions that put stress on your neck or cause pain. Diet ? You can eat your normal diet. If your stomach is upset, try bland, low-fat foods like plain rice, broiled chicken, toast, and yogurt ? Drink plenty of fluids. If you have kidney, heart, or liver disease and have to limit fluids, talk with your doctor before you increase the amount of fluids you drink. ? You may notice that your bowel movements are not regular right after your surgery. This is common. Try to avoid constipation and straining with bowel movements. You may want to take a fiber supplement every day. If you have not had a bowel movement after a couple of days, ask your doctor about taking a mild laxative. Medicines ? Take pain medicines exactly as directed. 1. If Dr. Qureshi gave you a prescription medicine for pain, take lt as prescribed. 2. Do not take two or more pain medicines at the same time unless the doctor told you to. Many pain medicines have acetaminophen, which is Tylenol. Too much acetaminophen {Tylenol) can be harmful. 3. If you think your pain pill is making you sick to your stomach: 4. Take your pills after meals (unless your doctor has told you not to). 5. Ask your Dr. for a different pain pill. Incisioncare ? Remove your dressing 48hours after your surgery. Ok to shower and get the incision wet. Do not overtly wash your incision. When done, pad dry, leave open to air thereafter. Avoid creams and ointments directly on your incision. ? Your sutures in the incision will dissolve and fall out on their own. ? Keep the area clean and dry. You may cover it with a gauze bandage if it weeps or rubs against clothing; if you choose to do this, change the dressing everyday. Other instructions ? Use a heating pad, hot water bottle, or gentle massage on your back to reduce stiffness. Avoid putting heat on your incision When should you call for help? ? Call 911 anytime you think you may need emergency care. For example, call if: ? You pass out (lose consciousness). ? You have sudden chest pain and shortness of breath, or you cough upblood. ? You cannot swallow. ? You have severe pain in your neck or back. ? Call your Dr. or seek immediate medical care if: ? You have pain that does not get better after you take pain pills. ? You have loose stitches, or your incision comes open. ? You have blood or fluid draining from the incision. ? You have signs of infection, such as: 1. Increased pain, swelling, warmth, or redness. 2. Red streaks leading from the site. 3. Pus draining from the site. 4. Swollen lymph nodes in your neck or armpits. 5. A fever. ? You have severe pain in your arms. ? You have new or increased weakness or numbness in your arms. ? Watch closely for any changes in your health, and be sure to contact your doctor if: ? You do not have a bowel movement after taking a laxative. Discharge Attestations Time Spent in Discharge Care*: less than 30 min Quality Metrics Clinical Quality Measures [ No reported AMI, CVA or VTE this stay] Coding Level of Care Code Acute Code for Chg Fwd Diagnoses Status post cervical spinal fusion Z98.1
[2024-09-29 11:29] VITALS: BP 105/76; PULSE 96; RESP 16; TEMP 36.4; O2SAT 96
== END 2024-09-29 11:41 | disposition home or self-care (01) | DRG 451 ==
LOC: MEDSURG 15:54
PROVIDERS: Admitting Provider Orthopaedic Surgery; PCP Nurse Practitioner; Visit Provider Orthopaedic Surgery
PROC: 0RG6071 Fusion of Thoracic Vertebral Joint with Autologous Tissue Substitute, Posterior Approach, Posterior Column, Open Approach (ICD-10-PCS; principal; 2024-09-27 13:40)
PROC: 0RG6071 Fusion of Thoracic Vertebral Joint with Autologous Tissue Substitute, Posterior Approach, Posterior Column, Open Approach (ICD-10-PCS; CPT 63001; 2024-09-27 13:40)
DX: M47.22 Other spondylosis with radiculopathy, cervical region (principal); G97.41 Accidental puncture or laceration of dura during a procedure; E87.1 Hypo-osmolality and hyponatremia; M48.02 Spinal stenosis, cervical region; I10 Essential (primary) hypertension; F17.210 Nicotine dependence, cigarettes, uncomplicated; J44.9 Chronic obstructive pulmonary disease, unspecified; Z79.891 Long term (current) use of opiate analgesic; G47.33 Obstructive sleep apnea (adult) (pediatric); M48.062 Spinal stenosis, lumbar region with neurogenic claudication; M54.16 Radiculopathy, lumbar region; I25.10 Atherosclerotic heart disease of native coronary artery without angina pectoris; I34.1 Nonrheumatic mitral (valve) prolapse
CPT/HCPCS: 36415; 72040; 72125; 76000; 85014; 85018; 88307; 88311; 97161; C1713; G0378; J0131; J0330; J0690; J1100; J1171; J1885; J2250; J2270; J2371; J2405; J2704; J3010; J3370; J3490; J7120; P9045

== ENCOUNTER 2024-10-21 18:29 | Inpatient (IN) | payer OTHER, SELFPAY ==
[2024-10-21] VITALS (7 sets, daily range): BP systolic 77–140; BP diastolic 47–88; PULSE 97–113; RESP 16–19; TEMP 37.2; O2SAT 95–100; BMI 26.5; BMI 25.0
--- NOTE | 2024-10-21 19:17 | CTR_ITS ---
PROCEDURE INFORMATION: Exam: CT Cervical Spine With Contrast Exam date and time: 10/21/2024 7:56 PM Age: 49 years old Clinical indication: Injury or trauma; Fall; Blunt trauma; Prior surgery; Surgery date: <1 month; Surgery type: 09/27/24; Additional info: Post op pain, drainage TECHNIQUE: Imaging protocol: Computed tomography of the cervical spine with contrast. Radiation optimization: All CT scans at this facility use at least one of these dose optimization techniques: automated exposure control; mA and/or kV adjustment per patient size (includes targeted exams where dose is matched to clinical indication); or iterative reconstruction. Contrast material: OMNI 350; Contrast volume: 100 ml; Contrast route: INTRAVENOUS (IV); COMPARISON: CT cervical spin wo con* [id number] 09/27/2024 9:15 PM RADIATION DOSE METRICS: Total DLP (mGy-cm): 256.17 FINDINGS: Limitations: Beam hardening and motion artifact mildly limits evaluation of the cervical spine. Bones: Spinal alignment is grossly normal though suboptimally evaluated due to motion and beam hardening artifact at the cervicothoracic junction. There is intact anterior/interbody fusion from C3 through C7. There is intact posterolateral fusion hardware from C2 through C6, and at C1-C2. No sign hardware loosening. 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 The pedicle screws at T1 extend into the C7-T1 disc space, similar to the finding on 09/27/2024. No acute fracture. There is anterior paraspinous edema in the lower neck and thoracic inlet. No severe spinal stenosis is visible but the lower cervical and upper thoracic spinal canal is partially obscured. Brain: The visible portion of the brain is normal. Lungs: There is mild bilateral apical subpleural scarring. Soft tissues: There is extensive posterior paraspinal edema and multifocal soft tissue gas, increased since 09/27/2024. There is a well-defined thick walled peripherally enhancing posterior paraspinal fluid collection measuring approximately 5.3 x 2.0 cm axial dimension and 11 cm craniocaudal dimension. The fluid collection is new since 09/27/2024. The volume of soft tissue gas is increased. CT/CT cervical spine w con [id number] IMPRESSION: 1. Progressive posterior paraspinal edema and gas consistent with infection. There is a new posterior paraspinal fluid and gas collection consistent with abscess. 2. Extensive cervicothoracic anterior and posterolateral fusion is described above. No sign of hardware failure. No significant change compared to 09/27/2024.
[2024-10-21] MEDS: sodium chloride 0.9% 1,000 ML 999 ML IV (19:36)
[2024-10-21 19:47] LABS: Basophils % 0.1 %; Hematocrit 31.6 % (37-53); Lymphocytes # 0.9 10^3/uL (0.8-4.8); Lymphocytes % 9.9 %; Mean Corpuscular HGB Conc 30.1 g/dL (30-55); Mean Corpuscular Volume 103.3 fl (82-101); Mean Platelet Volume 9.6 fL (7.4-10.4); Monocytes # 0.6 10^3/uL (0.2-0.9); Monocytes % 6.3 %; Neutrophils # 7.56 10^3/uL (1.8-7.7); Neutrophils % 83.1 %; Nucleated Red Blood Cells % 0 %; Platelet Count 376 10^3/cmm (157-399); Red Blood Count 3.06 10^6/uL (3.85-5.65); Red Cell Distribution Width 16.9 % (12.1-15.1); White Blood Count 9.09 10^3/uL (3.29-11.43)
[2024-10-21] MEDS: iohexol 350 mg/mL 500 mL Btl (per mL) IV (20:01)
[2024-10-21 20:14] LABS: Alanine Aminotransferase 15 U/L (0-41); Albumin Level 2.8 g/dL (3.5-5.2); Alkaline Phosphatase 138 U/L (40-130); Aspartate Amino Transferase 47 U/L (0-40); Blood Urea Nitrogen 11 mg/dL (6-20); C Reactive Protein 304.3 mg/L (0.0-4.9); Calcium 8.3 mg/dL (8.5-10.5); Carbon Dioxide 18 mmol/L (22-29); Chloride 91 mmol/L (98-107); Globulin 3.9 g/dL (1.3-4.6); Glomerular Filtration Rate 101.9 mL/min (90-130); Glucose 103 mg/dL (65-115); Osmolality Calculated 268 mOsm/kg (285-295); Sodium 129 mmol/L (136-145); Total Bilirubin 0.4 mg/dL (0.15-1.2); Total Protein 6.7 g/dL (6.6-8.7)
[2024-10-21 20:27] LABS: Anion Gap 23.5 (5-19); Potassium 3.5 mmol/L (3.5-5.1)
--- NOTE | 2024-10-21 20:29 | PC.NURSE ---
Incision to posterior neck from previous surgery was cultured. Patient's incision site appeared red, edematous, warm to touch, and leaking clear-yellow fluids. Dressing was replaced with Telfa and Tegaderm.
--- NOTE | 2024-10-21 21:25 | ED_ITS ---
HPI - Back Pain/Injury 2 General: Chief Complaint: Back Pain/Injury Stated Complaint: fall post surg now seepage Time Seen by Provider: 10/21/24 18:45 History of Present Illness: This patient is a 49-year-old white male who presents to the emergency department complaining of posterior neck pain radiating down both arms. Patient states he fell last night when he got up to go to bed. He states he just tripped in the hallway. Did not strike his head. This exacerbated pain that he been having in the neck and arms. Patient had extensive surgery done by Dr. Qureshi on September 27. He had fusion of C2-T2. Since the fall he has had quite a bit of drainage from the surgical site as well. No fever. Related Data Previous Rx's ?Medication ?Instructions ?Recorded nitroglycerin 0.4 mg sublingual 0.4 mg sublingual Q5M PRN chest 10/06/20 tablet pain #25 tabs amlodipine 10 mg tablet 10 mg PO DAILY #30 tabs 12/10 10/31 lisinopril 20 mg tablet 20 mg PO DAILY #30 tabs 12/10 10/31 gabapentin 600 mg tablet 600 mg PO BID 30 days #60 ta bs 09/22/24 tizanidine 4 mg tablet 4 mg PO BID #60 tabs 5 Bone Growth Stimulator #1 ea 09/30/24 oxycodone-acetaminophen 10 mg-325 1 tab PO Q4H PRN arun n 4 weeks #160 10/05/24 mg tablet tabs oxycodone 10 mg tablet,crush 10 mg PO Q12H 7 days #14 tabs 10/12/24 resistant,extended release 12 hr (OxyContin) Allergies Allergy/AdvReac Type Severity Reaction Status Date / Time No Known Allergies Allergy Verified 10/19/24 15:53 Review of Systems 2 General: Reports: 10 or more systems reviewed and unremarkable except in HPI and below Musc: Reports: neck pain PFSH ED 2 PFSH: Medical History Syncope Acute hypokalemia Acute kidney injury Acute hypotension PAYAM (obstructive sleep apnea) Lumbar stenosis with neurogenic claudication Lumbar disc disease with radiculopathy Coronary artery disease HTN (hypertension) Mitral valve prolapse Lung disease, restrictive Smoker COPD (chronic obstructive pulmonary disease) Surgical History H/O hernia repair H/O shoulder surgery History of surgery on upper extremity History of cholecystectomy H/O vasectomy History of testicular surgery Family History Other CAD (coronary artery disease) Diabetes Hyperlipidemia Hypertension Denies family history of Stroke Social History Smoking and tobacco/nicotine status: current every day tobacco/nicotine user cigarettes Packs smoked per day: 0.5 Years cigarettes smoked: 30 [ Other cigarette details: Started at age 17] Alcohol intake: current Alcohol intake frequency: 3 or more drinks per day Alcohol type: beer Substance/Drug Use: never Lives independently: Yes Household members: spouse Marital status: service: No Current occupational status: unemployed Do you think of yourself as: Straight/Heterosexual Current gender identity: Male Physical Exam 2 Const: COMMON NORMALS: no acute distress, patient oriented x3 and no limitations GENERAL APPEARANCE: cooperative and comfortable HENMT: COMMON NORMALS: normocephalic, atraumatic, Normal nasal mucous membranes and turbinates present, moist oral mucous membranes and oropharynx normal HEAD & SCALP: normal to inspection, normocephalic and atraumatic F SAUD & SINUS: normal facial exam NOSE: Normal nasal mucous membranes and turbinates present Eye: COMMON NORMALS: Equal, round and reactive pupils present, EOMs intact bilaterally and conjunctivae normal GENERAL EYE: appearance normal, both eyes and all related structures CONJUNCTIVA: Yes conjunctivae normal PUPIL: Yes Equal, round and reactive pupils present Neck/C-Spine: OTHER: Patient is in a cervical collar. I did remove that and looked at the vertical incision site overlying the cervical spine and upper thoracic spine. There was a dressing on there with it was saturated with brown liquid. Chest: COMMONS NORMALS: normal inspection of the chest Resp: COMMON NORMALS: normal respiratory effort and clear to auscultation bilaterally AUSCULTATION: clear to auscultation bilaterally Cardio: COMMON NORMALS: regular rate, regular rhythm, No gallops present (Cardio), No murmurs present (Cardio) and No rub (Cardio) RATE: regular rate RHYTHM: regular rhythm GI: COMMON NORMALS: Normal to inspection, nondistended, normoactive bowel sounds present, Soft to palpation and non-tender AUSCULTATION: Yes normoactive bowel sounds PALPATION: Yes Soft to palpation : COMMON NORMALS: Yes no CVA tenderness BLADDER/KIDNEY EXAM: Yes no CVA tenderness Back/Pelvis: COMMON NORMALS: no CVA tenderness and thoracic and lumbar spine normal to inspection Extremity: COMMON NORMALS: normal to inspection Neuro: COMMON NORMALS: patient oriented x3 and CN's II-XII intact bilaterally Psych: COMMON NORMALS: mental status grossly normal, Normal thought process present and cooperative THOUGHT PROCESS: Normal thought process present Skin: COMMON NORMALS: no rashes or lesions noted, turgor normal and no jaundice GENERAL SKIN EXAM: no rashes or lesions noted and turgor normal Course 2 Vital Signs: Vital signs: Vital Signs Temperature 98.9 F 10/21/24 18:33 Pulse Rate 111 H 10/21/24 21:03 Respiratory Rate 19 H 10/21/24 18:33 Blood Pressure 140/85 10/21/24 21:03 Pulse Oximetry 95 10/21/24 20:28 Oxygen Delivery Me thod Room Air 10/21/24 20:28 MDM - Back Pain/Injury Medical Decision Making CBC revealed a hemoglobin of 9.5. CMP revealed a sodium of 129. Lactic acid 3.0. CRP 304. CT scan of the cervical spine with IV contrast was read by the radiologist. I did get a call from the radiologist. They state they do see extensive infection involving the posterior paraspinal soft tissue and likely abscess formation. Bones from what they could see appear okay. There is quite a bit of metal obviously obstructing some views. Alignment good. I did discuss the case with Dr. Qureshi. He does recommend vancomycin which I did order. We will admit the patient to Dr. Qureshi. He plans on operating tomorrow. Patient will be transferred to the floor shortly. He is stable. Labs 10/21/24 19:41 10/21/24 19:41 Radiology Impressions Cervical Spine CT 10/21/24 19:17 IMPRESSION: 1. Progressive posterior paraspinal edema and gas consistent with infection. There is a new posterior paraspinal fluid and gas collection consistent with abscess. 2. Extensive cervicothoracic anterior and posterolateral fusion is described above. No sign of hardware failure. No significant change compared to 09/27/2024. ADDENDUM: 10/21/242121 THIS REPORT CONTAINS FINDINGS THAT MAY BE CRITICAL TO PATIENT CARE. The findings and recommendations were personally verbally communicated via telephone conference with AMEENA MALONEY at 9:20 PM T on 10/21/2024. The findings were acknowledged and understood. Laboratory Results WBC 9.09 10^3/uL (3.29-11.43) 10/21/24 19:41 RBC 3.06 10^6/uL (3.85-5.65) L 10/21/24 19:41 Hgb 9.50 g/dL (11.27-16.99) L 10/21/24 19:41 Hct 31.6 % (37-53) L 10/21/24 19: MCV 103.3 fl (82-101) H 10/21/24 19: MCH 31.0 pg (27-33) 10/21/24 19: MCHC 30.1 g/dL (30-55) 10/21/24 19: RDW 16.9 % (12.1-15.1) H 10/21/24 19:41 Plt Count 376 10^3/cmm (157-399) 10/21/24 19: MPV 9.6 fL (7.4-10.4) 10/21/24 19: Neut % (Auto) 83.1 % 10/21/24 19: Lymph % (Auto) 9.9 % 10/21/24: [place] % (Auto) 6.3 % 10/21/24: Eos % (Auto) 0.0 % 10/21/24: Baso % (Auto) 0.1 % 10/21/24: Neut # (Auto) 7.56 10^3/uL (1.8-7.7) 10/21/24 19: Lymph # (Auto) 0.9 10^3/uL (0.8-4.8) 10/21/24: [place] # (Auto) 0.6 10^3/uL (0.2-0.9) 10/21/24 19: Eos # (Auto) 0.0 10^3/uL (0.0-0.8) 10/21/24 19: Baso # (Auto) 0.0 10^3/uL (0.0-0.1) 10/21/24 19:41 Nucleated RBC % (auto) 0 % 10/21/24 19:41 Nucleated RBCs # 0.0 /100WBC 10/21/24 19:41 Sodium 129 mmol/L (136-145) L 10/21/24 19:41 Potassium 3.5 mmol/L (3.5-5.1) 10/21/24 19:41 Chloride 91 mmol/L (98-107) L 10/21/24 19:41 Carbon Dioxide 18 mmol/L (22-29) L 10/21/24 19:41 Anion Gap 23.5 (5-19) H 10/21/24 19:41 BUN 11 mg/dL (6-20) 10/21/24 19:41 Creatinine 0.8 mg/dL (0.7-1.2) 10/21/24 19:41 GFR Calculation 101.9 mL/min (90-130) 10/21/24 19:41 Glucose 103 mg/dL (65-115) 10/21/24 19:41 Calculated Osmolality 268 mOsm/kg (285-295) L 10/21/24 19:41 Lactic Acid 3.0 mmol/L (0.5-2.2) H 10/21/24 19:41 Calcium 8.3 mg/dL (8.5-10.5) L 10/21/24 19:41 Total Bilirubin 0.4 mg/dL (0.15-1.2) 10/21/24 19:41 AST 47 U/L (0-40) H 10/21/24 19:41 ALT 15 U/L (0-41) 10/21/24 19:41 Alkaline Phosphatase 138 U/L (40-130) H 10/21/24 19:41 C-Reactive Protein 304.3 mg/L (0.0-4.9) H 10/21/24 19:41 Total Protein 6.7 g/dL (6.6-8.7) 10/21/24 19:41 Albumin 2.8 g/dL (3.5-5.2) L 10/21/24 19:41 Globulin 3.9 g/dL (1.3-4.6) 10/21/24 19:41 All radiology interpretation(s) finalized by discharge Discharge Plan Discharge Condition: Stable Prescriptions: No Action nitroglycerin 0.4 mg tablet, sublingual 0.4 mg sublingual Q5M PRN (Reason: chest pain) Qty: 25 3RF Rx Instructions: do not exceed 3 doses per episode oxycodone [OxyContin] 10 mg tablet,oral only,ext.rel.12 hr 10 mg PO Q12H 7 Days Qty: 14 0RF gabapentin 600 mg tablet 600 mg PO BID 30 Days Qty: 60 0RF tizanidine 4 mg tablet 4 mg PO BID Qty: 60 0RF (DME) Bone Growth Stimulator See Rx Instructions .Route .MEDSUPPLY Qty: 1 0RF Rx Instructions: As directed oxycodone-acetaminophen 10-325 mg tablet 1 tab PO Q4H PRN (Reason: pain) 28 Days Qty: 160 0RF lisinopril 20 mg tablet 20 mg PO DAILY Qty: 30 4RF amlodipine 10 mg tablet 10 mg PO DAILY Qty: 30 4RF Referrals: Brenda Sharma FNP [Primary Care Provider] - Print Language: Pashto Coding Level of Care Code ED Leather Belt Maker for Rosa Solares
[2024-10-21 21:31] LABS: Reflex Lactate Order REFLEX LACTIC ORDERD
[2024-10-21 21:47] LABS: Lactic Acid level (Lactate) 2.1 mmol/L (0.5-2.2)
[2024-10-21] MEDS: ondansetron 2 mg/ML SDV 2 mL 4 MG IVP (22:02)
[2024-10-21] MEDS: HYDROmorphone 0.5 MG/0.5 ML INJ IVP (22:03)
[2024-10-21] MEDS: vancomycin 1,250 MG/250 ML PIGGYBACK 166.67 MG IV (22:05)
--- NOTE | 2024-10-21 22:09 | PC.NURSE ---
Report called by INES Castro to INES Morgan on [place]. All questions and concerns were addressed at time of report.
[2024-10-21] MEDS: morphine 4 mg/mL SDV 1 mL 2 MG IVP (23:12)
[2024-10-21] MEDS: sodium chloride 0.9% 1,000 ML 90 ML IV (23:12)
--- NOTE | 2024-10-21 23:28 | PC.NURSE ---
call placed to Dr. Qureshi requesting [facility] protocol, message left on voicemail
[2024-10-22] VITALS (31 sets, daily range): BP systolic 91–134; BP diastolic 67–91; PULSE 86–113; RESP 12–117; TEMP 36.4–44.4; O2SAT 90–96
[2024-10-22] MEDS: morphine 4 mg/mL SDV 1 mL 2 MG IVP ×9 (01:47→19:52)
[2024-10-22 02:28] LABS: Basophils % 0.2 %; Eosinophils % 0.1 %; Lymphocytes # 1.2 10^3/uL (0.8-4.8); Lymphocytes % 13.8 %; Mean Corpuscular HGB Conc 32.7 g/dL (30-55); Mean Corpuscular Hemoglobin 30.6 pg (27-33); Mean Corpuscular Volume 93.5 fl (82-101); Mean Platelet Volume 9.4 fL (7.4-10.4); Monocytes # 0.8 10^3/uL (0.2-0.9); Monocytes % 9.4 %; Neutrophils # 6.57 10^3/uL (1.8-7.7); Neutrophils % 75.9 %; Nucleated Red Blood Cells % 0 %; Platelet Count 333 10^3/cmm (157-399); Red Blood Count 2.78 10^6/uL (3.85-5.65); Red Cell Distribution Width 16.4 % (12.1-15.1); White Blood Count 8.65 10^3/uL (3.29-11.43)
[2024-10-22 02:51] LABS: Anion Gap 19.5 (5-19); Blood Urea Nitrogen 9 mg/dL (6-20); Calcium 7.5 mg/dL (8.5-10.5); Carbon Dioxide 21 mmol/L (22-29); Chloride 96 mmol/L (98-107); Creatinine Clr Calc Pharmacy 133.2542; Glomerular Filtration Rate 118.9 mL/min (90-130); Glucose 117 mg/dL (65-115); Osmolality Calculated 276 mOsm/kg (285-295); Potassium 3.5 mmol/L (3.5-5.1); Sodium 133 mmol/L (136-145)
[2024-10-22] MEDS: thiamine 100 mg/mL 2mL SDV IM (04:53)
--- NOTE | 2024-10-22 08:36 | PM.HP ---
Providers/Chief Complaint Admitting Physician: Thomas Qureshi DO Primary Care Provider: KUNAL Graves Chief Complaint: fall post surg now seepage History of Present Illness August Schneider is a 49 year old male has had a posterior cervical fusion done approximately 3 weeks ago. Was having some drainage out of it. Had a fall last night and had increase in drainage coming out. At this point he is afebrile concern for infection deep Review of Systems General: Reports: 10 or more systems reviewed and unremarkable except in HPI and below Const: Denies: fever(s), chills or body aches Eyes: Denies: change in vision Card: Denies: chest pain, dyspnea on exertion or orthopnea Resp: Denies: dyspnea, productive cough or wheezing GI: Denies: abdominal pain, nausea or vomiting Musc: Denies: neck pain, back pain, extremity pain, joint pain, joint swelling or limited range of motion Skin/Breast: Denies: changes in skin color or dry skin Neuro: Denies: numbness in extremities or weakness in extremities Psych: Denies: anxiety or depression Dale/Lymph: Denies: easy bruising or easy bleeding Medications/Allergies Home Medications ?Medication ?Instructions ?Recorded ?Confirmed ?Last Taken ?Type nitroglycerin 0.4 mg sublingual 0.4 mg sublingual Q5M PRN chest 10/06/20 10/21/24 01/17/21 Rx tablet pain #25 tabs amlodipine 10 mg tablet 10 mg PO DAILY #30 tabs 12/31/22 10/21/24 10/21/24 Rx lisinopril 20 mg tablet 20 mg PO DAILY #30 tabs 12/31/22 10/21/24 10/21/24 Rx gabapentin 600 mg tablet 600 mg PO BID 30 days #60 tabs 09/22/24 10/21/24 10/21/24 Rx tizanidine 4 mg tablet 4 mg PO BID #60 tabs 09/22/24 10/21/24 10/21/24 Rx Bone Growth Stimulator #1 ea 09/30/24 10/21/24 10/21/24 Rx oxycodone-acetaminophen 10 mg-325 1 tab PO Q4H PRN pain 4 weeks #160 10/05/24 10/21/24 10/21/24 Rx mg tablet tabs oxycodone 10 mg tablet,crush 10 mg PO Q12H 7 days #14 tabs 10/12/24 10/21/24 Unknown Rx resistant,extended release 12 hr (OxyContin) Allergies Allergy/AdvReac Type Severity Reaction Status Date / Time No Known Allergies Allergy Verified 10/19/24 15:53 PFSH Acute PFSH: Medical History Syncope Acute hypokalemia Acute kidney injury Acute hypotension PAYAM (obstructive sleep apnea) Lumbar stenosis with neurogenic claudication Lumbar disc disease with radiculopathy Coronary artery disease HTN (hypertension) Mitral valve prolapse Lung disease, restrictive Smoker COPD (chronic obstructive pulmonary disease) Surgical History H/O hernia repair H/O shoulder surgery History of surgery on upper extremity History of cholecystectomy H/O vasectomy History of testicular surgery Family History Other CAD (coronary artery disease) Diabetes Hyperlipidemia Hypertension Denies family history of Stroke Social History Smoking and tobacco/nicotine status: current every day tobacco/nicotine user cigarettes Packs smoked per day: 0.5 Years cigarettes smoked: 30 [ Other cigarette details: Started at age 17] Alcohol intake: current Alcohol intake frequency: 3 or more drinks per day Alcohol type: beer Substance/Drug Use: never Lives independently: Yes Household members: spouse Marital status: service: No Current occupational status: unemployed Do you think of yourself as: Straight/Heterosexual Current gender identity: Male Vitals/I&O/Wt Last Vital Signs Temp 99.1 F 10/22/24 07:51 Pulse 94 10/22/24 07:51 Resp 17 10/22/24 07:51 BP 122/80 10/22/24 07:51 Pulse Ox 94 10/22/24 07:51 O2 Del Method Room Air 10/22/24 07:51 10/21/24 10/22/24 10/22/24 22:59 06:59 14:59 Intake Total 1000 / 1000 250 / 1250 Output Total 950 / 950 Balance 1000 / 1000 -700 / 300 Weight last 48 hrs Weight 174 lb 8 oz Weight 185 lb Physical Exam Narrative: Alert and oriented x 3 Head is normocephalic atraumatic Respirations are intact No evidence of any rashes or infection 5/5 strength in bilateral upper and lower extremities Sensation intact in all extremities Deep tendon reflexes 2 out of 4 bilateral upper and lower extremities Wound with drainage Data 10/22/24 02:19 10/22/24 02:19 Micro: Microbiology 10/21/24 19:41 Blood Culture - Preliminary Blood SPECIMEN COLLECTED 10/21/24 21:07 Blood Culture - Preliminary Blood SPECIMEN COLLECTED A&P Assessment and plan (1) Status post cervical spinal fusion: Patient has dry increased drainage from his wound. At this point concern for infection. Will plan to do surgery today. PDMP PDMP Reviewed: Not Reviewed Attestations Medical Necessity Statement*: Possible infection Coding Level of Care Code Acute Code for Chg Fwd Diagnoses Status post cervical spinal fusion Z98.1
[2024-10-22] MEDS: folic acid 1 mg Tablet PO (09:33)
[2024-10-22] MEDS: thiamine 100 mg Tablet PO (09:33)
[2024-10-22] MEDS: multivitamin therapeutic Tablet 1 TAB PO (09:33)
[2024-10-22] MEDS: sodium chloride 0.9% 1,000 ML 90 ML IV (10:36)
--- NOTE | 2024-10-22 12:44 | ANES.PREANE2 ---
Pre-Anesthetic Assessment Height/Weight: Height 1.78 m Weight 79.152 kg Temp Pulse Resp BP Pulse Ox O2 Del Method 98.4 F 96 18 134/79 96 Room Air 10/22/24 12:35 10/22/24 12:35 10/22/24 12:35 10/22/24 12:35 10/22/24 12:35 10/22/24 12:35 Operation Date: 10/22/24 15:25 Proposed Procedures p Incision and Drainage of Spine - Neck Wound(Not Applicable) - Thomas Qureshi, DO Familial anesthetic complications: None Was Beta Sravanthi taken within 24 hours: N/A Was Clonidine taken within 24 hours: N/A Last intake: Intake Last Liquid Date 10/21/24 Last Liquid Time 23:30 Last Solid Date 10/21/24 Last Solid Time 23:30 Social Tobacco and No alcohol Exam alert, oriented x 3, clear to auscultation bilaterally and regular rate & rhythm Airway Mallampati: Class II Dentition: full Pulmonary Chronic Obstructive Pulmonary Disease and Sleep Apnea CV/HEM Hypertension Anesthetic Plan ASA status: 2 Anesthesia: General Risk of > 500 ml blood loss (7ml/kg in children): No Medications/Allergies Home Medications ?Medication ?Instructions ?Recorded ?Confirmed ?Last Taken ?Type nitroglycerin 0.4 mg sublingual 0.4 mg sublingual Q5M PRN chest 10/06/20 10/21/24 01/17/21 Rx tablet pain #25 tabs amlodipine 10 mg tablet 10 mg PO DAILY #30 tabs 12/31/22 10/21/24 10/21/24 Rx lisinopril 20 mg tablet 20 mg PO DAILY #30 tabs 12/31/22 10/21/24 10/21/24 Rx gabapentin 600 mg tablet 600 mg PO BID 30 days #60 tabs 09/22/24 10/21/24 10/21/24 Rx tizanidine 4 mg tablet 4 mg PO BID #60 tabs 09/22/24 10/21/24 10/21/24 Rx Bone Growth Stimulator #1 ea 09/30/24 10/21/24 10/21/24 Rx oxycodone-acetaminophen 10 mg-325 1 tab PO Q4H PRN pain 4 weeks #160 10/05/24 10/21/24 10/21/24 Rx mg tablet tabs oxycodone 10 mg tablet,crush 10 mg PO Q12H 7 days #14 tabs 10/12/24 10/21/24 Unknown Rx resistant,extended release 12 hr (OxyContin) Allergies Allergy/AdvReac Type Severity Reaction Status Date / Time No Known Allergies Allergy Verified 10/19/24 15:53 Current Medications Generic Name Dose Route Start Last Admin Trade Name Freq PRN Reason Stop Dose Admin Folic Acid 1 mg 10/22/24 09:00 10/22/24 09:33 Folic Acid 1 Mg Tablet PO 1 mg DAILY MARIANNE Administration Sodium Chloride 1,000 mls @ 90 mls/hr 10/21/24 22:45 10/22/24 10:36 Sodium Chloride 0.9% IV 90 mls/hr .[id number] MARIANNE Administration Morphine Sulfate 2 mg 10/21/24 22:42 10/22/24 11:57 Morphine 4 Mg/Ml Sdv 1 Ml IVP 2 mg Q1H PRN Administration SEVERE PAIN Multivitamins Therapeutic 1 tab 10/22/24 09:00 10/22/24 09:33 Multivitamin Therapeutic Tablet PO 1 tab DAILY MARIANNE Administration Thiamine Mononitrate 100 mg 10/22/24 09:00 10/22/24 09:33 Thiamine 100 Mg Tablet PO 100 mg DAILY MARIANNE Administration PFSH Anesthesia Medical History Syncope Acute hypokalemia Acute kidney injury Acute hypotension PAYAM (obstructive sleep apnea) Lumbar stenosis with neurogenic claudication Lumbar disc disease with radiculopathy Coronary artery disease HTN (hypertension) Mitral valve prolapse Lung disease, restrictive Smoker COPD (chronic obstructive pulmonary disease) Surgical History H/O hernia repair H/O shoulder surgery History of surgery on upper extremity History of cholecystectomy H/O vasectomy History of testicular surgery Family History Other CAD (coronary artery disease) Diabetes Hyperlipidemia Hypertension Denies family history of Stroke Social History Smoking and tobacco/nicotine status: current every day tobacco/nicotine user cigarettes Packs smoked per day: 0.5 Years cigarettes smoked: 30 [ Other cigarette details: Started at age 17] Alcohol intake: current Alcohol intake frequency: 3 or more drinks per day Alcohol type: beer Substance/Drug Use: never Lives independently: Yes Household members: spouse Marital status: service: No Current occupational status: unemployed Do you think of yourself as: Straight/Heterosexual Current gender identity: Male Data Anesthesia 10/22/24 02:19 10/22/24 02:19 Short CBC 10/21/24 10/22/24 Range/Units 19:41 02:19 WBC 9.09 8.65 (3.29-11.43) 10^3/uL Hgb 9.50 L 8.50 L (11.27-16.99) g/dL Hct 31.6 L 26.0 L (37-53) % MCV 103.3 H 93.5 D (82-101) fl Plt Count 376 333 (157-399) 10^3/cmm Neut % (Auto) 83.1 75.9 % Neut # (Auto) 7.56 6.57 (1.8-7.7) 10^3/uL BMP 10/21/24 10/22/24 19:41 02:19 Sodium 129 L 133 L Potassium 3.5 3.5 Chloride 91 L 96 L Carbon Dioxide 18 L 21 L BUN 11 9 Creatinine 0.8 0.7 Glucose 103 117 H Calcium 8.3 L 7.5 L Liver Function 10/21/24 Range/Units 19:41 Total Bilirubin 0.4 (0.15-1.2) mg/dL AST 47 H (0-40) U/L ALT 15 (0-41) U/L Alkaline Phosphatase 138 H (40-130) U/L Albumin 2.8 L (3.5-5.2) g/dL Coags 10/21/24 19:41 C-Reactive Protein 304.3 H Microbiology 10/21/24 19:41 Blood Culture - Preliminary Blood SPECIMEN COLLECTED 10/21/24 21:07 Blood Culture - Preliminary Blood SPECIMEN COLLECTED Cardiac Studies: Echocardiogram 12/30/22 Echocardiogram Ultrasound 04/03/20 Stress Echocardiogram 10/04/20
[2024-10-22] MEDS: midazolam 1 mg/mL INJ 2 mL 2 MG IVP (13:10)
[2024-10-22] MEDS: sodium chloride 0.9% 1,000 ML 30 ML IV (13:11)
[2024-10-22] MEDS: fentaNYL 50 mcg/mL INJ 2mL IVP ×2 (15:54→16:08)
--- NOTE | 2024-10-22 15:58 | P.OP_ITS ---
Operative Report Date of procedure: October 22, 2024 Pre-op diagnosis: Posterior neck wound infection Post-op diagnosis: same Procedure done: 1. Irrigation debridement down to bone of posterior neck wound 10 inches in length 1 inch deep Surgeon: Thomas Qureshi DO Estimated blood loss (mL): 50 Procedure: 1. Irrigation debridement down to bone of posterior neck wound 10 inches in length 1 inch deep Patient is brought to the op suite after undergoing anesthesia placed in prone position. All areas impingement well-padded. Patient's prepped draped also fashion. Once the skin was opened there was elkin purulence in the wound. As well as odor. The incision was opened from top to bottom. The sutures were removed. There was a breach in the fascia and the proximal end. The fascia stitch stitches were open as well. Retractors were placed spinous processes were made off where they look necrotic tissue that looked necrotic was debrided with sharp dissection with a knife to bleeding tissue. And a free bone graft was removed. Wound was then irrigated with 3 L of saline. There was no evidence of any dural leak at all. Vancomycin powder was placed deep. Cultures were taken. The cervical fascia layer was closed with PDS suture. A second drain was placed in the layer above the fascia. This was closed with 1 PDS as well. And then skin was closed with 2-0 PDS and Monocryl suture and Steri- Strips. Sterile dressings were applied and patient is transferred to the PACU i n stable condition.
--- NOTE | 2024-10-22 16:00 | PHA.VACGOAL ---
Vancomycin Goal - Goal Vancomycin Goal:: 10-15 mg/L Vancomycin Indication:: SSTI - Therapy Day of therpy:: Day []of [] . Actual body weight (kg): 174 lb 8 oz - Data Labs: WBC 8.65 10^3/uL (3.29-11.43) 10/22/24 02:19 RBC 2.78 10^6/uL (3.85-5.65) L 10/22/24 02:19 Hgb 8.50 g/dL (11.27-16.99) L 10/22/24 02:19 Hct 26.0 % (37-53) L 10/22/24 02:19 MCV 93.5 fl (82-101) D 10/22/24 02:19 MCH 30.6 pg (27-33) 10/22/24 02:19 MCHC 32.7 g/dL (30-55) D 10/22/24 02:19 RDW 16.4 % (12.1-15.1) H 10/22/24 02:19 Sodium 133 mmol/L (136-145) L 10/22/24 02:19 Potassium 3.5 mmol/L (3.5-5.1) 10/22/24 02:19 Chloride 96 mmol/L (98-107) L 10/22/24 02:19 Carbon Dioxide 21 mmol/L (22-29) L 10/22/24 02:19 Anion Gap 19.5 (5-19) H 10/22/24 02:19 BUN 9 mg/dL (6-20) 10/22/24 02:19 Creatinine 0.7 mg/dL (0.7-1.2) 10/22/24 02:19 GFR Calculation 118.9 mL/min (90-130) 10/22/24 02:19 Treatment plan:: new consult Regimen:: 1500 MG Q12H
--- NOTE | 2024-10-22 16:11 | PC.NURSE ---
oxygen - attempted to remove mask but sats would drop to 88. placed mask back on patient
[2024-10-22] MEDS: HYDROmorphone 1 mg/mL INJ 1ml 0.5 MG IVP (16:24)
--- NOTE | 2024-10-22 16:32 | PM.CONSULT ---
Providers/Reason For Consult Consulting Physician/Specialty*: dr. castle Reason for Consult*: surgical site infection Attending Physician: Thomas Castle DO Primary Care Provider: KUNAL Graves History of Present Illness History of Present Illness August Schneider is a 49 year old male with a past medical history of sleep apnea, emphysema, hypertension, COPD, who presents [facility] for irrigation debridement of posterior neck wound infection, patient had noticed increased drainage around her surgical site, no fevers, no chills, no chest pain, no shortness of breath, no nausea, no vomiting Review of Systems Card: Denies: chest pain Resp: Denies: dyspnea Medications/Allergies Home Medications ?Medication ?Instructions ?Recorded ?Confirmed ?Last Taken ?Type nitroglycerin 0.4 mg sublingual 0.4 mg sublingual Q5M PRN chest 10/06/20 10/21/24 01/17/21 Rx tablet pain #25 tabs amlodipine 10 mg tablet 10 mg PO DAILY #30 tabs 12/31/22 10/21/24 10/21/24 Rx lisinopril 20 mg tablet 20 mg PO DAILY #30 tabs 12/31/22 10/21/24 10/21/24 Rx gabapentin 600 mg tablet 600 mg PO BID 30 days #60 tabs 09/22/24 10/21/24 10/21/24 Rx tizanidine 4 mg tablet 4 mg PO BID #60 tabs 09/22/24 10/21/24 10/21/24 Rx Bone Growth Stimulator #1 ea 09/30/24 10/21/24 10/21/24 Rx oxycodone-acetaminophen 10 mg-325 1 tab PO Q4H PRN pain 4 weeks #160 10/05/24 10/21/24 10/21/24 Rx mg tablet tabs oxycodone 10 mg tablet,crush 10 mg PO Q12H 7 days #14 tabs 10/12/24 10/21/24 Unknown Rx resistant,extended release 12 hr (OxyContin) Allergies Allergy/AdvReac Type Severity Reaction Status Date / Time No Known Allergies Allergy Verified 10/19/24 15:53 Current Medications Generic Name Dose Route Start Last Admin Trade Name Freq PRN Reason Stop Dose Admin Folic Acid 1 mg 10/22/24 09:00 10/22/24 09:33 Folic Acid 1 Mg Tablet PO 1 mg DAILY MARIANNE Administration Hydromorphone HCl 0.5 mg 10/22/24 12:55 10/22/24 16:24 Hydromorphone 1 Mg/Ml Inj 1ml IVP 10/23/24 12:55 0.5 mg Q10M PRN Administration Pain level 7-10 PACU Phase I Sodium Chloride 1,000 mls @ 90 mls/hr 10/21/24 22:45 10/22/24 10:36 Sodium Chloride 0.9% IV 90 mls/hr .Q11H7M MARIANNE Administration Sodium Chloride 1,000 mls @ 30 mls/hr 10/22/24 13:00 10/22/24 15:35 Sodium Chloride 0.9% IV 10/23/24 12:59 Infused .Q24H MARIANNE Infusion Midazolam HCl 2 mg 10/22/24 12:55 10/22/24 13:10 Midazolam 1 Mg/Ml Inj 2 Ml IVP 2 mg Q5M PRN Administration Preop Anxiety Morphine Sulfate 2 mg 10/21/24 22:42 10/22/24 11:57 Morphine 4 Mg/Ml Sdv 1 Ml IVP 2 mg Q1H PRN Administration SEVERE PAIN Multivitamins Therapeutic 1 tab 10/22/24 09:00 10/22/24 09:33 Multivitamin Therapeutic Tablet PO 1 tab DAILY MARIANNE Administration Thiamine Mononitrate 100 mg 10/22/24 09:00 10/22/24 09:33 Thiamine 100 Mg Tablet PO 100 mg DAILY MARIANNE Administration PFSH Acute PFSH: Medical History Syncope Acute hypokalemia Acute kidney injury Acute hypotension PAYAM (obstructive sleep apnea) Lumbar stenosis with neurogenic claudication Lumbar disc disease with radiculopathy Coronary artery disease HTN (hypertension) Mitral valve prolapse Lung disease, restrictive Smoker COPD (chronic obstructive pulmonary disease) Surgical History H/O hernia repair H/O shoulder surgery History of surgery on upper extremity History of cholecystectomy H/O vasectomy History of testicular surgery Family History Other CAD (coronary artery disease) Diabetes Hyperlipidemia Hypertension Denies family history of Stroke Social History Smoking and tobacco/nicotine status: current every day tobacco/nicotine user cigarettes Packs smoked per day: 0.5 Years cigarettes smoked: 30 [ Other cigarette details: Started at age 17] Alcohol intake: current Alcohol intake frequency: 3 or more drinks per day Alcohol type: beer Substance/Drug Use: never Lives independently: Yes Household members: spouse Marital status: service: No Current occupational status: unemployed Do you think of yourself as: Straight/Heterosexual Current gender identity: Male Vitals/I&O/Wt Last Vital Signs Temp 112 F H 10/22/24 15:49 Pulse 105 H 10/22/24 16:29 Resp 17 10/22/24 16:29 BP 104/83 10/22/24 16:29 Pulse Ox 92 10/22/24 16:29 O2 Del Method Room Air 10/22/24 16:29 O2 Flow Rate 6 10/22/24 16:14 10/22/24 10/22/24 10/22/24 06:59 14:59 22:59 Intake Total 250 / 1250 1000 / 1000 1000 / 2000 Output Total 950 / 950 150 / 150 50 / 200 Balance -700 / 300 850 / 850 950 / 1800 Weight last 48 hrs Weight 79.152 kg Weight 83.915 kg Physical Exam Const: COMMON NORMALS: no acute distress and patient oriented x3 Eye: COMMON NORMALS: Equal, round and reactive pupils present PUPIL: Yes Equal, round and reactive pupils present OTHER: in cervical collar Resp: COMMON NORMALS: normal respiratory effort, No retractions, No use of accessory muscles and clear to auscultation bilaterally AUSCULTATION: clear to auscultation bilaterally Cardio: COMMON NORMALS: regular rate, regular rhythm, S1 normal heart sound present and S2 normal heart sound present RATE: regular rate RHYTHM: regular rhythm HEART SOUNDS: S1 normal heart sound present and S2 normal heart sound present GI: COMMON NORMALS: Normal to inspection, nondistended, normoactive bowel sounds present and non-tender Extremity: COMMON NORMALS: no pedal edema Neuro: COMMON NORMALS: patient oriented x3 Psych: COMMON NORMALS: mental status grossly normal Data 10/22/24 02:19 10/22/24 02:19 Micro: Microbiology 10/21/24 19:41 Blood Culture - Preliminary Blood SPECIMEN COLLECTED 10/21/24 21:07 Blood Culture - Preliminary Blood SPECIMEN COLLECTED A&P Assessment and plan (1) Status post cervical spinal fusion: (2) Surgical site infection: (3) HTN (hypertension): Qualifiers: Hypertension type: essential hypertension Qualified Code(s): I10 - Essential (primary) hypertension (4) Coronary artery disease: Qualifiers: Coronary Disease-Associated Artery/Lesion type: [place] artery [place] vs. transplanted heart: [place] heart Associated angina: with unspecified form of angina Qualified Code(s): I25.119 - Atherosclerotic heart disease of [place] coronary artery with unspecified angina pectoris (5) COPD (chronic obstructive pulmonary disease): Qualifiers: COPD type: unspecified COPD Qualified Code(s): J44.9 - Chronic obstructive pulmonary disease, unspecified (6) PAYAM (obstructive sleep apnea): (7) Tobacco dependence: Plan Surgical site infection -History of C2-T2 posterior cervical fusion -Posterior wound infection -Status post irrigation debridement down to bone of posterior neck, 10 inches in length, 1 inch deep Plan -Follow surgical cultures -Continue IV antibiotics -Vancomycin -Zosyn Hypertension, continue home blood pressure medications Neuropathy continue gabapentin Smoking history, smoking cessation counseling PDMP PDMP Reviewed: Not Reviewed Consult Attestations Medical Necessity Statement: Patient requires hospitalization for surgical site infection status post cervical spinal fusion Diagnoses Status post cervical spinal fusion Z98.1 Surgical site infection T81.49XA Essential hypertension I10 Hypertension type: essential hypertension Coronary artery disease involving [place] coronary artery of [place] heart with angina pectoris I25.119 Coronary Disease-Associated Artery/Lesion type: [place] artery [place] vs. transplanted heart: [place] heart Associated angina: with unspecified form of angina Chronic obstructive pulmonary disease, unspecified COPD type J44.9 COPD type: unspecified COPD PAYAM (obstructive sleep apnea) G47.33 Tobacco dependence F17.200
--- NOTE | 2024-10-22 16:50 | ANE.PACU2 ---
Inpatient post-anesthesia follow up: Airway intact: Yes Vital signs: Temperature 97.9 F Pulse Rate 85 Respiratory Rate 15 Blood Pressure 119/79 Pulse Oximetry 96 Oxygen Delivery Me thod Room Air Oxygen Flow Rate 6 Fraction of Inspir ed Oxygen Hydration adequate: Yes Nausea and vomiting: No Pain level: 1 Mental status: Baseline
[2024-10-22] MEDS: docusate sodium 100 mg Capsule PO (17:07)
[2024-10-22] MEDS: gabapentin 300 mg Capsule 600 MG PO (17:07)
[2024-10-22] MEDS: tizanidine 4 mg Tablet PO (17:07)
[2024-10-22] MEDS: vancomycin 1,500 MG/300 ML PIGGYBACK 200 MG IV (17:08)
[2024-10-22] MEDS: piperacillin-tazobactam 3.375 GM in sodium chloride 0.9% (plus) 50 ML IV (19:06)
[2024-10-22] MEDS: ketorolac 30 mg/mL INJ IVP (21:26)
[2024-10-23] VITALS (8 sets, daily range): BP systolic 96–126; BP diastolic 64–79; PULSE 82–93; RESP 15–19; TEMP 36.4–36.8; O2SAT 93–96
[2024-10-23] MEDS: acetaminophen 325 mg Tablet 650 MG PO (01:03)
[2024-10-23] MEDS: piperacillin-tazobactam 3.375 GM in sodium chloride 0.9% (plus) 50 ML IV ×3 (02:14→18:17)
[2024-10-23] MEDS: sodium chloride 0.9% 1,000 ML 90 ML IV (02:16)
[2024-10-23] MEDS: vancomycin 1,500 MG/300 ML PIGGYBACK 200 MG IV ×2 (04:08→16:18)
[2024-10-23] MEDS: ketorolac 30 mg/mL INJ IVP (04:09)
--- NOTE | 2024-10-23 08:02 | P.PN_ITS ---
Subjective 2 Subjective: Patient is resting in bed pain is improved from preoperatively. Patient stated he is feeling better Vitals/I&O/Wt Last Vital Signs Temp 97.9 F 10/23/24 07:22 Pulse 85 10/23/24 07:22 Resp 15 10/23/24 07:22 BP 119/79 10/23/24 07:22 Pulse Ox 96 10/23/24 07:22 O2 Del Method Room Air 10/23/24 07:22 O2 Flow Rate 6 10/22/24 16:14 10/22/24 10/23/24 10/23/24 22:59 06:59 14:59 Intake Total 1850 / 2850 798 / 3648 Output Total 50 / 200 1050 / 1250 Balance 1800 / 2650 -252 / 2398 Weight last 48 hrs Weight 189 lb 3.2 oz Weight 174 lb 8 oz Weight 185 lb Physical Exam 2 Narrative: Resting in bed brace in place. Data 10/22/24 02:19 10/22/24 02:19 Micro: Microbiology 10/21/24 21:07 Blood Culture - Preliminary Blood NEGATIVE TO DATE 10/21/24 19:41 Blood Culture - Preliminary Blood NEGATIVE TO DATE A&P Assessment and plan (1) Status post cervical spinal fusion: Patient is postop day #1 irrigation debridement of neck wound. Will continue to monitor likely will need PICC line PDMP PDMP Reviewed: Not Reviewed Attestations 2 Medical Necessity Statement*: Pain control Coding Level of Care Code Acute Code for Chg Fwd Diagnoses Status post cervical spinal fusion Z98.1
[2024-10-23] MEDS: gabapentin 300 mg Capsule 600 MG PO ×2 (09:16→18:16)
[2024-10-23] MEDS: docusate sodium 100 mg Capsule PO ×2 (09:16→18:17)
[2024-10-23] MEDS: folic acid 1 mg Tablet PO (09:16)
[2024-10-23] MEDS: thiamine 100 mg Tablet PO (09:16)
[2024-10-23] MEDS: lisinopril 20 mg Tablet PO (09:16)
[2024-10-23] MEDS: tizanidine 4 mg Tablet PO ×2 (09:16→18:16)
[2024-10-23] MEDS: multivitamin therapeutic Tablet 1 TAB PO (09:16)
[2024-10-23] MEDS: amlodipine 10 mg Tablet PO (09:16)
[2024-10-23 10:04] LABS: Basophils % 0.1 %; Hematocrit 24.6 % (37-53); Lymphocytes # 0.8 10^3/uL (0.8-4.8); Lymphocytes % 8.2 %; Mean Corpuscular HGB Conc 30.5 g/dL (30-55); Mean Corpuscular Hemoglobin 30.6 pg (27-33); Mean Corpuscular Volume 100.4 fl (82-101); Mean Platelet Volume 9.9 fL (7.4-10.4); Monocytes # 0.6 10^3/uL (0.2-0.9); Monocytes % 6.4 %; Neutrophils # 7.98 10^3/uL (1.8-7.7); Neutrophils % 84.9 %; Nucleated Red Blood Cells % 0 %; Platelet Count 334 10^3/cmm (157-399); Red Blood Count 2.45 10^6/uL (3.85-5.65); Red Cell Distribution Width 16.3 % (12.1-15.1)
[2024-10-23 10:23] LABS: Alanine Aminotransferase 13 U/L (0-41); Albumin Level 2.4 g/dL (3.5-5.2); Alkaline Phosphatase 110 U/L (40-130); Anion Gap 16.4 (5-19); Aspartate Amino Transferase 34 U/L (0-40); Blood Urea Nitrogen 16 mg/dL (6-20); Calcium 7.8 mg/dL (8.5-10.5); Carbon Dioxide 21 mmol/L (22-29); Chloride 100 mmol/L (98-107); Estmated Average Glucose 114; Globulin 3.5 g/dL (1.3-4.6); Glomerular Filtration Rate 118.9 mL/min (90-130); Glucose 112 mg/dL (65-115); Hemoglobin A1C 5.6 % (4.0-6.0); Osmolality Calculated 280 mOsm/kg (285-295); Potassium 3.4 mmol/L (3.5-5.1); Sodium 134 mmol/L (136-145); Total Bilirubin 0.3 mg/dL (0.15-1.2); Total Protein 5.9 g/dL (6.6-8.7)
[2024-10-23] MEDS: LORazepam 2 mg/mL INJ 1 mL IVP ×2 (12:20→20:46)
[2024-10-23] MEDS: oxyCODONE-APAP 10-325 mg Tablet PO ×2 (12:20→18:22)
--- NOTE | 2024-10-23 14:57 | PM.PN ---
Subjective Subjective: Patient was seen this morning, he was seen ambulating with physical therapy, he is alert oriented x 3, following all commands, no fevers, no chills, discussed wearing his SCDs, continuing calf raises calf exercises, nursing staff have been concerned for episodes of confusion, possible alcohol withdrawal Vitals/I&O/Wt Last Vital Signs Temp 98.0 F 10/23/24 11:28 Pulse 82 10/23/24 11:28 Resp 16 10/23/24 12:20 BP 126/76 10/23/24 11:28 Pulse Ox 95 10/23/24 11:28 O2 Del Method Room Air 10/23/24 11:28 O2 Flow Rate 6 10/22/24 16:14 10/22/24 10/23/24 10/23/24 22:59 06:59 14:59 Intake Total 1850 / 2850 798 / 3648 40 / 40 Output Total 50 / 200 1050 / 1250 Balance 1800 / 2650 -252 / 2398 40 / 40 Weight last 48 hrs Weight 85.82 kg Weight 79.152 kg Weight 83.915 kg Physical Exam Const: COMMON NORMALS: no acute distress and patient oriented x3 Neck/C-Spine: OTHER: Currently in a [place] J collar Resp: COMMON NORMALS: normal respiratory effort, No retractions, No use of accessory muscles and clear to auscultation bilaterally AUSCULTATION: clear to auscultation bilaterally Cardio: COMMON NORMALS: regular rate, regular rhythm, S1 normal heart sound present and S2 normal heart sound present RATE: regular rate RHYTHM: regular rhythm HEART SOUNDS: S1 normal heart sound present and S2 normal heart sound present GI: COMMON NORMALS: Normal to inspection, nondistended, normoactive bowel sounds present and non-tender Extremity: COMMON NORMALS: no pedal edema Neuro: COMMON NORMALS: patient oriented x3, CN's II-XII intact bilaterally and moves all extremities OTHER: No significant tremor, no visual or auditory or tactile hallucination Psych: COMMON NORMALS: mental status grossly normal Data 10/23/24 09:47 10/23/24 09:47 Micro: Microbiology 10/21/24 20:26 Wound Culture - Preliminary Other Source 10/21/24 21:07 Blood Culture - Preliminary Blood NEGATIVE TO DATE 10/21/24 19:41 Blood Culture - Preliminary Blood NEGATIVE TO DATE A&P Assessment and plan (1) Status post cervical spinal fusion: (2) Surgical site infection: (3) HTN (hypertension): Qualifiers: Hypertension type: essential hypertension Qualified Code(s): I10 - Essential (primary) hypertension (4) Coronary artery disease: Qualifiers: Coronary Disease-Associated Artery/Lesion type: [place] artery [place] vs. transplanted heart: [place] heart Associated angina: with unspecified form of angina Qualified Code(s): I25.119 - Atherosclerotic heart disease of [place] coronary artery with unspecified angina pectoris (5) COPD (chronic obstructive pulmonary disease): Qualifiers: COPD type: unspecified COPD Qualified Code(s): J44.9 - Chronic obstructive pulmonary disease, unspecified (6) PAYAM (obstructive sleep apnea): (7) Tobacco dependence: (8) Alcohol withdrawal: (9) Postoperative anemia: Plan Surgical site infection -History of C2-T2 posterior cervical fusion -Posterior wound infection -Status post irrigation debridement down to bone of posterior neck, 10 inches in length, 1 inch deep Plan -Follow surgical cultures -Follow blood cultures -Continue IV antibiotics -Vancomycin -Zosyn -Will likely need PICC line placement, infectious disease consultation Hypertension, continue home blood pressure medications Neuropathy continue gabapentin Smoking history, smoking cessation counseling Postoperative anemia -Hemoglobin down to 7.5 -Repeat hemoglobin this afternoon History of alcoholism -Currently concerns for alcohol withdrawal -[facility] protocol Full code SCDs for DVT prophylaxis, Lovenox currently on hold, due to postoperative anemia, plan on resuming tomorrow PDMP PDMP Reviewed: Not Reviewed Attestations Medical Necessity Statement*: Patient requires hospitalization for surgical site infection, postoperative anemia Diagnoses Status post cervical spinal fusion Z98.1 Surgical site infection T81.49XA Essential hypertension I10 Hypertension type: essential hypertension Coronary artery disease involving [place] coronary artery of [place] heart with angina pectoris I25.119 Coronary Disease-Associated Artery/Lesion type: [place] artery [place] vs. transplanted heart: [place] heart Associated angina: with unspecified form of angina Chronic obstructive pulmonary disease, unspecified COPD type J44.9 COPD type: unspecified COPD PAYAM (obstructive sleep apnea) G47.33 Tobacco dependence F17.200 Alcohol withdrawal F10.939 Postoperative anemia D64.9
[2024-10-23 15:46] LABS: Basophils % 0.1 %; Hematocrit 25.7 % (37-53); Lymphocytes % 10.2 %; Mean Corpuscular HGB Conc 31.1 g/dL (30-55); Mean Corpuscular Hemoglobin 30.3 pg (27-33); Mean Corpuscular Volume 97.3 fl (82-101); Mean Platelet Volume 9.8 fL (7.4-10.4); Monocytes # 0.8 10^3/uL (0.2-0.9); Monocytes % 8.3 %; Neutrophils # 7.86 10^3/uL (1.8-7.7); Neutrophils % 80.7 %; Nucleated Red Blood Cells % 0 %; Platelet Count 370 10^3/cmm (157-399); Red Blood Count 2.64 10^6/uL (3.85-5.65); Red Cell Distribution Width 16.2 % (12.1-15.1); White Blood Count 9.74 10^3/uL (3.29-11.43)
[2024-10-23] MEDS: PHENobarbital 130 mg/mL SDV 1 mL 60 MG IVP (23:24)
[2024-10-24] VITALS (33 sets, daily range): BP systolic 101–162; BP diastolic 68–97; PULSE 71–109; RESP 13–30; TEMP 36.8–37.1; O2SAT 87–100
[2024-10-24] MEDS: LORazepam 2 mg/mL INJ 1 mL IVP (02:00)
[2024-10-24] MEDS: piperacillin-tazobactam 3.375 GM in sodium chloride 0.9% (plus) 50 ML IV ×3 (03:26→18:24)
[2024-10-24 03:56] LABS: Basophils % 0.1 %; Eosinophils % 0.2 %; Hematocrit 26.7 % (37-53); Lymphocytes # 1.1 10^3/uL (0.8-4.8); Lymphocytes % 13.5 %; Mean Corpuscular HGB Conc 30.7 g/dL (30-55); Mean Corpuscular Hemoglobin 30.3 pg (27-33); Mean Corpuscular Volume 98.5 fl (82-101); Mean Platelet Volume 9.8 fL (7.4-10.4); Monocytes # 0.7 10^3/uL (0.2-0.9); Monocytes % 8.1 %; Neutrophils # 6.26 10^3/uL (1.8-7.7); Neutrophils % 77.1 %; Nucleated Red Blood Cells % 0 %; Platelet Count 409 10^3/cmm (157-399); Red Blood Count 2.71 10^6/uL (3.85-5.65); Red Cell Distribution Width 16.5 % (12.1-15.1); White Blood Count 8.13 10^3/uL (3.29-11.43)
[2024-10-24] MEDS: vancomycin 1,500 MG/300 ML PIGGYBACK 200 MG IV ×2 (04:11→15:48)
[2024-10-24] MEDS: oxyCODONE-APAP 10-325 mg Tablet PO ×3 (04:14→22:03)
[2024-10-24 04:32] LABS: Anion Gap 16.5 (5-19); Blood Urea Nitrogen 10 mg/dL (6-20); Calcium 8.2 mg/dL (8.5-10.5); Carbon Dioxide 23 mmol/L (22-29); Chloride 104 mmol/L (98-107); Glomerular Filtration Rate 118.9 mL/min (90-130); Glucose 104 mg/dL (65-115); Osmolality Calculated 289 mOsm/kg (285-295); Potassium 3.5 mmol/L (3.5-5.1); Sodium 140 mmol/L (136-145)
[2024-10-24] MEDS: gabapentin 300 mg Capsule 600 MG PO ×2 (08:22→17:23)
[2024-10-24] MEDS: amlodipine 10 mg Tablet PO (08:24)
[2024-10-24] MEDS: docusate sodium 100 mg Capsule PO ×2 (08:24→17:23)
[2024-10-24] MEDS: folic acid 1 mg Tablet PO (08:24)
[2024-10-24] MEDS: tizanidine 4 mg Tablet PO ×2 (08:24→17:23)
[2024-10-24] MEDS: multivitamin therapeutic Tablet 1 TAB PO (08:24)
[2024-10-24] MEDS: lisinopril 20 mg Tablet PO (08:24)
[2024-10-24] MEDS: thiamine 100 mg Tablet PO (08:24)
[2024-10-24] MEDS: LORazepam 2 mg Tablet PO (09:29)
[2024-10-24] MEDS: chlordiazePOXIDE 25 mg Capsule PO ×2 (09:40→11:44)
--- NOTE | 2024-10-24 10:12 | CTR_ITS ---
PROCEDURE INFORMATION: Exam: CT Head Without Contrast Exam date and time: 10/24/2024 10:35 AM Age: 49 years old Clinical indication: Altered mental status/memory loss; Confusion or disorientation; Additional info: AMS, alcohol withdrawl TECHNIQUE: Imaging protocol: Computed tomography of the head without contrast. Radiation optimization: All CT scans at this facility use at least one of these dose optimization techniques: automated exposure control; mA and/or kV adjustment per patient size (includes targeted exams where dose is matched to clinical indication); or iterative reconstruction. COMPARISON: CT head wo con* [id number] 12/30/2022 1:41 AM RADIATION DOSE METRICS: Total DLP (mGy-cm): 890.15 FINDINGS: Brain: Normal. No hemorrhage. Unremarkable white matter. No mass effect. Cerebral ventricles: No ventriculomegaly. Paranasal sinuses: Visualized sinuses are unremarkable. No fluid levels. Mastoid air cells: Visualized mastoid air cells are well aerated. Bones: Unremarkable. No acute fracture. Soft tissues: Unremarkable. CT/CT head wo con* [id number] IMPRESSION: No large territorial infarct or intracranial bleed.
[2024-10-24] MEDS: dexmedeTOMIDine 0.9 % NaCL 400 MCG/100 ML PREMIX IV (11:45)
[2024-10-24 12:46] LABS: Ammonia 31 umol/L (16-60)
--- NOTE | 2024-10-24 13:22 | P.PN_ITS ---
Subjective 2 Subjective: Patient is status post I&D postop day #2. Patient has a history of drinking and is moved to the ICU for potential withdrawal from alcohol Vitals/I&O/Wt Last Vital Signs Temp 98.7 F 10/24/24 12:00 Pulse 83 10/24/24 12:00 Resp 21 H 10/24/24 12:00 BP 133/79 10/24/24 12:00 Pulse Ox 98 10/24/24 12:00 O2 Del Method Nasal Cannula 10/24/24 12:00 O2 Flow Rate 2 10/24/24 12:00 10/23/24 10/24/24 10/24/24 22:59 06:59 14:59 Intake Total 1640.000 / 1680.000 350 / 2030.000 61.598 / 61.598 Output Total 75 / 75 Balance 1640.000 / 1680.000 350 / 2030.000 -13.402 / -13.402 Weight last 48 hrs Weight 187 lb 12.8 oz Weight 189 lb 3.2 oz Physical Exam 2 Narrative: Patient is resting comfortably. He had ripped out one of his drains. Data 10/24/24 02:54 10/24/24 02:54 Micro: Microbiology 10/22/24 14:20 Gram Stain - Final Neck Anaerobic Culture - Preliminary Wound Culture - Preliminary 10/21/24 20:26 Wound Culture - Preliminary Other Source A&P Assessment and plan (1) Status post cervical spinal fusion: Patient is postop day #2. My plan tomorrow is to teen counselor infectious disease for PICC line and antibiotic treatment. PDMP PDMP Reviewed: Not Reviewed Attestations 2 Medical Necessity Statement*: In ICU with withdrawals. Coding Level of Care Code Acute Code for Chg Fwd Diagnoses Status post cervical spinal fusion Z98.1
--- NOTE | 2024-10-24 14:34 | PM.PN ---
Subjective Subjective: Patient was examined this morning, he is sitting up beside the bed, having tremors of bilateral upper lower extremities, he is alert to person, not to place, not to time, he can follow commands, but is quite confused, is at bedside, tells me that patient drinks whiskey daily, he can drink a bottle of whiskey over 1 to 3 days, his last drink was roughly , pupils equal round reactive light, he can follow commands no focal weakness but tachycardic, diaphoretic, tremulous, he is received Ativan this morning and overnight he did receive phenobarbital -Patient was moved down to ICU, was given 50 mg of p.o. Librium, and started on Precedex drip -CT head ordered within normal limits -Ammonia levels within normal limits -Patient's was seen in the ICU he is resting more comfortably, after the Librium, the Precedex, is at bedside, due to discussion with ,, plan on continue monitoring ICU, continue CIWA protocol continue Librium, will consider further doses of phenobarbital based on clinical Progress but he is quite comfortable currently Vitals/I&O/Wt Last Vital Signs Temp 98.7 F 10/24/24 12:00 Pulse 83 10/24/24 12:00 Resp 21 H 10/24/24 12:00 BP 133/79 10/24/24 12:00 Pulse Ox 98 10/24/24 12:00 O2 Del Method Nasal Cannula 10/24/24 12:00 O2 Flow Rate 2 10/24/24 12:00 10/23/24 10/24/24 10/24/24 22:59 06:59 14:59 Intake Total 1640.000 / 1680.000 350 / 2030.000 67.455 / 67.455 Output Total 75 / 75 Balance 1640.000 / 1680.000 350 / 2030.000 -7.545 / -7.545 Weight last 48 hrs Weight 85.185 kg Weight 85.82 kg Physical Exam Const: COMMON NORMALS: no acute distress EXAM LIMITATIONS: altered mental status ORIENTATION/CONSCIOUSNESS: Yes awake, Yes oriented to person and Yes confused; not oriented to place and not oriented to time Eye: COMMON NORMALS: Equal, round and reactive pupils present PUPIL: Yes Equal, round and reactive pupils present Neck/C-Spine: COMMON NORMALS: no JVD Resp: COMMON NORMALS: normal respiratory effort, No retractions, No use of accessory muscles and clear to auscultation bilaterally AUSCULTATION: clear to auscultation bilaterally Cardio: COMMON NORMALS: no JVD, regular rate, regular rhythm, S1 normal heart sound present and S2 normal heart sound present RATE: regular rate RHYTHM: regular rhythm HEART SOUNDS: S1 normal heart sound present and S2 normal heart sound present GI: COMMON NORMALS: Normal to inspection, nondistended, normoactive bowel sounds present and non-tender Extremity: COMMON NORMALS: no calf tenderness and no pedal edema Neuro: SENSORIUM/ORIENTATION: Yes oriented to person, No oriented to place and No oriented to time Skin: OTHER: Surgical site looks clean and dry Data 10/24/24 02:54 10/24/24 02:54 Micro: Microbiology 10/22/24 14:20 Gram Stain - Final Neck Anaerobic Culture - Preliminary Wound Culture - Preliminary 10/21/24 20:26 Wound Culture - Preliminary Other Source A&P Assessment and plan (1) Status post cervical spinal fusion: (2) Surgical site infection: (3) HTN (hypertension): Qualifiers: Hypertension type: essential hypertension Qualified Code(s): I10 - Essential (primary) hypertension (4) Coronary artery disease: Qualifiers: Coronary Disease-Associated Artery/Lesion type: [place] artery [place] vs. transplanted heart: [place] heart Associated angina: with unspecified form of angina Qualified Code(s): I25.119 - Atherosclerotic heart disease of [place] coronary artery with unspecified angina pectoris (5) COPD (chronic obstructive pulmonary disease): Qualifiers: COPD type: unspecified COPD Qualified Code(s): J44.9 - Chronic obstructive pulmonary disease, unspecified (6) PAYAM (obstructive sleep apnea): (7) Tobacco dependence: (8) Alcohol withdrawal: (9) Postoperative anemia: Plan Surgical site infection -History of C2-T2 posterior cervical fusion -Posterior wound infection -Status post irrigation debridement down to bone of posterior neck, 10 inches in length, 1 inch deep -Surgical site Plan -Follow surgical cultures -Follow blood cultures -Continue IV antibiotics -Vancomycin -Zosyn -Will likely need PICC line placement tomorrow, infectious disease consultation Hypertension, continue home blood pressure medications Neuropathy continue gabapentin Smoking history, smoking cessation counseling Postoperative anemia -Hemoglobin down to 8.2 -Monitor hemoglobin Acute alcohol withdrawal, moderate to severe -Currently in the ICU -CIWA protocol -Librium 50 every 6h -Precedex drip -Status post 1 dose of phenobarbital 60 mg -Monitor mentation closely -Folic acid, thiamine Full code SCDs for DVT prophylaxis, Lovenox PDMP PDMP Reviewed: Not Reviewed Attestations Medical Necessity Statement*: Patient requires hospitalization for surgical site infection requiring IV antibiotics, alcohol withdrawal Diagnoses Status post cervical spinal fusion Z98.1 Surgical site infection T81.49XA Essential hypertension I10 Hypertension type: essential hypertension Coronary artery disease involving [place] coronary artery of [place] heart with angina pectoris I25.119 Coronary Disease-Associated Artery/Lesion type: [place] artery [place] vs. transplanted heart: [place] heart Associated angina: with unspecified form of angina Chronic obstructive pulmonary disease, unspecified COPD type J44.9 COPD type: unspecified COPD PAYAM (obstructive sleep apnea) G47.33 Tobacco dependence F17.200 Alcohol withdrawal F10.939 Postoperative anemia D64.9
[2024-10-24] MEDS: chlordiazePOXIDE 25 mg Capsule 50 MG PO ×2 (15:01→22:03)
[2024-10-24 15:14] LABS: Vancomycin Trough 19.1 ug/mL (10-15)
[2024-10-24 17:02] LABS: Lactic Sepsis W/Reflex 0.9 mmol/L (0.5-2.2)
[2024-10-24] MEDS: enoxaparin 40 mg/0.4 mL Syringe SUBCUT (17:23)
[2024-10-24 21:03] LABS: Glucose Point of Care 104 mg/dL (70-110)
[2024-10-25] VITALS (50 sets, daily range): BP systolic 81–123; BP diastolic 56–87; PULSE 69–92; RESP 14–26; TEMP 36.4–37.6; O2SAT 91–100
[2024-10-25] MEDS: vancomycin 1,500 MG/300 ML PIGGYBACK 200 MG IV ×2 (03:20→15:25)
[2024-10-25] MEDS: chlordiazePOXIDE 25 mg Capsule 50 MG PO ×4 (03:25→21:17)
[2024-10-25] MEDS: morphine 4 mg/mL SDV 1 mL 2 MG IVP ×2 (04:31→08:21)
[2024-10-25 04:41] LABS: Basophils % 0.5 %; Eosinophils # 0.1 10^3/uL (0.0-0.8); Eosinophils % 2.1 %; Hematocrit 23.5 % (37-53); Lymphocytes # 1.5 10^3/uL (0.8-4.8); Lymphocytes % 24.2 %; Mean Corpuscular HGB Conc 31.1 g/dL (30-55); Mean Corpuscular Hemoglobin 31.1 pg (27-33); Mean Platelet Volume 9.7 fL (7.4-10.4); Monocytes # 0.6 10^3/uL (0.2-0.9); Neutrophils # 3.94 10^3/uL (1.8-7.7); Neutrophils % 62.3 %; Nucleated Red Blood Cells % 0 %; Platelet Count 388 10^3/cmm (157-399); Red Blood Count 2.35 10^6/uL (3.85-5.65); Red Cell Distribution Width 16.5 % (12.1-15.1); White Blood Count 6.32 10^3/uL (3.29-11.43)
[2024-10-25 05:00] LABS: Anion Gap 15.4 (5-19); Blood Urea Nitrogen 7 mg/dL (6-20); Calcium 7.8 mg/dL (8.5-10.5); Carbon Dioxide 23 mmol/L (22-29); Chloride 101 mmol/L (98-107); Glucose 92 mg/dL (65-115); Osmolality Calculated 280 mOsm/kg (285-295); Potassium 3.4 mmol/L (3.5-5.1); Sodium 136 mmol/L (136-145)
[2024-10-25] MEDS: piperacillin-tazobactam 3.375 GM in sodium chloride 0.9% (plus) 50 ML IV ×3 (05:19→19:36)
--- NOTE | 2024-10-25 08:08 | PC.NURSE ---
Patient's Hemovac drain was discontinued per Dr. Qureshi's orders. Dressing was replaced on the incision and new dressing was applied over the drain site.
[2024-10-25] MEDS: folic acid 1 mg Tablet PO (08:20)
[2024-10-25] MEDS: amlodipine 10 mg Tablet PO (08:20)
[2024-10-25] MEDS: multivitamin therapeutic Tablet 1 TAB PO (08:20)
[2024-10-25] MEDS: tizanidine 4 mg Tablet PO ×2 (08:20→17:11)
[2024-10-25] MEDS: gabapentin 300 mg Capsule 600 MG PO ×2 (08:20→17:11)
[2024-10-25] MEDS: docusate sodium 100 mg Capsule PO ×2 (08:20→17:11)
[2024-10-25] MEDS: lisinopril 20 mg Tablet PO (08:20)
[2024-10-25] MEDS: thiamine 100 mg Tablet PO (08:20)
[2024-10-25] MEDS: pantoprazole 40 mg SDV IVP ×2 (09:16→21:30)
[2024-10-25] MEDS: oxyCODONE-APAP 10-325 mg Tablet 1 TAB PO ×4 (09:17→23:16)
--- NOTE | 2024-10-25 09:18 | XRR_ITS ---
PROCEDURE INFORMATION: Exam: XR Chest Exam date and time: 10/25/2024 8:51 AM Age: 49 years old Clinical indication: Device placement; Picc; Additional info: Post picc insertion, bautista placing in icu 2. Should be ready at 0950 TECHNIQUE: Imaging protocol: Radiologic exam of the chest. Views: 1 view. Total images: 1 COMPARISON: CT chest wo jose [id number] 01/14/2023 11:11 AM FINDINGS: Tubes, catheters and devices: A PICC line has been placed via the right upper extremity approach with line tip projecting at location expected for the superior cavoatrial junction. Lungs: Lung volumes are shallow. Bibasilar density favored to represent atelectasis. Pleural spaces: No pleural effusion identified. Heart/Mediastinum: Cardiomediastinal silhouette does not appear enlarged allowing for technical factors. Bones/joints: Previous cervicothoracic spinal fusion with hardware. XR/XR chest 1V portable [id number] IMPRESSION: 1. PICC line tip projects at superior cavoatrial junction. 2. Bibasilar densities likely atelectasis in the setting of shallow inspiration.
--- NOTE | 2024-10-25 09:41 | P.PN_ITS ---
Subjective 2 Subjective: Patient is more alert today somewhat confused. Pain seems to be improved as well. Vitals/I&O/Wt Last Vital Signs Temp 99.7 F H 10/25/24 08:30 Pulse 91 10/25/24 08:30 Resp 19 H 10/25/24 09:17 BP 118/87 10/25/24 09:00 Pulse Ox 98 10/25/24 09:17 O2 Del Method Room Air 10/25/24 08:30 O2 Flow Rate 2 10/25/24 06:00 10/24/24 10/25/24 10/25/24 22:59 06:59 14:59 Intake Total 602.327 / 719.782 506.213 / 1225.995 240 / 240 Output Total 875 / 950 700 / 1650 Balance -272.673 / -230.218 -193.787 / -424.005 240 / 240 Weight last 48 hrs Weight 178 lb 9.191 oz Weight 187 lb 12.8 oz Physical Exam 2 Narrative: Patient sitting up in bed drain was pulled. Nurses at the bedside. As well as the . Data 10/25/24 03:48 10/25/24 03:48 Micro: Microbiology 10/22/24 14:20 Gram Stain - Final Neck Anaerobic Culture - Preliminary Wound Culture - Preliminary 10/21/24 20:26 Wound Culture - Preliminary Other Source A&P Assessment and plan (1) Status post cervical spinal fusion: Patient is postop day 3 from irrigation debridement of neck wound. Awaiting cultures I consulted infectious disease PDMP PDMP Reviewed: Not Reviewed Attestations 2 Medical Necessity Statement*: Pain control Coding Level of Care Code Acute Code for Chg Fwd Diagnoses Status post cervical spinal fusion Z98.1
--- NOTE | 2024-10-25 10:27 | PICC.NOTE ---
Double lumen PICC placed to right basilic vein. Referred to vascular access nurse for PICC placement due to need for IV antibiotics x 6 weeks. Risks and benefits discussed and informed consent obtained from pt with present. Right arm assessed with right basilic vein measuring 4.5 mm, straight, and apparent best choice for placement. Using sterile technique and MST, right basilic vein accessed x 1 stick. Mid-arm circumference measured 10 cm from right AC 25 cm. Trimmed cath 45 cm with 1 cm external length noted. CXR shows tip in cavoatrial junction, in good position for use per radiologist. Line secured with stat-lock. Insertion site covered with Biopatch and TSM. Report given to bedside nurse, ERNESTO Nunez.
[2024-10-25 10:36] LABS: Iron 14 ug/dL (59-158); Percent Saturation 9.7 % (20-50); Thyroid Stimulating Hormone 2.95 uIU/mL (0.27-4.20); Total Iron Binding Capacity 144 mcg/dl; Unsaturated Iron Binding 130 ug/dL (112-347); Vitamin B12 306 pg/mL (232-1245)
[2024-10-25 10:51] LABS: MRSA PCR OZH (swab) NOT DETECTED (Negative)
--- NOTE | 2024-10-25 11:02 | PC.NURSE ---
Dr. Tian ordered to put in a consult for infectious disease specialists Dr. García for possible wound infection.
[2024-10-25] MEDS: ketorolac 30 mg/mL INJ IVP ×2 (11:39→23:15)
[2024-10-25 14:21] LABS: C.Diff PCR (Lab) NEGATIVE (Negative)
--- NOTE | 2024-10-25 14:36 | P.PN_ITS ---
Subjective 2 Subjective: Hospital course, labs appreciated. Examination comfortably in bed. Seen with spouse at bedside. Patient did have episode of soft blood pressure earlier today morning. More awake and alert today as per the family members. Able to have conversation. Denies any nausea, vomiting, headache. Seems to be less incoherent as per the spouse today. Patient complaining of pain in the neck specially on trying to set up. Precedex weaned off overnight. Vitals/I&O/Wt Last Vital Signs Temp 98.9 F 10/25/24 12:00 Pulse 80 10/25/24 13:16 Resp 22 H 10/25/24 12:00 BP 100/69 10/25/24 12:00 Pulse Ox 99 10/25/24 12:00 O2 Del Method Room Air 10/25/24 12:00 O2 Flow Rate 2 10/25/24 06:00 10/24/24 10/25/24 10/25/24 22:59 06:59 14:59 Intake Total 602.327 / 719.782 506.213 / 1225.995 290 / 290 Output Total 875 / 950 700 / 1650 150 / 150 Balance -272.673 / -230.218 -193.787 / -424.005 140 / 140 Weight last 48 hrs Weight 81 kg Weight 85.185 kg Physical Exam 2 Const: COMMON NORMALS: no acute distress and patient oriented x3 GENERAL APPEARANCE: lethargic ORIENTATION/CONSCIOUSNESS: Yes awake, Yes oriented to person, Yes oriented to place, Yes oriented to time and Yes lethargic Eye: COMMON NORMALS: Equal, round and reactive pupils present PUPIL: Yes Equal, round and reactive pupils present OTHER: in cervical collar Neck/C-Spine: COMMON NORMALS: no JVD OTHER: Currently in a [place] J collar Resp: COMMON NORMALS: normal respiratory effort, No retractions, No use of accessory muscles and clear to auscultation bilaterally AUSCULTATION: clear to auscultation bilaterally Cardio: COMMON NORMALS: no JVD, regular rate, regular rhythm, S1 normal heart sound present and S2 normal heart sound present RATE: regular rate RHYTHM: regular rhythm HEART SOUNDS: S1 normal heart sound present and S2 normal heart sound present GI: COMMON NORMALS: Normal to inspection, nondistended, normoactive bowel sounds present and non-tender Extremity: COMMON NORMALS: no calf tenderness and no pedal edema Neuro: COMMON NORMALS: patient oriented x3, CN's II-XII intact bilaterally and moves all extremities SENSORIUM/ORIENTATION: Yes oriented to person, Yes oriented to place, Yes oriented to time and Yes lethargic OTHER: No significant tremor, no visual or auditory or tactile hallucination Psych: COMMON NORMALS: mental status grossly normal Skin: OTHER: Surgical site looks clean and dry Data 10/25/24 03:48 10/25/24 03:48 Micro: Microbiology 10/25/24 12:49 Occult Blood (FIT) - Final Stool - Stool Aspirate 10/22/24 14:20 Gram Stain - Final Neck Anaerobic Culture - Preliminary Wound Culture - Final 10/21/24 20:26 Wound Culture - Final Other Source A&P Assessment and plan (1) Status post cervical spinal fusion: (2) Surgical site infection: (3) Alcohol withdrawal: (4) Postoperative anemia: (5) HTN (hypertension): Qualifiers: Hypertension type: essential hypertension Qualified Code(s): I10 - Essential (primary) hypertension (6) Coronary artery disease: Qualifiers: Coronary Disease-Associated Artery/Lesion type: [place] artery [place] vs. transplanted heart: grand traverse heart Associated angina: with unspecified form of angina Qualified Code(s): I25.119 - Atherosclerotic heart disease of [place] coronary artery with unspecified angina pectoris (7) COPD (chronic obstructive pulmonary disease): Qualifiers: COPD type: unspecified COPD Qualified Code(s): J44.9 - Chronic obstructive pulmonary disease, unspecified (8) PAYAM (obstructive sleep apnea): (9) Tobacco dependence: Plan Surgical site infection -History of C2-T2 posterior cervical fusion -Posterior wound infection -Status post irrigation debridement down to bone of posterior neck, 10 inches in length, 1 inch deep -Surgical site Plan -Follow surgical cultures -Follow blood cultures -Continue IV antibiotics -Vancomycin -Zosyn -Will likely need PICC line placement tomorrow, infectious disease consultation Hypertension, continue home blood pressure medications Neuropathy continue gabapentin Smoking history, smoking cessation counseling Postoperative anemia -Hemoglobin down to 8.2 -Monitor hemoglobin Acute alcohol withdrawal, moderate to severe -Currently in the ICU -CIWA protocol -Librium 50 every 6h -Precedex drip -Status post 1 dose of phenobarbital 60 mg -Monitor mentation closely -Folic acid, thiamine Full code SCDs for DVT prophylaxis, Lovenox Plan for the day: Follow-up OR cultures. Blood cultures so far negative. For now continue with IV vancomycin and Zosyn. Check MRSA swab. Will consult ID for outpatient IV antibiotic recommendations. PICC line placed on 10/25. Change IV pain medication morphine 1 mg every 4 hours as needed. Change oxycodone to 1 tablet every 6 hours as needed. Physical therapy. Alcohol withdrawal improving. Not on Precedex drip. Continue with Librium with current dose for now. Will plan to wean within next 24 hours. Check liver panel. Discussed in detail with patient regarding need for cessation of alcohol use as an outpatient. He is agreeable. Would want to hold off on resources for now stating he has successfully weaned off alcohol use in the past. Hemoglobin at 7.3. Slightly trending down. Most likely postoperative anemia. Check iron panel. Check stool for occult blood. Start on IV Protonix every 12 hourly. Goal blood pressure less than 140/90 mmHg. Hold off on home dose of amlodipine and lisinopril for now. Will restart aspirin. Blood pressures. PDMP PDMP Reviewed: Not Reviewed Attestations 2 Medical Necessity Statement*: Requires further hospitalization for management of surgical site infection, history of wound debridement, alcohol withdrawal, postoperative anemia Diagnoses Status post cervical spinal fusion Z98.1 Surgical site infection T81.49XA Alcohol withdrawal F10.939 Postoperative anemia D64.9 Essential hypertension I10 Hypertension type: essential hypertension Coronary artery disease involving grand traverse coronary artery of grand [place] heart with angina pectoris I25.119 Coronary Disease-Associated Artery/Lesion type: grand [place] artery [place] vs. transplanted heart: grand traverse heart Associated angina: with unspecified form of angina Chronic obstructive pulmonary disease, unspecified COPD type J44.9 COPD type: unspecified COPD PAYAM (obstructive sleep apnea) G47.33 Tobacco dependence F17.200
[2024-10-25] MEDS: enoxaparin 40 mg/0.4 mL Syringe SUBCUT (17:11)
--- NOTE | 2024-10-25 17:56 | PM.CONSULT ---
Providers/Reason For Consult Consulting Physician/Specialty*: Roseline García MD / Infectious Disease Reason for Consult*: spine infection Requesting Physician: Thomas Qureshi DO Attending Physician: Thomas Qureshi DO Primary Care Provider: KUNAL Graves History of Present Illness History of Present Illness August Schneider is a 49 year old male with a past medical history of sleep apnea, emphysema, hypertension, COPD and alcohol dependence. Patient has a history of cervical spondylosis with radiculopathy for which he underwent discectomy and instrumentation C3-C7 levels in April 2023. Additional history of chronic lower back pain in the lumbar area, status post L3 to pelvis fusion ans SI joint fusion and instrumentation in Jul 2024. Lumbar pain improved after the surgery. He started to complain of worsening upper back pain in August 2024. CT spine showed that the previously placed cages had compressed into the disc spaces. Kyphotic deformity of the cervical spine. he underwent C2-T2 posterior spine fusion with decompression of the C6/7 level on 09/27/24. He tolerated the procedure well and was discharged the next day. On his 2-week postop follow-up on October 12, 2024 he was noted to have some mild drainage from the wound without any obvious signs of infection. His pain continued to get worse over the next week and he presented to the emergency room on October 21, 2024 due to worsening severe pain radiating down both arms. Patient had taken a fall 1 day prior which appears to have exacerbated the pain. Since that fall he started to develop drainage from the surgical site. He underwent irrigation and debridement of the posterior neck wound which was 10 x 1 inch deep. Diaz purulence was encountered intraoperatively along with malodor. There was a breach in the fascia at the proximal end. Necrotic tissue was debrided. Free bone graft was removed. Drains were placed. He had intermittent episodes of confusion postoperatively thought to be related to alcohol withdrawal. Operating room cultures are thus far without any growth. Current active issues include anemia. Appears to be improving from a withdrawal standpoint. Infectious disease service is consulted for antibiotic recommendations at discharge. A PICC line has been placed earlier this morning. Patient is currently on treatment with piperacillin tazobactam and vancomycin empirically since october 22, 2024. Tmax 99.7 on October 25. Otherwise afebrile. CRP 304 upon admission. No leukocytosis. Review of Systems General: Reports: 10 or more systems reviewed and unremarkable except in HPI and below Const: Denies: fever(s), chills or body aches Eyes: Denies: change in vision, blurry vision or photophobia ENMT: Reports: hoarseness; Denies: throat pain, enlarged tonsils, odynophagia or nasal congestion Card: Denies: chest pain, palpitations, irregular heart rhythm, edema, swelling of feet/ankles, lightheadedness, pre-syncope, dyspnea on exertion or orthopnea Resp: Denies: dyspnea, productive cough, non-productive cough, wheezing, stridor, pain on inspiration, change in phlegm color, hemoptysis or chest congestion GI: Denies: abdominal pain, nausea, vomiting, hematemesis, coffee ground emesis, dysphagia, heartburn, diarrhea, constipation, GI cramping, change in stool character, hematochezia or melena : Denies: flank pain, dysuria, urinary frequency, urinary urgency, urinary hesitancy or hematuria Musc: Denies: neck pain, back pain, extremity pain, joint swelling, joint warmth or deformity Neuro: Denies: headache(s), numbness in extremities, weakness in extremities, sensory changes, difficulty walking, frequent falls, dizziness, vertigo, behavioral changes, Slurred speech present or seizure-like activity Psych: Denies: anxiety, depression, suicidal ideation or homicidal ideation Endo: Denies: polyuria, polydipsia, tired all the time, cold intolerance or hot flashes Dale/Lymph: Denies: easy bruising or easy bleeding Medications/Allergies Home Medications ?Medication ?Instructions ?Recorded ?Confirmed ?Last Taken ?Type nitroglycerin 0.4 mg sublingual 0.4 mg sublingual Q5M PRN chest 10/06/20 10/21/24 01/17/21 Rx tablet pain #25 tabs amlodipine 10 mg tablet 10 mg PO DAILY #30 tabs 12/31/22 10/21/24 10/21/24 Rx lisinopril 20 mg tablet 20 mg PO DAILY #30 tabs 12/31/22 10/21/24 10/21/24 Rx gabapentin 600 mg tablet 600 mg PO BID 30 days #60 tabs 09/22/24 10/21/24 10/21/24 Rx tizanidine 4 mg tablet 4 mg PO BID #60 tabs 09/22/24 10/21/24 10/21/24 Rx Bone Growth Stimulator #1 ea 09/30/24 10/21/24 10/21/24 Rx oxycodone-acetaminophen 10 mg-325 1 tab PO Q4H PRN pain 4 weeks #160 10/05/24 10/21/24 10/21/24 Rx mg tablet tabs oxycodone 10 mg tablet,crush 10 mg PO Q12H 7 days #14 tabs 10/12/24 10/21/24 Unknown Rx resistant,extended release 12 hr (OxyContin) Allergies Allergy/AdvReac Type Severity Reaction Status Date / Time No Known Allergies Allergy Verified 10/19/24 15:53 Current Medications Generic Name Dose Route Start Last Admin Trade Name Freq PRN Reason Stop Dose Admin Acetaminophen 650 mg 10/22/24 15:43 10/23/24 01:03 Acetaminophen 325 Mg Tablet PO 650 mg Q4H PRN Administration Mild Pain or fever >101.5 Amlodipine Besylate 10 mg 10/23/24 09:00 10/25/24 08:20 Amlodipine 10 Mg Tablet PO 10 mg DAILY MARIANNE Administration Chlordiazepoxide 50 mg 10/24/24 15:00 10/25/24 15:24 Chlordiazepoxide 25 Mg Capsule PO 50 mg Q6H MARIANNE Administration Docusate Sodium 100 mg 10/22/24 18:00 10/25/24 17:11 Docusate Sodium 100 Mg Capsule PO 100 mg BID MARIANNE Administration Enoxaparin Sodium 40 mg 10/24/24 18:00 10/25/24 17:11 Enoxaparin 40 Mg/0.4 Ml Syringe SUBCUT 40 mg Q24H MARIANNE Administration Folic Acid 1 mg 10/22/24 09:00 10/25/24 08:20 Folic Acid 1 Mg Tablet PO 1 mg DAILY MARIANNE Administration Gabapentin 600 mg 10/22/24 18:00 10/25/24 17:11 Gabapentin 300 Mg Capsule PO 600 mg BID MARIANNE Administration Vancomycin HCl 1,500 mg in 300 mls @ 200 mls/hr 10/22/24 16:00 10/25/24 15:25 Vancocin IV 200 mls/hr Q12H MARIANNE Administration Piperacillin Sod/Tazobactam 50 mls @ 12.5 mls/hr 10/22/24 17:00 10/25/24 11:13 Sod 3.375 gm/ Sodium Chloride IV 12.5 mls/hr Q8H MARIANNE Administration Protocol Dexmedetomidine/Sodium Chloride 400 mcg in 100 mls @ 0 mls/hr 10/24/24 11:45 10/25/24 00:15 Precedex IV 0 mcg/kg/hr .Q0M MARIANNE 0 mls/hr Titration Protocol Per Protocol Ketorolac Tromethamine 30 mg 10/22/24 15:43 10/25/24 11:39 Ketorolac 30 Mg/Ml Inj IVP 30 mg Q6H PRN Administration BREAKTHROUGH PAIN Lisinopril 20 mg 10/23/24 09:00 10/25/24 08:20 Lisinopril 20 Mg Tablet PO 20 mg DAILY MARIANNE Administration Lorazepam 2 mg 10/22/24 04:27 10/24/24 09:29 Lorazepam 2 Mg Tablet PO 2 mg Q4H PRN Administration WITHDRAWAL Protocol Lorazepam 2 mg 10/22/24 04:27 10/24/24 02:00 Lorazepam 2 Mg/Ml Inj 1 Ml IVP 2 mg PRN PRN Administration WITHDRAWAL Protocol Multivitamins Therapeutic 1 tab 10/22/24 09:00 10/25/24 08:20 Multivitamin Therapeutic Tablet PO 1 tab DAILY MARIANNE Administration Oxycodone/Acetaminophen 1 tab 10/25/24 09:00 10/25/24 15:24 Oxycodone-Apap 10-325 Mg Tablet PO 1 tab Q4H PRN Administration MODERATE TO SEVERE PAIN Pantoprazole Sodium 40 mg 10/25/24 09:00 10/25/24 09:16 Pantoprazole 40 Mg Sdv IVP 40 mg Q12H MARIANNE Administration Thiamine Mononitrate 100 mg 10/22/24 09:00 10/25/24 08:20 Thiamine 100 Mg Tablet PO 100 mg DAILY MARIANNE Administration Tizanidine HCl 4 mg 10/22/24 18:00 10/25/24 17:11 Tizanidine 4 Mg Tablet PO 4 mg BID MARIANNE Administration PFSH Acute PFSH: Medical History Syncope Acute hypokalemia Acute kidney injury Acute hypotension PAYAM (obstructive sleep apnea) Lumbar stenosis with neurogenic claudication Lumbar disc disease with radiculopathy Coronary artery disease HTN (hypertension) Mitral valve prolapse Lung disease, restrictive Smoker COPD (chronic obstructive pulmonary disease) Surgical History H/O hernia repair H/O shoulder surgery History of surgery on upper extremity History of cholecystectomy H/O vasectomy History of testicular surgery Family History Other CAD (coronary artery disease) Diabetes Hyperlipidemia Hypertension Denies family history of Stroke Social History Smoking and tobacco/nicotine status: current every day tobacco/nicotine user cigarettes Packs smoked per day: 0.5 Years cigarettes smoked: 30 [ Other cigarette details: Started at age 17] Alcohol intake: current Alcohol intake frequency: 3 or more drinks per day Alcohol type: beer Substance/Drug Use: never Lives independently: Yes Household members: spouse Marital status: service: No Current occupational status: unemployed Do you think of yourself as: Straight/Heterosexual Current gender identity: Male Vitals/I&O/Wt Last Vital Signs Temp 99.7 F H 10/25/24 15:30 Pulse 86 10/25/24 16:30 Resp 26 H 10/25/24 16:30 BP 112/71 10/25/24 16:30 Pulse Ox 100 10/25/24 16:30 O2 Del Method Room Air 10/25/24 16:30 O2 Flow Rate 2 10/25/24 06:00 10/25/24 10/25/24 10/25/24 06:59 14:59 22:59 Intake Total 506.213 / 1225.995 290 / 290 Output Total 700 / 1650 150 / 150 Balance -193.787 / -424.005 140 / 140 Weight last 48 hrs Weight 81 kg Weight 85.185 kg Physical Exam Narrative: General: No acute distress, AO x3 HEENT: PERRLA, pupils bilaterally equal and reactive, pallors not present Chest: Normal vesicular breath sounds, no added sounds, equal good air entry bilaterally CVS: S1-S2 regular, no murmurs, no tachycardia, no gallops, no rubs Abdomen: Soft, nontender, no organomegaly, bowel sounds present Neuro: No focal deficits, no facial deformity, AO x3, power 5/5 in all limbs Data 10/26/24 03:10 10/26/24 03:10 Micro: Microbiology 10/25/24 12:49 Occult Blood (FIT) - Final Stool - Stool Aspirate 10/22/24 14:20 Gram Stain - Final Neck Anaerobic Culture - Preliminary Wound Culture - Final 10/21/24 20:26 Wound Culture - Final Other Source Other data: NAME: August Schneider LOC: [facility] U #: [id number] AGE/SX: 49/M ROOM: 269 RE10/21/[address]: Thomas Qureshi DO : 1975 BED: 1 DIS: FAX #: STATUS: ADM IN TLOC: Spec #: [id number] Buffy: 10/21/24 Status: RES Req #: [id number] Recd: 10/21/[address]: Francesco Seymour MD Src: Blood SpDesc: Ordered: Bcult Procedure Result Verified Site Blood Culture Preliminary 10/22/24 NEGATIVE TO DATE Blood Culture Preliminary (changed) 10/21/24-1948 SPECIMEN COLLECTED NAME: August Schneider LOC: [facility] U #: [id number] AGE/SX: 49/M ROOM: 269 RE10/21/[address]: Thomas Qureshi DO : 1975 BED: 1 DIS: FAX #: STATUS: ADM IN TLOC: Spec #: [id number] Buffy: 10/21/24 Status: COMP Req #: [id number] Recd: 10/21/[address]: Francesco Seymour MD Src: Other Sour SpDesc: Ordered: Wound Procedure Result Verified Site Wound Culture Final 10/25/24-954 FEW MIXED SUPERFICIAL KEYONA ON DAY 3 Wound Culture Preliminary (changed) 10/24/24-1522 FEW MIXED SUPERFICIAL KEY[place] ON DAY 2 Wound Culture Preliminary (changed) 10/23/24-1455 FEW MIXED SUPERFICIAL KEYONA ON DAY 1 NAME: EarlenejairoyarielAugust LOC: [facility] U #: [id number] AGE/SX: 49/M ROOM: 269 RE10/21/[address]: Thomas Qureshi DO : 1975 BED: 1 DIS: FAX #: STATUS: ADM IN TLOC: Spec #: [id number] Buffy: 10/22/24 Status: RES Req #: [id number] Recd: 10/22/24-[address]: Thomas Qureshi DO Src: Neck SpDesc: Ordered: WC and GS, Anaer Comments: Comment POSTERIOR NECK WOUND Procedure Result Verified Site Gram Stain Final 10/23/24-150 Result MODERATE WHITE BLOOD CELLS NO ORGANISMS SEEN Anaerobic Culture Preliminary 10/26/24-1402 NO ANAEROBES ISOLATED ON DAY 4 Anaerobic Culture Preliminary (changed) 10/25/24-1123 NO ANAEROBES ISOLATED ON DAY 3 Anaerobic Culture Preliminary (changed) 10/24/24-1856 NO ANAEROBES ISOLATED ON DAY 2 Anaerobic Culture Preliminary (changed) 10/23/24-1829 NO ANAEROBES ISOLATED ON DAY 1 Wound Culture Final 10/25/24-0947 SCANT MIXED SUPERFICIAL KEYONA ON DAY 3 Wound Culture Preliminary (changed) 10/24/24-1527 SCANT MIXED SUPERFICIAL KEYONA ON DAY 2 Wound Culture Preliminary (changed) 10/23/24-150 NO GROWTH AFTER 1 DAY A&P Assessment and plan (1) Cervical spondylosis with radiculopathy: (2) Hardware complicating wound infection: Plan 55-year-old male with medical comorbidities as listed above with history of cervical spondylosis with history of cervical fusion and instrumentation in 2022. More recently needed revision surgery for persisting pain in September 2024. Currently admitted to the hospital since October 21, 2024 after presenting with worsening pain, opening of wound with purulent discharge. Status post I&D in the OR on October 22, 2024 CRP on admission greater than 300 Diaz purulence encountered intraoperatively. Unfortunately cultures are negative from the OR. Patient has been on treatment with piperacillin/tazobactam and vancomycin. Blood cultures remain negative to date. Will treat this as a complicated skin and soft tissue infection with potential for hardware involvement next time Recommend to treat IV antibiotics for the next 6 weeks (10/22-12/03). Empirically select ceftriaxone 1 g IV every 24 hours and vancomycin for culture-negative infection. change zosyn to ceftriaxone today Weekly CBC, Creat, LFT and CRP while on above treatment to be faxed to ID clinic for review PDMP PDMP Reviewed: Not Reviewed Coding Level of Care Code Acute Code for Chg Fwd High MDM includes number and complexity of problems actively addressed during encounter, amount and/or complexity of data reviewed/ordered and described risk of complication, morbidity or mortality of management as documented Diagnoses Cervical spondylosis with radiculopathy M47.22 Hardware complicating wound infection T84.7XXA
[2024-10-26] VITALS (27 sets, daily range): BP systolic 91–132; BP diastolic 59–87; PULSE 64–94; RESP 14–25; TEMP 36.3–37.3; O2SAT 91–100
[2024-10-26] MEDS: chlordiazePOXIDE 25 mg Capsule 50 MG PO (02:55)
[2024-10-26] MEDS: piperacillin-tazobactam 3.375 GM in sodium chloride 0.9% (plus) 50 ML IV ×2 (02:55→11:58)
[2024-10-26] MEDS: oxyCODONE-APAP 10-325 mg Tablet 1 TAB PO ×5 (03:22→23:52)
[2024-10-26 03:31] LABS: Basophils % 0.6 %; Eosinophils # 0.2 10^3/uL (0.0-0.8); Hematocrit 21.7 % (37-53); Lymphocytes # 1.6 10^3/uL (0.8-4.8); Lymphocytes % 23.2 %; Mean Corpuscular HGB Conc 31.8 g/dL (30-55); Mean Corpuscular Hemoglobin 30.5 pg (27-33); Mean Platelet Volume 9.7 fL (7.4-10.4); Monocytes # 0.6 10^3/uL (0.2-0.9); Monocytes % 8.8 %; Neutrophils # 4.44 10^3/uL (1.8-7.7); Neutrophils % 63.3 %; Nucleated Red Blood Cells % 0 %; Platelet Count 417 10^3/cmm (157-399); Red Blood Count 2.26 10^6/uL (3.85-5.65); Red Cell Distribution Width 16.3 % (12.1-15.1); White Blood Count 7.02 10^3/uL (3.29-11.43)
[2024-10-26 03:50] LABS: Magnesium 1.9 mg/dL (1.7-2.3); Vancomycin Trough 20.7 ug/mL (10-15)
[2024-10-26 03:51] LABS: Alanine Aminotransferase 18 U/L (0-41); Albumin Level 2.6 g/dL (3.5-5.2); Alkaline Phosphatase 125 U/L (40-130); Aspartate Amino Transferase 19 U/L (0-40); Blood Urea Nitrogen 8 mg/dL (6-20); Calcium 7.5 mg/dL (8.5-10.5); Carbon Dioxide 24 mmol/L (22-29); Chloride 104 mmol/L (98-107); Creatinine Clr Calc Pharmacy 134.5595; Globulin 2.4 g/dL (1.3-4.6); Glomerular Filtration Rate 118.9 mL/min (90-130); Glucose 124 mg/dL (65-115); Osmolality Calculated 290 mOsm/kg (285-295); Sodium 140 mmol/L (136-145); Total Bilirubin 0.2 mg/dL (0.15-1.2)
[2024-10-26 04:11] LABS: Folate Level 5.1 ng/mL (4.5-32.2)
[2024-10-26] MEDS: vancomycin 1,250 MG/250 ML PIGGYBACK 166.67 MG IV (05:16)
[2024-10-26 07:44] LABS: Amphetamines Screen Urine Negative (Negative); Barbiturates Screen Urine Positive (Negative); Benzodiazepines Screen Urine Positive (Negative); Cocaine Screen Urine Negative (Negative); Opiate Screen Urine Positive (Negative); PCP Screen Urine Negative (Negative); THC Screen Urine Negative (Negative)
--- NOTE | 2024-10-26 07:48 | P.PN_ITS ---
Subjective 2 Subjective: Patient sitting at bedside dressing was changed had less drainage on it today. Patient still complaining of pain but is more alert today. Vitals/I&O/Wt Last Vital Signs Temp 98.3 F 10/26/24 04:00 Pulse 75 10/26/24 06:00 Resp 18 10/26/24 07:36 BP 99/66 10/26/24 06:00 Pulse Ox 99 10/26/24 07:36 O2 Del Method Nasal Cannula 10/26/24 06:00 O2 Flow Rate 2 10/26/24 06:00 10/25/24 10/26/24 10/26/24 22:59 06:59 14:59 Intake Total 470 / 760 300 / 1060 Output Total 425 / 425 Balance 470 / 610 300 / 910 -425 / -425 Weight last 48 hrs Weight 181 lb 8 oz Weight 178 lb 9.191 oz Physical Exam 2 Narrative: Patient sitting up at the bedside. More alert Data 10/26/24 03:10 10/26/24 03:10 Micro: Microbiology 10/25/24 12:49 Occult Blood (FIT) - Final Stool - Stool Aspirate 10/22/24 14:20 Gram Stain - Final Neck Anaerobic Culture - Preliminary Wound Culture - Final 10/21/24 20:26 Wound Culture - Final Other Source A&P Assessment and plan (1) Status post cervical spinal fusion: Anticipate discharge to floor today. Will need PICC line and antibiotics set up before discharge PDMP PDMP Reviewed: Not Reviewed Attestations 2 Medical Necessity Statement*: Pain control and need antibiotic set up outpatient Coding Level of Care Code Acute Code for Chg Fwd Diagnoses Status post cervical spinal fusion Z98.1
[2024-10-26] MEDS: folic acid 1 mg Tablet PO (08:48)
[2024-10-26] MEDS: chlordiazePOXIDE 25 mg Capsule PO ×3 (08:48→23:53)
[2024-10-26] MEDS: tizanidine 4 mg Tablet PO ×2 (08:48→17:19)
[2024-10-26] MEDS: docusate sodium 100 mg Capsule PO ×2 (08:48→17:20)
[2024-10-26] MEDS: multivitamin therapeutic Tablet 1 TAB PO (08:48)
[2024-10-26] MEDS: gabapentin 300 mg Capsule 600 MG PO ×2 (08:48→17:19)
[2024-10-26] MEDS: morphine 4 mg/mL SDV 1 mL 1 MG IVP ×2 (08:49→20:01)
[2024-10-26] MEDS: pantoprazole 40 mg SDV IVP ×2 (08:49→20:01)
[2024-10-26] MEDS: potassium chloride ER 20 mEq Tablet 40 MEQ PO ×2 (08:49→11:56)
[2024-10-26] MEDS: thiamine 100 mg Tablet PO (08:49)
[2024-10-26] MEDS: iron sucrose 200 MG in sodium chloride 0.9% (100 ml) 100 ML 220 MG IV (09:06)
--- NOTE | 2024-10-26 10:59 | PC.NURSE ---
Report was called to Polly in Med surge. Patient's belongings were sent with the patient. Patient was stable upon transfer.
--- NOTE | 2024-10-26 14:05 | P.PN_ITS ---
Subjective 2 Subjective: No acute vents overnight. Patient has remained hemodynamically stable and afebrile. Seen with at bedside. Patient sitting up in chair. More awake and alert. Denies any nausea, vomiting, headache. Has remained hemodynamically stable and afebrile. Not on Precedex. Vitals/I&O/Wt Last Vital Signs Temp 97.6 F 10/26/24 12:19 Pulse 86 10/26/24 12:19 Resp 18 10/26/24 12:19 BP 127/87 10/26/24 12:19 Pulse Ox 98 10/26/24 12:19 O2 Del Method Room Air 10/26/24 13:52 O2 Flow Rate 2 10/26/24 06:00 10/25/24 10/26/24 10/26/24 22:59 06:59 14:59 Intake Total 470 / 760 300 / 1060 890 / 890 Output Total 425 / 425 Balance 470 / 610 300 / 910 465 / 465 Weight last 48 hrs Weight 82.327 kg Weight 81 kg Physical Exam 2 Const: COMMON NORMALS: no acute distress and patient oriented x3 GENERAL APPEARANCE: lethargic ORIENTATION/CONSCIOUSNESS: Yes awake, Yes oriented to person, Yes oriented to place, Yes oriented to time and Yes lethargic Eye: COMMON NORMALS: Equal, round and reactive pupils present PUPIL: Yes Equal, round and reactive pupils present OTHER: in cervical collar Neck/C-Spine: COMMON NORMALS: no JVD OTHER: Currently in a [place] J collar Resp: COMMON NORMALS: normal respiratory effort, No retractions, No use of accessory muscles and clear to auscultation bilaterally AUSCULTATION: clear to auscultation bilaterally Cardio: COMMON NORMALS: no JVD, regular rate, regular rhythm, S1 normal heart sound present and S2 normal heart sound present RATE: regular rate RHYTHM: regular rhythm HEART SOUNDS: S1 normal heart sound present and S2 normal heart sound present GI: COMMON NORMALS: Normal to inspection, nondistended, normoactive bowel sounds present and non-tender Extremity: COMMON NORMALS: no calf tenderness and no pedal edema Neuro: COMMON NORMALS: patient oriented x3, CN's II-XII intact bilaterally and moves all extremities SENSORIUM/ORIENTATION: Yes oriented to person, Yes oriented to place, Yes oriented to time and Yes lethargic OTHER: No significant tremor, no visual or auditory or tactile hallucination Psych: COMMON NORMALS: mental status grossly normal Skin: OTHER: Surgical site looks clean and dry Data 10/26/24 03:10 10/26/24 03:10 Micro: Microbiology 10/22/24 14:20 Gram Stain - Final Neck Anaerobic Culture - Preliminary Wound Culture - Final 10/25/24 12:49 Occult Blood (FIT) - Final Stool - Stool Aspirate 10/21/24 20:26 Wound Culture - Final Other Source A&P Assessment and plan (1) Status post cervical spinal fusion: (2) Surgical site infection: (3) Alcohol withdrawal: (4) Postoperative anemia: (5) HTN (hypertension): Qualifiers: Hypertension type: essential hypertension Qualified Code(s): I10 - Essential (primary) hypertension (6) Coronary artery disease: Qualifiers: Coronary Disease-Associated Artery/Lesion type: [place] artery [place] vs. transplanted heart: [place] heart Associated angina: with unspecified form of angina Qualified Code(s): I25.119 - Atherosclerotic heart disease of [place] coronary artery with unspecified angina pectoris (7) COPD (chronic obstructive pulmonary disease): Qualifiers: COPD type: unspecified COPD Qualified Code(s): J44.9 - Chronic obstructive pulmonary disease, unspecified (8) PAYAM (obstructive sleep apnea): (9) Tobacco dependence: Plan Surgical site infection -History of C2-T2 posterior cervical fusion -Posterior wound infection -Status post irrigation debridement down to bone of posterior neck, 10 inches in length, 1 inch deep -Surgical site Plan -Follow surgical cultures -Follow blood cultures -Continue IV antibiotics -Vancomycin -Zosyn -Will likely need PICC line placement tomorrow, infectious disease consultation Hypertension, continue home blood pressure medications Neuropathy continue gabapentin Smoking history, smoking cessation counseling Postoperative anemia -Hemoglobin down to 8.2 -Monitor hemoglobin Acute alcohol withdrawal, moderate to severe -Currently in the ICU -CIWA protocol -Librium 50 every 6h -Precedex drip -Status post 1 dose of phenobarbital 60 mg -Monitor mentation closely -Folic acid, thiamine Full code SCDs for DVT prophylaxis, Lovenox Plan for the day: Appreciate ID recommendations. For now continue with IV vancomycin and Zosyn. Switch antibiotics as per ID recommendations. PICC line placed on 10/25. MRSA swab negative. Alcohol withdrawal improving. Not required Precedex for more than 48 hours. Change Librium to 25 mg every 8 hourly. Wound care per surgical team. Hemoglobin worsened to 6.9. Most likely postoperative anemia. Stool for occult blood negative. Transfuse monitor PRBC with target hemoglobin of more than 7. Appreciate iron panel. Start on IV iron supplementation. Given worsening anemia for now we will hold off on Lovenox. Discussed in detail with the patient regarding risk of DVT/PE. Encourage patient to ambulate more with physical therapy. Continue to hold off on antihypertensives for now. Goal blood pressure less than 140/90 mmHg with mean over 65. Transfer to [facility] floor. PDMP PDMP Reviewed: Not Reviewed Attestations 2 Medical Necessity Statement*: Requires further hospitalization for management of hardware infection post debridement, anemia requiring blood transfusion, alcohol withdrawal while outpatient IV antibiotics are arranged. Diagnoses Status post cervical spinal fusion Z98.1 Surgical site infection T81.49XA Alcohol withdrawal F10.939 Postoperative anemia D64.9 Essential hypertension I10 Hypertension type: essential hypertension Coronary artery disease involving [place] coronary artery of [place] heart with angina pectoris I25.119 Coronary Disease-Associated Artery/Lesion type: [place] artery [place] vs. transplanted heart: [place] heart Associated angina: with unspecified form of angina Chronic obstructive pulmonary disease, unspecified COPD type J44.9 COPD type: unspecified COPD PAYAM (obstructive sleep apnea) G47.33 Tobacco dependence F17.200
[2024-10-26] MEDS: vancomycin 1,250 MG/250 ML PIGGYBACK 167 MG IV (17:23)
[2024-10-26] MEDS: cefepime 2,000 mg SDV 2000 MG IVP (17:48)
[2024-10-26 18:44] LABS: Hematocrit 24.4 % (37-53)
[2024-10-27] VITALS (12 sets, daily range): BP systolic 105–122; BP diastolic 74–79; PULSE 73–88; RESP 16–20; TEMP 36.3–36.8; O2SAT 94–95
[2024-10-27] MEDS: morphine 4 mg/mL SDV 1 mL 1 MG IVP ×2 (00:36→05:31)
[2024-10-27] MEDS: oxyCODONE-APAP 10-325 mg Tablet 1 TAB PO ×3 (04:01→17:46)
[2024-10-27] MEDS: cefepime 2,000 mg SDV 2000 MG IVP ×2 (05:31→17:47)
[2024-10-27] MEDS: vancomycin 1,250 MG/250 ML PIGGYBACK 166.66 MG IV ×2 (05:32→20:35)
[2024-10-27 05:44] LABS: Basophils # 0.1 10^3/uL (0.0-0.1); Basophils % 0.6 %; Eosinophils # 0.2 10^3/uL (0.0-0.8); Eosinophils % 2.5 %; Lymphocytes # 1.5 10^3/uL (0.8-4.8); Lymphocytes % 18.4 %; Mean Corpuscular HGB Conc 31.2 g/dL (30-55); Mean Corpuscular Hemoglobin 29.7 pg (27-33); Mean Corpuscular Volume 95.1 fl (82-101); Mean Platelet Volume 9.8 fL (7.4-10.4); Monocytes # 0.7 10^3/uL (0.2-0.9); Monocytes % 9.2 %; Neutrophils # 5.36 10^3/uL (1.8-7.7); Neutrophils % 67.7 %; Nucleated Red Blood Cells % 0 %; Platelet Count 481 10^3/cmm (157-399); Red Blood Count 2.63 10^6/uL (3.85-5.65); White Blood Count 7.93 10^3/uL (3.29-11.43)
[2024-10-27 05:57] LABS: Alanine Aminotransferase 14 U/L (0-41); Albumin Level 2.6 g/dL (3.5-5.2); Alkaline Phosphatase 104 U/L (40-130); Anion Gap 14.2 (5-19); Aspartate Amino Transferase 22 U/L (0-40); Blood Urea Nitrogen 8 mg/dL (6-20); Calcium 7.8 mg/dL (8.5-10.5); Carbon Dioxide 24 mmol/L (22-29); Chloride 105 mmol/L (98-107); Glucose 123 mg/dL (65-115); Osmolality Calculated 290 mOsm/kg (285-295); Potassium 3.2 mmol/L (3.5-5.1); Sodium 140 mmol/L (136-145); Total Bilirubin 0.5 mg/dL (0.15-1.2); Total Protein 5.6 g/dL (6.6-8.7)
[2024-10-27 05:59] LABS: Magnesium 1.9 mg/dL (1.7-2.3)
[2024-10-27] MEDS: tizanidine 4 mg Tablet PO ×2 (09:18→17:46)
[2024-10-27] MEDS: docusate sodium 100 mg Capsule PO ×2 (09:18→17:46)
[2024-10-27] MEDS: multivitamin therapeutic Tablet 1 TAB PO (09:18)
[2024-10-27] MEDS: folic acid 1 mg Tablet PO (09:19)
[2024-10-27] MEDS: gabapentin 300 mg Capsule 600 MG PO ×2 (09:19→17:46)
[2024-10-27] MEDS: chlordiazePOXIDE 25 mg Capsule PO ×2 (09:20→17:46)
[2024-10-27] MEDS: thiamine 100 mg Tablet PO (09:20)
[2024-10-27] MEDS: pantoprazole 40 mg SDV IVP ×2 (09:20→21:35)
[2024-10-27] MEDS: iron sucrose 200 MG in sodium chloride 0.9% (100 ml) 100 ML 220 MG IV (09:52)
--- NOTE | 2024-10-27 11:50 | P.PN_ITS ---
Subjective 2 Subjective: Patient's and considerable pain in his neck and his middle shoulder blade and down his arm. At this point we will increase his pain medication. Vitals/I&O/Wt Last Vital Signs Temp 98 F 10/27/24 11:33 Pulse 80 10/27/24 11:33 Resp 17 10/27/24 11:33 BP 122/78 10/27/24 11:33 Pulse Ox 95 10/27/24 11:33 O2 Del Method Room Air 10/27/24 11:33 O2 Flow Rate 2 10/26/24 06:00 10/26/24 10/27/24 10/27/24 22:59 06:59 14:59 Intake Total 1190 / 2080 650 / 2730 600 / 600 Balance 1190 / 1655 650 / 2305 600 / 600 Weight last 48 hrs Weight 174 lb 14.4 oz Weight 181 lb 8 oz Physical Exam 2 Narrative: Wound is draining and will tell the nurse to use ABDs and change to 3 times a day as needed. Data 10/27/24 04:51 10/27/24 04:51 Micro: Microbiology 10/21/24 21:07 Blood Culture - Final Blood NO GROWTH AFTER 5 DAYS 10/21/24 19:41 Blood Culture - Final Blood NO GROWTH AFTER 5 DAYS 10/22/24 14:20 Gram Stain - Final Neck Anaerobic Culture - Preliminary Wound Culture - Final A&P Assessment and plan (1) Status post cervical spinal fusion: Status post irrigation debridement of posterior cervical spine. On IV antibiotics. Anticipate discharge tomorrow. PDMP PDMP Reviewed: Not Reviewed Attestations 2 Medical Necessity Statement*: Pain control Coding Level of Care Code Acute Code for Chg Fwd Diagnoses Status post cervical spinal fusion Z98.1
[2024-10-27] MEDS: oxyCODONE 10 mg ER (12 HR) Tablet PO (12:46)
--- NOTE | 2024-10-27 12:55 | PM.PN ---
Subjective Subjective: No acute events overnight. Patient denies any nausea, vomiting, headache. Laying comfortably in bed. Spouse at bedside. Patient is awake and alert. Vitals/I&O/Wt Last Vital Signs Temp 98 F 10/27/24 11:33 Pulse 80 10/27/24 11:33 Resp 16 10/27/24 12:46 BP 122/78 10/27/24 11:33 Pulse Ox 95 10/27/24 11:33 O2 Del Method Room Air 10/27/24 11:33 O2 Flow Rate 2 10/26/24 06:00 10/26/24 10/27/24 10/27/24 22:59 06:59 14:59 Intake Total 1190 / 2080 650 / 2730 600 / 600 Balance 1190 / 1655 650 / 2305 600 / 600 Weight last 48 hrs Weight 79.333 kg Weight 82.327 kg Physical Exam Const: COMMON NORMALS: no acute distress and patient oriented x3 ORIENTATION/CONSCIOUSNESS: Yes awake, Yes oriented to person, Yes oriented to place and Yes oriented to time Eye: COMMON NORMALS: Equal, round and reactive pupils present PUPIL: Yes Equal, round and reactive pupils present OTHER: in cervical collar Neck/C-Spine: COMMON NORMALS: no JVD OTHER: Currently in a [place] J collar Resp: COMMON NORMALS: normal respiratory effort, No retractions, No use of accessory muscles and clear to auscultation bilaterally AUSCULTATION: clear to auscultation bilaterally Cardio: COMMON NORMALS: no JVD, regular rate, regular rhythm, S1 normal heart sound present and S2 normal heart sound present RATE: regular rate RHYTHM: regular rhythm HEART SOUNDS: S1 normal heart sound present and S2 normal heart sound present GI: COMMON NORMALS: Normal to inspection, nondistended, normoactive bowel sounds present and non-tender Extremity: COMMON NORMALS: no calf tenderness and no pedal edema Neuro: COMMON NORMALS: patient oriented x3, CN's II-XII intact bilaterally and moves all extremities SENSORIUM/ORIENTATION: Yes oriented to person, Yes oriented to place and Yes oriented to time OTHER: No significant tremor, no visual or auditory or tactile hallucination Psych: COMMON NORMALS: mental status grossly normal Skin: OTHER: Surgical site looks clean and dry Data 10/27/24 04:51 10/27/24 04:51 Micro: Microbiology 10/21/24 21:07 Blood Culture - Final Blood NO GROWTH AFTER 5 DAYS 10/21/24 19:41 Blood Culture - Final Blood NO GROWTH AFTER 5 DAYS 10/22/24 14:20 Gram Stain - Final Neck Anaerobic Culture - Preliminary Wound Culture - Final A&P Assessment and plan (1) Cervical spondylosis with radiculopathy: (2) Hardware complicating wound infection: (3) Status post cervical spinal fusion: (4) Surgical site infection: (5) Alcohol withdrawal: (6) Postoperative anemia: (7) HTN (hypertension): Qualifiers: Hypertension type: essential hypertension Qualified Code(s): I10 - Essential (primary) hypertension (8) Coronary artery disease: Qualifiers: Coronary Disease-Associated Artery/Lesion type: [place] artery [place] vs. transplanted heart: [place] heart Associated angina: with unspecified form of angina Qualified Code(s): I25.119 - Atherosclerotic heart disease of [place] coronary artery with unspecified angina pectoris (9) COPD (chronic obstructive pulmonary disease): Qualifiers: COPD type: unspecified COPD Qualified Code(s): J44.9 - Chronic obstructive pulmonary disease, unspecified (10) PAYAM (obstructive sleep apnea): (11) Tobacco dependence: Plan Surgical site infection -History of C2-T2 posterior cervical fusion -Posterior wound infection -Status post irrigation debridement down to bone of posterior neck, 10 inches in length, 1 inch deep -Surgical site Plan -Follow surgical cultures -Follow blood cultures -Continue IV antibiotics -Vancomycin -Zosyn -Will likely need PICC line placement tomorrow, infectious disease consultation Hypertension, continue home blood pressure medications Neuropathy continue gabapentin Smoking history, smoking cessation counseling Postoperative anemia -Hemoglobin down to 8.2 -Monitor hemoglobin Acute alcohol withdrawal, moderate to severe -Currently in the ICU -CIWA protocol -Librium 50 every 6h -Precedex drip -Status post 1 dose of phenobarbital 60 mg -Monitor mentation closely -Folic acid, thiamine Full code SCDs for DVT prophylaxis, Lovenox Plan for the day: Wound care dressing, pain medication as per primary team. Continues physical therapy. Appreciated antibiotics changed as per ID team. Continue with IV vancomycin and cefepime. Will plan to discharge on IV vancomycin and cefepime for [address] line in place. Hemoglobin stable. Post 1 unit of blood transfusion. Continue to monitor hemoglobin daily for now. Continue with IV iron supplementation. Continue Librium 25 mg every 8 hours. Will plan to wean further within next 24 hours. Replace potassium 80 mg oral. Discharge plan: Discussed in detail with patient and spouse at bedside. We discussed that he would need to be on IV antibiotics for next 6 weeks. Discussed options of home with home health versus SNF. Patient wants to go home with home health if possible. Case management alerted. If hemoglobin remained stable within next 24 hours once antibiotics are arranged will plan to discharge tomorrow. PDMP PDMP Reviewed: Not Reviewed Attestations Medical Necessity Statement*: Requires further hospitalization for management of hardware infection post debridement, anemia requiring blood transfusion, alcohol withdrawal while outpatient IV antibiotics are arranged. Diagnoses Cervical spondylosis with radiculopathy M47.22 Hardware complicating wound infection T84.7XXA Status post cervical spinal fusion Z98.1 Surgical site infection T81.49XA Alcohol withdrawal F10.939 Postoperative anemia D64.9 Essential hypertension I10 Hypertension type: essential hypertension Coronary artery disease involving [place] coronary artery of [place] heart with angina pectoris I25.119 Coronary Disease-Associated Artery/Lesion type: [place] artery [place] vs. transplanted heart: [place] heart Associated angina: with unspecified form of angina Chronic obstructive pulmonary disease, unspecified COPD type J44.9 COPD type: unspecified COPD PYAAM (obstructive sleep apnea) G47.33 Tobacco dependence F17.200
[2024-10-27] MEDS: potassium chloride ER 20 mEq Tablet 80 MEQ PO (14:24)
[2024-10-27 19:54] LABS: Vancomycin Trough 15.7 ug/mL (10-15)
[2024-10-28] VITALS (8 sets, daily range): BP systolic 121–124; BP diastolic 73–79; PULSE 74–80; RESP 17–18; TEMP 36.8–36.9; O2SAT 95–96
[2024-10-28] MEDS: chlordiazePOXIDE 25 mg Capsule PO ×2 (01:08→09:58)
[2024-10-28] MEDS: oxyCODONE 10 mg ER (12 HR) Tablet PO (01:08)
[2024-10-28] MEDS: oxyCODONE-APAP 10-325 mg Tablet 1 TAB PO ×3 (02:14→09:59)
[2024-10-28 05:45] LABS: Basophils % 0.5 %; Eosinophils # 0.2 10^3/uL (0.0-0.8); Eosinophils % 2.6 %; Hematocrit 23.7 % (37-53); Lymphocytes # 1.2 10^3/uL (0.8-4.8); Mean Corpuscular HGB Conc 31.2 g/dL (30-55); Mean Corpuscular Hemoglobin 30.5 pg (27-33); Mean Corpuscular Volume 97.5 fl (82-101); Mean Platelet Volume 9.9 fL (7.4-10.4); Monocytes # 0.9 10^3/uL (0.2-0.9); Monocytes % 10.5 %; Neutrophils # 6.01 10^3/uL (1.8-7.7); Nucleated Red Blood Cells % 0 %; Platelet Count 452 10^3/cmm (157-399); Red Blood Count 2.43 10^6/uL (3.85-5.65); Red Cell Distribution Width 17.4 % (12.1-15.1); White Blood Count 8.47 10^3/uL (3.29-11.43)
[2024-10-28] MEDS: cefepime 2,000 mg SDV 2000 MG IVP (05:58)
[2024-10-28] MEDS: vancomycin 1,250 MG/250 ML PIGGYBACK 166.66 MG IV (05:59)
[2024-10-28 06:06] LABS: Alanine Aminotransferase 11 U/L (0-41); Albumin Level 2.5 g/dL (3.5-5.2); Alkaline Phosphatase 94 U/L (40-130); Anion Gap 15.8 (5-19); Aspartate Amino Transferase 11 U/L (0-40); Blood Urea Nitrogen 7 mg/dL (6-20); Carbon Dioxide 23 mmol/L (22-29); Chloride 104 mmol/L (98-107); Creatinine Clr Calc Pharmacy 152.6226; Globulin 3.1 g/dL (1.3-4.6); Glucose 89 mg/dL (65-115); Osmolality Calculated 285 mOsm/kg (285-295); Potassium 3.8 mmol/L (3.5-5.1); Sodium 139 mmol/L (136-145); Total Bilirubin 0.3 mg/dL (0.15-1.2); Total Protein 5.6 g/dL (6.6-8.7)
--- NOTE | 2024-10-28 09:47 | P.DS_ITS ---
Discharge Providers Date of Admission: 10/21/24 21:29 Date of Discharge: October 28, 2024 Attending Provider at Admission: Thomas Qureshi DO Attending Provider at Discharge: Thomas Qureshi DO Primary Care Provider: KUNAL Graves Diagnoses at Discharge Discharge Diagnosis (1) Cervical spondylosis with radiculopathy: Status: Acute (2) Hardware complicating wound infection: Status: Acute (3) Status post cervical spinal fusion: Status: Acute (4) Surgical site infection: Status: Acute (5) Alcohol withdrawal: Status: Acute (6) Postoperative anemia: Status: Acute (7) HTN (hypertension): Status: Acute Qualifiers: Hypertension type: essential hypertension Qualified Code(s): I10 - Essential (primary) hypertension (8) Coronary artery disease: Status: Acute Qualifiers: Coronary Disease-Associated Artery/Lesion type: [place] artery [place] vs. transplanted heart: [place] heart Associated angina: with unspecified form of angina Qualified Code(s): I25.119 - Atherosclerotic heart disease of [place] coronary artery with unspecified angina pectoris (9) COPD (chronic obstructive pulmonary disease): Status: Acute Qualifiers: COPD type: unspecified COPD Qualified Code(s): J44.9 - Chronic obstructive pulmonary disease, unspecified (10) PAYAM (obstructive sleep apnea): Status: Acute (11) Tobacco dependence: Status: Acute Reason for Visit Reason for Visit: fall post surg now seepage Physical Exam Narrative: Patient's pain is better controlled today. He will be discharged home with home antibiotics. And weekly follow-up he is following with Dr. García for his infectious disease. Will see him back in the clinic in 1 week. He is to change dressing as needed if there is any drainage. Discharge Data Studies Completed and Pending Completed Studies During Hospitalization Category Date Time Status CT cervical spine w con [id number] Stat Cat Scan 10/21/24 19:[address] head wo con* [id number] Routine Cat Scan 10/24/24 10:12 Completed CXRP [XR chest 1V portable [id number]] Routine Exams 10/25/24 09:18 Completed Pending at discharge Category Date Time Status Anaerobic Culture Routine Lab 10/22/24 14:20 Results Wound Culture and Gram Stain Routine Lab 10/22/24 14:20 Results Radiology Impressions Cervical Spine CT 10/21/24 19:17 IMPRESSION: 1. Progressive posterior paraspinal edema and gas consistent with infection. There is a new posterior paraspinal fluid and gas collection consistent with abscess. 2. Extensive cervicothoracic anterior and posterolateral fusion is described above. No sign of hardware failure. No significant change compared to 09/27/2024. ADDENDUM: 10/21/242121 THIS REPORT CONTAINS FINDINGS THAT MAY BE CRITICAL TO PATIENT CARE. The findings and recommendations were personally verbally communicated via telephone conference with AMEENA MALONEY at 9:20 PM CDT on 10/21/2024. The findings were acknowledged and understood. Head CT 10/24/24 10:12 IMPRESSION: No large territorial infarct or intracranial bleed. Chest X-Ray 10/25/24 09:18 IMPRESSION: 1. PICC line tip projects at superior cavoatrial junction. 2. Bibasilar densities likely atelectasis in the setting of shallow inspiration. Laboratory Results WBC 8.47 10^3/uL (3.29-11.43) 10/28/24 04:34 RBC 2.43 10^6/uL (3.85-5.65) L 10/28/24 04:34 Hgb 7.40 g/dL (11.27-16.99) L 10/28/24 04:34 Hct 23.7 % (37-53) L 10/28/24 04:34 MCV 97.5 fl (82-101) 10/28/24 04:34 MCH 30.5 pg (27-33) 10/28/24 04:34 MCHC 31.2 g/dL (30-55) 10/28/24 04:34 RDW 17.4 % (12.1-15.1) H 10/28/24 04:34 Plt Count 452 10^3/cmm (157-399) H 10/28/24 04:34 MPV 9.9 fL (7.4-10.4) 10/28/24 04:34 Neut % (Auto) 71.0 % 10/28/24 04:34 Lymph % (Auto) 14.0 % 10/28/24 04:34 [place] % (Auto) 10.5 % 10/28/24 04:34 Eos % (Auto) 2.6 % 10/28/24 04:34 Baso % (Auto) 0.5 % 10/28/24 04:34 Neut # (Auto) 6.01 10^3/uL (1.8-7.7) 10/28/24 04:34 Lymph # (Auto) 1.2 10^3/uL (0.8-4.8) 10/28/24 04:34 [place] # (Auto) 0.9 10^3/uL (0.2-0.9) 10/28/24 04:34 Eos # (Auto) 0.2 10^3/uL (0.0-0.8) 10/28/24 04:34 Baso # (Auto) 0.0 10^3/uL (0.0-0.1) 10/28/24 04:34 Nucleated RBC % (auto) 0 % 10/28/24 04:34 Nucleated RBCs # 0.0 /100WBC 10/28/24 04:34 Sodium 139 mmol/L (136-145) 10/28/24 04:34 Potassium 3.8 mmol/L (3.5-5.1) 10/28/24 04:34 Chloride 104 mmol/L (98-107) 10/28/24 04:34 Carbon Dioxide 23 mmol/L (22-29) 10/28/24 04:34 Anion Gap 15.8 (5-19) 10/28/24 04:34 BUN 7 mg/dL (6-20) 10/28/24 04:34 Creatinine 0.6 mg/dL (0.7-1.2) L 10/28/24 04:34 GFR Calculation 142.0 mL/min (90-130) H 10/28/24 04:34 Glucose 89 mg/dL (65-115) 10/28/24 04:34 POC Glucose 104 mg/dL (70-110) 10/24/24 20:29 Estimat Average Glucose 114 10/23/24 09:47 Hemoglobin A1c 5.6 % (4.0-6.0) 10/23/24 09:47 Calculated Osmolality 285 mOsm/kg (285-295) 10/28/24 04:34 Lactic Acid 0.9 mmol/L (0.5-2.2) 10/24/24 16:40 Lactic Acid (Sepsis) 2.1 mmol/L (0.5-2.2) 10/21/24 21:07 Calcium 8.0 mg/dL (8.5-10.5) L 10/28/24 04:34 Magnesium 2.0 mg/dL (1.7-2.3) 10/28/24 04:34 Iron 14 ug/dL (59-158) L 10/25/24 03:48 TIBC 144 mcg/dl 10/25/24 03:48 % Saturation 9.7 % (20-50) L 10/25/24 03:48 Unsat Iron Binding 130 ug/dL (112-347) 10/25/24 03:48 Total Bilirubin 0.3 mg/dL (0.15-1.2) 10/28/24 04:34 AST 11 U/L (0-40) 10/28/24 04:34 ALT 11 U/L (0-41) 10/28/24 04:34 Alkaline Phosphatase 94 U/L (40-130) 10/28/24 04:34 Ammonia 31 umol/L (16-60) 10/24/24 12:19 C-Reactive Protein 304.3 mg/L (0.0-4.9) H 10/21/24 19:41 Total Protein 5.6 g/dL (6.6-8.7) L 10/28/24 04:34 Albumin 2.5 g/dL (3.5-5.2) L 10/28/24 04:34 Globulin 3.1 g/dL (1.3-4.6) 10/28/24 04:34 Vitamin B12 306 pg/mL (232-1245) 10/25/24 03:48 Folate 5.1 ng/mL (4.5-32.2) 10/26/24 03:10 TSH 2.95 uIU/mL (0.27-4.20) 10/25/24 03:48 Nasal MRSA (PCR) Not detected (Negative) 10/25/24 09:30 Vancomycin Trough 15.7 ug/mL (10-15) H 10/27/24 19:20 Urine Opiates Screen Positive ng/mL (Negative) H 10/26/24 07:27 Ur Barbiturates Screen Positive ng/mL (Negative) H 10/26/24 07:27 Ur Phencyclidine Scrn Negative ng/mL (Negative) 10/26/24 07:27 Ur Amphetamines Screen Negative ng/mL (Negative) 10/26/24 07:27 U Benzodiazepines Scrn Positive ng/mL (Negative) H 10/26/24 07:27 Urine Cocaine Screen Negative ng/mL (Negative) 10/26/24 07:27 U Marijuana (THC) Screen Negative ng/mL (Negative) 10/26/24 07:27 C. difficile (PCR) Negative (Negative) 10/25/24 12:49 Blood Type O Positive 10/26/24 10:40 Rho(D) Type Rh positive 10/26/24 10:40 Antibody Screen Negative 10/26/24 10:40 Crossmatch See Detail 10/26/24 10:40 Vitals Last Vital Signs Temp 98.5 F 10/28/24 07:52 Pulse 74 10/28/24 07:52 Resp 18 10/28/24 07:52 BP 121/73 10/28/24 07:52 Pulse Ox 95 10/28/24 07:52 O2 Del Method Room Air 10/28/24 07:52 O2 Flow Rate 2 10/26/24 06:00 Discharge Plan Discharge Patient Disposition: Home Condition: Stable Prescriptions: New oxycodone [OxyContin] 10 mg tablet,oral only,ext.rel.12 hr 10 mg PO Q12H 7 Days Qty: 14 0RF Continued nitroglycerin 0.4 mg tablet, sublingual 0.4 mg sublingual Q5M PRN (Reason: chest pain) Qty: 25 3RF Rx Instructions: do not exceed 3 doses per episode gabapentin 600 mg tablet 600 mg PO BID 30 Days Qty: 60 0RF tizanidine 4 mg tablet 4 mg PO BID Qty: 60 0RF (DME) Bone Growth Stimulator See Rx Instructions .Route .MEDSUPPLY Qty: 1 0RF Rx Instructions: As directed lisinopril 20 mg tablet 20 mg PO DAILY Qty: 30 4RF amlodipine 10 mg tablet 10 mg PO DAILY Qty: 30 4RF Discontinued oxycodone [OxyContin] 10 mg tablet,oral only,ext.rel.12 hr 10 mg PO Q12H 7 Days Qty: 14 0RF Rx Instructions: Patient does not have this medication yet, awaiting insurance okay oxycodone-acetaminophen 10-325 mg tablet 1 tab PO Q4H PRN (Reason: pain) 28 Days Qty: 160 0RF Discharge Orders: Discharge Order (Routine); Ordered 10/28/24 Ordered By: Thomas Qureshi Other Ambulatory Orders: Miscellaneous Procedure (Order) Location: None Selected Ordered By: Shimon Tian Referrals: Thomas Qureshi, [Physician] - 11/04/24 10:30 am Brenda Sharma FNP [Primary Care Provider] - 11/01/24 10:50 am [facility], [Staff Physician] - 11/03/24 8:00 am Discharge Diet: Advance as tolerated Discharge Activity: Limit activity as instructed Patient Instructions: Acute Wound Care (DC), Opioid Safety, Post Anesthesia Care Activity Restrictions/Additional Instructions: Okay to restart oxycodone when you get home Thank you for choosing [facility] for your care! The following is a list of instructions, from your provider, to follow upon your discharge to ensure you have the optimal recovery from your recent injury or surgery. Posterior cervical fusion: What to Expect at Home Your Recovery Follow-up care is a schmid part of your treatment and safety. Be sure to make and go to all appointments, and call your doctor if you are having problems. If you do not already have a follow-up appointment made, call office in the next 1-3 days to make follow up appointment for 2 weeks at [phone]. It is also a good idea to know your test results and keep a list of the medicines you take. You can expect your neck to feel stiff or sore after surgery. This should improve in the weeks after surgery. But it may take 4 to 6 months for you to get better completely. You may have trouble sitting or standing in one position for very long and may need pain medicine in the weeks after your surgery. It may take 4 to 6 weeks to get back to your usual activities, but it may depend on what kind of surgery you had. Your throat will feel sore and it may be difficult to swallow for the first 3 days after your surgery. As long as you can get liquids down without difficulty, this should slowly improve, otherwise call our office or seek medical attention if it becomes increasingly difficult to get anything down including liquids. Avoid hot liquids for first 3-5 days. Soothing foods/liquids such as jello, pudding, and luke warm soups are recommended until swallowing improves. Staying elevated will also help, it's advised you keep propped up at while sleeping to help reduce the swelling. You may use an ice pack directly on your incision or around it on the front of your neck, using a cloth to protect your skin; and a heating pad to the back of your neck as needed. Do not use over the counter anti-inflammatory medications (Ibuprofen, Motrin, Aleve, Advil, etc) Taking these meds after having a fusion can delay fusion rates, we recommend you avoid them for the first 3 months after your surgery[address] Dr. Qureshi may advise you to work with a physical therapist to strengthen the muscles around your neck and back - this will be discussed at your follow - up appointments. The pain or numbness you were having in your arms before surgery should get better or go away completely. This care sheet gives you a general idea about how long it will take for you to recover. But each person recovers at a different pace. Follow the steps below to get better as quickly as possible. How can you care for yourself at home? Activity ? Rest when you feel tired. Getting enough sleep will help you recover. ? Try to walk each day. Start by walking a little more than you did the day before. Bit by bit, increase the amount you walk. Walking boosts blood flow and helps prevent pneumonia and constipation. Walking may also decrease your muscle soreness after surgery. ? No lifting anything that is more that 5 pounds. This may include heavy grocery bags and milk containers, a heavy briefcase or backpack, cat litter or dog food bags, a child, or a vacuum heavy cleaner. ? Avoid strenuous activities, such as bicycle riding, jogging, weightlifting, or aerobic exercise, until your doctor says it is okay. ? Do not drive until your follow-up visit after your surgery, or until your doctor says it isokay. ? Avoid taking long car trips for 2 to 4 weeks after surgery. Your neck may become tired and painful from sitting too long in one position. ? You will probably need to take 4 to 6 weeks off from work. It depends on the type of work you do and how you feel. ? You may have sex as soon as you feel able, but avoid positions that put stress on your neck or cause pain. Diet ? You can eat your normal diet. If your stomach is upset, try bland, low-fat foods like plain rice, broiled chicken, toast, and yogurt ? Drink plenty of fluids. If you have kidney, heart, or liver disease and have to limit fluids, talk with your doctor before you increase the amount of fluids you drink. ? You may notice that your bowel movements are not regular right after your surgery. This is common. Try to avoid constipation and straining with bowel movements. You may want to take a fiber supplement every day. If you have not had a bowel movement after a couple of days, ask your doctor about taking a mild laxative. Medicines ? Take pain medicines exactly as directed. 1. If Dr. Qureshi gave you a prescription medicine for pain, take lt as prescribed. 2. Do not take two or more pain medicines at the same time unless the doc tor told you to. Many pain medicines have acetaminophen, which is Tylenol. Too much acetaminophen {Tylenol) can be harmful. 3. If you think your pain pill is making you sick to your stomach: 4. Take your pills after meals (unless your doctor has told you not to). 5. Ask your Dr. for a different pain pill. Incisioncare ? Remove your dressing 48hours after your surgery. Ok to shower and get the incision wet. Do not overtly wash your incision. When done, pad dry, leave open to air thereafter. Avoid creams and ointments directly on your incision. ? Your sutures in the incision will dissolve and fall out on their own. ? Keep the area clean and dry. You may cover it with a gauze bandage if it weeps or rubs against clothing; if you choose to do this, change the dressing everyday. Other instructions ? Use a heating pad, hot water bottle, or gentle massage on your back to reduce stiffness. Avoid putting heat on your incision When should you call for help? ? Call 911 anytime you think you may need emergency care. For example, call if: ? You pass out (lose consciousness). ? You have sudden chest pain and shortness of breath, or you cough upblood. ? You cannot swallow. ? You have severe pain in your neck or back. ? Call your Dr. or seek immediate medical care if: ? You have pain that does not get better after you take pain pills. ? You have loose stitches, or your incision comes open. ? You have blood or fluid draining from the incision. ? You have signs of infection, such as: 1. Increased pain, swelling, warmth, or redness. 2. Red streaks leading from the site. 3. Pus draining from the site. 4. Swollen lymph nodes in your neck or armpits. 5. A fever. ? You have severe pain in your arms. ? You have new or increased weakness or numbness in your arms. ? Watch closely for any changes in your health, and be sure to contact your doctor if: ? You do not have a bowel movement after taking a laxative. Discharge Attestations Time Spent in Discharge Care*: less than 30 min Quality Metrics Clinical Quality Measures [ No reported AMI, CVA or VTE this stay] Coding Level of Care Code Acute Code for Chg Fwd Diagnoses Cervical spondylosis with radiculopathy M47.22 Hardware complicating wound infection T84.7XXA Status post cervical spinal fusion Z98.1 Surgical site infection T81.49XA Alcohol withdrawal F10.939 Postoperative anemia D64.9 Essential hypertension I10 Hypertension type: essential hypertension Coronary artery disease involving [place] coronary artery of [place] heart with angina pectoris I25.119 Coronary Disease-Associated Artery/Lesion type: [place] artery [place] vs. transplanted heart: [place] heart Associated angina: with unspecified form of angina Chronic obstructive pulmonary disease, unspecified COPD type J44.9 COPD type: unspecified COPD PAYAM (obstructive sleep apnea) G47.33 Tobacco dependence F17.200
[2024-10-28] MEDS: docusate sodium 100 mg Capsule PO (09:58)
[2024-10-28] MEDS: multivitamin therapeutic Tablet 1 TAB PO (09:58)
[2024-10-28] MEDS: pantoprazole 40 mg SDV IVP (09:58)
[2024-10-28] MEDS: folic acid 1 mg Tablet PO (09:59)
[2024-10-28] MEDS: gabapentin 300 mg Capsule 600 MG PO (09:59)
[2024-10-28] MEDS: thiamine 100 mg Tablet PO (09:59)
[2024-10-28] MEDS: iron sucrose 200 MG in sodium chloride 0.9% (100 ml) 100 ML 220 MG IV (09:59)
[2024-10-28] MEDS: tizanidine 4 mg Tablet PO (09:59)
--- NOTE | 2024-10-28 12:16 | P.PN_ITS ---
Subjective 2 Subjective: No acute events overnight. Patient seen with spouse at bedside. Patient denies any nausea, vomiting, headache. Worked with physical therapy. Vitals/I&O/Wt Last Vital Signs Temp 98.2 F 10/28/24 11:48 Pulse 76 10/28/24 11:48 Resp 18 10/28/24 11:48 BP 121/79 10/28/24 11:48 Pulse Ox 96 10/28/24 11:48 O2 Del Method Room Air 10/28/24 11:48 O2 Flow Rate 2 10/26/24 06:00 10/27/24 10/28/24 10/28/24 22:59 06:59 14:59 Intake Total 1310 / 2150 200 / 2350 600 / 600 Balance 1310 / 2150 200 / 2350 600 / 600 Weight last 48 hrs Weight 75.705 kg Weight 79.333 kg Physical Exam 2 Const: COMMON NORMALS: no acute distress and patient oriented x3 GENERAL APPEARANCE: lethargic ORIENTATION/CONSCIOUSNESS: Yes awake, Yes oriented to person, Yes oriented to place, Yes oriented to time and Yes lethargic Eye: COMMON NORMALS: Equal, round and reactive pupils present PUPIL: Yes Equal, round and reactive pupils present OTHER: in cervical collar Neck/C-Spine: COMMON NORMALS: no JVD OTHER: Currently in a [place] J collar Resp: COMMON NORMALS: normal respiratory effort, No retractions, No use of accessory muscles and clear to auscultation bilaterally AUSCULTATION: clear to auscultation bilaterally Cardio: COMMON NORMALS: no JVD, regular rate, regular rhythm, S1 normal heart sound present and S2 normal heart sound present RATE: regular rate RHYTHM: regular rhythm HEART SOUNDS: S1 normal heart sound present and S2 normal heart sound present GI: COMMON NORMALS: Normal to inspection, nondistended, normoactive bowel sounds present and non-tender Extremity: COMMON NORMALS: no calf tenderness and no pedal edema Neuro: COMMON NORMALS: patient oriented x3, CN's II-XII intact bilaterally and moves all extremities SENSORIUM/ORIENTATION: Yes oriented to person, Yes oriented to place, Yes oriented to time and Yes lethargic OTHER: No significant tremor, no visual or auditory or tactile hallucination Psych: COMMON NORMALS: mental status grossly normal Skin: OTHER: Surgical site looks clean and dry Data 10/28/24 04:34 10/28/24 04:34 Micro: Microbiology 10/22/24 14:20 Gram Stain - Final Neck Anaerobic Culture - Preliminary Anaerobic gram negative rods Wound Culture - Final A&P Assessment and plan (1) Cervical spondylosis with radiculopathy: (2) Hardware complicating wound infection: (3) Status post cervical spinal fusion: (4) Surgical site infection: (5) Alcohol withdrawal: (6) Postoperative anemia: (7) HTN (hypertension): Qualifiers: Hypertension type: essential hypertension Qualified Code(s): I10 - Essential (primary) hypertension (8) Coronary artery disease: Qualifiers: Coronary Disease-Associated Artery/Lesion type: [place] artery [place] vs. transplanted heart: [place] heart Associated angina: with unspecified form of angina Qualified Code(s): I25.119 - Atherosclerotic heart disease of [place] coronary artery with unspecified angina pectoris (9) COPD (chronic obstructive pulmonary disease): Qualifiers: COPD type: unspecified COPD Qualified Code(s): J44.9 - Chronic obstructive pulmonary disease, unspecified (10) PAYAM (obstructive sleep apnea): (11) Tobacco dependence: Plan Surgical site infection -History of C2-T2 posterior cervical fusion -Posterior wound infection -Status post irrigation debridement down to bone of posterior neck, 10 inches in length, 1 inch deep -Surgical site Plan -Follow surgical cultures -Follow blood cultures -Continue IV antibiotics -Vancomycin -Zosyn -Will likely need PICC line placement tomorrow, infectious disease consultation Hypertension, continue home blood pressure medications Neuropathy continue gabapentin Smoking history, smoking cessation counseling Postoperative anemia -Hemoglobin down to 8.2 -Monitor hemoglobin Acute alcohol withdrawal, moderate to severe -Currently in the ICU -[facility] protocol -Librium 50 every 6h -Precedex drip -Status post 1 dose of phenobarbital 60 mg -Monitor mentation closely -Folic acid, thiamine Full code SCDs for DVT prophylaxis, Lovenox Plan for the day: Patient safe to be discharged from medical standpoint. Patient will be discharged on IV vancomycin and cefepime for 6 weeks as per infectious disease recommendations. PICC line dressings weekly as arranged by case management. Lab work every week to be followed up with ID clinic. Hemoglobin stable. Wound care as per primary team. Hold off on lisinopril on discharge. Patient will check his blood pressure daily at home and maintain a blood pressure diary and follow-up with a primary care provider within next 2 weeks for further adjustment of antihypertensive. Goal blood pressure is between 100- 140 systolics. Librium taper as 25 mg twice daily for next 3 days followed by 25 mg daily for 3 days and then stop. Patient advised and counseled in detail to hold off on any further alcohol use going forward. Med rec completed. PDMP PDMP Reviewed: Not Reviewed Attestations 2 Medical Necessity Statement*: Safe to be discharged today. Patient being treated for hardware infection post debridement, alcohol withdrawal. Diagnoses Cervical spondylosis with radiculopathy M47.22 Hardware complicating wound infection T84.7XXA Status post cervical spinal fusion Z98.1 Surgical site infection T81.49XA Alcohol withdrawal F10.939 Postoperative anemia D64.9 Essential hypertension I10 Hypertension type: essential hypertension Coronary artery disease involving [place] coronary artery of [place] heart with angina pectoris I25.119 Coronary Disease-Associated Artery/Lesion type: [place] artery [place] vs. transplanted heart: [place] heart Associated angina: with unspecified form of angina Chronic obstructive pulmonary disease, unspecified COPD type J44.9 COPD type: unspecified COPD PAYAM (obstructive sleep apnea) G47.33 Tobacco dependence F17.200
== END 2024-10-28 15:30 | disposition home or self-care (01) | DRG 857 ==
LOC: ER 21:48 → MEDSURG 22:17 → ICU 10-24 11:17 → MEDSURG 10-26 11:16
PROVIDERS: Family Medicine; Student in an Organized Health Care Education/Training Program; Admitting Provider Orthopaedic Surgery; Emergency Provider Emergency Medicine; PCP Nurse Practitioner; Visit Provider Orthopaedic Surgery
PROC: 0PB30ZZ Excision of Cervical Vertebra, Open Approach (ICD-10-PCS; principal; 2024-10-22 15:05)
DX: T81.42XA Infection following a procedure, deep incisional surgical site, initial encounter (principal); F10.239 Alcohol dependence with withdrawal, unspecified; T84.63XA Infection and inflammatory reaction due to internal fixation device of spine, initial encounter; Y79.8 Miscellaneous orthopedic devices associated with adverse incidents, not elsewhere classified; M47.22 Other spondylosis with radiculopathy, cervical region; Z98.1 Arthrodesis status; D64.89 Other specified anemias; I10 Essential (primary) hypertension; I25.10 Atherosclerotic heart disease of native coronary artery without angina pectoris; J43.9 Emphysema, unspecified; G47.33 Obstructive sleep apnea (adult) (pediatric); F17.210 Nicotine dependence, cigarettes, uncomplicated; W01.0XXA Fall on same level from slipping, tripping and stumbling without subsequent striking against object, initial encounter; I34.1 Nonrheumatic mitral (valve) prolapse; Z90.49 Acquired absence of other specified parts of digestive tract; Z79.891 Long term (current) use of opiate analgesic; R00.0 Tachycardia, unspecified; G62.9 Polyneuropathy, unspecified
CPT/HCPCS: 36415; 36416; 36430; 36573; 36592; 70450; 71045; 72126; 80048; 80053; 80202; 80306; 82140; 82274; 82607; 82746; 82962; 83036; 83540; 83550; 83605; 83735; 84443; 85014; 85018; 85025; 86140; 86850; 86900; 86920; 87040; 87070; 87075; 87077; 87205; 87493; 96365; 96372; 96374; 96375; 96376; 97116; 97161; 97530; 99285; J0171; J0692; J1100; J1171; J1650; J1756; J1885; J2060; J2250; J2270; J2405; J2470; J2543; J2560; J2704; J3010; J3370; J3411; J3490; J7030; J9999; P9040; P9045

== ENCOUNTER 2024-11-05 08:57 | Outpatient (CLI) | payer OTHER, SELFPAY ==
--- NOTE | 2024-11-05 09:00 | USCV_ITS ---
EarleneAugust singh Age: 49 Gender: M : 1975 Exam Date: 11/05/2024 09:03 Ordering Phys: Thomas Qureshi DO Technologist: LORI Exam Location: [facility] [place] Indication: Swelling HISTORY: Lower extremity swelling. PROCEDURES: Venous duplex imaging was performed in bilateral lower extremities. The following venous structures were evaluated: common femoral vein, profunda vein, proximal portion of the greater saphenous vein, superficial femoral vein, and the popliteal vein. In addition, the posterior tibial and peroneal trunk were evaluated. Serial compression, augmentation maneuvers, and spectral Doppler flow evaluation were performed. FINDINGS: No evidence of DVT seen in any vessel visualized at this time. CONCLUSIONS No evidence of right lower extremity DVT. No evidence of left lower extremity DVT. Guilherme Chau MD (Electronically Signed) Final Date: 05 November 2024 13:59 S
== END 2024-11-05 08:58 | disposition home or self-care (01) ==
PROVIDERS: PCP Nurse Practitioner; Visit Provider Orthopaedic Surgery
DX: I82.409 Acute embolism and thrombosis of unspecified deep veins of unspecified lower extremity (principal)
CPT/HCPCS: 93970

== ENCOUNTER 2024-11-05 09:00 | Oncology outpatient (recurring) (ONCR) | payer OTHER, SELFPAY ==
[2024-11-04 10:31] LABS: Basophils # 0.1 10^3/uL (0.0-0.1); Eosinophils # 0.1 10^3/uL (0.0-0.8); Eosinophils % 1.3 %; Hematocrit 26.6 % (37-53); Lymphocytes # 1.3 10^3/uL (0.8-4.8); Lymphocytes % 16.4 %; Mean Corpuscular HGB Conc 30.8 g/dL (30-55); Mean Corpuscular Hemoglobin 29.7 pg (27-33); Mean Corpuscular Volume 96.4 fl (82-101); Mean Platelet Volume 9.5 fL (7.4-10.4); Monocytes # 0.6 10^3/uL (0.2-0.9); Monocytes % 8.1 %; Neutrophils # 5.69 10^3/uL (1.8-7.7); Neutrophils % 72.8 %; Nucleated Red Blood Cells % 0 %; Platelet Count 457 10^3/cmm (157-399); Red Blood Count 2.76 10^6/uL (3.85-5.65); Red Cell Distribution Width 16.9 % (12.1-15.1); White Blood Count 7.81 10^3/uL (3.29-11.43)
[2024-11-04 10:51] LABS: Alanine Aminotransferase 6 U/L (0-41); Alkaline Phosphatase 100 U/L (40-130); Aspartate Amino Transferase 11 U/L (0-40); C Reactive Protein 58.6 mg/L (0.0-4.9); Globulin 2.9 g/dL (1.3-4.6); Total Bilirubin 0.3 mg/dL (0.15-1.2); Total Protein 5.9 g/dL (6.6-8.7)
[2024-11-04 11:15] LABS: Vancomycin Trough 27.7 ug/mL (10-15)
[2024-11-05 09:50] LABS: Vancomycin Trough 5.6 ug/mL (10-15)
== END 2024-11-08 23:59 | disposition home or self-care (01) ==
LOC: ONCMED 12:40 → RAD 12:40 → ONCMED 11-08 09:04
PROVIDERS: Student in an Organized Health Care Education/Training Program; PCP Nurse Practitioner; Visit Provider Student in an Organized Health Care Education/Training Program
DX: Z53.9 Procedure and treatment not carried out, unspecified reason (principal); B99.9 Unspecified infectious disease
CPT/HCPCS: 36415; 80076; 80202; 82565; 85025; 86140

== ENCOUNTER 2024-12-02 08:08 | Oncology outpatient (recurring) (ONCR) | payer OTHER, SELFPAY ==
[2024-11-11 08:53] LABS: Basophils # 0.1 10^3/uL (0.0-0.1); Basophils % 1.2 %; Eosinophils # 0.3 10^3/uL (0.0-0.8); Eosinophils % 5.6 %; Hematocrit 28.7 % (37-53); Lymphocytes # 1.1 10^3/uL (0.8-4.8); Lymphocytes % 18.7 %; Mean Corpuscular HGB Conc 30.3 g/dL (30-55); Mean Corpuscular Hemoglobin 29.3 pg (27-33); Mean Corpuscular Volume 96.6 fl (82-101); Mean Platelet Volume 9.4 fL (7.4-10.4); Monocytes # 0.6 10^3/uL (0.2-0.9); Monocytes % 10.9 %; Neutrophils # 3.59 10^3/uL (1.8-7.7); Neutrophils % 62.9 %; Nucleated Red Blood Cells % 0 %; Platelet Count 324 10^3/cmm (157-399); Red Blood Count 2.97 10^6/uL (3.85-5.65); Red Cell Distribution Width 16.9 % (12.1-15.1); White Blood Count 5.71 10^3/uL (3.29-11.43)
[2024-11-11 09:10] LABS: Vancomycin Trough 14.7 ug/mL (10-15)
[2024-11-11 09:13] LABS: Alanine Aminotransferase < 5 U/L (0-41); Albumin Level 3.2 g/dL (3.5-5.2); Alkaline Phosphatase 115 U/L (40-130); Aspartate Amino Transferase 11 U/L (0-40); Globulin 2.7 g/dL (1.3-4.6); Total Bilirubin 0.3 mg/dL (0.15-1.2); Total Protein 5.9 g/dL (6.6-8.7)
[2024-11-18 10:12] LABS: Basophils % 0.7 %; Eosinophils # 0.7 10^3/uL (0.0-0.8); Hematocrit 29.6 % (37-53); Lymphocytes # 1.1 10^3/uL (0.8-4.8); Lymphocytes % 18.1 %; Mean Corpuscular HGB Conc 30.7 g/dL (30-55); Mean Corpuscular Hemoglobin 28.9 pg (27-33); Mean Platelet Volume 9.5 fL (7.4-10.4); Monocytes # 0.7 10^3/uL (0.2-0.9); Monocytes % 10.9 %; Neutrophils # 3.52 10^3/uL (1.8-7.7); Neutrophils % 57.8 %; Nucleated Red Blood Cells % 0 %; Platelet Count 268 10^3/cmm (157-399); Red Blood Count 3.15 10^6/uL (3.85-5.65); Red Cell Distribution Width 16.5 % (12.1-15.1); White Blood Count 6.08 10^3/uL (3.29-11.43)
[2024-11-18 10:22] LABS: Alanine Aminotransferase < 5 U/L (0-41); Albumin Level 3.2 g/dL (3.5-5.2); Alkaline Phosphatase 136 U/L (40-130); Aspartate Amino Transferase 9 U/L (0-40); Globulin 2.7 g/dL (1.3-4.6); Total Bilirubin 0.3 mg/dL (0.15-1.2); Total Protein 5.9 g/dL (6.6-8.7); Vancomycin Trough 11.9 ug/mL (10-15)
[2024-11-25] MEDS: alteplase 1 mg/mL SDV 2 mL INTRACATH ×2 (08:52→08:54)
[2024-11-25 08:55] LABS: Basophils % 0.7 %; Eosinophils # 1.3 10^3/uL (0.0-0.8); Eosinophils % 23.2 %; Hematocrit 29.9 % (37-53); Lymphocytes # 0.9 10^3/uL (0.8-4.8); Lymphocytes % 15.4 %; Mean Corpuscular HGB Conc 30.8 g/dL (30-55); Mean Corpuscular Hemoglobin 28.8 pg (27-33); Mean Corpuscular Volume 93.7 fl (82-101); Mean Platelet Volume 9.3 fL (7.4-10.4); Monocytes # 0.5 10^3/uL (0.2-0.9); Neutrophils # 3.02 10^3/uL (1.8-7.7); Neutrophils % 52.4 %; Nucleated Red Blood Cells % 0 %; Platelet Count 276 10^3/cmm (157-399); Red Blood Count 3.19 10^6/uL (3.85-5.65); Red Cell Distribution Width 16.3 % (12.1-15.1); White Blood Count 5.77 10^3/uL (3.29-11.43)
[2024-11-25 09:12] LABS: Alanine Aminotransferase < 5 U/L (0-41); Albumin Level 3.3 g/dL (3.5-5.2); Alkaline Phosphatase 130 U/L (40-130); Aspartate Amino Transferase 11 U/L (0-40); Globulin 2.8 g/dL (1.3-4.6); Total Bilirubin 0.4 mg/dL (0.15-1.2); Total Protein 6.1 g/dL (6.6-8.7)
[2024-11-25 09:16] LABS: Vancomycin Trough 12.7 ug/mL (10-15)
[2024-12-02 08:50] LABS: Basophils # 0.1 10^3/uL (0.0-0.1); Basophils % 0.9 %; Eosinophils # 0.7 10^3/uL (0.0-0.8); Eosinophils % 13.3 %; Hematocrit 30.2 % (37-53); Lymphocytes # 1.1 10^3/uL (0.8-4.8); Lymphocytes % 20.1 %; Mean Corpuscular HGB Conc 31.1 g/dL (30-55); Mean Corpuscular Volume 93.2 fl (82-101); Mean Platelet Volume 9.5 fL (7.4-10.4); Monocytes # 0.6 10^3/uL (0.2-0.9); Monocytes % 11.5 %; Neutrophils # 2.92 10^3/uL (1.8-7.7); Nucleated Red Blood Cells % 0 %; Platelet Count 265 10^3/cmm (157-399); Red Blood Count 3.24 10^6/uL (3.85-5.65); Red Cell Distribution Width 16.3 % (12.1-15.1); White Blood Count 5.41 10^3/uL (3.29-11.43)
[2024-12-02 09:32] LABS: Alanine Aminotransferase 6 U/L (0-41); Albumin Level 3.4 g/dL (3.5-5.2); Alkaline Phosphatase 140 U/L (40-130); Aspartate Amino Transferase 14 U/L (0-40); Blood Urea Nitrogen 4 mg/dL (6-20); Calcium 8.2 mg/dL (8.5-10.5); Carbon Dioxide 29 mmol/L (22-29); Chloride 101 mmol/L (98-107); Globulin 2.7 g/dL (1.3-4.6); Glucose 83 mg/dL (65-115); Osmolality Calculated 284 mOsm/kg (285-295); Sodium 139 mmol/L (136-145); Total Bilirubin 0.4 mg/dL (0.15-1.2); Total Protein 6.1 g/dL (6.6-8.7)
== END 2024-12-08 23:59 | disposition home or self-care (01) ==
PROVIDERS: Student in an Organized Health Care Education/Training Program; PCP Nurse Practitioner; Visit Provider Student in an Organized Health Care Education/Training Program
DX: T84.7XXA Infection and inflammatory reaction due to other internal orthopedic prosthetic devices, implants and grafts, initial encounter (principal); T81.40XA Infection following a procedure, unspecified, initial encounter
CPT/HCPCS: 36415; 36592; 72040; 80053; 80076; 80202; 82565; 85025; J2997

== ENCOUNTER → 2024-12-23 16:00 | Outpatient (BNVA) | payer OTHER, SELFPAY | PROVIDERS: PCP Nurse Practitioner; Visit Provider Orthopaedic Surgery | DX: Z98.1 Arthrodesis status (principal) | CPT/HCPCS: 72040 ==

== ENCOUNTER 2025-01-05 07:30 | Oncology outpatient (recurring) (ONCR) | payer OTHER, SELFPAY ==
[2024-12-09 09:32] LABS: Basophils % 0.7 %; Eosinophils # 0.4 10^3/uL (0.0-0.8); Eosinophils % 6.1 %; Hematocrit 33.7 % (37-53); Lymphocytes # 1.6 10^3/uL (0.8-4.8); Lymphocytes % 26.5 %; Mean Corpuscular HGB Conc 31.2 g/dL (30-55); Mean Corpuscular Hemoglobin 29.2 pg (27-33); Mean Corpuscular Volume 93.6 fl (82-101); Mean Platelet Volume 9.5 fL (7.4-10.4); Monocytes # 0.6 10^3/uL (0.2-0.9); Monocytes % 10.4 %; Neutrophils # 3.38 10^3/uL (1.8-7.7); Nucleated Red Blood Cells % 0 %; Platelet Count 280 10^3/cmm (157-399); Red Cell Distribution Width 15.7 % (12.1-15.1); White Blood Count 6.04 10^3/uL (3.29-11.43)
[2024-12-09 09:53] LABS: Alanine Aminotransferase 7 U/L (0-41); Albumin Level 3.6 g/dL (3.5-5.2); Alkaline Phosphatase 118 U/L (40-130); Aspartate Amino Transferase 15 U/L (0-40); C Reactive Protein 9.1 mg/L (0.0-4.9); Globulin 2.7 g/dL (1.3-4.6); Total Bilirubin 0.4 mg/dL (0.15-1.2); Total Protein 6.3 g/dL (6.6-8.7)
[2024-12-09 09:57] LABS: Vancomycin Trough 16.1 ug/mL (10-15)
[2024-12-16 09:13] LABS: Basophils # 0.1 10^3/uL (0.0-0.1); Basophils % 1.1 %; Eosinophils # 0.3 10^3/uL (0.0-0.8); Eosinophils % 4.4 %; Hematocrit 34.8 % (37-53); Lymphocytes # 1.5 10^3/uL (0.8-4.8); Lymphocytes % 24.2 %; Mean Corpuscular Hemoglobin 28.8 pg (27-33); Mean Corpuscular Volume 92.8 fl (82-101); Mean Platelet Volume 9.3 fL (7.4-10.4); Monocytes # 0.7 10^3/uL (0.2-0.9); Monocytes % 11.1 %; Neutrophils # 3.65 10^3/uL (1.8-7.7); Nucleated Red Blood Cells % 0 %; Platelet Count 312 10^3/cmm (157-399); Red Blood Count 3.75 10^6/uL (3.85-5.65); Red Cell Distribution Width 15.3 % (12.1-15.1); White Blood Count 6.19 10^3/uL (3.29-11.43)
[2024-12-16 09:30] LABS: Albumin Level 3.5 g/dL (3.5-5.2); Alkaline Phosphatase 95 U/L (40-130); C Reactive Protein 7.7 mg/L (0.0-4.9); Globulin 2.9 g/dL (1.3-4.6); Total Bilirubin 0.4 mg/dL (0.15-1.2); Total Protein 6.4 g/dL (6.6-8.7); Vancomycin Trough 15.7 ug/mL (10-15)
[2024-12-16 09:34] LABS: Alanine Aminotransferase 13 U/L (0-41); Aspartate Amino Transferase 24 U/L (0-40)
--- NOTE | 2025-01-05 07:30 | CT_ITS ---
WS: [id number] CT CERVICAL SPINE HISTORY: neck pain TECHNIQUE: Contiguous 2.0 mm axial imaging performed through the entire cervical spine. Sagittal and coronal reformats also performed. All CT scans at [facility] use at least one of these dose optimization techniques: automated exposure control; mA and/or kV adjustment per patient size (includes targeted exams where dose is matched to clinical indication); or iterative reconstruction. DLP: 220.47 mGy.cm COMPARISON: 10/21/2024, radiograph 12/23/2024 Extensive anterior and posterior cervical fusion hardware. Anterior interbody fusion from C3-C7. Posterior lateral fusion hardware from C2-C6 and at T1-T2. Anterior wedging of T1 with retrolisthesis of T1 by 5 mm. Anterior cervical screw at C6 is retracted approximately 3 mm. This retraction was also present on the prior study of 10/21/2024. Acute angle involving the T2 pedicle screw. Suspicious for fracture at the base of the screw. Pedicle screw on the RIGHT at T2 extends external to the vertebral body between the rib and the vertebral body. No definite loosening is identified. Large posterior cervical laminectomy defects beginning at C3 into the craniocervical junction. Fluid noted posteriorly in the paravertebral soft tissues but improved since 10/21/2024. There does appear to be spinous process surgical defect at T1 and T2. Alternatively this could be osteomyelitis. These d efects are new since 10/21/2024. Paravertebral soft tissue thickening involving the cervical thoracic region. Paraseptal emphysematous changes at the lung apices. CT/CT cervical spin wo con* [id number] IMPRESSION: 1. Continued paraspinal edema throughout the cervical spine into the upper tho racic spine but improvement overall since 10/21/2024. No gas within the soft tis sues. 2. New spinous process defects at T1 and T2. These may be postsurgical defects or from osteomyelitis. 3. C7-T1 malalignment due to retrolisthesis of T1, similar to the prior study. 4. Extensive anterior and posterior fusion hardware as described above. 5. Slight retraction of the anterior vertebral body screw at C6, stable over m ultiple prior studies.. 6. Pedicle screw on the RIGHT at T2 extends external to the vertebral body. 7. Possible fracture of the LEFT T2 pedicle screw. 8. Evaluation of the soft tissues and bone is limited by the extensive hardwar e causing artifact. It would be difficult to exclude continuing indolent infect ion or osteomyelitis.
== END 2025-01-08 23:59 | disposition home or self-care (01) ==
LOC: RAD 01-06 00:01 → ONCMED 01-06 09:06
PROVIDERS: Student in an Organized Health Care Education/Training Program; PCP Nurse Practitioner; Visit Provider Orthopaedic Surgery
DX: Z53.9 Procedure and treatment not carried out, unspecified reason; Z98.1 Arthrodesis status; G95.19 Other vascular myelopathies; R93.7 Abnormal findings on diagnostic imaging of other parts of musculoskeletal system
CPT/HCPCS: 36415; 36592; 72125; 80076; 80202; 82565; 85025; 86140

== ENCOUNTER 2025-01-13 18:11 | Emergency (ER) | payer OTHER, SELFPAY ==
[2025-01-13 18:21] VITALS: BP 152/84; PULSE 88; RESP 16; TEMP 36.7; O2SAT 98; BMI 23.6
--- NOTE | 2025-01-13 18:42 | ED_ITS ---
HPI - General Adult 2 General: Chief complaint: General Medical Stated complaint: dr. castle sent for labs surg friday Time Seen by Provider: 01/13/25 18:30 History of Present Illness: 49-year-old man with a history of obstru ctive sleep apnea, spinal issues with multiple surgeries in the past, COPD, coronary artery disease and hypertension who presents to the emergency room with request for presurgical lab work. He says he went to clinic with Dr. Castle this morning and had been surprised with a plan for surgery on Friday. He was told if they decided they wanted to do this he needed to get lab work done. By the time they made the decision it was too late to have it done here or as an outpatient tomorrow because it was be a send out so they came to the emergency room. Related Data Previous Rx's ?Medication ?Instructions ?Recorded nitroglycerin 0.4 mg sublingual 0.4 mg sublingual Q5M PRN chest 10/06/20 tablet pain #25 tabs amlodipine 10 mg tablet 10 mg PO DAILY #30 tabs 12/10 10/31 Bone Growth Stimulator #1 ea 09/30/24 multivitamin with minerals-folic 1 tab PO DAILY #90 ta bs 10/28/24 acid 80 mcg chewable tablet naloxone 4 mg/actuation nasal 4 mg intranasal Q2M PRN opioid 12/07/24 spray (Narcan) overdose #2 ea oxycodone-acetaminophen 10 mg-325 1 tab PO Q4H PRN arun n 7 days #42 12/09/24 mg tablet tabs amoxicillin 875 mg-potassium 1 tab PO BID 14 days #28 tabs 12/16/24 clavulanate 125 mg tablet oxycodone-acetaminophen 10 mg-325 1 tab PO Q4H pain 30 days #180 tabs 12/16/24 mg tablet morphine 15 mg tablet,extended 15 mg PO Q12H 30 days # 60 tabs 12/23/24 release (MS Contin) gabapentin 600 mg tablet 600 mg PO BID 30 days #60 ta bs 01/04/25 tizanidine 4 mg tablet 4 mg PO BID #60 tabs 5 Allergies Allergy/AdvReac Type Severity Reaction Status Date / Time No Known Allergies Allergy Verified 11/30/24 14:42 Review of Systems 2 Narrative: Constitutional symptoms: Negative except as documented in HPI. Skin symptoms: Negative except as documented in HPI. Eye symptoms: Negative except as documented in HPI. ENMT symptoms: Negative except as documented in HPI. Respiratory symptoms: Negative except as documented in HPI. Cardiovascular symptoms: Negative except as documented in HPI. Gastrointestinal symptoms: Negative except as documented in HPI. Genitourinary symptoms: Negative except as documented in HPI. Musculoskeletal symptoms: Negative except as documented in HPI. Neurologic symptoms: Negative except as documented in HPI. Psychiatric symptoms: Negative except as documented in HPI. Endocrine symptoms: Negative except as documented in HPI. PFSH ED 2 PFSH: Medical History Syncope Acute hypokalemia Acute kidney injury Acute hypotension PAYAM (obstructive sleep apnea) Lumbar stenosis with neurogenic claudication Lumbar disc disease with radiculopathy Coronary artery disease HTN (hypertension) Mitral valve prolapse Lung disease, restrictive Smoker COPD (chronic obstructive pulmonary disease) Surgical History H/O hernia repair H/O shoulder surgery History of surgery on upper extremity History of cholecystectomy H/O vasectomy History of testicular surgery Family History Other CAD (coronary artery disease) Diabetes Hyperlipidemia Hypertension Denies family history of Stroke Social History Smoking and tobacco/nicotine status: unknown if used tobacco/nicotine Alcohol intake: current Alcohol intake frequency: 3 or more drinks per day Alcohol type: beer Substance/Drug Use: never Lives independently: Yes Household members: spouse Marital status: service: No Current occupational status: unemployed Do you think of yourself as: Straight/Heterosexual Current gender identity: Male Physical Exam 2 Narrative: EXAM NARRATIVE: General: Alert, no acute distress. Skin: warm and dry Head: Normocephalic Neck: Cervical collar in place Eye: Extraocular movements are intact. Ears, nose, mouth and throat: Oral mucosa moist Respiratory: Respirations are non-labored Musculoskeletal: Normal ROM Gastrointestinal: Abdomen does not appear distended Neurological: Alert and oriented, No focal neurological deficit observed. Psychiatric: Cooperative, appropriate mood & affect. Course 2 Vital Signs: Vital signs: Vital Signs Temperature 98.1 F 01/13/25 18:21 Pulse Rate 88 01/13/25 18:21 Respiratory Rate 16 01/13/25 18:21 Blood Pressure 152/84 01/13/25 18:21 Pulse Oximetry 98 01/13/25 18:21 Oxygen Delivery Me thod Room Air 01/13/25 18:21 MDM - General Adult Medical Decision Making Patient had lab drawn and walked out without being discharged. Lab work appears unremarkable Lab Data 01/13/25 18:51 01/13/25 18:51 Laboratory Results WBC 6.29 10^3/uL (3.29-11.43) 01/13/25 18:51 RBC 4.36 10^6/uL (3.85-5.65) 01/13/25 18:51 Hgb 12.80 g/dL (11.27-16.99) 01/13/25 18:51 Hct 39.3 % (37-53) 01/13/25 18:51 MCV 90.1 fl (82-101) 01/13/25 18:51 MCH 29.4 pg (27-33) 01/13/25 18:51 MCHC 32.6 g/dL (30-55) 01/13/25 18:51 RDW 13.6 % (12.1-15.1) 01/13/25 18:51 Plt Count 281 10^3/cmm (157-399) 01/13/25 18:51 MPV 9.6 fL (7.4-10.4) 01/13/25 18:51 Neut % (Auto) 51.4 % 01/13/25 18:51 Lymph % (Auto) 35.9 % 01/13/25 18:51 Yancey % (Auto) 9.1 % 01/13/25 18:51 Eos % (Auto) 2.4 % 01/13/25 18:51 Baso % (Auto) 1.0 % 01/13/25 18:51 Neut # (Auto) 3.24 10^3/uL (1.8-7.7) 01/13/25 18:51 Lymph # (Auto) 2.3 10^3/uL (0.8-4.8) 01/13/25 18:51 Yancey # (Auto) 0.6 10^3/uL (0.2-0.9) 01/13/25 18:51 Eos # (Auto) 0.2 10^3/uL (0.0-0.8) 01/13/25 18:51 Baso # (Auto) 0.1 10^3/uL (0.0-0.1) 01/13/25 18:51 Nucleated RBC % (auto) 0 % 01/13/25 18: Nucleated RBCs # 0.0 /100WBC 01/13/25 18:51 PT 12.20 SECONDS (12.1-14.9) 01/13/25 18:51 INR 0.85 (0.8-1.2) 01/13/25 18:51 APTT 30.3 SECONDS (23.9-36.7) 01/13/25 18:51 Sodium 137 mmol/L (136-145) 01/13/25 18:51 Potassium 4.2 mmol/L (3.5-5.1) 01/13/25 18:51 Chloride 101 mmol/L (98-107) 01/13/25 18: Carbon Dioxide 23 mmol/L (22-29) 01/13/25 18:51 Anion Gap 17.2 (5-19) 01/13/25 18:51 BUN 11 mg/dL (6-20) 01/13/25 18:51 Creatinine 0.7 mg/dL (0.7-1.2) 01/13/25 18:51 GFR Calculation 118.9 mL/min (90-130) 01/13/25 18:51 Glucose 99 mg/dL (65-115) 01/13/25 18:51 Calculated Osmolality 283 mOsm/kg (285-295) L 01/13/25 18: Calcium 9.0 mg/dL (8.5-10.5) 01/13/25 18:51 Total Bilirubin 0.3 mg/dL (0.15-1.2) 01/13/25 18:51 AST 25 U/L (0-40) 01/13/25 18:51 ALT 29 U/L (0-41) 01/13/25 18:51 Alkaline Phosphatase 91 U/L (40-130) 01/13/25 18:51 Total Protein 6.8 g/dL (6.6-8.7) 01/13/25 18: Albumin 4.0 g/dL (3.5-5.2) 01/13/25 18:51 Globulin 2.8 g/dL (1.3-4.6) 01/13/25 18:51 Urine Color Yellow (Yellow) 01/13/25 18:53 Urine Appearance Clear (CLEAR) 01/13/25 18:53 Urine pH 7.5 (5-7) 01/13/25 18:53 Ur Specific [place] 1.008 (1.005-1.030) 01/13/25 18:53 Urine Protein Negative (Negative) 01/13/25 18:53 Urine Glucose (UA) Negative (Normal) 01/13/25 18:53 Urine Ketones Negative (Negative) 01/13/25 18:53 Urine Blood Negative (Negative) 01/13/25 18:53 Urine Nitrate Negative (Negative) 01/13/25 18:53 Urine Bilirubin Negative (Negative) 01/13/25 18:53 Urine Urobilinogen 0.2 mg/dL (Negative) 01/13/25 18:53 Ur Leukocyte Esterase Negative (Negative) 01/13/25 18:53 Urine RBC 0-2 /hpf (0-2) 01/13/25 18:53 Urine WBC 0-5 /hpf (0-5) 01/13/25 18:53 Ur Squamous Epith Cells 0-5 /hpf (0-5) 01/13/25 18:53 Amorphous Sediment Not Reportable 01/13/25 18:53 Urine Bacteria None seen /hpf (NONE) 01/13/25 18:53 Hyaline Casts 0-4 /lpf H 01/13/25 18:53 No radiology studies performed this visit Discharge Plan Discharge Patient Disposition: Discontinued Care Condition: Stable Prescriptions: No Action nitroglycerin 0.4 mg tablet, sublingual 0.4 mg sublingual Q5M PRN (Reason: chest pain) Qty: 25 3RF Rx Instructions: do not exceed 3 doses per episode amoxicillin-pot clavulanate 875-125 mg tablet 1 tab PO BID 14 Days Qty: 28 0RF (DME) Bone Growth Stimulator See Rx Instructions .Route .MEDSUPPLY Qty: 1 0RF Rx Instructions: As directed naloxone [Narcan] 4 mg/actuation spray,non-aerosol 4 mg intranasal Q2M PRN (Reason: opioid overdose) Qty: 2 0RF Rx Instructions: spray 1 dose into ONE nostril; alternate nostrils w each dose until help arrives oxycodone-acetaminophen 10-325 mg tablet 1 tab PO Q4H PRN (Reason: pain) 7 Days Qty: 42 0RF oxycodone-acetaminophen 10-325 mg tablet 1 tab PO Q4H 30 Days Qty: 180 0RF morphine [MS Contin] 15 mg tablet extended release 15 mg PO Q12H 30 Days Qty: 60 0RF tizanidine 4 mg tablet 4 mg PO BID Qty: 60 0RF gabapentin 600 mg tablet 600 mg PO BID 30 Days Qty: 60 0RF amlodipine 10 mg tablet 10 mg PO DAILY Qty: 30 4RF multivit with min-folic acid 80 mcg tablet,chewable 1 tab PO DAILY Qty: 90 0RF Referrals: Brenda Sharma FNP [Primary Care Provider, Family Practice] Print Language: Mosotho Coding Level of Care Code ED [employer] for [employer]
[2025-01-13 19:02] LABS: Basophils # 0.1 10^3/uL (0.0-0.1); Eosinophils # 0.2 10^3/uL (0.0-0.8); Eosinophils % 2.4 %; Hematocrit 39.3 % (37-53); Lymphocytes # 2.3 10^3/uL (0.8-4.8); Lymphocytes % 35.9 %; Mean Corpuscular HGB Conc 32.6 g/dL (30-55); Mean Corpuscular Hemoglobin 29.4 pg (27-33); Mean Corpuscular Volume 90.1 fl (82-101); Mean Platelet Volume 9.6 fL (7.4-10.4); Monocytes # 0.6 10^3/uL (0.2-0.9); Monocytes % 9.1 %; Neutrophils # 3.24 10^3/uL (1.8-7.7); Neutrophils % 51.4 %; Nucleated Red Blood Cells % 0 %; Platelet Count 281 10^3/cmm (157-399); Red Blood Count 4.36 10^6/uL (3.85-5.65); Red Cell Distribution Width 13.6 % (12.1-15.1); White Blood Count 6.29 10^3/uL (3.29-11.43)
[2025-01-13 19:03] LABS: Bilirubin Urine Negative (Negative); Blood Urine Negative (Negative); Glucose Urine UA Negative (Normal); Ketones Urine Negative (Negative); Leukocyte Esterase Urine Negative (Negative); Nitrate Urine Negative (Negative); Protein Urine Negative (Negative); Specific Gravity, Urine 1.008 (1.005-1.030); Urine Appearance Clear (CLEAR); Urine Color Yellow (Yellow); Urobilinogen Urine 0.2 mg/dL (Negative); pH Urine 7.5 (5-7)
[2025-01-13 19:06] LABS: Bacteria Urine None Seen /hpf; Hyaline Casts Urine 0-4 /lpf; RBC Urine 0-2 /hpf (0-2); Squamous Epithelial Cell Urine 0-5 /hpf (0-5); WBC Urine 0-5 /hpf (0-5)
[2025-01-13 19:11] LABS: Add Urine Culture? No
[2025-01-13 19:17] LABS: INR 0.85 (0.8-1.2)
[2025-01-13 19:18] LABS: Partial Thromboplastin Time 30.3 SECONDS (23.9-36.7)
[2025-01-13 19:24] LABS: Alanine Aminotransferase 29 U/L (0-41); Alkaline Phosphatase 91 U/L (40-130); Anion Gap 17.2 (5-19); Aspartate Amino Transferase 25 U/L (0-40); Blood Urea Nitrogen 11 mg/dL (6-20); Carbon Dioxide 23 mmol/L (22-29); Chloride 101 mmol/L (98-107); Creatinine Clr Calc Pharmacy 130.2105; Globulin 2.8 g/dL (1.3-4.6); Glomerular Filtration Rate 118.9 mL/min (90-130); Glucose 99 mg/dL (65-115); Osmolality Calculated 283 mOsm/kg (285-295); Potassium 4.2 mmol/L (3.5-5.1); Sodium 137 mmol/L (136-145); Total Bilirubin 0.3 mg/dL (0.15-1.2); Total Protein 6.8 g/dL (6.6-8.7)
== END 2025-01-13 19:01 ==
PROVIDERS: Emergency Provider Emergency Medicine; PCP Nurse Practitioner
DX: Z01.812 Encounter for preprocedural laboratory examination (principal); J44.9 Chronic obstructive pulmonary disease, unspecified; I10 Essential (primary) hypertension; I25.10 Atherosclerotic heart disease of native coronary artery without angina pectoris
CPT/HCPCS: 36415; 80053; 81001; 85025; 85610; 85730; 99284

== ENCOUNTER 2025-01-17 12:50 | Inpatient (IN) | payer OTHER, SELFPAY ==
[2025-01-17] VITALS (37 sets, daily range): BP systolic 105–152; BP diastolic 71–89; PULSE 78–118; RESP 12–27; TEMP 36.4–36.8; O2SAT 90–99; BMI 24.0; BMI 24.7
[2025-01-17] MEDS: sodium chloride 0.9% 1,000 ML 30 ML IV (06:10)
[2025-01-17] MEDS: VANCOMYCIN ADD-Vantage 1,000 MG in 0.9% NaCl ADD-Vantage 250 ML 250 MG IV ×2 (06:13→20:23)
--- NOTE | 2025-01-17 06:45 | P.ANESASSM_ITS ---
Pre-Anesthetic Assessment Height/Weight: Height 1.78 m Weight 76.204 kg Temp Pulse Resp BP Pulse Ox O2 Del Method 97.6 F 85 18 120/85 99 Room Air 01/17/25 05:59 01/17/25 05:59 01/17/25 05:59 01/17/25 05:59 01/17/25 05:59 01/17/25 06:07 Preop Diagnosis: Kyphotic instability of cervical thoracic junction Operation Date: 01/17/25 07:00 Proposed Procedures p Spinal Fusion PSF(Not Applicable) - Thomas Qureshi DO Familial anesthetic complications: None Was Beta Sravanthi taken within 24 hours: N/A Was Clonidine taken within 24 hours: N/A Last intake: Intake Last Liquid Date 01/16/25 Last Liquid Time 23:30 Last Solid Date 01/16/25 Last Solid Time 23:30 Social Tobacco and No alcohol Exam alert, oriented x 3, clear to auscultation bilaterally and regular rate & rhythm Airway Mallampati: Class II Dentition: full Comments: Comments: neck brace Pulmonary Chronic Obstructive Pulmonary Disease and Sleep Apnea CV/HEM Coronary Artery Disease and Hypertension Anesthetic Plan ASA status: 3 Anesthesia: General Risk of > 500 ml blood loss (7ml/kg in children): No Medications/Allergies Home Medications ?Medication ?Instructions ?Recorded ?Confirmed ?Last Taken ?Type nitroglycerin 0.4 mg sublingual 0.4 mg sublingual Q5M PRN chest 10/06/20 01/14/25 01/17/21 Rx tablet pain #25 tabs amlodipine 10 mg tablet 10 mg PO DAILY #30 tabs 05/10/3101/14/25 01/16/25 Rx Bone Growth Stimulator #1 ea 09/30/24 01/13/2510/09 Rx multivitamin with minerals-folic 1 tab PO DAILY #90 ta bs 10/28/24 01/14/25 01/16/25 Rx acid 80 mcg chewable tablet naloxone 4 mg/actuation nasal 4 mg intranasal Q2M PRN opioid 12/07/24 01/14/25 Unknown Rx spray (Narcan) overdose #2 ea oxycodone-acetaminophen 10 mg-325 1 tab PO Q4H PRN arun n 7 days #42 12/09/24 01/14/25 01/17/25 04:00 Rx mg tablet tabs morphine 15 mg tablet,extended 15 mg PO Q12H 30 days # 60 tabs 12/23/24 01/14/25 01/17/25 04:30 Rx release (MS Contin) gabapentin 600 mg tablet 600 mg PO BID 30 days #60 ta bs 01/04/25 01/14/25 01/16/25 Rx tizanidine 4 mg tablet 4 mg PO BID #60 tabs 5 01/14/25 01/16/25 Rx docusate sodium 50 mg capsule 50 mg PO DAILY 01/14/25 01/14/25 01/16/25 History (Stool Softener) Allergies Allergy/AdvReac Type Severity Reaction Status Date / Time No Known Allergies Allergy Verified 11/30/24 14:42 Current Medications Generic Name Dose Route Start Last Admin Trade Name Jinq PRN Reason Stop Dose Admin Vancomycin HCl 1,000 mg/ 250 mls @ 250 mls/hr 01/17/25 05:52 01/17/25 06:13 Sodium Chloride IV 01/17/25 06:51 250 mls/hr [employer] ONE Administration Protocol Sodium Chloride 1,000 mls @ 30 mls/hr 01/17/25 06:00 01/17/25 06:10 Sodium Chloride 0.9% IV 01/18/25 05:59 30 mls/hr .Q24H MARIANNE Administration PFSH Anesthesia Medical History Syncope Acute hypokalemia Acute kidney injury Acute hypotension PAYAM (obstructive sleep apnea) Lumbar stenosis with neurogenic claudication Lumbar disc disease with radiculopathy Coronary artery disease HTN (hypertension) Mitral valve prolapse Lung disease, restrictive Smoker COPD (chronic obstructive pulmonary disease) Surgical History H/O hernia repair H/O shoulder surgery History of surgery on upper extremity History of cholecystectomy H/O vasectomy History of testicular surgery Family History Other CAD (coronary artery disease) Diabetes Hyperlipidemia Hypertension Denies family history of Stroke Social History Smoking and tobacco/nicotine status: unknown if used tobacco/nicotine Alcohol intake: current Alcohol intake frequency: 3 or more drinks per day Alcohol type: beer Substance/Drug Use: never Lives independently: Yes Household members: spouse Marital status: service: No Current occupational status: unemployed Do you think of yourself as: Straight/Heterosexual Current gender identity: Male Data Anesthesia Cardiac Studies: Echocardiogram 12/30/22 Echocardiogram Ultrasound 04/03/20 Stress Echocardiogram 10/04/20
--- NOTE | 2025-01-17 06:56 | W.PM.OPSUD ---
Surgery/Procedure H&P Update DATE OF PROCEDURE: January 17, 2025 DATE H&P PERFORMED: 01/13/25 H&P UPDATE INFORMATION: I have reviewed H&P completed within last 30 days, I have examined patient prior to procedure and No changes to prior documentation PREOP DIAGNOSIS: Kyphotic instability of cervical thoracic junction PLANNED PROCEDURE: Operation Date: 01/17/25 07:00 Proposed Procedures p Spinal Fusion PSF(Not Applicable) - Thomas Qureshi DO
[2025-01-17] MEDS: VANCOMYCIN ADD-Vantage 1,000 MG VIAL 1000 MG XX ×2 (07:45→09:44)
[2025-01-17] MEDS: lidocaine-epi 1% 20 mL INJ INJECTION (07:45)
--- NOTE | 2025-01-17 10:20 | PM.OP ---
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 C6-T5 posterior spine fusion 2. C6-T5 instrumentation 3. Use of computer navigation/stereotactic for spine 4. Use of allograft for spine Surgeon: Thomas Qureshi DO Estimated blood loss (mL): 200 Procedure: 1. C6-T5 posterior spine fusion 2. C6-T5 instrumentation 3. Use of computer navigation/stereotactic for spine 4. Use of allograft for spine 5. Hardware removal of the spine Patient brought the op suite after undergoing anesthesia patient was placed in the prone position. All is in pressure well-padded. Patient's prepped draped real sterile fashion. Skin incision is made using the bottom half of the previous lesion extending down to the T5 level. Subperiosteal dissection was made from T5 up to the previous hardware which was at T2 T1 and C6 lateral mass screw. The left screw had broken. This was at the T2 level. The head was removed. And then the T2 screw on the right side was were removed. The fiducial for the computer navigation was attached to the T6 spinous process. C-arm was brought in spiral impression the information from the C arm was then loaded in the computer and this was used for placement of the pedicle screws. Pedicle screws were placed using the gearshift probe likely computer navigation. Followed by the pedicle feeler followed by placement of the screw under us computer navigation guidance. Screws were placed at T3 bilaterally, T4 bilaterally and T5 bilaterally. Next a zaria to zaria connector was attached onto the 4.0 zaria. Then the 5.5 zaria was placed into the T3-T5 screws and into the zaria to zaria connector. Next this was done bilaterally. Then a zaria 4 oh connector was attached to a 5 zaria at the see 6 junction. This was attached bilaterally. And then the extra zaria was then attached between T3 and T4 bilaterally. All the screws were then torqued into position. The transverse processes and lamina were then decorticated and ostial amp bone graft was placed. Vancomycin powder was placed deep drain was placed and wound was closed in a layered fashion using PDS suture and nylon suture. Sterile dressings were applied and patient was transferred to the PACU in stable condition.
[2025-01-17] MEDS: HYDROmorphone 1 mg/mL INJ 1ml 0.5 MG IVP ×3 (10:50→11:24)
--- NOTE | 2025-01-17 10:58 | PC.NURSE ---
1044 - per JONATHAN Valladares start pt with Dilaudid 0.5mg when giving pain medication
--- NOTE | 2025-01-17 11:47 | PC.NURSE ---
1145 - anesthesia notified of pts continued complaints of pain 05/20 at lower neck and shoulder blades - anesthesia at side
[2025-01-17] MEDS: acetaminophen 1,000 MG/100 ML PIGGYBACK 400 MG IV (12:17)
--- NOTE | 2025-01-17 12:39 | PC.NURSE ---
1240 - taken to room 253-2 via bed with Beckie at side as well as - BP 122/79 - pulse 91 - 93% - temp 97.6
[2025-01-17] MEDS: oxyCODONE-APAP 10-325 mg Tablet 1 TAB PO ×2 (13:19→17:52)
[2025-01-17] MEDS: ketorolac 30 mg/mL INJ IVP (13:21)
[2025-01-17] MEDS: lactated ringers 1,000 ML 90 ML IV ×2 (13:22→20:24)
--- NOTE | 2025-01-17 13:36 | ANE.PACU2 ---
Inpatient post-anesthesia follow up: Airway intact: Yes Vital signs: Temperature 97.6 F Pulse Rate 91 Respiratory Rate 17 Blood Pressure 122/79 Pulse Oximetry 93 Oxygen Delivery Me thod Room Air Oxygen Flow Rate Fraction of Inspir ed Oxygen Hydration adequate: Yes Nausea and vomiting: No Pain level: 7 Mental status: Baseline
--- NOTE | 2025-01-17 13:50 | XR_ITS ---
WS: [id number] C-ARM RADIOGRAPHS CERVICAL SPINE; 5 IMAGES HISTORY: or pic, cervical fusion COMPARISON: None available. Intraoperative imaging during cervical thoracic fusion. There is extensive fusion hardware extending from the upper cervical spine into the thoracic spine. Anterior and posterior fusion hardware in the cervical spine. XR/XR cervical spine 3V* [id number] IMPRESSION: Intraoperative imaging during cervical thoracic fusion.
[2025-01-17] MEDS: morphine ER (12 HR) 15 mg Tablet PO (15:10)
[2025-01-17] MEDS: morphine 4 mg/mL SDV 1 mL 2 MG IVP ×2 (16:45→19:13)
[2025-01-17] MEDS: tizanidine 4 mg Tablet PO (17:51)
[2025-01-17] MEDS: gabapentin 300 mg Capsule 600 MG PO (17:51)
[2025-01-17] MEDS: docusate sodium 100 mg Capsule PO (17:52)
--- NOTE | 2025-01-17 22:41 | PM.CONSULT ---
Providers/Reason For Consult Consulting Physician/Specialty*: Roseline García MD /Infectious DIsease Reason for Consult*: recent back infection Requesting Physician: Thomas Qureshi MD Attending Physician: Thomas Qureshi DO Primary Care Provider: KUNAL Graves History of Present Illness History of Present Illness August Schneider is a 49 year old male known to me from recent outpatient visits. Briefly, he has history of cervical spondylosis with history of anterior cervical fusion and instrumentation in 2022. More recently needed revision surgery for persisting pain in September 2024 which involved C2-T2 posterior spine fusion with decompression of the C6/7 level. He was admitted to the hospital on October 21, 2024 after presenting with worsening pain, opening of wound with purulent discharge after having taken a fall at home. Status post I&D in the OR on October 22, 2024 of the posterior neck wound which was 10 x 1 inch deep. Diaz purulence was encountered intraoperatively along with malodor. There was a breach in the fascia at the proximal end. Necrotic tissue was debrided. Free bone graft was removed. 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 He is s/p treatment with 6 weeks of IV cefepime vancomycin and oral metronidazole between 10/22-12/03. Thereafter he was transitioned to oral Augmentin 875mg BID and continued iv vancomycin for additonal 2 weeks due to 2 remaining areas of wound dehiscence between 12/03-12/15/24. His CRP trended down to normal at 7.7. wound had healed. Therefater he was more recently found to have a broken screw for which he is currently admitted. He is now s/p C6-T5 posterior spine fusion and hardware removal. He has had no recent fever, chills or other constituional symptoms. Review of Systems General: Reports: 10 or more systems reviewed and unremarkable except in HPI and below Const: Denies: fever(s), chills or body aches Eyes: Denies: change in vision, blurry vision or photophobia ENMT: Reports: hoarseness; Denies: throat pain, enlarged tonsils, odynophagia or nasal congestion Card: Denies: chest pain, palpitations, irregular heart rhythm, edema, swelling of feet/ankles, lightheadedness, pre-syncope, dyspnea on exertion or orthopnea Resp: Denies: dyspnea, productive cough, non-productive cough, wheezing, stridor, pain on inspiration, change in phlegm color, hemoptysis or chest congestion GI: Denies: abdominal pain, nausea, vomiting, hematemesis, coffee ground emesis, dysphagia, heartburn, diarrhea, constipation, GI cramping, change in stool character, hematochezia or melena : Denies: flank pain, dysuria, urinary frequency, urinary urgency, urinary hesitancy or hematuria Musc: Denies: neck pain, back pain, extremity pain, joint swelling, joint warmth or deformity Neuro: Denies: headache(s), numbness in extremities, weakness in extremities, sensory changes, difficulty walking, frequent falls, dizziness, vertigo, behavioral changes, Slurred speech present or seizure-like activity Psych: Denies: anxiety, depression, suicidal ideation or homicidal ideation Endo: Denies: polyuria, polydipsia, tired all the time, cold intolerance or hot flashes Dale/Lymph: Denies: easy bruising or easy bleeding Medications/Allergies Home Medications ?Medication ?Instructions ?Recorded ?Confirmed ?Last Taken ?Type nitroglycerin 0.4 mg sublingual 0.4 mg sublingual Q5M PRN chest 10/06/20 01/14/25 01/17/21 Rx tablet pain #25 tabs amlodipine 10 mg tablet 10 mg PO DAILY #30 tabs 12/31/22 01/14/25 01/16/25 Rx Bone Growth Stimulator #1 ea 09/30/24 01/18/25 10/21/24 Rx multivitamin with minerals-folic 1 tab PO DAILY #90 tabs 10/28/24 01/14/25 01/16/25 Rx acid 80 mcg chewable tablet naloxone 4 mg/actuation nasal 4 mg intranasal Q2M PRN opioid 12/07/24 01/14/25 Unknown Rx spray (Narcan) overdose #2 ea oxycodone-acetaminophen 10 mg-325 1 tab PO Q4H PRN pain 7 days #42 12/09/24 01/14/25 01/17/25 04:00 Rx mg tablet tabs morphine 15 mg tablet,extended 15 mg PO Q12H 30 days #60 tabs 12/23/24 01/14/25 01/17/25 04:30 Rx release (MS Contin) gabapentin 600 mg tablet 600 mg PO BID 30 days #60 tabs 01/04/25 01/14/25 01/16/25 Rx tizanidine 4 mg tablet 4 mg PO BID #60 tabs 01/04/25 01/14/25 01/16/25 Rx docusate sodium 50 mg capsule 50 mg PO DAILY 01/14/25 01/14/25 01/16/25 History (Stool Softener) Allergies Allergy/AdvReac Type Severity Reaction Status Date / Time No Known Allergies Allergy Verified 11/30/24 14:42 Current Medications Generic Name Dose Route Start Last Admin Trade Name Freq PRN Reason Stop Dose Admin Docusate Sodium 100 mg 01/17/25 18:00 01/17/25 17:52 Docusate Sodium 100 Mg Capsule PO 100 mg BID MARIANNE Administration Gabapentin 600 mg 01/17/25 18:00 01/17/25 17:51 Gabapentin 300 Mg Capsule PO 600 mg BID MARIANNE Administration Lactated Ringer's 1,000 mls @ 90 mls/hr 01/17/25 10:15 01/17/25 20:24 Lactated Ringers IV 90 mls/hr .[id number] MARIANNE Administration Vancomycin HCl 1,000 mg/ 250 mls @ 250 mls/hr 01/17/25 21:30 01/17/25 21:39 Sodium Chloride IV 01/18/25 10:29 Infused Q12H MARIANNE Infusion Protocol Ketorolac Tromethamine 30 mg 01/17/25 10:12 01/17/25 13:21 Ketorolac 30 Mg/Ml Inj IVP 30 mg Q6H PRN Administration BREAKTHROUGH PAIN Morphine Sulfate 2 mg 01/17/25 10:12 01/17/25 19:13 Morphine 4 Mg/Ml Sdv 1 Ml IVP 2 mg Q1H PRN Administration SEVERE PAIN Morphine Sulfate 15 mg 01/17/25 13:30 01/17/25 15:10 Morphine Er (12 Hr) 15 Mg Tablet PO 15 mg Q12H MARIANNE Administration Oxycodone/Acetaminophen 1 tab 01/17/25 10:16 01/17/25 17:52 Oxycodone-Apap 10-325 Mg Tablet PO 1 tab Q4H PRN Administration PAIN Tizanidine HCl 4 mg 01/17/25 18:00 01/17/25 17:51 Tizanidine 4 Mg Tablet PO 4 mg BID MARIANNE Administration PFSH Acute PFSH: Medical History Syncope Acute hypokalemia Acute kidney injury Acute hypotension PAYAM (obstructive sleep apnea) Lumbar stenosis with neurogenic claudication Lumbar disc disease with radiculopathy Coronary artery disease HTN (hypertension) Mitral valve prolapse Lung disease, restrictive Smoker COPD (chronic obstructive pulmonary disease) Surgical History H/O hernia repair H/O shoulder surgery History of surgery on upper extremity History of cholecystectomy H/O vasectomy History of testicular surgery Family History Other CAD (coronary artery disease) Diabetes Hyperlipidemia Hypertension Denies family history of Stroke Social History Smoking and tobacco/nicotine status: unknown if used tobacco/nicotine Alcohol intake: current Alcohol intake frequency: 3 or more drinks per day Alcohol type: beer Substance/Drug Use: never Lives independently: Yes Household members: spouse Marital status: service: No Current occupational status: unemployed Do you think of yourself as: Straight/Heterosexual Current gender identity: Male Vitals/I&O/Wt Last Vital Signs Temp 97.9 F 01/17/25 19:49 Pulse 78 01/17/25 19:49 Resp 17 01/17/25 19:49 BP 126/76 01/17/25 19:49 Pulse Ox 94 01/17/25 19:49 O2 Del Method Room Air 01/17/25 18:32 01/17/25 01/17/25 01/17/25 06:59 14:59 22:59 Intake Total 2100 / 2100 883 / 2983 Output Total 450 / 450 1125 / 1575 Balance 1650 / 1650 -242 / 1408 Weight last 48 hrs Weight 76.204 kg Weight 76.204 kg Physical Exam Narrative: General: No acute distress, AO x3 HEENT: PERRLA, pupils bilaterally equal and reactive, pallors not present Chest: Normal vesicular breath sounds, no added sounds, equal good air entry bilaterally CVS: S1-S2 regular, no murmurs, no tachycardia, no gallops, no rubs Abdomen: Soft, nontender, no organomegaly, bowel sounds present Neuro: No focal deficits, no facial deformity, AO x3, power 5/5 in all limbs Urinary Catheter Management: Ugarte: Cath Placed During This Visit: yes Reason for Continuing Indwelling Catheter: Required Immobilization for Trauma or Surgery or Anesthesia Urinary Catheter Date of Insertion: 01/17/25 Urinary Catheter Time of Insertion: 07:24 A&P Assessment and plan (1) Cervical spondylosis with radiculopathy: (2) Hardware complicating wound infection: Plan 49-year-old male with recent history as noted above who is presenting with planned procedure for broken screw. Currently remains asymptomatic from an ID standpoint Completed adequate course of abx as charted above Op note and per discussion with Dr. Qureshi, no gross signs of infection noted intraoperatively No indication for iv abx at this time Oral AUgmentin 875 mg BID at discharge, anticipate 10-14 days until incision heals. PDMP PDMP Reviewed: Not Reviewed Coding Level of Care Code Acute Code for Chg Fwd High MDM includes number and complexity of problems actively addressed during encounter, amount and/or complexity of data reviewed/ordered and described risk of complication, morbidity or mortality of management as documented Diagnoses Cervical spondylosis with radiculopathy M47.22 Hardware complicating wound infection T84.7XXA
[2025-01-18] VITALS (15 sets, daily range): BP systolic 100–121; BP diastolic 54–75; PULSE 68–92; RESP 16–18; TEMP 36.6–36.9; O2SAT 94–98
[2025-01-18] MEDS: morphine ER (12 HR) 15 mg Tablet PO ×2 (00:35→13:53)
[2025-01-18] MEDS: ketorolac 30 mg/mL INJ IVP ×3 (00:43→12:54)
[2025-01-18] MEDS: morphine 4 mg/mL SDV 1 mL 2 MG IVP (03:12)
[2025-01-18] MEDS: morphine 4 mg/mL SDV 1 mL IVP ×3 (04:17→18:32)
[2025-01-18] MEDS: lactated ringers 1,000 ML 90 ML IV (05:22)
[2025-01-18] MEDS: oxyCODONE-APAP 10-325 mg Tablet 1 TAB PO ×4 (05:35→21:44)
--- NOTE | 2025-01-18 08:10 | P.PN_ITS ---
Subjective Subjective: Patient is just sitting up now for the first time to eat breakfast. In severe pain. Vitals/I&O/Wt Last Vital Signs Temp 98.0 F 01/18/25 07:36 Pulse 92 01/18/25 07:36 Resp 17 01/18/25 07:36 BP 121/73 01/18/25 07:36 Pulse Ox 98 01/18/25 07:36 O2 Del Method Room Air 01/18/25 07:36 01/17/25 01/18/25 01/18/25 22:59 06:59 14:59 Intake Total 884 / 2984 1287 / 4271 Output Total 1125 / 1575 1100 / 2675 Balance -241 / 1409 187 / 1596 Weight last 48 hrs Weight 165 lb Weight 168 lb Weight 168 lb Physical Exam Narrative: Patient is sitting up complaining of severe pain in his neck. Otherwise neur ovascular intact Urinary Catheter Management: Ugarte: Cath Placed During This Visit: yes Reason for Continuing Indwelling Catheter: Required Immobilization for Trauma or Surgery or Anesthesia Urinary Catheter Date of Insertion: 01/17/25 Urinary Catheter Time of Insertion: 07:24 A&P Assessment and plan (1) Status post cervical spinal fusion: Up with physical therapy Pain control Will keep drain in 1 more day DC fluids PDMP PDMP Reviewed: Not Reviewed Attestations Medical Necessity Statement*: Pain control Coding Level of Care Code Acute Code for Chg Fwd Diagnoses Status post cervical spinal fusion Z98.1
[2025-01-18] MEDS: tizanidine 4 mg Tablet PO ×2 (08:18→17:00)
[2025-01-18] MEDS: docusate sodium 100 mg Capsule PO ×2 (08:18→17:00)
[2025-01-18] MEDS: gabapentin 300 mg Capsule 600 MG PO ×2 (08:18→17:00)
[2025-01-18] MEDS: amlodipine 10 mg Tablet PO (08:19)
[2025-01-18] MEDS: VANCOMYCIN ADD-Vantage 1,000 MG in 0.9% NaCl ADD-Vantage 250 ML 250 MG IV (09:25)
--- NOTE | 2025-01-18 10:27 | PC.CHAP ---
Pastoral Care Encounter/Spiritual Assessment Type of Contact [] Declined educational paraprofessional visit [] Patient/Family/Request visit [] Outpatient visit [] Follow-up visit [] Physician referral [] Code/Alert [x] Routine visit [] Staff referral [] Actively dying [] Patient sleeping [] Family support [] [] Out of room [] Palliative care [] [] Receiving care in room [] Pre-surgical visit [] Trauma [] Long length of stay [] ICU visit [] Other: Relational/Emotional Strength [x] Patient feels connected with others/family/visitors/staff [] Distress [] Loneliness/isolation [] Abandonment Spirituality of Patient [x] Person of Latha [] Attends Scientologist of their Latha [x] Believes in Prayer [] Reads Bible or Congregational materials [] There are Spiritual issues to be addressed T[employer] Car Attendant Interventions [x] Prayer [x] Active listening [] Non-anxious presence [x] Spiritual/emotional support [] Crisis/trauma care [] Spiritual counseling [] Bereavement support [] Provided bereavement packet [] Provided Bible/devotional materials [] Provided toy/stuffed animal, coloring book to patient or family member [] Provided Communion [] Anointing/[place] [] Salvation [x] Completed spiritual assessment [] Other: Impact on Illness or Injury [] Angry [] Fearful [] Anxious [] Often cries [] Exhaustion [] Unable to work [] Unable to attend baptism [] Unable to walk/stand [] Unable to read [] Unable to drive [] Unable to eat/drink [] Unable to sleep [] Unable to be with family [] Patient intubated [] Other: Summary Time spent with patient 5 min
[2025-01-18] MEDS: acetaminophen 325 mg Tablet 650 MG PO (12:53)
--- NOTE | 2025-01-18 20:28 | PC.NURSE ---
Morphine: Friday at 1900 shift change day shift nurse Beckie, ERNESTO advised physician underwriter that she spoke to Dr. Qureshi and received an order to increase his Morphine from 2mg IV Q1H to 4mg IV Q1H. The increased dose order was placed but the 2mg order was never discontinued. Diamond Cleaner discontinued the 2mg order this evening so there was no confusion when pulling the medication from the pyxis.
[2025-01-19] VITALS (8 sets, daily range): BP systolic 96–117; BP diastolic 55–72; PULSE 70–95; RESP 16–80; TEMP 36.8–37.1; O2SAT 92–95
[2025-01-19] MEDS: morphine ER (12 HR) 15 mg Tablet PO ×2 (02:05→13:15)
[2025-01-19] MEDS: oxyCODONE-APAP 10-325 mg Tablet 1 TAB PO ×2 (05:10→09:11)
[2025-01-19] MEDS: morphine 4 mg/mL SDV 1 mL IVP (05:16)
[2025-01-19] MEDS: amlodipine 10 mg Tablet PO (09:11)
[2025-01-19] MEDS: gabapentin 300 mg Capsule 600 MG PO (09:11)
[2025-01-19] MEDS: docusate sodium 100 mg Capsule PO ×2 (09:11)
[2025-01-19] MEDS: tizanidine 4 mg Tablet PO (09:11)
[2025-01-19] MEDS: multivitamin therapeutic Tablet 1 TAB PO (09:11)
--- NOTE | 2025-01-19 12:06 | PM.DCS ---
Discharge Providers Date of Admission: 01/17/25 12:50 Date of Discharge: January 19, 2025 Attending Provider at Admission: Thomas Qureshi DO Attending Provider at Discharge: Thomas Qureshi DO Primary Care Provider: KUNAL Graves Diagnoses at Discharge Discharge Diagnosis (1) Cervical spondylosis with radiculopathy: Status: Resolved (2) Hardware complicating wound infection: Status: Acute Reason for Visit Reason for Visit: M43.14 Physical Exam Narrative: Patient still complaining of pain but more manageable. Urinary Catheter Management: Ugarte: Cath Placed During This Visit: yes Reason for Continuing Indwelling Catheter: Required Immobilization for Trauma or Surgery or Anesthesia Urinary Catheter Date of Insertion: 01/17/25 Urinary Catheter Time of Insertion: 07:24 Discharge Data Studies Completed and Pending Completed Studies During Hospitalization Category Date Time Status XR cervical spine 3V* [id number] Routine Exams 01/17/25 13:50 Completed Radiology Impressions Cervical Spine X-Ray 01/17/25 13:50 IMPRESSION: Intraoperative imaging during cervical thoracic fusion. Vitals Last Vital Signs Temp 98.4 F 01/19/25 11:36 Pulse 82 01/19/25 11:36 Resp 16 01/19/25 11:36 BP 96/55 01/19/25 11:36 Pulse Ox 92 01/19/25 11:36 O2 Del Method Room Air 01/19/25 11:36 Discharge Plan Discharge Patient Disposition: Home Condition: Stable Prescriptions: New amoxicillin-pot clavulanate 875-125 mg tablet 1 tab PO BID 14 Days Qty: 28 0RF morphine [MS Contin] 15 mg tablet extended release 15 mg PO Q12H 30 Days Qty: 60 0RF oxycodone 10 mg tablet 10 mg PO Q4H PRN (Reason: pain) 30 Days Qty: 180 0RF Continued nitroglycerin 0.4 mg tablet, sublingual 0.4 mg sublingual Q5M PRN (Reason: chest pain) Qty: 25 3RF Rx Instructions: do not exceed 3 doses per episode (DME) Bone Growth Stimulator See Rx Instructions .Route .MEDSUPPLY Qty: 1 0RF Rx Instructions: As directed naloxone [Narcan] 4 mg/actuation spray,non-aerosol 4 mg intranasal Q2M PRN (Reason: opioid overdose) Qty: 2 0RF Rx Instructions: spray 1 dose into ONE nostril; alternate nostrils w each dose until help arrives tizanidine 4 mg tablet 4 mg PO BID Qty: 60 0RF gabapentin 600 mg tablet 600 mg PO BID 30 Days Qty: 60 0RF Stool Softener 50 mg Capsule 50 mg PO DAILY amlodipine 10 mg tablet 10 mg PO DAILY Qty: 30 4RF multivit with min-folic acid 80 mcg tablet,chewable 1 tab PO DAILY Qty: 90 0RF Discontinued oxycodone-acetaminophen 10-325 mg tablet 1 tab PO Q4H PRN (Reason: pain) 7 Days Qty: 42 0RF morphine [MS Contin] 15 mg tablet extended release 15 mg PO Q12H 30 Days Qty: 60 0RF Discharge Orders: Discharge Order (Routine); Ordered 01/19/25 Ordered By: Thomas Qureshi Discharge Diet: Advance as tolerated Discharge Activity: Limit activity as instructed Patient Instructions: Acute Wound Care (DC), Opioid Safety, Post Anesthesia Care Activity Restrictions/Additional Instructions: Thank you for choosing [facility] for your care! The following is a list of instructions, from your provider, to follow upon your discharge to ensure you have the optimal recovery from your recent injury or surgery. Anterior Cervical Discectomy and Fusion: What to Expect at Home Your Recovery Follow-up care is a schmid part of your treatment and safety. Be sure to make and go to all appointments, and call your doctor if you are having problems. If you do not already have a follow-up appointment made, call office in the next 1-3 days to make follow up appointment for 2 weeks at [phone]. It is also a good idea to know your test results and keep a list of the medicines you take. You can expect your neck to feel stiff or sore after surgery. This should improve in the weeks after surgery. But it may take 4 to 6 months for you to get better completely. You may have trouble sitting or standing in one position for very long and may need pain medicine in the weeks after your surgery. It may take 4 to 6 weeks to get back to your usual activities, but it may depend on what kind of surgery you had. Your throat will feel sore and it may be difficult to swallow for the first 3 days after your surgery. As long as you can get liquids down without difficulty, this should slowly improve, otherwise call our office or seek medical attention if it becomes increasingly difficult to get anything down including liquids. Avoid hot liquids for first 3-5 days. Soothing foods/liquids such as jello, pudding, and luke warm soups are recommended until swallowing improves. Staying elevated will also help, it's advised you keep propped up at while sleeping to help reduce the swelling. You may use an ice pack directly on your incision or around it on the front of your neck, using a cloth to protect your skin; and a heating pad to the back of your neck as needed. Do not use over the counter anti-inflammatory medications (Ibuprofen, Motrin, Aleve, Advil, etc) Taking these meds after having a fusion can delay fusion rates, we recommend you avoid them for the first 3 months after your surgery[address] Dr. Qureshi may advise you to work with a physical therapist to strengthen the muscles around your neck and back - this will be discussed at your follow - up appointments. The pain or numbness you were having in your arms before surgery should get better or go away completely. This care sheet gives you a general idea about how long it will take for you to recover. But each person recovers at a different pace. Follow the steps below to get better as quickly as possible. How can you care for yourself at home? Activity ? Rest when you feel tired. Getting enough sleep will help you recover. ? Try to walk each day. Start by walking a little more than you did the day before. Bit by bit, increase the amount you walk. Walking boosts blood flow and helps prevent pneumonia and constipation. Walking may also decrease your muscle soreness after surgery. ? No lifting anything that is more that 5 pounds. This may include heavy grocery bags and milk containers, a heavy briefcase or backpack, cat litter or dog food bags, a child, or a vacuum catch basin cleaner. ? Avoid strenuous activities, such as bicycle riding, jogging, weightlifting, or aerobic exercise, until your doctor says it is okay. ? Do not drive until your follow-up visit after your surgery, or until your doctor says it isokay. ? Avoid taking long car trips for 2 to 4 weeks after surgery. Your neck may become tired and painful from sitting too long in one position. ? You will probably need to take 4 to 6 weeks off from work. It depends on the type of work you do and how you feel. ? You may have sex as soon as you feel able, but avoid positions that put stress on your neck or cause pain. Diet ? You can eat your normal diet. If your stomach is upset, try bland, low-fat foods like plain rice, broiled chicken, toast, and yogurt ? Drink plenty of fluids. If you have kidney, heart, or liver disease and have to limit fluids, talk with your doctor before you increase the amount of fluids you drink. ? You may notice that your bowel movements are not regular right after your surgery. This is common. Try to avoid constipation and straining with bowel movements. You may want to take a fiber supplement every day. If you have not had a bowel movement after a couple of days, ask your doctor about taking a mild laxative. Medicines ? Take pain medicines exactly as directed. 1. If Dr. Qureshi gave you a prescription medicine for pain, take lt as prescribed. 2. Do not take two or more pain medicines at the same time unless the doctor told you to. Many pain medicines have acetaminophen, which is Tylenol. Too much acetaminophen {Tylenol) can be harmful. 3. If you think your pain pill is making you sick to your stomach: 4. Take your pills after meals (unless your doctor has told you not to). 5. Ask your Dr. for a different pain pill. Incisioncare ? Remove your dressing 48hours after your surgery. Ok to shower and get the incision wet. Do not overtly wash your incision. When done, pad dry, leave open to air thereafter. Avoid creams and ointments directly on your incision. ? Your sutures in the incision will dissolve and fall out on their own. ? Keep the area clean and dry. You may cover it with a gauze bandage if it weeps or rubs against clothing; if you choose to do this, change the dressing everyday. Other instructions ? Use a heating pad, hot water bottle, or gentle massage on your back to reduce stiffness. Avoid putting heat on your incision When should you call for help? ? Call 911 anytime you think you may need emergency care. For example, call if: ? You pass out (lose consciousness). ? You have sudden chest pain and shortness of breath, or you cough upblood. ? You cannot swallow. ? You have severe pain in your neck or back. ? Call your Dr. or seek immediate medical care if: ? You have pain that does not get better after you take pain pills. ? You have loose stitches, or your incision comes open. ? You have blood or fluid draining from the incision. ? You have signs of infection, such as: 1. Increased pain, swelling, warmth, or redness. 2. Red streaks leading from the site. 3. Pus draining from the site. 4. Swollen lymph nodes in your neck or armpits. 5. A fever. ? You have severe pain in your arms. ? You have new or increased weakness or numbness in your arms. ? Watch closely for any changes in your health, and be sure to contact your doctor if: ? You do not have a bowel movement after taking a laxative. Discharge Attestations Time Spent in Discharge Care*: less than 30 min Quality Metrics Clinical Quality Measures [ No reported AMI, CVA or VTE this stay] Coding Level of Care Code Acute Code for Chg Fwd Diagnoses Cervical spondylosis with radiculopathy M47.22 Hardware complicating wound infection T84.7XXA
== END 2025-01-19 13:58 | disposition home or self-care (01) | DRG 448 ==
LOC: MEDSURG 12:50
PROVIDERS: Admitting Provider Orthopaedic Surgery; PCP Nurse Practitioner; Visit Provider Orthopaedic Surgery
PROC: 0RG Upper Joints, Fusion (ICD-10-PCS; principal; 2025-01-17 07:00)
DX: T84.7XXA Infection and inflammatory reaction due to other internal orthopedic prosthetic devices, implants and grafts, initial encounter (principal); M53.2X2 Spinal instabilities, cervical region; M40.292 Other kyphosis, cervical region; Z79.899 Other long term (current) drug therapy; M47.22 Other spondylosis with radiculopathy, cervical region
CPT/HCPCS: 51702; 72040; 76000; 97116; 97162; C1713; C9359; J0131; J0330; J1100; J1171; J1885; J2250; J2270; J2371; J2405; J2704; J3010; J3370; J3490; J7030; J7050; J7120; J9999

== ENCOUNTER → 2025-02-15 08:09 | Outpatient (BNVA) | payer OTHER, SELFPAY | PROVIDERS: PCP Nurse Practitioner; Visit Provider Orthopaedic Surgery | DX: Z98.890 Other specified postprocedural states (principal) | CPT/HCPCS: 72040 ==

== ENCOUNTER → 2025-03-01 15:51 | Outpatient (BNVA) | payer OTHER, SELFPAY | PROVIDERS: PCP Nurse Practitioner; Visit Provider Orthopaedic Surgery | DX: M54.9 Dorsalgia, unspecified (principal); T84.216A Breakdown (mechanical) of internal fixation device of vertebrae, initial encounter; Z01.818 Encounter for other preprocedural examination; Z98.1 Arthrodesis status | CPT/HCPCS: 36415; 72040; 72072; 80053; 81001; 85025 ==

== ENCOUNTER 2025-03-02 10:37 | Day surgery (SDC) | payer OTHER, SELFPAY ==
[2025-03-02] VITALS (14 sets, daily range): BP systolic 122–148; BP diastolic 70–95; PULSE 72–92; RESP 16–18; TEMP 36.3–36.6; O2SAT 95–100; BMI 25.8
--- NOTE | 2025-03-02 12:26 | ANES.PREANE2 ---
Pre-Anesthetic Assessment Height/Weight: Height 1.75 m Weight 79.379 kg Temp Pulse Resp BP Pulse Ox O2 Del Method 97.7 F 92 16 135/92 98 Room Air 03/02/25 11:11 03/02/25 11:11 03/02/25 11:11 03/02/25 11:11 03/02/25 11:11 03/02/25 11:11 Operation Date: 03/02/25 12:30 Proposed Procedures p Hardware Removal Cervical/ cervical screw removal(Not Applicable) - Thomas Qureshi, DO Familial anesthetic complications: none Was Beta Sravanthi taken within 24 hours: N/A Was Clonidine taken within 24 hours: N/A Last intake: Intake Last Liquid Date 03/01/25 Last Liquid Time 22:30 Last Solid Date 03/01/25 Last Solid Time 22:35 Social Tobacco and No alcohol Exam alert, oriented x 3, clear to auscultation bilaterally and regular rate & rhythm Airway Dentition: full Comments: Comments: Patient is in neck immobilizer Pulmonary Chronic Obstructive Pulmonary Disease and Sleep Apnea CV/HEM Coronary Artery Disease Anesthetic Plan ASA status: 3 Anesthesia: General Risk of > 500 ml blood loss (7ml/kg in children): No Medications/Allergies Home Medications ?Medication ?Instructions ?Recorded ?Confirmed ?Last Taken ?Type nitroglycerin 0.4 mg sublingual 0.4 mg sublingual Q5M PRN chest 10/06/20 03/02/25 01/17/21 Rx tablet pain #25 tabs Bone Growth Stimulator #1 ea 09/30/24 03/01/25 10/21/24 Rx multivitamin with minerals-folic 1 tab PO DAILY #90 tabs 10/28/24 03/02/25 03/02/25 Rx acid 80 mcg chewable tablet naloxone 4 mg/actuation nasal 4 mg intranasal Q2M PRN opioid 12/07/24 03/02/25 Unknown Rx spray (Narcan) overdose #2 ea docusate sodium 50 mg capsule 50 mg PO DAILY 01/14/25 03/02/25 03/02/25 History (Stool Softener) gabapentin 600 mg tablet 600 mg PO BID 30 days #60 tabs 02/03/25 03/02/25 03/01/25 Rx tizanidine 4 mg tablet 4 mg PO BID #60 tabs 02/03/25 03/02/25 03/02/25 Rx morphine 15 mg tablet,extended 15 mg PO BID 03/02/25 03/02/25 03/02/25 History release oxycodone 10 mg tablet 10 mg PO 6XD 03/02/25 03/02/25 03/02/25 History Allergies Allergy/AdvReac Type Severity Reaction Status Date / Time No Known Allergies Allergy Verified 02/15/25 08:21 Current Medications Generic Name Dose Route Start Last Admin Trade Name Van PRN Reason Stop Dose Admin Sodium Chloride 1,000 mls @ 30 mls/hr 03/02/25 11:00 03/02/25 11:52 Sodium Chloride 0.9% IV 03/03/25 10:59 30 mls/hr .Q24H MARIANNE Administration PFSH Anesthesia Medical History Syncope Acute hypokalemia Acute kidney injury Acute hypotension PAYAM (obstructive sleep apnea) Lumbar stenosis with neurogenic claudication Lumbar disc disease with radiculopathy Coronary artery disease HTN (hypertension) Mitral valve prolapse Lung disease, restrictive Smoker COPD (chronic obstructive pulmonary disease) Surgical History H/O hernia repair H/O shoulder surgery History of surgery on upper extremity History of cholecystectomy H/O vasectomy History of testicular surgery Family History Other CAD (coronary artery disease) Diabetes Hyperlipidemia Hypertension Denies family history of Stroke Social History Smoking and tobacco/nicotine status: current some day tobacco/nicotine user cigarettes Packs smoked per day: 0.5 Years cigarettes smoked: 30 [ Other cigarette details: Started at age 17] Alcohol intake: current Alcohol intake frequency: 3 or more drinks per day Alcohol type: beer Substance/Drug Use: never Lives independently: Yes Household members: spouse Marital status: service: No Current occupational status: unemployed Do you think of yourself as: Straight/Heterosexual Current gender identity: Male Data Anesthesia Cardiac Studies: Echocardiogram 12/30/22 Echocardiogram Ultrasound 04/03/20 Stress Echocardiogram 10/04/20
[2025-03-02] MEDS: fentaNYL 50 mcg/mL INJ 2mL IVP ×3 (12:30→14:40)
--- NOTE | 2025-03-02 12:30 | W.PM.OPSUD ---
Surgery/Procedure H&P Update DATE OF PROCEDURE: March 02, 2025 DATE H&P PERFORMED: 03/01/25 H&P UPDATE INFORMATION: I have reviewed H&P completed within last 30 days, I have examined patient prior to procedure and No changes to prior documentation PLANNED PROCEDURE: Operation Date: 03/02/25 12:30 Proposed Procedures p Hardware Removal Cervical/ cervical screw removal(Not Applicable) - Thomas Qureshi DO
[2025-03-02] MEDS: ceFAZolin 2,000 mg SDV 2000 MG IVP (13:00)
[2025-03-02] MEDS: lidocaine-epi 1% 20 mL INJ 10 ML INJECTION (13:38)
--- NOTE | 2025-03-02 14:26 | PM.OP ---
Operative Report Date of procedure: March 02, 2025 Pre-op diagnosis: Loose screw in cervical spine Post-op diagnosis: same Procedure done: Removal of deep hardware from cervical spine anteriorly Surgeon: Thomas Qureshi DO Estimated blood loss (mL): 5 Procedure: Removal of deep hardware from cervical spine anteriorly Patient was brought to the operative suite after undergoing anesthesia was placed in the supine position. All areas of impingement were well-padded. Patient's prepped and draped normal sterile fashion. Skin incision made using the previous skin incision. The latissimus was scarred and then was identified and using Metzenbaums scissors was unroofed from the strap muscles from the scarring. Strap muscles were then dissected through using again Metzenbaums scissors and blunt dissection. The plate was identified. This was followed down. The esophagus was draped and scarred down over where the screw was. This was freed up using Metzenbaums and blunt dissection. Screw was identified and then screw was removed. Wound was then irrigated and closed in layered fashion starting with the platysmas using 0 Vicryl and the skin with 2-0 Vicryl and Monocryl suture. Sterile dressings were applied and patient was transported to the PACU in stable condition.
--- NOTE | 2025-03-02 15:12 | XR_ITS ---
WS: [id number] C-arm fluoroscopy for screw removal of anterior cervical disc fusion, 03/02/2025 Clinical Data: SCREW REMOVAL, OR PIC Comparison: CR fluoroscopy views, 01/17/2025 Findings: Dr. Qureshi removed several anterior cervical disc fusion screws XR/XR cervical spine [id number] Impression: Removal of anterior cervical disc fusion screws.
[2025-03-02] MEDS: oxyCODONE 5 mg IR Tab/Cap 10 MG PO (15:17)
--- NOTE | 2025-03-02 16:25 | ANE.PACU2 ---
Inpatient post-anesthesia follow up: Airway intact: Yes Vital signs: Temperature 98 F Pulse Rate 80 Respiratory Rate 17 Blood Pressure 132/70 Pulse Oximetry 97 Oxygen Delivery Me thod Room Air Oxygen Flow Rate Fraction of Inspir ed Oxygen Hydration adequate: Yes Nausea and vomiting: No Pain level: 1 Mental status: Baseline
== END 2025-03-02 16:25 | disposition home or self-care (01) ==
PROVIDERS: PCP Nurse Practitioner; Visit Provider Orthopaedic Surgery
DX: T84.296A Other mechanical complication of internal fixation device of vertebrae, initial encounter (principal); Z48.89 Encounter for other specified surgical aftercare; J44.9 Chronic obstructive pulmonary disease, unspecified; G47.33 Obstructive sleep apnea (adult) (pediatric); I95.89 Other hypotension; I10 Essential (primary) hypertension; I25.10 Atherosclerotic heart disease of native coronary artery without angina pectoris; F17.210 Nicotine dependence, cigarettes, uncomplicated
CPT/HCPCS: 72020; 76000; J0330; J0690; J1100; J2250; J2405; J2704; J3010; J3490; J7030; J9999

== ENCOUNTER → 2025-04-26 08:08 | Outpatient (BNVA) | payer OTHER, SELFPAY | PROVIDERS: PCP Nurse Practitioner; Visit Provider Orthopaedic Surgery | DX: Z98.890 Other specified postprocedural states (principal); Z98.1 Arthrodesis status | CPT/HCPCS: 72040 ==

== ENCOUNTER → 2025-06-21 08:34 | Outpatient (BNVA) | payer OTHER, SELFPAY | PROVIDERS: PCP Nurse Practitioner; Visit Provider Orthopaedic Surgery | DX: Z47.89 Encounter for other orthopedic aftercare (principal); Z98.1 Arthrodesis status | CPT/HCPCS: 72040; 72072; 72100 ==

== ENCOUNTER 2025-07-04 16:05 | Outpatient (RCR) | payer OTHER, SELFPAY | END 2025-07-10 23:59 | disposition home or self-care (01) | LOC: GPT 16:05 | PROVIDERS: PCP Nurse Practitioner; Visit Provider Orthopaedic Surgery | DX: M54.2 Cervicalgia (principal); M54.6 Pain in thoracic spine; M54.59 Other low back pain; M25.511 Pain in right shoulder | CPT/HCPCS: 97110; 97112; 97140; 97163 ==

== ENCOUNTER 2025-08-09 13:04 | Outpatient (RCR) | payer OTHER, SELFPAY | END 2025-08-10 23:59 | disposition home or self-care (01) | LOC: GPT 13:04 | PROVIDERS: PCP Nurse Practitioner; Visit Provider Orthopaedic Surgery | DX: M54.2 Cervicalgia (principal); M54.6 Pain in thoracic spine; M54.59 Other low back pain; M25.511 Pain in right shoulder | CPT/HCPCS: 97110; 97112; 97140 ==